=== PATIENT | female | born 1995 | race Caucasian/White ===

== ENCOUNTER → 2021-08-09 | Outpatient (CLI) | payer BC, OTHER, MEDICAID ==
[~2021-08-09] MED LIST: ACET-907 PO; IBUP80TA PO; PRENTAB9 PO; [UNRECOGNIZED DRUG - CODE] PO
--- NOTE | 2021-08-09 13:24 | REP ---
INDICATION: GROWTH GESTATIONAL DIABETES. COMPARISON: None. TECHNIQUE: Real-time sonographic evaluation of the gravid uterus performed. FINDINGS: Estimated gestational age is32 weeks 4 days, EDC 09/30/2021. Today's measurements indicate appropriate growth. Presentation: Cephalic Placenta anterior, grade 1, without evidence of placenta previa. heart rate is recorded at 152 beats per minute. Amniotic fluid is subjectively normal. RAY 16.9, normal 8.4-24.4 SD ratio umbilical artery 2.61, normal 1.81-3.81. RI 0.62, normal 0.49-0.74. Closed cervical length is measured at 3.8 cm. Biometry chart: BPD: 85 mm, 34 weeks 2 days, 74th percentile. HC: 303 mm, 33 weeks 5 days, 67th percentile AC: 309 mm, 34 weeks 6 days, 84th percentile Femur length: 63 mm, 32 weeks 4 days, 51st percentile HC to AC ratio: 0.98, normal range 0.95-1.14. Estimated weight: 2339g, 84th percentile. IMPRESSION: Viable single intrauterine gestation as above. <Electronically signed by Jesus Alberto Kendall > 08/09/21 0983
== END ==
LOC: M WHC 11:24
PROVIDERS: ATTEND Obstetrics & Gynecology
DX: O24.419 Gestational diabetes mellitus in pregnancy, unspecified control (principal)

== ENCOUNTER → 2021-08-09 | Outpatient (CLI) | payer BC | LOC: M PLALAB 09:16 | PROVIDERS: ATTEND Advanced Practice Midwife | DX: Z34.93 Encounter for supervision of normal pregnancy, unspecified, third trimester (principal); Z3A.32 32 weeks gestation of pregnancy ==

== ENCOUNTER 2021-08-24 19:13 | Inpatient (IN) | payer BC, OTHER, MEDICAID ==
[~2021-08-24] VITALS: Ht 160 cm; Wt 152.6 kg
[2021-08-24 19:33] VITALS: BP 112/49
[2021-08-24] MEDS ORDERED: OXYTOCIN INJ 10 UNITS/ML VIAL (J2590) IM PRN (19:55)
[2021-08-24] MEDS ORDERED: LIDOCAINE 1% MDV 20ML VIAL INFIL PRN (19:55)
[2021-08-24] MEDS ORDERED: diphenhydrAMINE 50MG CAP PO PRN (19:55)
[2021-08-24] MEDS ORDERED: OXYTOCIN DRIP 30 UNITS in IV 1 EA IV PRN (19:55)
[2021-08-24] MEDS ORDERED: PENICILLIN G POTASSIUM IV 5 MU in D5W MINI-BAG PLUS 100 ML IV STA (19:55)
[2021-08-24] MEDS ORDERED: LACTATED RINGER'S 1000 ML IV STA (19:55)
[2021-08-24] MEDS ORDERED: CARBOPROST TROMETHAMINE 250 MCG/ML AMP IM PRN (19:55)
[2021-08-24] MEDS ORDERED: ONDANSETRON 4MG/2ML VIAL IV PRN (19:55)
[2021-08-24] MEDS ORDERED: TRANEXAMIC ACID INJection 1,000 MG in NS 100 ML IV PRN (19:55)
[2021-08-24] MEDS ORDERED: METHYLERGONOVINE MALEATE 0.2 MG/ML VIAL (J2210) IM PRN (19:55)
--- OUTSIDE RECORDS SUMMARY | 2021-08-24 20:21 | CCD | Continuity of Care Document ---
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, [employer] Organization Unknown Address Unknown Phone Unavailable Care Team Providers Care Loader Demolder Name Role Phone Juan José Marquez MD Unavailable Problems No Problem Information Available Allergies and Adverse Reactions No Allergy Information Available Medications No Medication Information Available Social History No Social History Information Available Tobacco smoking consumption unknown Female Plan of Treatment Medical; ECHO - 26 wks Dx:obesity Start: 23-Aug-2021 Appointment Request Pediatric Cardiology [facility] 15:00 ECHO, Results No Known Results No Result Information Available Vital Signs No Vital Observation Information Available Payers [place] Group Number: NONE [address] [address] [place] [address] [place] tel: [place] Group [place]: N[place] [address] [address] [place] [address] [place] tel: Harleen Parker [phone] [facility] [id number] tel:
--- OUTSIDE RECORDS SUMMARY | 2021-08-24 20:21 | CCD ---
Author Author [facility] Organization [facility] Address Unknown Phone Unavailable Care Team Providers Care Help Desk Consultant Name Role Phone Kat Dasilva Unavailable PROBLEMS Type Condition ICD9-CM Code [id number] Code Onset Dates Condition S tatus W/U Status Risk SNOMED Code Notes Problem Obesity during third trimester, antepartum O99.213 Active confirmed 112719784 Problem Obesity complicating in third trimester O99.213 Active confirmed Problem Supervision of other normal Z34.80 Ac tive confirm [id number] ALLERGIES No Known Allergies ENCOUNTERS from 1995 to 2021-08-11 Encounter Location Date Provider Diagnosis [facility] [address] [place] [address] [place] [address] Jul, Katduyen Dasilva Obesity complicat ing in third trimester O99.213 ; Gestational diabetes O24.419 and 32 weeks gestation of Z3A.32 IMMUNIZATIONS Vaccine Route Administration Date Status Influenza 6mo & up Fluzone IM Intramuscular Aug 02, 2021 Admi nistered SOCIAL HISTORY Tobacco Use: Social History Observation Description Date Details (start date - stop date) Never Smoker Sex Assigned At : Social History Observation Description Sex Assigned At Unknown Tobacco Use: Question Answer Notes Are you a: never smoker REASON FOR REFERRAL No Information VITAL SIGNS Weight 339 lbs Jul, Weight-kg 153.77 kg Jul, Height 63 in Jul, BMI 60.051 kg/m2 Jul, Blood pressure systolic 124 mm Hg Jul, Blood pressure diastolic 66 mm Hg 26 Oct, 2021 MEDICATIONS Medication SIG (Take, Route, Frequency, Duration) Notes Start Da te End Date Status Symbicort 80-4.5 MCG/ACT 2 puffs Inhalation Once a day Active Albuterol Sulfate 108 (90 Base) MCG/ACT 1 puff as needed Inh alation every 4 hrs Active Vitamin 27-0.8 MG 1 tablet Orally Once a day Active PROCEDURES No Information RESULTS Component Value Reference Range Type and Screen Prenatal1 Reviewed date:08/11/2021 12:59:45 Interpretation: Performing Lab:Counts Include [facility] At [facility], [facility] [address] [facility] [id number] , ,[place] [address] AB SCREEN PNP1 GEL (VIS) NEGATIVE REASON FOR VISIT 1 wk pn nst MEDICAL (GENERAL) HISTORY Type Description Date Medical History asthma Medical History Generalized Anxiety Disorder Medical History STEWART Medical History Obesity Medical History PCOS Medical History Social Anxiety Disorder Medical History Tachycardia Surgical History cholecystectomy Surgical History D&C Surgical History tonsillectomy Goals Section No Information Health Concerns No Information MEDICAL EQUIPMENT No Information MENTAL STATUS No Information FUNCTIONAL STATUS No Information ASSESSMENTS Encounter Date Diagnosis Assessment Notes Treatment Notes Treatm ent Clinical Notes Jul, Obesity complicating pregnan cy in third trimester (ICD-10 - O99.213) Jul, Gestational diabetes (ICD-10 - O24.419) Jul, 32 weeks gestation of (ICD-10 - Z3A.32 ) PLAN OF TREATMENT Treatment Notes Test Name Order Date non-stress test 2021-08-09 Next Appt Details 1 Week Reason:- COB appt with testing Provider Name:Kal Apodaca, 01:20:00 PM, [address] [place] [address] , [place], [address], Provider Name:Kal Apodaca, 11:20:00 AM, [address] [place] [address] , [place], [address], Provider Name:Kat Dasilva, 2021-08-30 09:00:00 AM, [address] [place] [address] , [place], [address], Provider Name:Kal Apodaca, 09:00:00 AM, [facility], , [place], [address], Provider Name:Kal Apodaca, 09:00:00 AM, [address] [place] [address], , [place], [address], [facility] 2021-09-20 10:00:00 AM, [address] [place] [address], , [place], [address], Provider Name:Kal Apodaca, 09:00:00 AM, [address] [place] [address], , [place], [address], Follow Up:1 Week- COB appt with testing Insurance Providers Payer Name Payer Address Payer Phone Insured Name Patient Relati onship to Insured Coverage Start Date Coverage End Date BCBS UTIMARY SANTOS PPO [phone] [facility] [place] [facility] [place] [address] KAYLEN GRAMAJO
--- OUTSIDE RECORDS SUMMARY | 2021-08-24 20:21 | CCD ---
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 Name Role Phone ApodacaKal yu Unavailable PROBLEMS Type Condition ICD9-CM Code [id number] Code Onset Dates Condition S tatus W/U Status Risk SNOMED Code Notes Problem Obesity during third trimester, antepartum O99.213 Active confirmed [id number] Problem Supervision of other normal Z34.80 Ac tive confirm [id number] ALLERGIES No Known Allergies ENCOUNTERS from 1995 to 2021-08-05 Encounter Location Date Provider Diagnosis [facility] [address] [place] [address] [place] [address] Jul, Kal Apodaca Gestational diabetes mellitus in third trimester O24.419 ; Obesity during third trimester, antepartum O99.213 ; 31 weeks gestation of Z3A.31 and Encounter for immunization Z23 IMMUNIZATIONS Vaccine Route Administration Date Status Influenza [...] FOR REFERRAL No Information VITAL SIGNS Weight 337 lbs Jul, Height 63 in Jul, BMI 59.697 kg/m2 Jul, Blood pressure systolic 142 mm Hg Jul, Blood pressure diastolic 72 mm Hg Jul, MEDICATIONS Medication SIG (Take, Route, Frequency, Duration) Notes Start Da te End Date Status Symbicort 80-4.5 MCG/ACT 2 puffs Inhalation Once a day Active Vitamin 27-0.8 MG 1 tablet Orally Once a day Active Albuterol Sulfate 108 (90 Base) MCG/ACT 1 puff as needed Inh alation every 4 hrs Active PROCEDURES from 1995 to 2021-08-05 Procedure Date Ordered Result Body Site non-stress test 2021-08-02 N/A Imm: Fluzone 6mo & older 0.5mL IM Influenza 2021-08-02 N/A RESULTS No Results REASON FOR VISIT 31 WK OB TRANSFER FROM [facility] RECORDS SCANNED IN CHART MEDICAL (GENERAL) HISTORY Type Description Date Medical [...] Notes Treatm ent Clinical Notes Jul, Obesity during third trimester, antepartum (ICD- 10 - O99.213) Jul, Gestational diabetes mellitu s in third trimester (ICD-10 - O24.419) Jul, 31 weeks gestation of (ICD-10 - Z3A.31 ) Jul, Encounter for immunization (ICD-10 - Z23) PLAN OF TREATMENT Treatment Notes Test Name Order Date [facility] OBS FOLLOW UP OR REPEAT 2021-08-02 Next Appt Details 1 Week Reason:- COB appt with testing Provider Name:Kat Dasilva, 2021-08-09 08:00:00 AM, [address] [place] [phone], [place], [address], Provider Name:Kal Apodaca, 01:20:00 PM, [address] [place] [phone], [place], [address], Provider Name:Kal Apodaca, 11:20:00 AM, [address] [place], [place] [id number], [place], [address], Provider Name:Kat Dasilva 2021-08-30 09:00:00 AM, [facility], , [place], [address], Provider Name:Kal Apodaca, 09:00:00 AM, [address] [place] [address], , [place], [address], Provider Name:Kal Apodaca, 09:00:00 AM, [address] [place] [address], , [place], [address], Provider Name:Kat Dasilva, 2021-09-20 10:00:00 AM, [address] [place] [address], , [place], [address], Provider Name:Kal Apodaca, 09:00:00 AM, [address] [place] [address], , [place], [address], Follow Up:1 Week- COB appt with testing Insurance Providers Payer Name Payer Address Payer Phone Insured Name Patient Relati onship to Insured Coverage Start Date Coverage End Date BCBS [place] DANIELLE PPO [phone] [facility] [place] [address] KAYLEN GRAMAJO self
--- OUTSIDE RECORDS SUMMARY | 2021-08-24 20:21 | CCD ---
Author Author [facility] Organization [facility] Address Unknown Phone Unavailable Care Team Providers Care Reconciler Name Role Phone Kal Apodaca Unavailable PROBLEMS Type Condition ICD9-CM Code [id number] Code Onset Dates Condition S tatus W/U Status Risk SNOMED Code Notes Problem Obesity complicating in third trimester O99.213 Active confirmed Problem Obesity, unspecified E66.9 Active confirmed [id number] Problem Supervision of other normal Z34.80 Ac tive confirm [id number] Problem Obesity during third trimester, antepartum O99.213 Active confirmed [id number] ALLERGIES No Known Allergies ENCOUNTERS from 1995 to 2021-08-20 Encounter Location Date Provider Diagnosis [facility] [address] [place] [address] [place] [address] Aug, Kal Apodaca Obesity complicating in third trimester O99.213 ; Obesity, unspecified E66.9 ; Diet controlled gestational diabetes mellitus (GDM) in third trimester O24.410 and 33 weeks gestation of Z3A.33 IMMUNIZATIONS Vaccine Route Administration Date Status Influenza [...] FOR REFERRAL No Information VITAL SIGNS Weight 343 lbs Aug, Height 63 in Aug, BMI 60.76 kg/m2 Aug, Blood pressure systolic 128 mm Hg Aug, Blood pressure diastolic 82 mm Hg Aug, MEDICATIONS Medication SIG (Take, Route, Frequency, Duration) Notes Start Da te End Date Status Symbicort 80-4.5 MCG/ACT 2 puffs Inhalation Once a day Active Albuterol Sulfate 108 (90 Base) MCG/ACT 1 puff as needed Inh alation every 4 hrs Active Vitamin 27-0.8 MG 1 tablet Orally Once a day Active PROCEDURES No Information RESULTS No Results REASON FOR VISIT 1 wk pn nst [...] Notes Treatment Notes Treatm ent Clinical Notes Aug, Obesity complicating pregnan cy in third trimester (ICD-10 - O99.213) Aug, Obesity, unspecified (ICD-10 - E66.9) Aug, Diet controlled gestational diabetes mellitus (GDM) in third trimester (ICD-10 - O24.410) Aug, 33 weeks gestation of (ICD-10 - Z3A.33 ) PLAN OF TREATMENT Pending Tests Test Name Order Date non-stress test 2021-08-16 Next Appt Details Provider Name:Kal Apodaca, 11:20:00 AM, [address] [place] [address], [place], [address], Provider Name:Kat Dasilva, 2021-08-30 09:00:00 AM, [address] [place] [address], [place], [address], Provider Name:Kal Apodaca, 09:00:00 AM, [address] [place] [address], [place], [address], Provider Name:Kal Apodaca, 09:00:00 AM, [address] [place] [address], [place], [address], Provider Name:Kat Dasilva, 2021-09-20 10:00:00 AM, [address] [facility], , [place], [address], Provider Name:Kal Apodaca, 09:00:00 AM, [address] [facility], , [place], [address], Insurance Providers Payer Name Payer Address Payer Phone Insured Name Patient Relati onship to Insured Coverage Start Date Coverage End Date BCBS MARSHA SANTOS PPO [phone] [facility] [id number] KAYLEN GRAAMJO self
--- OUTSIDE RECORDS SUMMARY | 2021-08-24 20:22 | CCD ---
Author Author [facility] Organization [facility] Address Unknown Phone Unavailable Care Team Providers Care Consultant Electronics Name Role Phone Armand HERNADEZPYusef Unavailable Unava ilable Armand HERNADEZOXYGEN PLANT OPERATOR-C Unavailable Unava ilable Armand HERNADEZOXYGEN PLANT OPERATORLisethC Unavailable Unava ilable Armand HERNADEZPYusef Unavailable Unava ilable KOPIDLANSKY, R MERY MECHANICAL DESIGN ENGINEER-OXYGEN PLANT OPERATOR-C Unavailable Unava ilable KOPIDLANSKY, Armand WAN MECHANICAL DESIGN ENGINEER-OXYGEN PLANT OPERATOR-C Unavailable Unava ilable KOPIDLANSKY, Armand WAN MECHANICAL DESIGN ENGINEER-OXYGEN PLANT OPERATOR-C Unavailable Unava ilable KOPIDLANSKY, Armand WAN APRN-OXYGEN PLANT OPERATOR-C Unavailable Unava ilable KOPIDLANSKY, Armand WAN APRN-OXYGEN PLANT OPERATOR-C Unavailable Unava ilable KOPIDLANSKY, Armand WAN APRN-OXYGEN PLANT OPERATOR-C Unavailable Unava ilable KOPIDLANSKY, Armand WAN APRN-OXYGEN PLANT OPERATOR-C Unavailable Unava ilable KOPIDLANSKY, Armand WAN APRN-OXYGEN PLANT OPERATOR-C Unavailable Unava ilable KOPIDLANSKY, Armand WAN APRN-OXYGEN PLANT OPERATOR-C Unavailable Unava ilable KOPIDLANSKY, Armand WAN APRN-OXYGEN PLANT OPERATOR-C Unavailable Unava ilable KOPIDLANSKY, Armand WAN APRN-OXYGEN PLANT OPERATOR-C Unavailable Unava ilable KOPIDLANSKY, Armand WAN APRN-OXYGEN PLANT OPERATOR-C Unavailable Unava ilable KOPIDLANSKY, Armand WAN APRN-OXYGEN PLANT OPERATOR-C Unavailable Unava ilable KOPIDLANSKY, Armand WAN APRN-OXYGEN PLANT OPERATOR-C Unavailable Unava ilable KOPIDLANSKY, Armand WAN APRN-OXYGEN PLANT OPERATOR-C Unavailable Unava ilable KOPIDLANSKY, Armand WAN APRN-OXYGEN PLANT OPERATOR-C Unavailable Unava ilable KOPIDLANSKY, Armand WAN APRN-OXYGEN PLANT OPERATOR-C Unavailable Unava ilable KOPIDLANSKY, Armand WAN APRN-OXYGEN PLANT OPERATOR-C Unavailable Unava ilable KOPIDLANSKY, Armand WAN MECHANICAL DESIGN ENGINEER-OXYGEN PLANT OPERATOR-C Unavailable Unava ilable KOPIDLANSKY, Armand WAN MECHANICAL DESIGN ENGINEER-OXYGEN PLANT OPERATOR-C Unavailable Unava ilable KOPIDLANSKY, Armand WAN MECHANICAL DESIGN ENGINEER-OXYGEN PLANT OPERATOR-C Unavailable Unava ilable KOPIDLANSKY, Armand WAN MECHANICAL DESIGN ENGINEER-OXYGEN PLANT OPERATOR-C Unavailable Unava ilable KOPIDLANSKY, Armand WAN APRN-OXYGEN PLANT OPERATOR-C Unavailable Unava ilable KOPIDLANSKY, Armand WAN APRN-OXYGEN PLANT OPERATOR-C Unavailable Unava ilable KOPIDLANSKY, R MERY MECHANICAL DESIGN ENGINEER-OXYGEN PLANT OPERATOR-C Unavailable Unava ilable KOPIDLANSKY, Armand WAN MECHANICAL DESIGN ENGINEER-OXYGEN PLANT OPERATOR-C Unavailable Unava ilable KOPIDLANSKY, Armand WAN MECHANICAL DESIGN ENGINEER-OXYGEN PLANT OPERATOR-C Unavailable Unava ilable KOPIDLANSKY, Armand WAN MECHANICAL DESIGN ENGINEER-OXYGEN PLANT OPERATOR-C Unavailable Unava ilable KOPIDLANSKY, Armand WAN MECHANICAL DESIGN ENGINEER-OXYGEN PLANT OPERATOR-C Unavailable Unava ilable KOPIDLANSKY, Armand WAN MECHANICAL DESIGN ENGINEER-OXYGEN PLANT OPERATOR-C Unavailable Unava ilable Arvin JOSE MD Unavailable Unavailable Arvin JOSE MD Unavailable Unavailable Arvin JOSE MD Unavailable Unavailable Arvin JOSE MD Unavailable Unavailable Arvin JOSE MD Unavailable Unavailable Arvin JOSE MD Unavailable Unavailable Arvin JOSE MD Unavailable Unavailable Arvin JOSE MD Unavailable Unavailable Arvin JOSE MD Unavailable Unavailable Arvin JOSE MD Unavailable Unavailable Arvin JOSE MD Unavailable Unavailable Arvin JOSE MD Unavailable Unavailable Arvin JOSE MD Unavailable Unavailable Arvin JOSE MD Unavailable Unavailable Arvin JOSE MD Unavailable Unavailable Arvin JOSE MD Unavailable Unavailable Arvin JOSE MD Unavailable Unavailable Arvin JOSE MD Unavailable Unavailable Arvin JOSE MD Unavailable Unavailable Arvin JOSE MD Unavailable Unavailable Arvin JOSE MD Unavailable Unavailable Arvin JOSE MD Unavailable Unavailable Arvin JOSE MD Unavailable Unavailable Arvin JOSE MD Unavailable Unavailable Arvin JOSE MD Unavailable Unavailable Arvin JOSE MD Unavailable Unavailable Arvin JOSE MD Unavailable Unavailable Arvin JOSE MD Unavailable Unavailable Arvin JOSE MD Unavailable Unavailable Arvin JOSE MD Unavailable Unavailable Arvin JOSE MD Unavailable Unavailable Arvin JOSE MD Unavailable Unavailable Arvin JOSE MD Unavailable Unavailable Arvin JOSE MD Unavailable Unavailable Arvin JOSE MD Unavailable Unavailable Arvin JOSE MD Unavailable Unavailable Arvin JOSE MD Unavailable Unavailable Arvin JOSE MD Unavailable Unavailable Arvin JOSE MD Unavailable Unavailable Arvin JOSE MD Unavailable Unavailable Arvin JOSE MD Unavailable Unavailable Arvin JOSE MD Unavailable Unavailable Arvin JOSE MD Unavailable Unavailable Arvin JOSE MD Unavailable Unavailable Arvin JOSE MD Unavailable Unavailable Arvin JOSE MD Unavailable Unavailable Arvin JOSE MD Unavailable Unavailable Arvin JOSE MD Unavailable Unavailable REBECA, Arvin MARTIN MD Unavailable Unavailable REBECA, Arvin MARTIN MD Unavailable Unavailable REBECA, Arvin MARTIN MD Unavailable Unavailable REBECA, Arvin MARTIN MD Unavailable Unavailable REBECA, Arvin MARTIN MD Unavailable Unavailable REBECA, Arvin MARTIN MD Unavailable Unavailable REBECA, Arvin MARTIN MD Unavailable Unavailable REBECA, Arvin MARTIN MD Unavailable Unavailable REBECA, Arvin MARTIN MD Unavailable Unavailable REBECA, Arvin MARTIN MD Unavailable Unavailable REBECA, Arvin MARTIN MD Unavailable Unavailable MALAVE, R KEZIA CHAPLAIN RESIDENT Unavailable Unavailable MALAVE, R KEZIA CHAPLAIN RESIDENT Unavailable Unavailable MALAVE, R KEZIA CHAPLAIN RESIDENT Unavailable Unavailable MALAVE, R KEZIA CHAPLAIN RESIDENT Unavailable Unavailable MALAVE, R KEZIA CHAPLAIN RESIDENT Unavailable Unavailable MALAVE, R KEZIA CHAPLAIN RESIDENT Unavailable Unavailable MALAVE, R KEZIA CHAPLAIN RESIDENT Unavailable Unavailable MALAVE, R KEZIA CHAPLAIN RESIDENT Unavailable Unavailable MALAVE, R KEZIA CHAPLAIN RESIDENT Unavailable Unavailable MALAVE, R KEZIA CHAPLAIN RESIDENT Unavailable Unavailable MALAVE, R KEZIA CHAPLAIN RESIDENT Unavailable Unavailable MALAVE, R KEZIA CHAPLAIN RESIDENT Unavailable Unavailable MALAVE, R KEZIA CHAPLAIN RESIDENT Unavailable Unavailable MALAVE, R KEZIA CHAPLAIN RESIDENT Unavailable Unavailable MALAVE, R KEZIA CHAPLAIN RESIDENT Unavailable Unavailable MALAVE, R KEZIA CHAPLAIN RESIDENT Unavailable Unavailable MALAVE, R KEZIA CHAPLAIN RESIDENT Unavailable Unavailable MALAVE, R KEZIA CHAPLAIN RESIDENT Unavailable Unavailable MALAVE, R KEZIA CHAPLAIN RESIDENT Unavailable Unavailable MALAVE, R KEZIA CHAPLAIN RESIDENT Unavailable Unavailable MALAVE, R KEZIA CHAPLAIN RESIDENT Unavailable Unavailable MALAVE, R KEZIA CHAPLAIN RESIDENT Unavailable Unavailable MALAVE, R KEZIA CHAPLAIN RESIDENT Unavailable Unavailable MALAVE, R KEZIA CHAPLAIN RESIDENT Unavailable Unavailable MALAVE, R KEZIA CHAPLAIN RESIDENT Unavailable Unavailable MALAVE, R KEZIA CHAPLAIN RESIDENT Unavailable Unavailable MALAVE, R KEZIA CHAPLAIN RESIDENT Unavailable Unavailable MALAVE, R KEZIA CHAPLAIN RESIDENT Unavailable Unavailable MALAVE, R KEZIA CHAPLAIN RESIDENT Unavailable Unavailable MALAVE, R KEZIA CHAPLAIN RESIDENT Unavailable Unavailable MALAVE, R KEZIA CHAPLAIN RESIDENT Unavailable Unavailable MALAVE, R KEZIA CHAPLAIN RESIDENT Unavailable Unavailable MALAVE, R KEZIA CHAPLAIN RESIDENT Unavailable Unavailable MALAVE, R KEZIA CHAPLAIN RESIDENT Unavailable Unavailable MALAVE, R KEZIA CHAPLAIN RESIDENT Unavailable Unavailable MALVAE, R KEZIA CHAPLAIN RESIDENT Unavailable Unavailable MALAEV, R KEZIA CHAPLAIN RESIDENT Unavailable Unavailable MALAVE, R KEZIA CHAPLAIN RESIDENT Unavailable Unavailable MALAVE, R KEZIA CHAPLAIN RESIDENT Unavailable Unavailable MALAVE, R KEZIA CHAPLAIN RESIDENT Unavailable Unavailable MALAVE, R KEZIA CHAPLAIN RESIDENT Unavailable Unavailable MALAVE, R KEZIA CHAPLAIN RESIDENT Unavailable Unavailable MALAVE, R KEZIA CHAPLAIN RESIDENT Unavailable Unavailable MALAVE, R KEZIA CHAPLAIN RESIDENT Unavailable Unavailable Kassie, Arvin Perez MD Unavailable Unavailable Kassie, K Chris MD Unavailable Unavailable Kassie, K Chris Unavailable Unavailable Kassie, K Chris MD Unavailable Unavailable Kassie, K Chris MD Unavailable Unavailable Kassie, K Chris MD Unavailable Unavailable Kassie, K Chris Unavailable Unavailable Kassie, K Chris Unavailable Unavailable Kassie, K Chris MD Unavailable Unavailable Kassie, K Chris MD Unavailable Unavailable Kassie, K Chris Unavailable Unavailable Jonah Valentino MD Unavailable Unavailable Marquez II, A Juan José RANDOLPH Unavailable Unavailable Marquez II, A Juan José RANDOLPH Unavailable Unavailable Marquez II, A Juan José RANDOLPH Unavailable Unavailable Marquez II, Guilherme Can MD Unavailable Unavailable Marquez II, Guilherme Can MD Unavailable Unavailable Marquez II, Guilherme Can MD Unavailable Unavailable Marquez II, A Juan José RANDOLPH Unavailable Unavailable Marquez II, Guilherme Can MD Unavailable Unavailable Marquez II, Guilherme Can MD Unavailable Unavailable Marquez II, Guilherme Can MD Unavailable Unavailable Marquez II, Guilherme Can MD Unavailable Unavailable Marquez II, Guilherme Can MD Unavailable Unavailable Marquez II, A Juan José RANDOLPH Unavailable Unavailable Marquez II, Guilherme Can MD Unavailable Unavailable Marquez II, Guilherme Can MD Unavailable Unavailable Marquez II, Guilherme Can MD Unavailable Unavailable Marquez II, Guilherme Can MD Unavailable Unavailable Marquez II, Guilherme Can MD Unavailable Unavailable Marquez II, Guilherme Can MD Unavailable Unavailable Marquez II, Guilherme Can MD Unavailable Unavailable Marquez II, Guilherme Can MD Unavailable Unavailable Marquez II, Guilherme Can MD Unavailable Unavailable Marquez II, Guilherme Can MD Unavailable Unavailable Marquez II, Guilherme Can MD Unavailable Unavailable Marquez II, Guilherme Can MD Unavailable Unavailable Marquez II, Guilherme Can MD Unavailable Unavailable Marquez II, Guilherme Can MD Unavailable Unavailable Marquez II, Guilherme Can MD Unavailable Unavailable Marquez II, Guilherme Can MD Unavailable Unavailable Marquez II, Guilherme Can MD Unavailable Unavailable Marquez II, Guilherme Can MD Unavailable Unavailable Marquez II, Guilherme Can MD Unavailable Unavailable Marquez II, A Juan José RANDOLPH Unavailable Unavailable Marquez II, Guilherme Can MD Unavailable Unavailable Marquez II, Guilherme Can MD Unavailable Unavailable Marquez II, A Juan José MD Unavailable Unavailable Marquez II, A Juan José MD Unavailable Unavailable Marquez II, A Juan José MD Unavailable Unavailable Marquez II, A Juan José MD Unavailable Unavailable Marquez II, A Juan José MD Unavailable Unavailable Marquez II, A Juan José MD Unavailable Unavailable Marquez II, A Juan José MD Unavailable Unavailable Marquez II, A Juan José MD Unavailable Unavailable Marquez II, A Juan José MD Unavailable Unavailable Marquez II, A Juan José MD Unavailable Unavailable Marquez II, A Juan José MD Unavailable Unavailable Marquez II, A Juan José MD Unavailable Unavailable Marquez II, A Juan José MD Unavailable Unavailable Marquez II, A Juan José MD Unavailable Unavailable Marquez II, A Juan José MD Unavailable Unavailable Marquez II, A Juan José MD Unavailable Unavailable Marquez II, A Juan José MD Unavailable Unavailable Marquez II, A Juan José MD Unavailable Unavailable Marquez II, A Juan José MD Unavailable Unavailable Marquez II, A Juan José MD Unavailable Unavailable Marquez II, A Juan José MD Unavailable Unavailable Shiner-Fish, Aby DO Unavailable Unavailable Juani-Fish, Aby DO Unavailable Unavailable Shiner-Fish, Aby DO Unavailable Unavailable Juani-Fish, Aby DO Unavailable Unavailable Shiner-Fish, Aby DO Unavailable Unavailable Shiner-Fish, Aby DO Unavailable Unavailable Juani-Fish, Aby DO Unavailable Unavailable Shiner-Fish, Aby DO Unavailable Unavailable Shiner-Fish, Aby DO Unavailable Unavailable Shiner-Fish, Aby DO Unavailable Unavailable Shiner-Fish, Aby DO Unavailable Unavailable Shiner-Fish, Aby DO Unavailable Unavailable Juani-Fish, Aby DO Unavailable Unavailable Shiner-Fish, Aby DO Unavailable Unavailable Shiner-Fish, Aby DO Unavailable Unavailable Shiner-Fish, Aby DO Unavailable Unavailable Shiner-Fish, Aby DO Unavailable Unavailable Shiner-Fish, Aby DO Unavailable Unavailable Juani-Fish, Aby DO Unavailable Unavailable Shiner-Fish, Aby DO Unavailable Unavailable Shiner-Fish, Aby DO Unavailable Unavailable Juani-Fish, Aby DO Unavailable Unavailable Shiner-Fish, Aby DO Unavailable Unavailable Juani-Fish, Aby DO Unavailable Unavailable Juani-Fish, Aby DO Unavailable Unavailable Juani-Fish, Aby DO Unavailable Unavailable Shiner-Fish, Aby DO Unavailable Unavailable Shiner-Fish, Aby DO Unavailable Unavailable Shiner-Fish, Aby DO Unavailable Unavailable Shiner-Fish, Aby DO Unavailable Unavailable Shiner-Fish, Aby DO Unavailable Unavailable Juani-Fish, Aby DO Unavailable Unavailable Juani-Fish, Aby DO Unavailable Unavailable Shiner-Fish, Aby DO Unavailable Unavailable Shiner-Fish, Aby DO Unavailable Unavailable Shiner-Fish, Aby DO Unavailable Unavailable Juani-Fish, Aby DO Unavailable Unavailable Shiner-Fish, Aby DO Unavailable Unavailable Shiner-Fish, Aby DO Unavailable Unavailable Juani-Fish, Aby DO Unavailable Unavailable Shiner-Fish, Aby DO Unavailable Unavailable Juani-Fish, Aby DO Unavailable Unavailable Shiner-Fish, Aby DO Unavailable Unavailable Juani-Fish, Aby DO Unavailable Unavailable Juani-Fish, Aby DO Unavailable Unavailable Juani-Fish, Aby DO Unavailable Unavailable Juani-Fish, Aby DO Unavailable Unavailable Juani-Fish, Aby DO Unavailable Unavailable Shiner-Fish, Aby DO Unavailable Unavailable Juani-Fish, Aby DO Unavailable Unavailable Juani-Fish, Aby DO Unavailable Unavailable Juani-Fish, Aby DO Unavailable Unavailable Shiner-Fish, Aby DO Unavailable Unavailable Shiner-Fish, Aby DO Unavailable Unavailable Juani-Fish, Aby DO Unavailable Unavailable Juani-Fish, Aby DO Unavailable Unavailable Juani-Fish, Aby DO Unavailable Unavailable Shiner-Fish, Aby DO Unavailable Unavailable Juani-Fish, Aby DO Unavailable Unavailable Juani-Fish, Aby DO Unavailable Unavailable Juani-Fish, Aby DO Unavailable Unavailable Juani-Fish, Aby DO Unavailable Unavailable Shiner-Fish, Aby DO Unavailable Unavailable Juani-Fish, Aby DO Unavailable Unavailable Shiner-Fish, Aby DO Unavailable Unavailable Shiner-Fish, Aby DO Unavailable Unavailable Shiner-Fish, Aby DO Unavailable Unavailable Shiner-Fish, Aby DO Unavailable Unavailable Armand Benoit DO Unavailable Unavailable Armand Benoit DO Unavailable Unavailable Birnarda, R Kaur DO Unavailable Unavailable Birchenough, R Kaur DO Unavailable Unavailable Birchenough, R Kaur DO Unavailable Unavailable Birchenough, R Kaur DO Unavailable Unavailable Birchenough, R Kaur DO Unavailable Unavailable Birchenough, R Kaur DO Unavailable Unavailable Birchenough, R Kaur DO Unavailable Unavailable Birchenough, R Kaur DO Unavailable Unavailable Birchenough, R Kaur DO Unavailable Unavailable Birchenough, R Kaur DO Unavailable Unavailable Birchenough, R Kaur DO Unavailable Unavailable Birchenough, R Kaur DO Unavailable Unavailable Birchenough, R Kaur DO Unavailable Unavailable Birchenough, R Kaur DO Unavailable Unavailable Birchenough, R Kaur DO Unavailable Unavailable Birchenough, R Kaur DO Unavailable Unavailable Birchenough, R Kaur DO Unavailable Unavailable Galo PaulC Unavailable Unavailable Galo Paul PA-C Unavailable Unavailable MISHEL OVIEDO Unavailable Unavailable Kristina Jc MD Unavailable Unavailable Kristina Jc MD Unavailable Unavailable Kristina Jc MD Unavailable Unavailable Kristina Jc MD Unavailable Unavailable Kristina Jc MD Unavailable Unavailable Kristina Jc MD Unavailable Unavailable Kristina Jc MD Unavailable Unavailable Kristina Jc MD Unavailable Unavailable Kristina Jc MD Unavailable Unavailable Kristina Jc MD Unavailable Unavailable Kristina Jc MD Unavailable Unavailable Kristina Jc MD Unavailable Unavailable Kristina Jc MD Unavailable Unavailable Kristina Jc MD Unavailable Unavailable Kristina Jc MD Unavailable Unavailable Kristina Jc MD Unavailable Unavailable Kristina Jc MD Unavailable Unavailable Kristina Jc MD Unavailable Unavailable Kristina Jc MD Unavailable Unavailable Kristina Jc MD Unavailable Unavailable Kristina Jc MD Unavailable Unavailable Kristina Jc MD Unavailable Unavailable Kristina Jc MD Unavailable Unavailable Kristina Jc MD Unavailable Unavailable Kristina Jc MD Unavailable Unavailable Kristina Jc MD Unavailable Unavailable Kristina Jc MD Unavailable Unavailable Kristina Jc MD Unavailable Unavailable Kristina Jc MD Unavailable Unavailable Kristina Jc MD Unavailable Unavailable Kristina Jc MD Unavailable Unavailable Kristina Jc MD Unavailable Unavailable Kristina Jc MD Unavailable Unavailable Kristina Jc MD Unavailable Unavailable Kristina Jc MD Unavailable Unavailable Kristina Jc MD Unavailable Unavailable Kristina Jc MD Unavailable Unavailable Kristina Jc MD Unavailable Unavailable Kristina Jc MD Unavailable Unavailable Kristina Jc MD Unavailable Unavailable Kristina Jc MD Unavailable Unavailable Kristina Jc MD Unavailable Unavailable Kristina Jc MD Unavailable Unavailable Kristina Jc MD Unavailable Unavailable Kristina cJ MD Unavailable Unavailable Pako Barber MD Unavailable Unavailable of L.C[facility] Medicine Occupation Unavailable Unavailable Marquez II, A Juan José RANDOLPH Unavailable Unavailable Marquez II, A Juan José RANDOLPH Unavailable Unavailable Marquez II, Guilherme Can MD Unavailable Unavailable Marquez II, Guilherme Can MD Unavailable Unavailable Marquez II, A Juan José RANDOLPH Unavailable Unavailable Marquez II, A Juan José RANDOLPH Unavailable Unavailable Marquez II, A Juan José RANDOLPH Unavailable Unavailable Marquez II, A Juan José RANDOLPH Unavailable Unavailable Marquez II, A Juan José RANDOLPH Unavailable Unavailable Marquez II, A Juan José RANDOLPH Unavailable Unavailable Marquez II, A Juan José RANDOLPH Unavailable Unavailable Marquez II, A Juan José RANDOLPH Unavailable Unavailable Marquez II, A Juan José RANDOLPH Unavailable Unavailable Marquez II, A Juan José RANDOLPH Unavailable Unavailable Marquez II, A Juan José RANDOLPH Unavailable Unavailable Marquez II, A Juan José RANDOLPH Unavailable Unavailable Marquez II, A Juan José RANDOLPH Unavailable Unavailable Marquez II, A Juan José RANDOLPH Unavailable Unavailable Marquez II, A Juan José RANDOLPH Unavailable Unavailable Marquez II, A Juan José RANDOLPH Unavailable Unavailable Marquez II, Guilherme Can MD Unavailable Unavailable Marquez II, Guilherme Can MD Unavailable Unavailable Marquez II, Guilherme Can MD Unavailable Unavailable Marquez II, Guilherme Can MD Unavailable Unavailable Marquez II, Guilherme Can MD Unavailable Unavailable Marquez II, Guilherme Can MD Unavailable Unavailable Marquez II, Guilherme Can MD Unavailable Unavailable Marquez II, Guilherme Can MD Unavailable Unavailable Marquez II, Guilherme Can MD Unavailable Unavailable Marquez II, Guilherme Can MD Unavailable Unavailable Marquez II, Guilherme Can MD Unavailable Unavailable Marquez II, A Juan José RANDOLPH Unavailable Unavailable Marquez II, A Juan José RANDOLPH Unavailable Unavailable Marquez II, Guilherme Can MD Unavailable Unavailable Marquez II, Guilherme Can MD Unavailable Unavailable Marquez II, Guilherme Can MD Unavailable Unavailable Marquez II, Guilherme Can MD Unavailable Unavailable Marquez II, Guilherme Can MD Unavailable Unavailable Marquez II, A Juan José RANDOLPH Unavailable Unavailable Marquez II, A Juan José RANDOLPH Unavailable Unavailable Marquez II, A Juan José RANDOLPH Unavailable Unavailable Marquez II, A Juan José RANDOLPH Unavailable Unavailable Marquez II, A Juan José MD Unavailable Unavailable Marquez II, A Juan José MD Unavailable Unavailable Marquez II, A Juan José MD Unavailable Unavailable Marquez II, A Juan José MD Unavailable Unavailable Marquez II, A Juan José MD Unavailable Unavailable Marquez II, A Juan José MD Unavailable Unavailable Marquez II, A Juan José MD Unavailable Unavailable Marquez II, A Juan José MD Unavailable Unavailable Marquez II, A Juan José MD Unavailable Unavailable Marquez II, A Juan José MD Unavailable Unavailable Marquez II, A Juan José MD Unavailable Unavailable Marquez II, A Juan José MD Unavailable Unavailable Marquez II, A Juan José MD Unavailable Unavailable Marquez II, A Juan José MD Unavailable Unavailable Re-disclosure Warning The records that you are about to access may contain information from federally-assisted alcohol or drug abuse programs. If such information is present, then the following federally mandated warning applies: This information has been disclosed to you from records protected by federal confidentiality rules (42 CFR part 2). The federal rules prohibit you from making any further disclosure of this information unless further disclosure is expressly permitted by the written consent of the person to whom it pertains or as otherwise permitted by 42 CFR part 2. A general authorization for the release of medical or other information is NOT sufficient for this purpose. The Federal rules restrict any use of the information to criminally investigate or prosecute any alcohol or drug abuse patient.The records that you are about to access may contain highly sensitive health information, the redisclosure of which is protected by Article 27-F of the [facility] Public Health law. If you continue you may have access to information: Regarding HIV / AIDS; Provided by facilities licensed or operated by the [facility] Office of Mental Health; or Provided by the [facility] Office for People With Developmental Disabilities. If such information is present, then the following [facility] mandated warning applies: This information has been disclosed to you from confidential records which are protected by state law. State law prohibits you from making any further disclosure of this information without the specific written consent of the person to whom it pertains, or as otherwise permitted by law. Any unauthorized further disclosure in violation of state law may result in a fine or group home sentence or both. A general authorization for the release of medical or other information is NOT sufficient authorization for further disc losure. Allergies and Adverse Reactions Type Description Substance Reaction Status Data Source(s ) Drug allergy No Known Drug Allergies No Known Drug Allergies [facility] Food allergy No Known Food Allergies No Known Food Allergies [facility] Environmental Allergy SEASONAL ALLERGIES SEASONAL ALLERGIES Rhinitis [place] [facility] Family History Family Member Name Family Member Gender Family Member Status Date o f Status Description Data Source(s) Unknown Condition [facility] [facility] Encounters Encounter Providers Location Date Indications Data Source(s ) ( COB) [facility] Complicated OB [address] [place] [address] 08/16/2021 12:00:00 AM EDT eCW1 ([facility]) ( COB) [facility] Complicated OB [address] [place] [address] 08/09/2021 12:00:00 AM EDT eCW1 ([facility]) ( NEWOB) [facility] New OB Visit [address] [place] [address] 08/02/2021 12:00:00 AM EDT eCW1 ([facility]) Outpatient Attender: Juan José Marquez II 11:20:00 AM EDT - 07/29/2021 12:22:00 [facility]. Outpatient Attender: Peter Andujarrer: MERY HERNADEZ MECHANICAL DESIGN ENGINEER-OXYGEN PLANT OPERATOR-C 07/26/2021 09:54:00 AM EDT - 07/26/2021 10:29:00 AM EDT [facility] Outpatient Attender: Peter Valentino MD 07/22/2021 03:26: 00 PM EDT [facility] Outpatient Attender: Juan José Marquez II 07/22/2021 01:00:0 0 PM EDT RAY, BPP [facility] RAY, BPP Outpatient Attender: Juan José Marquez II 05/2021 11:32:00 AM EDT - 07/22/2021 01:00:00 PM [facility] Outpatient Attender: Juan José Marquez II 07/22/2021 12:00:0 0 AM EDT [facility] Outpatient Attender: Peter Lawrenceferrer: MERY MARTINEZ 07/12/2021 08:24:00 AM EDT - 07/12/2021 09:17:00 AM EDT [facility] Outpatient Attender: Peter Valentino MD 07/07/2021 07:15: 00 PM EDT [facility] Admission cancelled. Disregard status an d admitted date. Outpatient Attender: Juan José Truongford 07/05/2021 0 9:31:00 AM EDT GROWTH O99.210 [facility] GROWTH O99.210 Outpatient Attender: Peter Andujarrer: MERY MARTINEZ 2021 08:34:00 AM EDT - 2021 09:19:00 AM EDT [facility] Outpatient Attender: VERONICA RILEYeferrer: [id number] 05/31/2021 12:00:00 AM EDT - 05/31/2021 02:36:34 PM ED T Obesity complicating , unspecified trimester [facility] Obesity complicating , unspecif ied trimester Outpatient Attender: MISHEL OVIEDOReferrer: Juan José valentine II 05/31/2021 12:00:00 AM EDT [facility] Outpatient Attender: Peter Andujarrer: MERY MARTINEZ 05/24/2021 10:28:00 AM EDT - 05/24/2021 11:13:00 AM EDT [facility] Outpatient Attender: Peter Valentino MD 05/03/2021 12:12:00 PM EDT ANATOMY 20 WEEK [facility] ANATOMY 20 WEEK Outpatient Attender: Peter Andujarrer: MERY MARTINEZ 05/03/2021 11:04:00 AM EDT - 05/03/2021 12:10:00 PM EDT [facility] Outpatient Attender: Kaur Farnsworther: MERY HERNADEZ MECHANICAL DESIGN ENGINEER-OXYGEN PLANT OPERATOR-C 04/06/2021 02:35:00 PM EDT - 04/06/2021 04:01:00 PM EDT [facility] Outpatient Attender: Juan José Marquez JAZMÍN 04/02/2021 10:03:0 0 AM EDT Z34.90 [facility] Z34.90 Outpatient Attender: Juan José Marquez 03/31/2021 0 8:23:00 AM EDT E66.01,J45.909,Z79.51,Z34.90,O99.210,Z68.43,Z34.90 [facility] E66.01,J45.909,Z79.51,Z34.90,O99.210,Z68 .43,Z34.90 Outpatient Attender: Juan José Marquez JAZMÍN 03/09/2021 10:43:0 0 AM EDT CHECK FHR [facility] CHECK FHR Outpatient Attender: Juan José Truongford Referrer: MERY HERNADEZ APRN-OXYGEN PLANT OPERATOR-Leticia 03/09/2021 09:34:00 AM EDT - 03/09/2021 10:47:00 AM EDT [facility] Outpatient Attender: Aby Heck DO 2020 06:10:00 AM EDT Z20.822 [facility] Z20.822 Outpatient Attender: Aby Heck DO 2020 09:20:00 PM EDT [facility] COVID TESTING Z20.822 [facility] COVID TESTING Z20.822 Outpatient Attender: Pako Barber MD 02/10/2021 1 1:49:00 AM EDT Z34.90,Z12.4,Z91.89 [facility] Z34.90,Z12.4,Z91.89 Outpatient Attender: Pako Barber MD Referrer: MERY HERNADEZ APRN-OXYGEN PLANT OPERATOR-C 02/10/2021 08:37:00 AM EDT - 02/10/2021 09:25:00 AM EDT [facility] Outpatient Attender: Pako Barber MD 02/07/2021 0 2:05:00 PM EDT DATING Z34.90 [facility] DATING Z34.90 Outpatient Attender: KEZIA MALAVE NP 02/01/2021 12:00:0 0 AM EDT [facility] Outpatient Attender: Kaur Harrisonefraínendy OSORIO 01/31/2021 11:33 :00 AM EDT N91.2 [facility] N91.2 Emergency Attender: Angel Paul PA-C 07:02:00 PM EDT - 01/28/2021 09:47:00 PM EDT CRAMPING/PASSING CLOTS [facility] l CRAMPING/PASSING CLOTS Patient discharged. Outpatient Attender: Pako Barber MD 01/27/2021 01:10:0 0 PM EDT N91.2 [facility] N91.2 Outpatient Attender: Jarrod 01/26/2021 1 2:00:00 AM EDT STEWART/PPD/RESP [facility] STEWART/PPD/RESP Outpatient Attender: Aby Heck DO 2020 09:30:[address] [facility] COVID TESTING [facility] COVID TESTING Outpatient Attender: Aby Heck DO 2020 09:40:00 PM EDT [facility] COVID TESTING Z20.822 [facility] COVID TESTING Z20.822 Outpatient Attender: Aby Heck DO 2020 05:50:00 PM EDT [facility] COVID TESTING [facility] COVID TESTING Outpatient Attender: MERY ENGLAND APRN-FNP-CReferrer: MERY MARTINEZ 01/18/2021 09:13:00 AM EDT - 01/18/2021 10:30:00 AM EDT [facility] l Outpatient Attender: MERY MARTINEZ 01/11/2021 01:02:00 PM EDT - 01/28/2021 11:25:00 AM EDT L SHOULDER PAIN [facility] L SHOULDER PAIN Patient discharged. Outpatient Attender: MERY ENGLAND [id number]: MERY HERNADEZ APRN-OXYGEN PLANT OPERATOR-C 01/04/2021 07:15:00 AM EDT - 01/04/2021 07:51:00 AM EDT [facility] Outpatient Attender: MERY ENGLAND [id number]: MERY HERNADEZ APRN-OXYGEN PLANT OPERATOR-C 12/28/2020 08:47:00 AM EDT - 12/28/2020 09:22:00 AM EDT [facility] Emergency Attender: Chris Fernando MD 12/27/19 11:13:00 AM EDT - 12/26/2020 03:29:00 PM EDT SHOULDER PAIN [facility] SHOULDER PAIN Patient discharged. Outpatient Attender: Aby Heck DO 2020 09:25:00 AM EST [facility] COVID TESTING [facility] COVID TESTING Outpatient Attender: Aby Heck DO 2020 10:00:[address] [facility] COVID TESTING [facility] COVID TESTING Outpatient Attender: Aby Heck DO 2020 12:40:00 AM EST [facility] COVID TESTING [facility] COVID TESTING Outpatient Attender: Aby Heck DO 2020 05:30:00 AM EST [place] [place] Z20.822 [facility] COVID TESTING Z20.822 Outpatient Attender: Aby Heck DO 2020 10:36:00 AM EST [facility] COVID TESTING Z20.828 [facility] COVID TESTING Z20.828 Outpatient Attender: Aby Heck DO 2020 01:15:00 AM EST [facility] COVID TESTING [facility] COVID TESTING Outpatient Attender: Aby Heck DO 2020 05:30:00 AM EST [place] [facility] COVID TESTING Outpatient Attender: Aby Cifuentesone DO 2020 06:10:00 AM EST [place] [facility] COVID TESTING Outpatient Attender: Aby Cifuentesone DO 2020 06:10:00 AM EST Z20.828 [facility] Z20.828 Outpatient Attender: Aby Cifuentesone DO 2020 09:45:00 AM EST [place] [facility] COVID TESTING Outpatient Attender: Aby Cifuentesone DO 2020 05:45:00 PM EST [facility] COVID TESTING [facility] COVID TESTING Outpatient Attender: Aby Cifuentesone DO 2020 09:30:00 PM EST [place] [facility] COVID TESTING Outpatient Attender: Aby Heck DO 2020 02:00:00 AM EST Z20.828 [facility] Z20.828 Outpatient Attender: Aby Heck DO 2020 06:10:00 AM EST [facility] COVID TESTING [facility] COVID TESTING Outpatient Attender: Aby Heck DO 2020 06:30:00 PM EST [place] [facility] COVID TESTING Outpatient Attender: Aby Heck DO 10/25/2020 0 6:00:00 AM EST [facility] Outpatient Attender: Aby Cifuentesone DO 2020 06:15:00 AM EST [facility] COVID TESTING [facility] COVID TESTING Outpatient Attender: Aby Cifuentesone DO 2020 06:10:00 AM EST [place] [address] [facility] COVID19 TESTING Outpatient Attender: Aby Cifuentesone DO 10/19/2020 0 6:00:00 AM EST [facility] Outpatient Attender: Aby Cifuentesone DO 2019 01:45:00 PM EST [facility] COVID TESTING [facility] COVID TESTING Outpatient Attender: Aby OrellanaFish DO 2019 05:40:00 AM EST [facility] COVID [facility] COVID TESTING Outpatient Attender: Aby Cifuentesone DO 2019 06:10:00 AM EST [place] [facility] COVID19 TESTING Outpatient Attender: Aby Cifuentesone DO 2019 11:30:00 PM EST [facility] COVID[address] [facility] COVID19 TESTING Outpatient Attender: Aby Cifuentesone DO 2019 11:50:00 PM EST [facility] COVID TESTING [facility] COVID TESTING Outpatient Attender: Aby Heck DO 08/29/2020 0 9:45:00 AM EST [facility] Outpatient Attender: Aby Heck DO 2019 10:10:00 PM EST [facility] COVID SCREEN [facility] COVID SCREEN Outpatient Attender: MERY ENGLAND [id number]: MERY HERNADEZ MECHANICAL DESIGN ENGINEER-OXYGEN PLANT OPERATOR-C 08/27/2020 07:44:00 AM EST - 08/27/2020 08:20:00 AM EST [facility] Outpatient Attender: Sury Jc MD 08/23/2020 12:47:00 PM EST [facility] Outpatient Attender: Aby Heck DO 2019 07:48:00 AM EST [facility] COVID [facility] COVID TESTING Outpatient Attender: Aby Cifuentesone DO 2019 05:50:00 AM EDT [facility] COVID TESTING [facility] COVID TESTING Outpatient Attender: Aby Cifuentesone DO 2019 09:45:00 PM EDT [facility] COVID TESTING [facility] COVID TESTING Outpatient Attender: Aby Cifuentesone DO 2019 05:45:[address] [facility] COVID TESTING [facility] COVID TESTING Outpatient Attender: Aby Heck DO 2019 05:30:00 PM EDT [facility] COVID TESTING [facility] COVID TESTING Outpatient Attender: Aby Heck DO 2019 08:20:[address] [facility] COVID TESTING [facility] COVID TESTING Outpatient Attender: Aby Heck DO 2019 10:00:00 PM EDT [facility] COVID TESTING [facility] COVID TESTING Outpatient Attender: Aby Heck DO 06/18/2020 0 1:30:00 PM EDT [facility] Immunizations Vaccine Date Status Description Data Source(s) New in 2011. IIV4 08/02/2021 02:31:00 PM EDT completed eCW1 ([facility]) New in 2011. IIV4 08/02/2021 02:31:00 PM EDT completed eCW1 ([facility]) New in 2011. IIV4 08/02/2021 02:31:00 PM EDT completed eCW1 ([facility]) Medications Medication Brand Name Start Date Product Form Dose Route Admi nistrative Instructions Pharmacy Instructions Status Indications Reaction Description Data Source(s) BLOOD SUGAR DIAGNOSTIC 07/12/2021 12:00:00 AM EDT strip 50 USE DIRECTED TO TEST BLOOD SUGAR FASTING IN THE MORNING AND 2 HOURS AFTER MEALS USE DIRECTED TO TEST BLOOD SUGAR FASTING IN THE MORNING AND 2 HOURS AFTER MEALS SOLD: 07/12/2021 [facility] BLOOD-GLUCOSE METER 07/12/2021 12:00:00 AM EDT misc 1 USE DIRECTED TO TEST BLOOD SUGAR FASTING IN THE MORNING AND 2 HOURS AFTER A MEAL USE DIRECTED TO TEST BLOOD SUGAR FASTING IN THE MORNING AND 2 HOURS AFTER A MEAL SOLD: 07/12/2021 [facility] 30 gauge 07/12/2021 12:00:00 AM EDT misc 100 USE TO TEST BLOOD SUGAR FASTING IN THE MORNING AND 2 HOURS AFTER MEALS USE TO TEST BLOOD SUGAR FASTING IN THE MORNING AND 2 HOURS AFTER MEALS SOLD: 07/12/2021 [facility] montelukast 10 MG Oral Tablet MONTELUKAST SODIUM 06/05/2021 12:0 0:00 AM EDT tablet 90 TAKE ONE TABLET BY MOUTH EVERY D AY TAKE ONE TABLET BY MOUTH EVERY DAY SOLD: 06/13/2021 [facility] 90 mcg/actuation 06/05/2021 12:00:00 AM EDT HFA aerosol inha ler 8 INHALE 2 PUFFS BY MOUTH EVERY 6 HOURS NEEDED FOR SHORTNESS OF BREATH OR WHEEZING INHALE 2 PUFFS BY MOUTH EVERY 6 HOURS NEEDED FOR SHORTNESS OF BREATH OR WHEEZING SOLD: 06/13/2021 [facility] 160-4.5 mcg/actuation 06/05/2021 12:00:00 AM EDT HFA aerosol inhaler 10 INHALE 2 PUFFS BY MOUTH TWO TIMES A DAY FOR ASTHMA , RINSE MOUTH AFTER EACH USE INHALE 2 PUFFS BY MOUTH TWO TIMES A DAY FOR ASTHMA , RINSE MOUTH AFTER EACH USE SOLD: 06/13/2021 [facility] Permethrin 50 MG/ML Topical Cream Permethrin (Elimite) 5 % cream Permethrin (Elimite) 5 % cream 02/21/2021 01:20:46 PM EDT 1 APPLIC completed [facility] Metronidazole 0.0075 MG/MG Vaginal Gel M etronidazole (Metrogel Vaginal) 0.75 % gel Metronidazole (Metrogel Vaginal) 0.75 % gel 02/16/2021 04:20:34 PM EDT 1 APPFUL completed [facility] 0.75 % 02/16/2021 12:00:00 AM EDT gel 70 INSERT 1 APPLICATORFUL VAGINALLY AT BEDTIME FOR 5 NIGHTS INSERT 1 APPLICATORFUL VAGINALLY AT BEDTIME FOR 5 NIGH TS SOLD: 02/16/2021 [facility] Prenat.Vits,Tucker,Hgf-Dirn-Sawia 02/10/2021 08:52:19 AM EDT 1 TAB active [facility] tramadol hydrochloride 50 MG Oral Tablet Tramadol Tramadol 01/04/2021 04:38:30 PM EDT 50 MG active [facility] tramadol hydrochloride 50 MG Oral Tablet Tramadol Tramadol 01/04/2021 04:38:30 PM EDT [address] [facility] tramadol hydrochloride 50 MG Oral Tablet Tramadol Tramadol 01/04/2021 04:38:30 PM EDT 50 MG active [facility] tramadol hydrochloride 50 MG Oral Tablet Tramadol Tramadol 01/04/2021 04:38:30 PM EDT 50 MG active [facility] 50 mg 01/04/2021 12:00:00 AM EDT tablet 14 TAKE ONE TABLET BY MOUTH EVERY 8 HOURS NEEDED FOR PAIN MAXIMUM DAILY DOSE = 3 TABLETS TAKE ONE TABLET BY MOUTH EVERY 8 HOURS NEEDED FOR PAIN MAXIMUM DAILY DOSE = 3 TABLETS SOLD: 01/11/2021 [facility] tramadol hydrochloride 50 MG Oral Tablet Tramadol Tramadol 12/28/2020 09:34:39 AM EDT [address] [facility] tramadol hydrochloride 50 MG Oral Tablet Tramadol Tramadol 12/28/2020 09:34:39 AM EDT [address] [facility] tramadol hydrochloride 50 MG Oral Tablet Tramadol Tramadol 12/28/2020 09:34:39 AM EDT 50 MG active [facility] tramadol hydrochloride 50 MG Oral Tablet Tramadol Tramadol 12/28/2020 09:34:39 AM EDT [address] [facility] tramadol hydrochloride 50 MG Oral Tablet Tramadol Tramadol 12/28/2020 09:34:39 AM EDT [address] [facility] Prednisone 20 MG Oral Tablet Prednisone 12/28/2020 09:32:26 AM EDT 40 MG completed [facility] Prednisone 20 MG Oral Tablet Prednisone 12/28/2020 09:32:26 AM EDT 40 MG completed [facility] Prednisone 20 MG Oral Tablet Prednisone 12/28/2020 09:32:26 AM EDT 40 MG completed [facility] Prednisone 20 MG Oral Tablet Prednisone 12/28/2020 09:32:26 AM EDT 40 MG completed [facility] Prednisone 20 MG Oral Tablet Prednisone 12/28/2020 09:32:26 AM EDT 40 MG completed [facility] Albuterol Sulfate (Ventolin Hfa) 90 mcg/actuation HFA aeroso l inhaler 12/28/2020 09:14:40 AM EDT 2 PUFFS active [facility] Albuterol Sulfate (Ventolin Hfa) 90 mcg/actuation HFA aeroso l inhaler 12/28/2020 09:14:40 AM EDT 2 PUFFS active [facility] Albuterol Sulfate (Ventolin Hfa) 90 mcg/actuation HFA aeroso l inhaler 12/28/2020 09:14:40 AM EDT 2 PUFFS [facility] Albuterol Sulfate (Ventolin Hfa) 90 mcg/actuation HFA aeroso l inhaler 12/28/2020 09:14:40 AM EDT 2 PUFFS active [facility] Albuterol Sulfate (Ventolin Hfa) 90 mcg/actuation HFA aeroso l inhaler 12/28/2020 09:14:40 AM EDT 2 PUFFS [facility] Acetaminophen 325 MG Oral Tablet Acetaminophen (Tyleno l) 325 mg tablet Acetaminophen (Tylenol) 325 mg tablet 12/28/2020 09:02:27 AM EDT 325 M [facility] Acetaminophen 325 MG Oral Tablet Acetaminophen (Tyleno l) 325 mg tablet Acetaminophen (Tylenol) 325 mg tablet 12/28/2020 09:02:27 AM EDT 325 M [facility] Acetaminophen 325 MG Oral Tablet Acetaminophen (Tyleno l) 325 mg tablet Acetaminophen (Tylenol) 325 mg tablet 12/28/2020 09:02:27 AM EDT 325 M G [facility] Acetaminophen 325 MG Oral Tablet Acetaminophen (Tyleno l) 325 mg tablet Acetaminophen (Tylenol) 325 mg tablet 12/28/2020 09:02:27 AM EDT 325 M G [facility] Acetaminophen 325 MG Oral Tablet Acetaminophen (Tyleno l) 325 mg tablet Acetaminophen (Tylenol) 325 mg tablet 12/28/2020 09:02:27 AM EDT 325 M G [facility] Acetaminophen 325 MG Oral Tablet Acetaminophen (Tyleno l) 325 mg tablet Acetaminophen (Tylenol) 325 mg tablet 12/28/2020 09:02:27 AM EDT 325 M [facility] 50 mg 12/28/2020 12:00:00 AM EDT tablet 14 TAKE 1 TABLET BY MOUTH EVERY 8 HOURS NEEDED FOR PAIN MAXIMUM DAILY DOSE = 3 TAKE 1 TABLET BY MOUTH EVERY 8 HOURS NEEDED FOR PAIN MAXIMUM DAILY DOSE = 3 SOLD: 12/28/2020 [facility] 20 mg 12/28/2020 12:00:00 AM EDT tablet 10 TAKE 2 TABLETS BY MOUTH EVERY MORNING WITH FOOD TAKE 2 TABLETS BY MOUTH EVERY MORNING WITH FOOD SOLD: 12/28/2020 [facility] 90 mcg/actuation 12/28/2020 12:00:00 AM EDT HFA aerosol inha ler 8 INHALE 2 PUFFS EVERY 6 HOURS NEEDED FOR SHORTNESS OF BREATH OR WHEEZING INHALE 2 PUFFS EVERY 6 HOURS NEEDED FOR SHORTNESS OF BREATH OR WHEEZING SOLD: 12/28/2020 [facility] Naproxen 500 MG Oral Tablet Naproxen 12/26/2020 02:38:42 PM EDT 500 MG active [facility] Naproxen 500 MG Oral Tablet Naproxen 12/26/2020 02:38:42 PM EDT 500 MG active [facility] Naproxen 500 MG Oral Tablet Naproxen 12/26/2020 02:38:42 PM EDT 500 MG completed [facility] Naproxen 500 MG Oral Tablet Naproxen 12/26/2020 02:38:42 PM EDT 500 MG active [facility] Naproxen 500 MG Oral Tablet Naproxen 12/26/2020 02:38:42 PM EDT 500 MG completed [facility] Naproxen 500 MG Oral Tablet Naproxen 12/26/2020 02:38:42 PM EDT 500 MG completed [facility] Naproxen 500 MG Oral Tablet Naproxen 12/26/2020 02:38:42 PM EDT 500 MG completed [facility] 500 mg 12/26/2020 12:00:00 AM EST tablet 20 TAKE ONE TABLET BY MOUTH EVERY 12 HOURS FOR PAIN TAKE ONE TABLET BY MOUTH EVERY 12 HOURS FOR PAIN SOLD: 12/28/2020 [facility] Fluticasone Propionate 10/14/2020 03:00:18 PM EST 1 SPRAY active [facility] Fluticasone Propionate 10/14/2020 03:00:18 PM EST 1 SPRAY active [facility] Fluticasone Propionate 10/14/2020 03:00:18 PM EST 1 SPRAY active [facility] Fluticasone Propionate 10/14/2020 03:00:18 PM EST 1 SPRAY active [facility] Fluticasone Propionate 10/14/2020 03:00:18 PM EST 1 SPRAY active [facility] Fluticasone Propionate 10/14/2020 03:00:18 PM EST 1 SPRAY completed [facility] Fluticasone Propionate 10/14/2020 03:00:18 PM EST 1 SPRAY active [facility] 90 mcg/actuation 09/24/2020 12:00:00 AM EST aerosol powdr breath activated 1 USE 2 INHALATIONS BY MOUTH EVERY 4 HOURS NEEDED USE 2 INHALATIONS BY MOUTH EVERY 4 HOURS NEEDED SOLD: 09/24/2020 [facility] 160-4.5 mcg/actuation 09/24/2020 12:00:00 AM EST HFA aerosol inhaler 30 INHALE 2 PUFFS BY MOUTH TWO TIMES A DAY FOR ASTHMA - RINSE MOUTH AFTER EACH USE INHALE 2 PUFFS BY MOUTH TWO TIMES A DAY FOR ASTHMA - RINSE MOUTH AFTER EACH USE SOLD: 09/24/2020 [facility] 160-4.5 mcg/actuation 09/24/2020 12:00:00 AM EST HFA aerosol inhaler 30 INHALE 2 PUFFS BY MOUTH TWO TIMES A DAY FOR ASTHMA - RINSE MOUTH AFTER EACH USE INHALE 2 PUFFS BY MOUTH TWO TIMES A DAY FOR ASTHMA - RINSE MOUTH AFTER EACH USE SOLD: 01/11/2021 [facility] 50 mcg/actuation 09/24/2020 12:00:00 AM EST spray,non-aeroso l 17 USE ONE SPRAY IN EACH NOSTRIL ONCE DAILY USE ONE SPRAY IN EACH NOSTRIL ONCE DAILY SOLD: 09/24/2020 [facility] 120 ACTUAT Budesonide 0.16 MG/ACTUAT / f ormoterol fumarate 0.0045 MG/ACTUAT Metered Dose Inhaler Budesonide-Formoterol (Symbicort) 160-4.5 mcg/actuation HFA aerosol inhaler Budesonide-Formoterol (Symbicort) 160-4. 5 mcg/actuation HFA aerosol inhaler 08/27/2020 08:22:02 AM EST 2 PUFFS activ e [facility] 120 ACTUAT Budesonide 0.16 MG/ACTUAT / f ormoterol fumarate 0.0045 MG/ACTUAT Metered Dose Inhaler Budesonide-Formoterol (Symbicort) 160-4.5 mcg/actuation HFA aerosol inhaler Budesonide-Formoterol (Symbicort) 160-4. 5 mcg/actuation HFA aerosol inhaler 08/27/2020 08:22:02 AM EST 2 PUFFS activ e [facility] 120 ACTUAT Budesonide 0.16 MG/ACTUAT / f ormoterol fumarate 0.0045 MG/ACTUAT Metered Dose Inhaler Budesonide-Formoterol (Symbicort) 160-4.5 mcg/actuation HFA aerosol inhaler Budesonide-Formoterol (Symbicort) 160-4. 5 mcg/actuation HFA aerosol inhaler 08/27/2020 08:22:02 AM EST 2 PUFFS activ e [facility] 120 ACTUAT Budesonide 0.16 MG/ACTUAT / f ormoterol fumarate 0.0045 MG/ACTUAT Metered Dose Inhaler Budesonide-Formoterol (Symbicort) 160-4.5 mcg/actuation HFA aerosol inhaler Budesonide-Formoterol (Symbicort) 160-4. 5 mcg/actuation HFA aerosol inhaler 08/27/2020 08:22:02 AM EST 2 PUFFS activ e [facility] 120 ACTUAT Budesonide 0.16 MG/ACTUAT / f ormoterol fumarate 0.0045 MG/ACTUAT Metered Dose Inhaler Budesonide-Formoterol (Symbicort) 160-4.5 mcg/actuation HFA aerosol inhaler Budesonide-Formoterol (Symbicort) 160-4. 5 mcg/actuation HFA aerosol inhaler 08/27/2020 08:22:02 AM EST 2 PUFFS activ e [facility] 120 ACTUAT Budesonide 0.16 MG/ACTUAT / f ormoterol fumarate 0.0045 MG/ACTUAT Metered Dose Inhaler Budesonide-Formoterol (Symbicort) 160-4.5 mcg/actuation HFA aerosol inhaler Budesonide-Formoterol (Symbicort) 160-4. 5 mcg/actuation HFA aerosol inhaler 08/27/2020 08:22:02 AM EST 2 PUFFS activ e [facility] 120 ACTUAT Budesonide 0.16 MG/ACTUAT / f ormoterol fumarate 0.0045 MG/ACTUAT Metered Dose Inhaler Budesonide-Formoterol (Symbicort) 160-4.5 mcg/actuation HFA aerosol inhaler Budesonide-Formoterol (Symbicort) 160-4. 5 mcg/actuation HFA aerosol inhaler 08/27/2020 08:22:02 AM EST 2 PUFFS activ e [facility] 200 ACTUAT Albuterol 0.09 MG/ACTUAT Dry Powder Inhaler Albuterol Sulfate (Proair Respiclick) 90 mcg/actuation aerosol powdr breath activated Albuterol Sulfate (Proair Respiclick) 90 mcg/actuation aerosol powdr breath activated 08/27/2020 08:21:49 AM EST 2 INH active [facility] 200 ACTUAT Albuterol 0.09 MG/ACTUAT Dry Powder Inhaler Albuterol Sulfate (Proair Respiclick) 90 mcg/actuation aerosol powdr breath activated Albuterol Sulfate (Proair Respiclick) 90 mcg/actuation aerosol powdr breath activated 08/27/2020 08:21:49 AM EST 2 INH active [facility] 200 ACTUAT Albuterol 0.09 MG/ACTUAT Dry Powder Inhaler Albuterol Sulfate (Proair Respiclick) 90 mcg/actuation aerosol powdr breath activated Albuterol Sulfate (Proair Respiclick) 90 mcg/actuation aerosol powdr breath activated 08/27/2020 08:21:49 AM EST 2 INH active [facility] 200 ACTUAT Albuterol 0.09 MG/ACTUAT Dry Powder Inhaler Albuterol Sulfate (Proair Respiclick) 90 mcg/actuation aerosol powdr breath activated Albuterol Sulfate (Proair Respiclick) 90 mcg/actuation aerosol powdr breath activated 08/27/2020 08:21:49 AM EST 2 INH active [facility] 200 ACTUAT Albuterol 0.09 MG/ACTUAT Dry Powder Inhaler Albuterol Sulfate (Proair Respiclick) 90 mcg/actuation aerosol powdr breath activated Albuterol Sulfate (Proair Respiclick) 90 mcg/actuation aerosol powdr breath activated 08/27/2020 08:21:49 AM EST 2 INH active [facility] 200 ACTUAT Albuterol 0.09 MG/ACTUAT Dry Powder Inhaler Albuterol Sulfate (Proair Respiclick) 90 mcg/actuation aerosol powdr breath activated Albuterol Sulfate (Proair Respiclick) 90 mcg/actuation aerosol powdr breath activated 08/27/2020 08:21:49 AM EST 2 INH active [facility] 200 ACTUAT Albuterol 0.09 MG/ACTUAT Dry Powder Inhaler Albuterol Sulfate (Proair Respiclick) 90 mcg/actuation aerosol powdr breath activated Albuterol Sulfate (Proair Respiclick) 90 mcg/actuation aerosol powdr breath activated 08/27/2020 08:21:49 AM EST 2 [facility] 08[facility]14[facility]07 AM EST 1 [facility] 08/27/2020 08:14:07 AM EST 1 SPRAY completed [facility] 08/27/2020 08:14:07 AM EST 1 SPRAY completed [facility] 08/27/2020 08:14:07 AM EST 1 SPRAY completed [facility] 08/27/2020 08:14:07 AM EST 1 SPRAY completed [facility] 08/27/2020 08:14:07 AM EST 1 [facility] 08:14:07 AM EST 1 SPRAY completed [facility] Drospirenone-Ethinyl Estradiol 05/21/2020 01:33:58 PM EDT 1 TAB completed [facility] 120 ACTUAT Budesonide 0.16 MG/ACTUAT / f ormoterol fumarate 0.0045 MG/ACTUAT Metered Dose Inhaler Budesonide-Formoterol (Symbicort) 160-4.5 mcg/actuation HFA aerosol inhaler Budesonide-Formoterol (Symbicort) 160-4. 5 mcg/actuation HFA aerosol inhaler 04/15/2020 09:50:38 AM EDT 2 PUFFS compl eted [facility] 120 ACTUAT Budesonide 0.16 MG/ACTUAT / f ormoterol fumarate 0.0045 MG/ACTUAT Metered Dose Inhaler Budesonide-Formoterol (Symbicort) 160-4.5 mcg/actuation HFA aerosol inhaler Budesonide-Formoterol (Symbicort) 160-4. 5 mcg/actuation HFA aerosol inhaler 04/15/2020 09:50:38 AM EDT [facility] B[facility] 0.16 MG/ACTUAT / f ormoterol fumarate 0.0045 MG/ACTUAT Metered Dose Inhaler Budesonide-Formoterol (Symbicort) 160-4.5 mcg/actuation HFA aerosol inhaler Budesonide-Formoterol (Symbicort) 160-4. 5 mcg/actuation HFA aerosol inhaler 04/15/2020 09:50:38 AM EDT 2 PUFFS compl eted [facility] 120 ACTUAT Budesonide 0.16 MG/ACTUAT / f ormoterol fumarate 0.0045 MG/ACTUAT Metered Dose Inhaler Budesonide-Formoterol (Symbicort) 160-4.5 mcg/actuation HFA aerosol inhaler Budesonide-Formoterol (Symbicort) 160-4. 5 mcg/actuation HFA aerosol inhaler 04/15/2020 09:50:38 AM EDT 2 PUFFS compl eted [facility] 120 ACTUAT Budesonide 0.16 MG/ACTUAT / f ormoterol fumarate 0.0045 MG/ACTUAT Metered Dose Inhaler Budesonide-Formoterol (Symbicort) 160-4.5 mcg/actuation HFA aerosol inhaler Budesonide-Formoterol (Symbicort) 160-4. 5 mcg/actuation HFA aerosol inhaler 04/15/2020 09:50:38 AM EDT [facility] Budesonide 0.16 MG/ACTUAT / f ormoterol fumarate 0.0045 MG/ACTUAT Metered Dose Inhaler Budesonide-Formoterol (Symbicort) 160-4.5 mcg/actuation HFA aerosol inhaler Budesonide-Formoterol (Symbicort) 160-4. 5 mcg/actuation HFA aerosol inhaler 04/15/2020 09:50:38 AM EDT [facility] Budesonide 0.16 MG/ACTUAT / f ormoterol fumarate 0.0045 MG/ACTUAT Metered Dose Inhaler Budesonide-Formoterol (Symbicort) 160-4.5 mcg/actuation HFA aerosol inhaler Budesonide-Formoterol (Symbicort) 160-4. 5 mcg/actuation HFA aerosol inhaler 04/15/2020 09:50:38 AM EDT 2 PUFFS compl eted [facility] 200 ACTUAT Albuterol 0.09 MG/ACTUAT Dry Powder Inhaler Albuterol Sulfate (Proair Respiclick) 90 mcg/actuation aerosol powdr breath activated Albuterol Sulfate (Proair Respiclick) 90 mcg/actuation aerosol powdr breath activated 04/15/2020 09:50:11 AM EDT 2 INH completed [facility] 200 ACTUAT Albuterol 0.09 MG/ACTUAT Dry Powder Inhaler Albuterol Sulfate (Proair Respiclick) 90 mcg/actuation aerosol powdr breath activated Albuterol Sulfate (Proair Respiclick) 90 mcg/actuation aerosol powdr breath activated 04/15/2020 09:50:11 AM EDT 2 INH completed [facility] 200 ACTUAT Albuterol 0.09 MG/ACTUAT Dry Powder Inhaler Albuterol Sulfate (Proair Respiclick) 90 mcg/actuation aerosol powdr breath activated Albuterol Sulfate (Proair Respiclick) 90 mcg/actuation aerosol powdr breath activated 04/15/2020 09:50:11 AM EDT 2 INH completed [facility] 200 ACTUAT Albuterol 0.09 MG/ACTUAT Dry Powder Inhaler Albuterol Sulfate (Proair Respiclick) 90 mcg/actuation aerosol powdr breath activated Albuterol Sulfate (Proair Respiclick) 90 mcg/actuation aerosol powdr breath activated 04/15/2020 09:50:11 AM EDT 2 INH completed [facility] 200 ACTUAT Albuterol 0.09 MG/ACTUAT Dry Powder Inhaler Albuterol Sulfate (Proair Respiclick) 90 mcg/actuation aerosol powdr breath activated Albuterol Sulfate (Proair Respiclick) 90 mcg/actuation aerosol powdr breath activated 04/15/2020 09:50:11 AM EDT 2 INH completed [facility] 200 ACTUAT Albuterol 0.09 MG/ACTUAT Dry Powder Inhaler Albuterol Sulfate (Proair Respiclick) 90 mcg/actuation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 Code Description Data Janina rce(s) Supporting Document(s) Urea nitrogen [Mass/volume] in Serum or Plasma 14 mg/dL 9-23 [facility] Sodium [Moles/volume] in Serum or Plasma 139 mmol/L 132-146 [facility] Potassium [Moles/volume] in Serum or Plasma 4.4 mmol/L 3.5-5.5 [facility] Chloride [Moles/volume] in Serum or Plasma 107 mmol/L 99-109 [facility] Carbon dioxide, total [Moles/volume] in Serum or Plasma 29 mmol/L 20 -31 [facility] Anion gap in Serum or Plasma 7 mmol/L 8-16 Below low normal [facility] Glucose [Mass/volume] in Serum or Plasma 98 mg/dL 74-106 [facility] Creatinine 0.7 mg/dL 0.5-1.1 [facility] Glomerular filtration rate/1.73 sq M.pre dicted [Volume Rate/Area] in Serum or Plasma Greater Than 60 ABOVE 60 [facility] Alanine aminotransferase [Enzymatic acti vity/volume] in Serum or Plasma by With P-5'-P 34 U/L 10-49 [facility] Aspartate aminotransferase [Enzymatic ac tivity/volume] in Serum or Plasma by With P-5'-P 12 U/L 0-33 N [facility] pital Alkaline phosphatase [Enzymatic activity/volume] in Serum or Plasma 101 U/L 45-129 N [facility] Calcium [Mass/volume] in Serum or Plasma 9.0 mg/dL 8.5-10.1 N [facility] Bilirubin.total [Mass/volume] in Serum or Plasma 0.3 mg/dL 0.3-1.2 N [facility] Albumin [Mass/volume] in Serum or Plasma by Bromocresol purple (BCP) dye binding method 3.7 g/dL 3.2-4.8 [facility] Protein [Mass/volume] in Serum or Plasma 7.8 g/dL 5.7-8.2 N [facility] ID Date Data Source [id number] 12/22/2020 05:07:00 PM EST [facility] Name Value Range Interpretation Code Description Data Janina rce(s) Supporting Document(s) COVID-19 SEA (SARS-CoV-2) NOT DETECTED NOT DETECTED [facility] A Not Detected (negative) test result fo r this testmeans that SARS- CoV-2 RNA was not present in the specimenabove the limit of detection. A negative result does notrule out the possibility of COVID-19 and should not beused as the sole basis for treatment or patient managementdecisions. If COVID-19 is still suspected, based onexposure history together with other clinical findings,re- testing [place] [facility] health authorities. Laboratory test results shouldalways be considered in the context of clinicalobservations and epidemiological data in making a finaldiagnosis and patient management decisions.Please review the "Fact Sheets" and FDA authorizedlabeling available for health care providers andpatients using the following websites:https://www.[employer].com/home/Covid-19/HCP/NAAT/fact-uiphs2wypkl://www.[employer]/home /Covid-19/Patients/NAAT/fact-jlkvt4Bjqb test has been authorized by the FDA under anEmergency Use Authorization (EUA) for use by authorizedlaboratories.Due to the current public health emergency, [facility] is receiving a high volume of samples froma wide variety of swabs and media for COVID-19 testing.In order to serve patients during this public healthcrisis, samples from appropriate clinical sources arebeing tested. Negative test results derived fromspecimens received in non-commercially manufacturedviral collection and transport media, or in media andsample collection kits not yet authorized by FDA forCOVID-19 testing should be cautiously evaluated and thepatient potentially subjected to extra precautions suchas additional clinical monitoring, including collectionof an additional specimen.Methodology: Nucleic Acid Amplification Test (NAAT)includes RT-PCR or TMAAdditional information about COVID-19 can be f oundat the [employer] website:www.[facility].[employer]/Covid19.THIS TEST WAS PERFORMED AT:[address] [id number] MERATI,MD ID Date Data Source [id number] 12/22/2020 04:57:00 PM EST [facility] Name Value Range Interpretation Code Description Data Janina rce(s) Supporting Document(s) 50800-3 NOT DETECTED [facility] A Not Detected (negative) test result fo r this testmeans that SARS- CoV-2 RNA was not present in the specimenabove the limit of detection. A negative result does notrule out the possibility of COVID-19 and should not beused as the sole basis for treatment or patient managementdecisions. If COVID-19 is still suspected, based onexposure history together with other clinical findings,re- testing should be [facility]. Laboratory test results shouldalways be considered in the context of clinicalobservations and epidemiological data in making a finaldiagnosis and patient management decisions.Please review the "Fact Sheets" and FDA authorizedlabeling available for health care providers andpatients using the following websites:https://www.[employer].com/home/Covid-19/HCP/NAAT/fact-slvoy7rttie://www.[employer]/home/ Covid-19/Patients/NAAT/fact-zzmsh9Ygun test has been authorized by the FDA under anEmergency Use Authorization (EUA) for use by authorizedlaboratories.Due to the current public health emergency, [facility] is receiving a high volume of samples froma wide variety of swabs and media for COVID-19 testing.In order to serve patients during this public healthcrisis, samples from appropriate clinical sources arebeing tested. Negative test results derived fromspecimens received in non-commercially manufacturedviral collection and transport media, or in media andsample collection kits not yet authorized by FDA forCOVID-19 testing should be cautiously evaluated and thepatient potentially subjected to extra precautions suchas additional clinical monitoring, including collectionof an additional specimen.Methodology: Nucleic Acid Amplification Test (NAAT)includes RT-PCR or TMAAdditional information about COVID-19 can be foundat the [employer] website:www.[facility].[employer]/Covid19. ID Date Data Source [id number] 12/21/2020 09:25:00 AM EST [facility] Name Value Range Interpretation Code Description Data Janina rce(s) Supporting Document(s) SARS-COV-2 RNA RESP QL SEA+PROBE Not detected [facility] This lab was ordered by [facility] and reported by [facility]. ID Date Data Source [id number] 12/19/2020 11:17:00 AM EST [facility] Name Value Range Interpretation Code Description Data Janina rce(s) Supporting Document(s) COVID-19 SEA (SARS-CoV-2) NOT DETECTED NOT DETECTED [facility] A Not Detected (negative) test result fo r this testmeans that SARS- CoV-2 RNA was not present in the specimenabove the limit of detection. A negative result does notrule out the possibility of COVID-19 and should not beused as the sole basis for treatment or patient managementdecisions. If COVID-19 is still suspected, based onexposure history together with other clinical findings,re- testing should be considered [facility]. Laboratory test results shouldalways be considered in the context of clinicalobservations and epidemiological data in making a finaldiagnosis and patient management decisions.Please review the "Fact Sheets" and FDA authorizedlabeling available for health care providers andpatients using the following websites:https://www.[employer].com/home/Covid-19/HCP/QuestIVD/fact-sheet.htmlhttps://www.[employer]. [employer]/home/Covid-19/Patients/QuestIVD/fact-sheet.htmlThis test has been authorized by the FDA under anEmergency Use Authorization (EUA) for use by authorizedlaboratories.Due to the current public health emergency, [facility] is receiving a high volume of samples froma wide variety of swabs and media for COVID-19 testing.In order to serve patients during this public healthcrisis, samples from appropriate clinical sources arebeing tested. Negative test results derived fromspecimens received in non-commercially manufa cturedviral collection and transport media, or in media andsample collection kits not yet authorized by FDA forCOVID-19 testing should be cautiously evaluated and thepatient potentially subjected to extra precautions suchas additional clinical monitoring, including collectionof an additional specimen.Methodology: Nucleic Acid Amplification Test (NAAT)includes RT-PCR or TMAAdditional information about COVID-19 can be foundat the [employer] website:www.[facility].[employer]/Covid19.THIS TEST WAS PERFORMED AT:[address] [id number] MERATI,MD ID Date Data Source [id number] 12/19/2020 11:06:00 AM EST [facility] Name Value Range Interpretation Code Description Data Janina rce(s) Supporting Document(s) [id number] NOT DETECTED [facility] A Not Detected (negative) test result fo r this testmeans that SARS- CoV-2 RNA was not present in the specimenabove the limit of detection. A negative result does notrule out the possibility of COVID-19 and should not beused as the sole basis for treatment or patient managementdecisions. If COVID-19 is still suspected, based onexposure history together with other clinical findings,re- testing should be considered [facility]. Laboratory test results shouldalways be considered in the context of clinicalobservations and epidemiological data in making a finaldiagnosis and patient management decisions.Please review the "Fact Sheets" and FDA authorizedlabeling available for health care providers andpatients using the following websites:https://www.[employer].com/home/Covid-19/HCP/QuestIVD/fact-sheet.htmlhttps://www.[employer].[facility]/home/Covid-19/Patients/QuestIVD/fact-sheet.htmlThis test has been authorized by the FDA under anEmergency Use Authorization (EUA) for use by authorizedlaboratories.Due to the current public health emergency, [facility] is receiving a high volume of samples froma wide variety of swabs and media for COVID-19 testing.In order to serve patients during this public healthcrisis, samples from appropriate clinical sources arebeing tested. Negative test results derived fromspecimens received in non-commercially [employer] turedviral collection and transport media, or in media andsample collection kits not yet authorized by FDA forCOVID-19 testing should be cautiously evaluated and thepatient potentially subjected to extra precautions suchas additional clinical monitoring, including collectionof an additional specimen.Methodology: Nucleic Acid Amplification Test (NAAT)includes RT-PCR or TMAAdditional information about COVID-19 can be foundat the [employer] website:www.[facility].[employer]/Covid19. ID Date Data Source [id number] 12/17/2020 10:00:00 PM EST [facility] Name Value Range Interpretation Code Description Data Janina rce(s) Supporting Document(s) SARS-COV-2 RNA RESP QL SEA+PROBE Not detected [facility] This lab was ordered by [facility] and reported by [facility] [place]. ID Date Data Source [id number] 12/11/2020 02:12:00 AM EST [facility] Name Value Range Interpretation Code Description Data Janina rce(s) Supporting Document(s) COVID-19 SEA (SARS-CoV-2) NOT DETECTED NOT DETECTED [facility] A Not Detected (negative) test result fo r thistest means that SARS-CoV-2 RNA was not presentin the specimen above the limit of detection. Anegative result does not rule out the possibilityof COVID-19 and should not be used as the solebasis for treatment or patient managementdecisions. If COVID-19 is still suspected, basedon exposure history together with other clinicalfindings, re-testing should be considered inconsultation with public health authorities.Laboratory test results should always be consideredin the context of clinical observations andepidemiological data in making a final diagnosisand patient management decisions.This patient specimen was tested using an FDA EUA poolingmethod.Negative results from pooled testing should not betreated as definitive. If the patient's clinicalsigns and symptoms are inconsistent with a negativeresult or results are necessary for patient management,then the patient should be considered for individualtesting. In very rare cases, estimated at about 8in 1,000 (0.8%) or less patient specimens with lowviral loads may not be detected in sample pools dueto the decreased sensitivity of pooled testing.Please review the "Fact Sheets" and FDA authorizedlabeling available for health care providers andpatients using the following websites:https://www.[employer]/home/Covid-19/HCP/qk-pnxj-znr9-fact-sh eet.htmlhttps://www.[employer]/home/ Covid-19/Patients/qb-iizg-zrc6-fact-sheet.htmlThis test has been authorized by the FDA under anEmergency Use Authorization (EUA) for use by authorizedlaboratories.Due to the current public health emergency, [facility] is receiving a high volume of samples froma wide variety of swabs and media for COVID-19 testing.In order to serve patients during this public healthcrisis, samples from appropriate clinical sources arebeing tested. Negative test results derived fromspecimens received in non-commercially manufacturedviral collection and transport media, or in media andsample collection kits not yet authorized by FDA forCOVID-19 testing should be cautiously evaluated and thepatient potentially subjected to extra precautions suchas additional clinical monitoring, including collectionof an additional specimen.Methodology: Nucleic Acid Amplification Test (NAAT)includes RT-PCR or TMAAdditional information about COVID-19 can be foundat the [employer] website:www.[facility].[employer]/Covid19.THIS TEST WAS PERFORMED AT:[address] [address]BERT WEBB MD ID Date Data Source [id number] 12/11/2020 01:59:00 AM EST [facility] Name Value Range Interpretation Code Description Data Janina rce(s) Supporting Document(s) [id number] NOT DETECTED [facility] A Not Detected (negative) test result fo r thistest means that SARS-CoV-2 RNA was not presentin the specimen above the limit of detection. Anegative result does not rule out the possibilityof COVID-19 and should not be used as the solebasis for treatment or patient managementdecisions. If COVID-19 is still suspected, basedon exposure history together with other clinicalfindings, re-testing should be considered inconsultation with public health authorities.Laboratory test results should always be consideredin the context of clinical observations andepidemiological data in making a final diagnosisand patient management decisions.This patient specimen was tested using an FDA EUA poolingmethod.Negative results from pooled testing should not betreated as definitive. If the patient's clinicalsigns and symptoms are inconsistent with a negativeresult or results are necessary for patient management,then the patient should be considered for individualtesting. In very rare cases, estimated at about 8in 1,000 (0.8%) or less patient specimens with lowviral loads may not be detected in sample pools dueto the decreased sensitivity of pooled testing.Please review the "Fact Sheets" and FDA authorizedlabeling available for health care providers andpatients using the following websites:https://www.[employer].com/home/Covid-19/HCP/uo-efxl-swd9-fact-sh eet.htmlhttps://www.[employer]/home/ Covid-19/Patients/ok-ivbl-knm0-fact-sheet.htmlThis test has been authorized by the FDA under anEmergency Use Authorization (EUA) for use by authorizedlaboratories.Due to the current public health emergency, [facility] is receiving a high volume of samples froma wide variety of swabs and media for COVID-19 testing.In order to serve patients during this public healthcrisis, samples from appropriate clinical sources arebeing tested. Negative test results derived fromspecimens received in non-commercially manufacturedviral collection and transport media, or in media andsample collection kits not yet authorized by FDA forCOVID-19 testing should be cautiously evaluated and thepatient potentially subjected to extra precautions suchas additional clinical monitoring, including collectionof an additional specimen.Methodology: Nucleic Acid Amplification Test (NAAT)includes RT-PCR or TMAAdditional information about COVID-19 can be foundat the [employer] website:www.[facility].com/Covid19. ID Date Data Source [id number] 12/09/2020 12:40:00 AM EST [facility] Name Value Range Interpretation Code Description Data Janina rce(s) Supporting Document(s) SARS-COV-2 RNA RESP QL SEA+PROBE Not detected [facility] This lab was ordered by [facility] and reported by [facility]. ID Date Data Source [id number] 12/07/2020 12:12:00 PM EST [facility] Name Value Range Interpretation Code Description Data Janina rce(s) Supporting Document(s) COVID-19 SEA (SARS-CoV-2) NOT DETECTED NOT DETECTED [facility] A Not Detected (negative) test result fo r this testmeans that SARS- CoV-2 RNA was not present in the specimenabove the limit of detection. A negative result does notrule out the possibility of COVID-19 and should not beused as the sole basis for treatment or patient managementdecisions. If COVID-19 is still suspected, based onexposure history together with other clinical findings,re- testing should be considered [facility]. Laboratory test results shouldalways be considered in the context of clinicalobservations and epidemiological data in making a finaldiagnosis and patient management decisions.Please review the "Fact Sheets" and FDA authorizedlabeling available for health care providers andpatients using the following websites:https://www.[employer].com/home/Covid-19/HCP/QuestIVD/fact-sheet.htmlhttps://www.[employer]. [employer]/home/Covid-19/Patients/QuestIVD/fact-sheet.htmlThis test has been authorized by the FDA under anEmergency Use Authorization (EUA) for use by authorizedlaboratories.Due to the current public health emergency, [facility] is receiving a high volume of samples froma wide variety of swabs and media for COVID-19 testing.In order to serve patients during this public healthcrisis, samples from appropriate clinical sources arebeing tested. Negative test results derived fromspecimens received in non-commercially manufa cturedviral collection and transport media, or in media andsample collection kits not yet authorized by FDA forCOVID-19 testing should be cautiously evaluated and thepatient potentially subjected to extra precautions suchas additional clinical monitoring, including collectionof an additional specimen.Methodology: Nucleic Acid Amplification Test (NAAT)includes RT-PCR or TMAAdditional information about COVID-19 can be foundat the [employer] website:www.[facility].[employer]/Covid19.THIS TEST WAS PERFORMED AT:[address] [address]AKQUGK MERATI,MD ID Date Data Source [id number] 12/07/2020 12:02:00 PM EST [facility] Name Value Range Interpretation Code Description Data Janina rce(s) Supporting Document(s) [id number] NOT DETECTED [facility] A Not Detected (negative) test result fo r this testmeans that SARS- CoV-2 RNA was not present in the specimenabove the limit of detection. A negative result does notrule out the possibility of COVID-19 and should not beused as the sole basis for treatment or patient managementdecisions. If COVID-19 is still suspected, based onexposure history together with other clinical findings,re- testing should be considered in consultation [facility]. Laboratory test results shouldalways be considered in the context of clinicalobservations and epidemiological data in making a finaldiagnosis and patient management decisions.Please review the "Fact Sheets" and FDA authorizedlabeling available for health care providers andpatients using the following websites:https://www.[employer].com/home/Covid-19/HCP/QuestIVD/fact-sheet.htmlhttps://www.[employer].c /home/Covid-19/Patients/QuestIVD/fact-sheet.htmlThis test has been authorized by the FDA under anEmergency Use Authorization (EUA) for use by authorizedlaboratories.Due to the current public health emergency, [facility] is receiving a high volume of samples froma wide variety of swabs and media for COVID-19 testing.In order to serve patients during this public healthcrisis, samples from appropriate clinical sources arebeing tested. Negative test results derived fromspecimens received in non-commercially [facility] turedviral collection and transport media, or in media andsample collection kits not yet authorized by FDA forCOVID-19 testing should be cautiously evaluated and thepatient potentially subjected to extra precautions suchas additional clinical monitoring, including collectionof an additional specimen.Methodology: Nucleic Acid Amplification Test (NAAT)includes RT-PCR or TMAAdditional information about COVID-19 can be foundat the [employer] website:www.[facility].[employer]/Covid19. ID Date Data Source [id number] 12/06/2020 05:30:00 AM EST [facility] Name Value Range Interpretation Code Description Data Janina rce(s) Supporting Document(s) SARS-COV-2 RNA RESP QL SEA+PROBE Not detected [facility] This lab was ordered by [facility] and reported by [facility] [place]. ID Date Data Source [id number] 12/05/2020 03:26:00 PM EST [facility] Name Value Range Interpretation Code Description Data Janina rce(s) Supporting Document(s) COVID-19 SEA (SARS-CoV-2) NOT DETECTED NOT DETECTED [facility] A Not Detected (negative) test result fo r this testmeans that SARS- CoV-2 RNA was not present in the specimenabove the limit of detection. A negative result does notrule out the possibility of COVID-19 and should not beused as the sole basis for treatment or patient managementdecisions. If COVID-19 is still suspected, based onexposure history together with other clinical findings,re- testing should be considered in [facility]. Laboratory test results shouldalways be considered in the context of clinicalobservations and epidemiological data in making a finaldiagnosis and patient management decisions.Please review the "Fact Sheets" and FDA authorizedlabeling available for health care providers andpatients using the following websites:https://www.[employer].com/home/Covid-19/HCP/NAAT/fact-gizqf3svhff://www.[employer]/home /Covid-19/Patients/NAAT/fact-onyok3Dqob test has been authorized by the FDA under anEmergency Use Authorization (EUA) for use by authorizedlaboratories.Due to the current public health emergency, [facility] is receiving a high volume of samples froma wide variety of swabs and media for COVID-19 testing.In order to serve patients during this public healthcrisis, samples from appropriate clinical sources arebeing tested. Negative test results derived fromspecimens received in non-commercially manufacturedviral collection and transport media, or in media andsample collection kits not yet authorized by FDA forCOVID-19 testing should be cautiously evaluated and thepatient potentially subjected to extra precautions suchas additional clinical monitoring, including collectionof an additional specimen.Methodology: Nucleic Acid Amplification Test (NAAT)includes RT-PCR or TMAAdditional information about COVID-19 can be f oundat the [employer] website:www.[employer]/Covid19.THIS TEST WAS PERFORMED AT:[address] [address]TNTQBA MERATI,MD ID Date Data Source [id number] 12/05/2020 03:18:00 PM EST [facility] Name Value Range Interpretation Code Description Data Janina rce(s) Supporting Document(s) [id number] NOT DETECTED [facility] A Not Detected (negative) test result fo r this testmeans that SARS- CoV-2 RNA was not present in the specimenabove the limit of detection. A negative result does notrule out the possibility of COVID-19 and should not beused as the sole basis for treatment or patient managementdecisions. If COVID-19 is still suspected, based onexposure history together with other clinical findings,re- testing should be considered in [facility]. Laboratory test results shouldalways be considered in the context of clinicalobservations and epidemiological data in making a finaldiagnosis and patient management decisions.Please review the "Fact Sheets" and FDA authorizedlabeling available for health care providers andpatients using the following websites:https://www.[employer].com/home/Covid-19/HCP/NAAT/fact-jcjit5yetck://www.[employer]/home/ Covid-19/Patients/NAAT/fact-xyzkp2Ddar test has been authorized by the FDA under anEmergency Use Authorization (EUA) for use by authorizedlaboratories.Due to the current public health emergency, [facility] is receiving a high volume of samples froma wide variety of swabs and media for COVID-19 testing.In order to serve patients during this public healthcrisis, samples from appropriate clinical sources arebeing tested. Negative test results derived fromspecimens received in non-commercially manufacturedviral collection and transport media, or in media andsample collection kits not yet authorized by FDA forCOVID-19 testing should be cautiously evaluated and thepatient potentially subjected to extra precautions suchas additional clinical monitoring, including collectionof an additional specimen.Methodology: Nucleic Acid Amplification Test (NAAT)includes RT-PCR or TMAAdditional information about COVID-19 can be foundat the [employer] website:www.[facility].[employer]/Covid19. ID Date Data Source [id number] 12/03/2020 10:36:00 AM EST [facility] Name Value Range Interpretation Code Description Data Janina rce(s) Supporting Document(s) SARS-COV-2 RNA RESP QL SEA+PROBE Not detected [facility] This lab was ordered by [facility] and reported by [facility] [place]. ID Date Data Source [id number] 12/01/2020 10:06:00 AM EST [facility] Name Value Range Interpretation Code Description Data Janina rce(s) Supporting Document(s) COVID-19 SEA (SARS-CoV-2) NOT DETECTED NOT DETECTED [facility] A Not Detected (negative) test result fo r thistest means that SARS-CoV-2 RNA was not presentin the specimen above the limit of detection. Anegative result does not rule out the possibilityof COVID-19 and should not be used as the solebasis for treatment or patient managementdecisions. If COVID-19 is still suspected, basedon exposure history together with other clinicalfindings, re-testing should be considered inconsultation with public health authorities.Laboratory test results should always be consideredin the context of clinical observations andepidemiological data in making a final diagnosisand patient management decisions.This patient specimen was tested using an FDA EUA poolingmethod.Negative results from pooled testing should not betreated as definitive. If the patient's clinicalsigns and symptoms are inconsistent with a negativeresult or results are necessary for patient management,then the patient should be considered for individualtesting. In very rare cases, estimated at about 8in 1,000 (0.8%) or less patient specimens with lowviral loads may not be detected in sample pools dueto the decreased sensitivity of pooled testing.Please review the "Fact Sheets" and FDA authorizedlabeling available for health care providers andpatients using the following websites:https://www.[employer]/home/Covid-19/HCP/qi-jccg-wgi9-fact-sh eet.htmlhttps://www.[employer]/home/ Covid-19/Patients/qc-hutn-zvo3-fact-sheet.htmlThis test has been authorized by the FDA under anEmergency Use Authorization (EUA) for use by authorizedlaboratories.Due to the current public health emergency, [facility] is receiving a high volume of samples froma wide variety of swabs and media for COVID-19 testing.In order to serve patients during this public healthcrisis, samples from appropriate clinical sources arebeing tested. Negative test results derived fromspecimens received in non-commercially manufacturedviral collection and transport media, or in media andsample collection kits not yet authorized by FDA forCOVID-19 testing should be cautiously evaluated and thepatient potentially subjected to extra precautions suchas additional clinical monitoring, including collectionof an additional specimen.Methodology: Nucleic Acid Amplification Test (NAAT)includes RT-PCR or TMAAdditional information about COVID-19 can be foundat the [employer] website:www.[facility]/Covid19.THIS TEST WAS PERFORMED AT:[facility] [address]BERT WEBB MD ID Date Data Source [id number] 12/01/2020 09:53:00 AM EST [facility] Name Value Range Interpretation Code Description Data Janina rce(s) Supporting Document(s) 36687-2 NOT DETECTED [facility] A Not Detected (negative) test result fo r thistest means that SARS-CoV-2 RNA was not presentin the specimen above the limit of detection. Anegative result does not rule out the possibilityof COVID-19 and should not be used as the solebasis for treatment or patient managementdecisions. If COVID-19 is still suspected, basedon exposure history together with other clinicalfindings, re-testing should be considered inconsultation with public health authorities.Laboratory test results should always be consideredin the context of clinical observations andepidemiological data in making a final diagnosisand patient management decisions.This patient specimen was tested using an FDA EUA poolingmethod.Negative results from pooled testing should not betreated as definitive. If the patient's clinicalsigns and symptoms are inconsistent with a negativeresult or results are necessary for patient management,then the patient should be considered for individualtesting. In very rare cases, estimated at about 8in 1,000 (0.8%) or less patient specimens with lowviral loads may not be detected in sample pools dueto the decreased sensitivity of pooled testing.Please review the "Fact Sheets" and FDA authorizedlabeling available for health care providers andpatients using the following websites:https://www.[employer]/home/Covid-19/HCP/uy-oqql-kix9-fact-sh eet.htmlhttps://www.[employer]/home/ Covid-19/Patients/qw-lidl-ryi0-fact-sheet.htmlThis test has been authorized by the FDA under anEmergency Use Authorization (EUA) for use by authorizedlaboratories.Due to the current public health emergency, [facility] is receiving a high volume of samples froma wide variety of swabs and media for COVID-19 testing.In order to serve patients during this public healthcrisis, samples from appropriate clinical sources arebeing tested. Negative test results derived fromspecimens received in non-commercially manufacturedviral collection and transport media, or in media andsample collection kits not yet authorized by FDA forCOVID-19 testing should be cautiously evaluated and thepatient potentially subjected to extra precautions suchas additional clinical monitoring, including collectionof an additional specimen.Methodology: Nucleic Acid Amplification Test (NAAT)includes RT-PCR or TMAAdditional information about COVID-19 can be foundat the [employer] website:www.[facility]/Covid19. ID Date Data Source [id number] 11/29/2020 01:15:00 AM EST [facility] Name Value Range Interpretation Code Description Data Janina rce(s) Supporting Document(s) SARS-COV-2 RNA RESP QL SEA+PROBE Not detected [facility] This lab was ordered by [facility] and reported by [employer]. ID Date Data Source [id number] 11/27/2020 12:03:00 PM EST [facility] Name Value Range Interpretation Code Description Data Janina rce(s) Supporting Document(s) COVID-19 SEA (SARS-CoV-2) NOT DETECTED NOT DETECTED [facility] A Not Detected (negative) test result fo r thistest means that SARS-CoV-2 RNA was not presentin the specimen above the limit of detection. Anegative result does not rule out the possibilityof COVID-19 and should not be used as the solebasis for treatment or patient managementdecisions. If COVID-19 is still suspected, basedon exposure history together with other clinicalfindings, re-testing should be considered inconsultation with public health authorities.Laboratory test results should always be consideredin the context of clinical observations andepidemiological data in making a final diagnosisand patient management decisions.REFERENCE RANGE: NOT DETECTEDThis patient specimen was tested using an FDA EUA poolingmethod.Negative results from pooled testing should not betreated as definitive. If the patient's clinicalsigns and symptoms are inconsistent with a negativeresult or results are necessary for patient management,then the patient should be considered for individualtesting. In very rare cases, estimated at about 8in 1,000 (0.8%) or less patient specimens with lowviral loads may not be detected in sample pools dueto the decreased sensitivity of pooled testing.Please review the "Fact Sheets" and FDA authorizedlabeling available for health care providers andpatients using the following websites:https://www.[employer]/home/Covid-19/HCP/ia-vykf-khp6-fact-sh eet.htmlhttps:// www.[employer]/home/Covid-19/Patients/gy-qevh-pic7-fact-sheet.htmlThis test has been authorized by the FDA under anEmergency Use Authorization (EUA) for use by authorizedlaboratories.Due to the current public health emergency, [facility] is receiving a high volume of samples froma wide variety of swabs and media for COVID-19 testing.In order to serve patients during this public healthcrisis, samples from appropriate clinical sources arebeing tested. Negative test results derived fromspecimens received in non-commercially manufacturedviral collection and transport media, or in media andsample collection kits not yet authorized by FDA forCOVID-19 testing should be cautiously evaluated and thepatient potentially subjected to extra precautions suchas additional clinical monitoring, including collectionof an additional specimen.Methodology: Nucleic Acid Amplification Test (NAAT)includes RT-PCR or TMAAdditional information about COVID-19 can be foundat the [employer] website:www.[facility].com/Covid19.THIS TEST WAS PERFORMED AT:[facility] [address]BERT WEBB MD ID Date Data Source [id number] 11/27/2020 11:53:00 AM EST [facility] Name Value Range Interpretation Code Description Data Janina rce(s) Supporting Document(s) [id number] NOT DETECTED [facility] A Not Detected (negative) test result fo r thistest means that SARS-CoV-2 RNA was not presentin the specimen above the limit of detection. Anegative result does not rule out the possibilityof COVID-19 and should not be used as the solebasis for treatment or patient managementdecisions. If COVID-19 is still suspected, basedon exposure history together with other clinicalfindings, re-testing should be considered inconsultation with public health authorities.Laboratory test results should always be consideredin the context of clinical observations andepidemiological data in making a final diagnosisand patient management decisions.REFERENCE RANGE: NOT DETECTEDThis patient specimen was tested using an FDA EUA poolingmethod.Negative results from pooled testing should not betreated as definitive. If the patient's clinicalsigns and symptoms are inconsistent with a negativeresult or results are necessary for patient management,then the patient should be considered for individualtesting. In very rare cases, estimated at about 8in 1,000 (0.8%) or less patient specimens with lowviral loads may not be detected in sample pools dueto the decreased sensitivity of pooled testing.Please review the "Fact Sheets" and FDA authorizedlabeling available for health care providers andpatients using the following websites:https://www.[employer]/home/Covid-19/HCP/kq-xdxz-jvs8-fact-sh eet.htmlhttps://sandy .[employer]/home/Covid-19/Patients/kq-xvzp-uhg8-fact-sheet.htmlThis test has been authorized by the FDA under anEmergency Use Authorization (EUA) for use by authorizedlaboratories.Due to the current public health emergency, [facility] is receiving a high volume of samples froma wide variety of swabs and media for COVID-19 testing.In order to serve patients during this public healthcrisis, samples from appropriate clinical sources arebeing tested. Negative test results derived fromspecimens received in non-commercially manufacturedviral collection and transport media, or in media andsample collection kits not yet authorized by FDA forCOVID-19 testing should be cautiously evaluated and thepatient potentially subjected to extra precautions suchas additional clinical monitoring, including collectionof an additional specimen.Methodology: Nucleic Acid Amplification Test (NAAT)includes RT-PCR or TMAAdditional information about COVID-19 can be foundat the [employer] website:www.[employer]/Covid19. ID Date Data Source [id number] 11/25/2020 05:30:00 AM EST [facility] Name Value Range Interpretation Code Description Data Janina rce(s) Supporting Document(s) SARS-COV-2 RNA RESP QL SEA+PROBE Not detected [facility] This lab was ordered by [facility] and reported by [facility] [place]. ID Date Data Source [id number] 11/23/2020 03:26:00 AM EST [facility] Name Value Range Interpretation Code Description Data Janina rce(s) Supporting Document(s) COVID-19 SEA (SARS-CoV-2) NOT DETECTED NOT DETECTED [facility] A Not Detected (negative) test result fo r this testmeans that SARS- CoV-2 RNA was not present in the specimenabove the limit of detection. A negative result does notrule out the possibility of COVID-19 and should not beused as the sole basis for treatment or patient managementdecisions. If COVID-19 is still suspected, based onexposure history together with other clinical findings,re- testing should be considered [facility]. Laboratory test results shouldalways be considered in the context of clinicalobservations and epidemiological data in making a finaldiagnosis and patient management decisions.Please review the "Fact Sheets" and FDA authorizedlabeling available for health care providers andpatients using the following websites:https://www.[employer]/home/Covid-19/HCP/NAAT/fact-lnrlo1sfoud://www.[employer]/home /Covid-19/Patients/NAAT/fact-pbtpt9Wsro test has been authorized by the FDA under anEmergency Use Authorization (EUA) for use by authorizedlaboratories.Due to the current public health emergency, [facility] is receiving a high volume of samples froma wide variety of swabs and media for COVID-19 testing.In order to serve patients during this public healthcrisis, samples from appropriate clinical sources arebeing tested. Negative test results derived fromspecimens received in non-commercially manufacturedviral collection and transport media, or in media andsample collection kits not yet authorized by FDA forCOVID-19 testing should be cautiously evaluated and thepatient potentially subjected to extra precautions suchas additional clinical monitoring, including collectionof an additional specimen.Methodology: Nucleic Acid Amplification Test (NAAT)includes RT-PCR or TMAAdditional information about COVID-19 can be f oundat the [employer] website:www.[facility]/Covid19.THIS TEST WAS PERFORMED AT:[facility] [id number] MERATI,MD ID Date Data Source [id number] 11/21/2020 06:10:00 AM EST [facility] Name Value Range Interpretation Code Description Data Janina rce(s) Supporting Document(s) SARS-COV-2 RNA RESP QL SEA+PROBE Not detected [facility] This lab was ordered by [facility] and reported by [facility]. ID Date Data Source [id number] 11/20/2020 12:32:00 PM EST [facility] Name Value Range Interpretation Code Description Data Janina rce(s) Supporting Document(s) COVID-19 SEA (SARS-CoV-2) NOT DETECTED NOT DETECTED [facility] A Not Detected (negative) test result fo r this testmeans that SARS- CoV-2 RNA was not present in the specimenabove the limit of detection. A negative result does notrule out the possibility of COVID-19 and should not beused as the sole basis for treatment or patient managementdecisions. If COVID-19 is still suspected, based onexposure history together with other clinical findings,re- testing should be considered [facility]. Laboratory test results shouldalways be considered in the context of clinicalobservations and epidemiological data in making a finaldiagnosis and patient management decisions.Please review the "Fact Sheets" and FDA authorizedlabeling available for health care providers andpatients using the following websites:https://www.[employer]/home/Covid-19/HCP/NAAT/fact-clfpz4seoum://www.[employer]/home /Covid-19/Patients/NAAT/fact-xtgux0Xgbk test has been authorized by the FDA under anEmergency Use Authorization (EUA) for use by authorizedlaboratories.Due to the current public health emergency, [facility] is receiving a high volume of samples froma wide variety of swabs and media for COVID-19 testing.In order to serve patients during this public healthcrisis, samples from appropriate clinical sources arebeing tested. Negative test results derived fromspecimens received in non-commercially manufacturedviral collection and transport media, or in media andsample collection kits not yet authorized by FDA forCOVID-19 testing should be cautiously evaluated and thepatient potentially subjected to extra precautions suchas additional clinical monitoring, including collectionof an additional specimen.Methodology: Nucleic Acid Amplification Test (NAAT)includes RT-PCR or TMAAdditional information about COVID-19 can be f oundat the [employer] website:www.[facility]/Covid19.THIS TEST WAS PERFORMED AT:[facility] [address]LHUKWF MERATI,MD ID Date Data Source [id number] 11/18/2020 06:10:00 AM EST [facility] Name Value Range Interpretation Code Description Data Janina rce(s) Supporting Document(s) SARS-COV-2 RNA RESP QL SEA+PROBE Not detected [facility] This lab was ordered by [facility] and reported by [employer]. ID Date Data Source [id number] 11/18/2020 08:47:00 AM EST [facility] Name Value Range Interpretation Code Description Data Janina rce(s) Supporting Document(s) COVID-19 SEA (SARS-CoV-2) NOT DETECTED NOT DETECTED [facility] A Not Detected (negative) test result fo r thistest means that SARS-CoV-2 RNA was not presentin the specimen above the limit of detection. Anegative result does not rule out the possibilityof COVID-19 and should not be used as the solebasis for treatment or patient managementdecisions. If COVID-19 is still suspected, basedon exposure history together with other clinicalfindings, re-testing should be considered inconsultation with public health authorities.Laboratory test results should always be consideredin the context of clinical observations andepidemiological data in making a final diagnosisand patient management decisions.REFERENCE RANGE: NOT DETECTEDThis patient specimen was tested using an FDA EUA poolingmethod.Negative results from pooled testing should not betreated as definitive. If the patient's clinicalsigns and symptoms are inconsistent with a negativeresult or results are necessary for patient management,then the patient should be considered for individualtesting. In very rare cases, estimated at about 8in 1,000 (0.8%) or less patient specimens with lowviral loads may not be detected in sample pools dueto the decreased sensitivity of pooled testing.Please review the "Fact Sheets" and FDA authorizedlabeling available for health care providers andpatients using the following websites:https://www.[employer]/home/Covid-19/HCP/hg-yoll-rdo1-fact-sh eet.htmlhttps:// www.[employer]/home/Covid-19/Patients/ls-eeza-ryw0-fact-sheet.htmlThis test has been authorized by the FDA under anEmergency Use Authorization (EUA) for use by authorizedlaboratories.Due to the current public health emergency, [facility] is receiving a high volume of samples froma wide variety of swabs and media for COVID-19 testing.In order to serve patients during this public healthcrisis, samples from appropriate clinical sources arebeing tested. Negative test results derived fromspecimens received in non-commercially manufacturedviral collection and transport media, or in media andsample collection kits not yet authorized by FDA forCOVID-19 testing should be cautiously evaluated and thepatient potentially subjected to extra precautions suchas additional clinical monitoring, including collectionof an additional specimen.Methodology: Nucleic Acid Amplification Test (NAAT)includes RT-PCR or TMAAdditional information about COVID-19 can be foundat the [employer] website:www.[facility].com/Covid19.THIS TEST WAS PERFORMED AT:[facility] [address]BERT WEBB MD ID Date Data Source [id number] 11/15/2020 09:45:00 PM EST [facility] Name Value Range Interpretation Code Description Data Janina rce(s) Supporting Document(s) SARS-COV-2 RNA RESP QL SEA+PROBE Not detected [facility] This lab was ordered by [facility] and reported by [facility]. ID Date Data Source [id number] 11/14/2020 03:38:00 AM EST [facility] Name Value Range Interpretation Code Description Data Janina rce(s) Supporting Document(s) COVID-19 SEA (SARS-CoV-2) NOT DETECTED NOT DETECTED [facility] A Not Detected (negative) test result fo r thistest means that SARS-CoV-2 RNA was not presentin the specimen above the limit of detection. Anegative result does not rule out the possibilityof COVID-19 and should not be used as the solebasis for treatment or patient managementdecisions. If COVID-19 is still suspected, basedon exposure history together with other clinicalfindings, re-testing should be considered inconsultation with public health authorities.Laboratory test results should always be consideredin the context of clinical observations andepidemiological data in making a final diagnosisand patient management decisions.REFERENCE RANGE: NOT DETECTEDThis patient specimen was tested using an FDA EUA poolingmethod.Negative results from pooled testing should not betreated as definitive. If the patient's clinicalsigns and symptoms are inconsistent with a negativeresult or results are necessary for patient management,then the patient should be considered for individualtesting. In very rare cases, estimated at about 8in 1,000 (0.8%) or less patient specimens with lowviral loads may not be detected in sample pools dueto the decreased sensitivity of pooled testing.Please review the "Fact Sheets" and FDA authorizedlabeling available for health care providers andpatients using the following websites:https://www.[employer]/home/Covid-19/HCP/is-dkyi-gif7-fact-sh eet.htmlhttps:// www.[employer]/home/Covid-19/Patients/sy-toml-atr9-fact-sheet.htmlThis test has been authorized by the FDA under anEmergency Use Authorization (EUA) for use by authorizedlaboratories.Due to the current public health emergency, [facility] is receiving a high volume of samples froma wide variety of swabs and media for COVID-19 testing.In order to serve patients during this public healthcrisis, samples from appropriate clinical sources arebeing tested. Negative test results derived fromspecimens received in non-commercially manufacturedviral collection and transport media, or in media andsample collection kits not yet authorized by FDA forCOVID-19 testing should be cautiously evaluated and thepatient potentially subjected to extra precautions suchas additional clinical monitoring, including collectionof an additional specimen.Methodology: Nucleic Acid Amplification Test (NAAT)includes RT-PCR or TMAAdditional information about COVID-19 can be foundat the [employer] website:www.[facility]/Covid19.THIS TEST WAS PERFORMED AT:[facility] [address]BERT WEBB MD ID Date Data Source [id number] 11/11/2020 05:45:00 PM EST [facility] Name Value Range Interpretation Code Description Data Janina rce(s) Supporting Document(s) SARS-COV-2 RNA RESP QL SEA+PROBE Not detected [facility] This lab was ordered by [facility] and reported by [facility] [place]. ID Date Data Source [id number] 11/12/2020 09:47:00 PM EST [facility] Name Value Range Interpretation Code Description Data Janina rce(s) Supporting Document(s) COVID-19 SEA (SARS-CoV-2) NOT DETECTED NOT DETECTED [facility] A Not Detected (negative) test result fo r thistest means that SARS-CoV-2 RNA was not presentin the specimen above the limit of detection. Anegative result does not rule out the possibilityof COVID-19 and should not be used as the solebasis for treatment or patient managementdecisions. If COVID-19 is still suspected, basedon exposure history together with other clinicalfindings, re-testing should be considered inconsultation with public health authorities.Laboratory test results should always be consideredin the context of clinical observations andepidemiological data in making a final diagnosisand patient management decisions.REFERENCE RANGE: NOT DETECTEDThis patient specimen was tested using an FDA EUA poolingmethod.Negative results from pooled testing should not betreated as definitive. If the patient's clinicalsigns and symptoms are inconsistent with a negativeresult or results are necessary for patient management,then the patient should be considered for individualtesting. In very rare cases, estimated at about 8in 1,000 (0.8%) or less patient specimens with lowviral loads may not be detected in sample pools dueto the decreased sensitivity of pooled testing.Please review the "Fact Sheets" and FDA authorizedlabeling available for health care providers andpatients using the following websites:https://www.[employer].com/home/Covid-19/HCP/hy-ekzf-vsk6-fact-sh eet.htmlhttps:// www.[employer]/home/Covid-19/Patients/lp-rnpi-aur1-fact-sheet.htmlThis test has been authorized by the FDA under anEmergency Use Authorization (EUA) for use by authorizedlaboratories.Due to the current public health emergency, [facility] is receiving a high volume of samples froma wide variety of swabs and media for COVID-19 testing.In order to serve patients during this public healthcrisis, samples from appropriate clinical sources arebeing tested. Negative test results derived fromspecimens received in non-commercially manufacturedviral collection and transport media, or in media andsample collection kits not yet authorized by FDA forCOVID-19 testing should be cautiously evaluated and thepatient potentially subjected to extra precautions suchas additional clinical monitoring, including collectionof an additional specimen.Methodology: Nucleic Acid Amplification Test (NAAT)includes RT-PCR or TMAAdditional information about COVID-19 can be foundat the [employer] website:www.[facility].[employer]/Covid19.THIS TEST WAS PERFORMED AT:[facility] [address]BERT WEBB MD ID Date Data Source [id number] 11/09/2020 09:30:00 PM EST [facility] Name Value Range Interpretation Code Description Data Janina rce(s) Supporting Document(s) SARS-COV-2 RNA RESP QL SEA+PROBE Not detected [facility] This lab was ordered by [facility] and reported by [facility]. ID Date Data Source [id number] 11/07/2020 05:12:00 PM EST [facility] Name Value Range Interpretation Code Description Data Janina rce(s) Supporting Document(s) COVID-19 SEA (SARS-CoV-2) NOT DETECTED NOT DETECTED [facility] A Not Detected (negative) test result fo r this testmeans that SARS- CoV-2 RNA was not present in the specimenabove the limit of detection. A negative result does notrule out the possibility of COVID-19 and should not beused as the sole basis for treatment or patient managementdecisions. If COVID-19 is still suspected, based onexposure history together with other clinical findings,re- testing should be considered [facility]. Laboratory test results shouldalways be considered in the context of clinicalobservations and epidemiological data in making a finaldiagnosis and patient management decisions.Please review the "Fact Sheets" and FDA authorizedlabeling available for health care providers andpatients using the following websites:https://www.[employer].com/home/Covid-19/HCP/Quest[employer]/fact-sheet.htmlhttps://www.[employer]. [employer]/home/Covid-19/Patients/QuestIVD/fact-sheet.htmlThis test has been authorized by the FDA under anEmergency Use Authorization (EUA) for use by authorizedlaboratories.Due to the current public health emergency, [facility] is receiving a high volume of samples froma wide variety of swabs and media for COVID-19 testing.In order to serve patients during this public healthcrisis, samples from appropriate clinical sources arebeing tested. Negative test results derived fromspecimens received in non-commercially manufa cturedviral collection and transport media, or in media andsample collection kits not yet authorized by FDA forCOVID-19 testing should be cautiously evaluated and thepatient potentially subjected to extra precautions suchas additional clinical monitoring, including collectionof an additional specimen.Methodology: Nucleic Acid Amplification Test (NAAT)includes RT-PCR or TMAAdditional information about COVID-19 can be foundat the [employer] website:www.[facility].[employer]/Covid19.THIS TEST WAS PERFORMED AT:[facility] [address] [address]GOSWDV MERATI,MD ID Date Data Source [id number] 11/06/2020 02:00:00 AM EST [facility] Name Value Range Interpretation Code Description Data Janina rce(s) Supporting Document(s) SARS-COV-2 RNA RESP QL SEA+PROBE Not detected [facility] This lab was ordered by [facility] and reported by [facility]. ID Date Data Source [id number] 11/03/2020 02:57:00 AM EST [facility] Name Value Range Interpretation Code Description Data Janina rce(s) Supporting Document(s) COVID-19 SEA (SARS-CoV-2) NOT DETECTED NOT DETECTED [facility] A Not Detected (negative) test result fo r this testmeans that SARS- CoV-2 RNA was not present in the specimenabove the limit of detection. A negative result does notrule out the possibility of COVID-19 and should not beused as the sole basis for treatment or patient managementdecisions. If COVID-19 is still suspected, based onexposure history together with other clinical findings,re- testing should be considered [facility]. Laboratory test results shouldalways be considered in the context of clinicalobservations and epidemiological data in making a finaldiagnosis and patient management decisions.Please review the "Fact Sheets" and FDA authorizedlabeling available for health care providers andpatients using the following websites:https://www.[employer].com/home/Covid-19/HCP/QuestIVD/fact-sheet.htmlhttps://www.[employer]. [employer]/home/Covid-19/Patients/QuestIVD/fact-sheet.htmlThis test has been authorized by the FDA under anEmergency Use Authorization (EUA) for use by authorizedlaboratories.Due to the current public health emergency, [facility] is receiving a high volume of samples froma wide variety of swabs and media for COVID-19 testing.In order to serve patients during this public healthcrisis, samples from appropriate clinical sources arebeing tested. Negative test results derived fromspecimens received in non-commercially manufa cturedviral collection and transport media, or in media andsample collection kits not yet authorized by FDA forCOVID-19 testing should be cautiously evaluated and thepatient potentially subjected to extra precautions suchas additional clinical monitoring, including collectionof an additional specimen.Methodology: Nucleic Acid Amplification Test (NAAT)includes RT-PCR or TMAAdditional information about COVID-19 can be foundat the [employer] website:www.[facility].[employer]/Covid19.THIS TEST WAS PERFORMED AT:[facility] [address]DUWSNJ MERATI,MD ID Date Data Source [id number] 11/01/2020 06:10:00 AM EST [facility] Name Value Range Interpretation Code Description Data Janina rce(s) Supporting Document(s) SARS-COV-2 RNA RESP QL SEA+PROBE Not detected [facility] This lab was ordered by [facility] and reported by [facility]. ID Date Data Source [id number] 10/30/2020 08:08:00 AM EST [facility] Name Value Range Interpretation Code Description Data Janina rce(s) Supporting Document(s) COVID-19 SEA (SARS-CoV-2) NOT DETECTED NOT DETECTED [facility] A Not Detected (negative) test result fo r this testmeans that SARS- CoV-2 RNA was not present in the specimenabove the limit of detection. A negative result does notrule out the possibility of COVID-19 and should not beused as the sole basis for treatment or patient managementdecisions. If COVID-19 is still suspected, based onexposure history together with other clinical findings,re- testing should be considered in consultation [facility]. Laboratory test results shouldalways be considered in the context of clinicalobservations and epidemiological data in making a finaldiagnosis and patient management decisions.Please review the "Fact Sheets" and FDA authorizedlabeling available for health care providers andpatients using the following websites:https://www.[employer].com/home/Covid-19/HCP/NAAT/fact-coehr4mekbp://www.[employer]/home /Covid-19/Patients/NAAT/fact-gdglv6Pszj test has been authorized by the FDA under anEmergency Use Authorization (EUA) for use by authorizedlaboratories.Due to the current public health emergency, [facility] is receiving a high volume of samples froma wide variety of swabs and media for COVID-19 testing.In order to serve patients during this public healthcrisis, samples from appropriate clinical sources arebeing tested. Negative test results derived fromspecimens received in non-commercially manufacturedviral collection and transport media, or in media andsample collection kits not yet authorized by FDA forCOVID-19 testing should be cautiously evaluated and thepatient potentially subjected to extra precautions suchas additional clinical monitoring, including collectionof an additional specimen.Methodology: Nucleic Acid Amplification Test (NAAT)includes RT-PCR or TMAAdditional information about COVID-19 can be f oundat the [employer] website:www.[facility].[employer]/Covid19.THIS TEST WAS PERFORMED AT:[facility] [id number] MERATI,MD ID Date Data Source [id number] 10/27/2020 06:30:00 PM EST [facility] Name Value Range Interpretation Code Description Data Janina rce(s) Supporting Document(s) SARS-COV-2 RNA RESP QL SEA+PROBE Not detected [facility] This lab was ordered by [facility] and reported by [facility] [place]. ID Date Data Source [id number] 10/25/2020 01:27:00 PM EST [facility] Does the specimen need to be recollected ?: NREASON REJECTED:: TESTED 2 X THIS WEEKTEST(S) ORDERED:: COVID [facility] Name Value Range Interpretation Code Description Data Janina rce(s) Supporting Document(s) Laboratory COVID [place] STAFF [facility] Laboratory studies (set) TESTED 2 X THIS WEEK [facility] One or more of the tests that youordered cannot be performed.Please recollect, reorder and resubmit. ID Date Data Source [id number] 10/27/2020 04:42:00 AM EST [facility] Name Value Range Interpretation Code Description Data Janina rce(s) Supporting Document(s) COVID-19 SEA (SARS-CoV-2) NOT DETECTED NOT DETECTED [facility] A Not Detected (negative) test result fo r this testmeans that SARS- CoV-2 RNA was not present in the specimenabove the limit of detection. A negative result does notrule out the possibility of COVID-19 and should not beused as the sole basis for treatment or patient managementdecisions. If COVID-19 is still suspected, based onexposure history together with other clinical findings,re- testing should be considered in [facility]. Laboratory test results shouldalways be considered in the context of clinicalobservations and epidemiological data in making a finaldiagnosis and patient management decisions.Please review the "Fact Sheets" and FDA authorizedlabeling available for health care providers andpatients using the following websites:https://www.[employer].com/home/Covid-19/HCP/NAAT/fact-jjlem2duyxa://www.[employer]/home /Covid-19/Patients/NAAT/fact-dcqsn1Cykl test has been authorized by the FDA under anEmergency Use Authorization (EUA) for use by authorizedlaboratories.Due to the current public health emergency, [facility] is receiving a high volume of samples froma wide variety of swabs and media for COVID-19 testing.In order to serve patients during this public healthcrisis, samples from appropriate clinical sources arebeing tested. Negative test results derived fromspecimens received in non-commercially manufacturedviral collection and transport media, or in media andsample collection kits not yet authorized by FDA forCOVID-19 testing should be cautiously evaluated and thepatient potentially subjected to extra precautions suchas additional clinical monitoring, including collectionof an additional specimen.Methodology: Nucleic Acid Amplification Test (NAAT)includes RT-PCR or TMAAdditional information about COVID-19 can be f oundat the [employer] website:www.[facility].[employer]/Covid19.THIS TEST WAS PERFORMED AT:[facility] [address]TMNCBX MERATI,MD ID Date Data Source [id number] 10/23/2020 06:15:00 AM EST [facility] Name Value Range Interpretation Code Description Data Janina rce(s) Supporting Document(s) SARS-COV-2 RNA RESP QL SEA+PROBE Not detected [facility] This lab was ordered by [facility] and reported by [facility]. ID Date Data Source [id number] 10/24/2020 05:18:00 AM EST [facility] Name Value Range Interpretation Code Description Data Janina rce(s) Supporting Document(s) COVID-19 SEA (SARS-CoV-2) NOT DETECTED NOT DETECTED [facility] A Not Detected (negative) test result fo r this testmeans that SARS- CoV-2 RNA was not present in the specimenabove the limit of detection. A negative result does notrule out the possibility of COVID-19 and should not beused as the sole basis for treatment or patient managementdecisions. If COVID-19 is still suspected, based onexposure history together with other clinical findings,re- testing should be considered in [facility]. Laboratory test results shouldalways be considered in the context of clinicalobservations and epidemiological data in making a finaldiagnosis and patient management decisions.Please review the "Fact Sheets" and FDA authorizedlabeling available for health care providers andpatients using the following websites:https://www.[employer].com/home/Covid-19/HCP/NAAT/fact-mkkao7uazwd://www.[employer]/home /Covid-19/Patients/NAAT/fact-kylbw2Ollw test has been authorized by the FDA under anEmergency Use Authorization (EUA) for use by authorizedlaboratories.Due to the current public health emergency, [facility] is receiving a high volume of samples froma wide variety of swabs and media for COVID-19 testing.In order to serve patients during this public healthcrisis, samples from appropriate clinical sources arebeing tested. Negative test results derived fromspecimens received in non-commercially manufacturedviral collection and transport media, or in media andsample collection kits not yet authorized by FDA forCOVID-19 testing should be cautiously evaluated and thepatient potentially subjected to extra precautions suchas additional clinical monitoring, including collectionof an additional specimen.Methodology: Nucleic Acid Amplification Test (NAAT)includes RT-PCR or TMAAdditional information about COVID-19 can be f oundat the [employer] website:www.[facility].com/Covid19.THIS TEST WAS PERFORMED AT:[facility] [address] [id number] MERATI,MD ID Date Data Source [id number] 10/21/2020 06:10:00 AM EST [facility] Name Value Range Interpretation Code Description Data Janina rce(s) Supporting Document(s) SARS-COV-2 RNA RESP QL SEA+PROBE Not detected [facility] This lab was ordered by [facility] and reported by [facility]. ID Date Data Source [id number] 10/19/2020 12:36:00 PM [facility] Does the specimen need to be recollected ?: NREASON REJECTED:: SECOND SWAB DONE IN A WEEKS TIMETEST(S) ORDERED:: COVID [facility] Name Value Range Interpretation Code Description Data Janina rce(s) Supporting Document(s) Laboratory COVID [place] ST[facility] Laboratory studies (set) SECOND SWAB DONE IN A WEEKS TIME [facility] One or more of the tests that youordered cannot be performed.Please recollect, reorder and resubmit. ID Date Data Source [id number] 10/16/2020 07:31:00 PM [facility] Name Value Range Interpretation Code Description Data Janina rce(s) Supporting Document(s) COVID-19 SEA (SARS-CoV-2) NOT DETECTED NOT DETECTED [facility] A Not Detected (negative) test result fo r this testmeans that SARS- CoV-2 RNA was not present in the specimenabove the limit of detection. A negative result does notrule out the possibility of COVID-19 and should not beused as the sole basis for treatment or patient managementdecisions. If COVID-19 is still suspected, based onexposure history together with other clinical findings,re- testing should be considered in [facility]. Laboratory test results shouldalways be considered in the context of clinicalobservations and epidemiological data in making a finaldiagnosis and patient management decisions.Please review the "Fact Sheets" and FDA authorizedlabeling available for health care providers andpatients using the following websites:https://www.[employer]/home/Covid-19/HCP/QuestIVD/fact-sheet.htmlhttps://www.[employer]. [employer]/home/Covid-19/Patients/Quest[employer]D/fact-sheet.htmlThis test has been authorized by the FDA under anEmergency Use Authorization (EUA) for use by authorizedlaboratories.Due to the current public health emergency, [facility] is receiving a high volume of samples froma wide variety of swabs and media for COVID-19 testing.In order to serve patients during this public healthcrisis, samples from appropriate clinical sources arebeing tested. Negative test results derived fromspecimens received in non-commercially manufa cturedviral collection and transport media, or in media andsample collection kits not yet authorized by FDA forCOVID-19 testing should be cautiously evaluated and thepatient potentially subjected to extra precautions suchas additional clinical monitoring, including collectionof an additional specimen.Methodology: Nucleic Acid Amplification Test (NAAT)includes RT-PCR or TMAAdditional information about COVID-19 can be foundat the [employer] website:www.[facility].[employer]/Covid19.THIS TEST WAS PERFORMED AT:[facility] [address]GMPNRD MERATI,MD ID Date Data Source [id number] 10/13/2020 01:45:00 PM EST [facility] Name Value Range Interpretation Code Description Data Janina rce(s) Supporting Document(s) SARS-COV-2 RNA RESP QL SEA+PROBE [facility] This lab was ordered by [facility] and reported by [facility] [place]. ID Date Data Source [id number] 10/02/2020 06:22:00 PM EST [facility] Name Value Range Interpretation Code Description Data Janina rce(s) Supporting Document(s) COVID-19 SEA (SARS-CoV-2) NOT DETECTED NOT DETECTED [facility] A Not Detected (negative) test result fo r this testmeans that SARS- CoV-2 RNA was not present in the specimenabove the limit of detection. A negative result does notrule out the possibility of COVID-19 and should not beused as the sole basis for treatment or patient managementdecisions. If COVID-19 is still suspected, based onexposure history together with other clinical findings,re- testing should be considered in consultation [facility]. Laboratory test results shouldalways be considered in the context of clinicalobservations and epidemiological data in making a finaldiagnosis and patient management decisions.Please review the "Fact Sheets" and FDA authorizedlabeling available for health care providers andpatients using the following websites:https://www.[employer]/home/Covid-19/HCP/NAAT/fact-xhukl6wpfyr://www.[employer]/home /Covid-19/Patients/NAAT/fact-zymwk9Zlft test has been authorized by the FDA under anEmergency Use Authorization (EUA) for use by authorizedlaboratories.Due to the current public health emergency, [facility] is receiving a high volume of samples froma wide variety of swabs and media for COVID-19 testing.In order to serve patients during this public healthcrisis, samples from appropriate clinical sources arebeing tested. Negative test results derived fromspecimens received in non-commercially manufacturedviral collection and transport media, or in media andsample collection kits not yet authorized by FDA forCOVID-19 testing should be cautiously evaluated and thepatient potentially subjected to extra precautions suchas additional clinical monitoring, including collectionof an additional specimen.Methodology: Nucleic Acid Amplification Test (NAAT)includes RT-PCR or TMAAdditional information about COVID-19 can be f oundat the [employer] website:www.[employer]/Covid19.THIS TEST WAS PERFORMED AT:[address] [id number] MERATI,MD ID Date Data Source [id number] 09/30/2020 05:40:00 AM EST [facility] Name Value Range Interpretation Code Description Data Janina rce(s) Supporting Document(s) SARS-COV-2 RNA RESP QL SEA+PROBE [facility] This lab was ordered by [facility] and reported by [facility]. ID Date Data Source [id number] 09/25/2020 10:28:00 PM EST [facility] Name Value Range Interpretation Code Description Data Janina rce(s) Supporting Document(s) COVID-19 SEA (SARS-CoV-2) NOT DETECTED NOT DETECTED [facility] A Not Detected (negative) test result fo r this testmeans that SARS- CoV-2 RNA was not present in the specimenabove the limit of detection. A negative result does notrule out the possibility of COVID-19 and should not beused as the sole basis for treatment or patient managementdecisions. If COVID-19 is still suspected, based onexposure history together with other clinical findings,re- testing should be considered in [facility]. Laboratory test results shouldalways be considered in the context of clinicalobservations and epidemiological data in making a finaldiagnosis and patient management decisions.Please review the "Fact Sheets" and FDA authorizedlabeling available for health care providers andpatients using the following websites:https://www.[employer]/home/Covid-19/HCP/NAAT/fact-goatb2fdasa://www.[employer]/home /Covid-19/Patients/NAAT/fact-ivsym8Ejjx test has been authorized by the FDA under anEmergency Use Authorization (EUA) for use by authorizedlaboratories.Due to the current public health emergency, [facility] is receiving a high volume of samples froma wide variety of swabs and media for COVID-19 testing.In order to serve patients during this public healthcrisis, samples from appropriate clinical sources arebeing tested. Negative test results derived fromspecimens received in non-commercially manufacturedviral collection and transport media, or in media andsample collection kits not yet authorized by FDA forCOVID-19 testing should be cautiously evaluated and thepatient potentially subjected to extra precautions suchas additional clinical monitoring, including collectionof an additional specimen.Methodology: Nucleic Acid Amplification Test (NAAT)includes RT-PCR or TMAAdditional information about COVID-19 can be f oundat the [employer] website:www.[employer]/Covid19.THIS TEST WAS PERFORMED AT:[address] [address]YPVATF MERATI,MD ID Date Data Source [id number] 09/21/2020 06:10:00 AM EST [facility] Name Value Range Interpretation Code Description Data Janina rce(s) Supporting Document(s) SARS-COV-2 RNA RESP QL SEA+PROBE [facility] This lab was ordered by [facility] and reported by [facility]. ID Date Data Source [id number] 09/17/2020 02:22:00 PM [facility] Name Value Range Interpretation Code Description Data Janina rce(s) Supporting Document(s) COVID-19 SEA (SARS-CoV-2) NOT DETECTED NOT DETECTED [facility] A Not Detected (negative) test result fo r thistest means that SARS-CoV-2 RNA was not presentin the specimen above the limit of detection. Anegative result does not rule out the possibilityof COVID-19 and should not be used as the solebasis for treatment or patient managementdecisions. If COVID-19 is still suspected, basedon exposure history together with other clinicalfindings, re-testing should be considered inconsultation with public health authorities.Laboratory test results should always be consideredin the context of clinical observations andepidemiological data in making a final diagnosisand patient management decisions.REFERENCE RANGE: NOT DETECTEDThis patient specimen was tested using an FDA EUA poolingmethod.Negative results from pooled testing should not betreated as definitive. If the patient's clinicalsigns and symptoms are inconsistent with a negativeresult or results are necessary for patient management,then the patient should be considered for individualtesting. Specimens with low viral loads may not bedetected in sample pools due to the decreased sensitivityof pooled testing.Please review the "Fact Sheets" and FDA authorizedlabeling available for health care providers andpatients using the following websites:https://www.[employer]/home/Covid-19/HCP/QuestIVD/fact-sheet. htmlhttps://www.[employer]/home/Covid-19/Patients/QuestIVD/fact-sheet. htmlThis test has been authorized by the FDA under anEmergency Use Authorization (EUA) for use by authorizedlaboratories.Due to the current public health emergency, [facility] is receiving a high volume of samples froma wide variety of swabs and media for COVID-19 testing.In order to serve patients during this public healthcrisis, samples from appropriate clinical sources arebeing tested. Negative test results derived fromspecimens received in non- commercially manufacturedviral collection and transport media, or in media andsample collection kits not yet authorized by FDA forCOVID-19 testing should be cautiously evaluated and thepatient potentially subjected to extra precautions suchas additional clinical monitoring, including collectionof an additional specimen.Methodology: Nucleic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 does notrule out the possibility of COVID-19 and should not beused as the sole basis for treatment or patient managementdecisions. If COVID-19 is still suspected, based onexposure history together with other clinical findings,re- testing should be considered [facility]. Laboratory test results shouldalways be considered in the context of clinicalobservations and epidemiological data in making a finaldiagnosis and patient management decisions.Please review the "Fact Sheets" and FDA authorizedlabeling available for health care providers andpatients using the following websites:https://www.[employer].com/home/Covid-19/HCP/NAAT/fact-wzboo4lyfxd://www.[employer]/home /Covid-19/Patients/NAAT/fact-ezygm8Yldy test has been authorized by the FDA under anEmergency Use Authorization (EUA) for use by authorizedlaboratories.Due to the current public health emergency, [facility] is receiving a high volume of samples froma wide variety of swabs and media for COVID-19 testing.In order to serve patients during this public healthcrisis, samples from appropriate clinical sources arebeing tested. Negative test results derived fromspecimens received in non-commercially manufacturedviral collection and transport media, or in media andsample collection kits not yet authorized by FDA forCOVID-19 testing should be cautiously evaluated and thepatient potentially subjected to extra precautions suchas additional clinical monitoring, including collectionof an additional specimen.Methodology: Nucleic Acid Amplification Test (NAAT)includes RT-PCR or TMAAdditional information about COVID-19 can be f oundat the [employer] website:www.[facility].[employer]/Covid19.THIS TEST WAS PERFORMED AT:[facility] [id number] MERATI,MD ID Date Data Source [id number] 08/03/2020 09:45:00 PM EDT [facility] Name Value Range Interpretation Code Description Data Janina rce(s) Supporting Document(s) SARS-COV-2 RNA RESP QL SEA+PROBE [facility] This lab was ordered by [facility] and reported by [employer]. ID Date Data Source [id number] 08/03/2020 09:46:00 AM EDT [facility] Name Value Range Interpretation Code Description Data Janina rce(s) Supporting Document(s) COVID-19 SEA (SARS-CoV-2) NOT DETECTED NOT DETECTED [facility] A Not Detected (negative) test result fo r this testmeans that SARS- CoV-2 RNA was not present in the specimenabove the limit of detection. A negative result does notrule out the possibility of COVID-19 and should not beused as the sole basis for treatment or patient managementdecisions. If COVID-19 is still suspected, based onexposure history together with other clinical findings,re- testing should be considered in [facility]. Laboratory test results shouldalways be considered in the context of clinicalobservations and epidemiological data in making a finaldiagnosis and patient management decisions.Please review the "Fact Sheets" and FDA authorizedlabeling available for health care providers andpatients using the following websites:https://www.[employer].com/home/Covid-19/HCP/Quest[facility]/fact-sheet.htmlhttps://www.[employer]. [employer]/home/Covid-19/Patients/Quest[employer]D/fact-sheet.htmlThis test has been authorized by the FDA under anEmergency Use Authorization (EUA) for use by authorizedlaboratories.Due to the current public health emergency, [facility] is receiving a high volume of samples froma wide variety of swabs and media for COVID-19 testing.In order to serve patients during this public healthcrisis, samples from appropriate clinical sources arebeing tested. Negative test results derived fromspecimens received in non-commercially manufa cturedviral collection and transport media, or in media andsample collection kits not yet authorized by FDA forCOVID-19 testing should be cautiously evaluated and thepatient potentially subjected to extra precautions suchas additional clinical monitoring, including collectionof an additional specimen.Methodology: Nucleic Acid Amplification Test (NAAT)includes RT-PCR or TMAAdditional information about COVID-19 can be foundat the [employer] website:www.[facility].[employer]/Covid19.THIS TEST WAS PERFORMED AT:[facility] [id number] MERATI,MD ID Date Data Source [id number] 07/31/2020 05:45:00 PM EDT [facility] Name Value Range Interpretation Code Description Data Janina rce(s) Supporting Document(s) SARS-COV-2 RNA RESP QL SEA+PROBE [facility] This lab was ordered by [facility] and reported by [facility]. ID Date Data Source [id number] 07/21/2020 12:31:00 PM EDT [facility] Name Value Range Interpretation Code Description Data Janina rce(s) Supporting Document(s) COVID-19 SEA (SARS-CoV-2) NOT DETECTED NOT DETECTED [facility] A Not Detected (negative) test result fo r thistest means that SARS-CoV-2 RNA was not presentin the specimen above the limit of detection. Anegative result does not rule out the possibilityof COVID-19 and should not be used as the solebasis for treatment or patient managementdecisions. If COVID-19 is still suspected, basedon exposure history together with other clinicalfindings, re-testing should be considered inconsultation with public health authorities.Laboratory test results should always be consideredin the context of clinical observations andepidemiological data in making a final diagnosisand patient management decisions.REFERENCE RANGE: NOT DETECTEDThis patient specimen was tested using an FDA EUA poolingmethod.Negative results from pooled testing should not betreated as definitive. If the patient's clinicalsigns and symptoms are inconsistent with a negativeresult or results are necessary for patient management,then the patient should be considered for individualtesting. Specimens with low viral loads may not bedetected in sample pools due to the decreased sensitivityof pooled testing.Please review the "Fact Sheets" and FDA authorizedlabeling available for health care providers andpatients using the following websites:https://www.[employer].com/home/Covid-19/HCP/QuestLDTP/fact-sheet https://www.[employer].com/home/Covid-19/Patients/QuestLDTP/fact-sheet.htm lThis test has been authorized by the FDA under anEmergency Use Authorization (EUA) for use by authorizedlaboratories.Due to the current public health emergency, [facility] is receiving a high volume of samples froma wide variety of swabs and media for COVID-19 testing.In order to serve patients during this public healthcrisis, samples from appropriate clinical sources arebeing tested. Negative test results derived fromspecimens received in non- commercially manufacturedviral collection and transport media, or in media andsample collection kits not yet authorized by FDA forCOVID-19 testing should be cautiously evaluated and thepatient potentially subjected to extra precautions suchas additional clinical monitoring, including collectionof an additional specimen.Methodology: Nucleic Acid Amplification Test (NAAT)includes RT-PCR or TMAAdditional information about COVID-19 can be foundat the [employer] website:www.[facility].[employer]/Covid19.THIS TEST WAS PERFORMED AT:[facility] [address] [facility],[place] [address]CYMDMSANTOSH ROSE MD ID Date Data Source [id number] 07/18/2020 05:30:00 PM EDT [facility] Name Value Range Interpretation Code Description Data Janina rce(s) Supporting Document(s) SARS-COV-2 RNA RESP QL SEA+PROBE [facility] This lab was ordered by [facility] and reported by [facility] [place]. ID Date Data Source [id number] 07/11/2020 03:48:00 AM EDT [facility] Name Value Range Interpretation Code Description Data Janina rce(s) Supporting Document(s) COVID-19 SEA (SARS-CoV-2) NOT DETECTED NOT DETECTED [facility] A Not Detected (negative) test result fo r this testmeans that SARS- CoV-2 RNA was not present in the specimenabove the limit of detection. A negative result does notrule out the possibility of COVID-19 and should not beused as the sole basis for treatment or patient managementdecisions. If COVID-19 is still suspected, based onexposure history together with other clinical findings,re- testing should be considered in [facility]. Laboratory test results shouldalways be considered in the context of clinicalobservations and epidemiological data in making a finaldiagnosis and patient management decisions.Please review the "Fact Sheets" and FDA authorizedlabeling available for health care providers andpatients using the following websites:https://www.[employer].com/home/Covid-19/HCP/NAAT/fact-yaoxd3oggss://www.[employer]/home /Covid-19/Patients/NAAT/fact-bnmpp6Xnnl test has been authorized by the FDA under anEmergency Use Authorization (EUA) for use by authorizedlaboratories.Due to the current public health emergency, [facility] is receiving a high volume of samples froma wide variety of swabs and media for COVID-19 testing.In order to serve patients during this public healthcrisis, samples from appropriate clinical sources arebeing tested. Negative test results derived fromspecimens received in non-commercially manufacturedviral collection and transport media, or in media andsample collection kits not yet authorized by FDA forCOVID-19 testing should be cautiously evaluated and thepatient potentially subjected to extra precautions suchas additional clinical monitoring, including collectionof an additional specimen.Methodology: Nucleic Acid Amplification Test (NAAT)includes PCR or TMAAdditional information about COVID-19 can be foun odalis the [employer] website:www.[facility].[employer]/Covid19.THIS TEST WAS PERFORMED AT:[facility] [address]DAYUYP MERATI,MD ID Date Data Source [id number] 07/07/2020 08:20:00 PM EDT [facility] Name Value Range Interpretation Code Description Data Janina rce(s) Supporting Document(s) SARS-COV-2 RNA RESP QL SEA+PROBE [facility] This lab was ordered by [facility] and reported by [facility]. ID Date Data Source [id number] 07/03/2020 07:32:00 PM EDT [facility] Name Value Range Interpretation Code Description Data Janina rce(s) Supporting Document(s) COVID-19 SEA (SARS-CoV-2) NOT DETECTED NOT DETECTED [facility] A Not Detected (negative) test result fo r this testmeans that SARS- CoV-2 RNA was not present in the specimenabove the limit of detection. A negative result does notrule out the possibility of COVID-19 and should not beused as the sole basis for treatment or patient managementdecisions. If COVID-19 is still suspected, based onexposure history together with other clinical findings,re- testing should be considered in [facility]. Laboratory test results shouldalways be considered in the context of clinicalobservations and epidemiological data in making a finaldiagnosis and patient management decisions.Please review the "Fact Sheets" and FDA authorizedlabeling available for health care providers andpatients using the following websites:https://www.[employer].com/home/Covid-19/HCP/Quest[facility]D/fact-sheet.htmlhttps://www.[employer]. [employer]/home/Covid-19/Patients/Quest[facility]/fact-sheet.htmlThis test has been authorized by the FDA under anEmergency Use Authorization (EUA) for use by authorizedlaboratories.Due to the current public health emergency, [facility] is receiving a high volume of samples froma wide variety of swabs and media for COVID-19 testing.In order to serve patients during this public healthcrisis, samples from appropriate clinical sources arebeing tested. Negative test results derived fromspecimens received in non-commercially manufa cturedviral collection and transport media, or in media andsample collection kits not yet authorized by FDA forCOVID-19 testing should be cautiously evaluated and thepatient potentially subjected to extra precautions suchas additional clinical monitoring, including collectionof an additional specimen.Methodology: Nucleic Acid Amplification Test (NAAT)includes PCR or TMAAdditional information about COVID-19 can be foundat the [employer] website:www.[facility].com/Covid19.THIS TEST WAS PERFORMED AT:[address] [id number] MERATI,MD ID Date Data Source [id number] 06/30/2020 10:00:00 PM EDT [facility] Name Value Range Interpretation Code Description Data Janina rce(s) Supporting Document(s) SARS-COV-2 RNA RESP QL SEA+PROBE [facility] This lab was ordered by [facility] and reported by [employer] [facility]. Procedure Social History Code Duration Value Status Description Data Source(s ) Smoking 08/09/2021 12:00:00 AM EDT Never Smoker completed Never S moker eCW1 ([facility]) Smoking 08/09/2021 12:00:00 AM EDT Never Smoker completed Never S moker eCW1 ([facility]) Smoking 08/02/2021 12:00:00 AM EDT Never Smoker completed Never S moker eCW1 ([facility]) 01/28/2021 09:22:07 PM EDT No completed No [facility] 01/28/2021 09:22:07 PM EDT No completed No [facility] 01/28/2021 09:22:07 PM EDT Never smoker completed Never s [facility] 01/28/2021 09:22:07 PM EDT No completed No [facility] 01/28/2021 09:22:07 PM EDT No completed [facility] 01/28/2021 09:22:07 PM EDT Never smoker completed Never s [facility] 01/28/2021 09:22:07 PM EDT No completed [facility] 01/28/2021 09:22:07 PM EDT No completed [facility] 01/28/2021 09:22:07 PM EDT Never smoker completed Never s [facility] 01/28/2021 09:22:07 PM EDT No completed No [facility] 01/28/2021 09:22:07 PM EDT No completed [facility] 01/28/2021 09:22:07 PM EDT Never smoker completed Never s [facility] 01/28/2021 09:22:07 PM EDT No completed [facility] 01/28/2021 09:22:07 PM EDT No completed [facility] 01/28/2021 09:22:07 PM EDT Never smoker completed Never s [facility] 01/28/2021 09:22:07 PM EDT No completed [facility] 01/28/2021 09:22:07 PM EDT No completed No [facility] 01/28/2021 09:22:07 PM EDT Never smoker completed Never s [facility] Smoking 01/28/2021 09:22:00 PM EDT Never smoker completed Never s [facility] Smoking 01/28/2021 09:22:00 PM EDT Never smoker completed Never s [facility] 12/27/2020 09:36:00 AM EDT No completed No [facility] 12/27/2020 09:36:00 AM EDT No completed No [facility] 12/27/2020 09:36:00 AM EDT Never smoker completed Never s [facility] Smoking 12/27/2020 09:36:00 AM EDT Never smoker completed Never s [facility] 12/27/2020 09:36:00 AM EDT No completed [facility] 12/27/2020 09:36:00 AM EDT No completed No [facility] 12/27/2020 09:36:00 AM EDT Never smoker completed Never s [facility] Smoking 12/27/2020 09:36:00 AM EDT Never smoker completed Never s [facility] 12/27/2020 09:36:00 AM EDT No completed No [facility] 12/27/2020 09:36:00 AM EDT No completed [facility] 12/27/2020 09:36:00 AM EDT Never smoker completed Never s [facility] Smoking 12/27/2020 09:36:00 AM EDT Never smoker completed Never s [facility] 12/27/2020 09:36:00 AM EDT No completed No [facility] 12/27/2020 09:36:00 AM EDT No completed No [facility] 12/27/2020 09:36:00 AM EDT Never smoker completed Never s [facility] Smoking 12/27/2020 09:36:00 AM EDT Never smoker completed Never s [facility] 12/26/2020 12:20:00 PM EDT Never smoker completed Never s [facility] Smoking 12/26/2020 12:20:00 PM EDT Never smoker completed Never s [facility] Vital Signs ID Date Data Source UNK Name Value Range Interpretation Code Description Data Source(s) Body weight 343 [lb_av] 343 [lb_av] eCW1 ([facility]) Body height 63 [in_i] 63 [in_i] eCW1 (Formerly [facility]) Body mass index (BMI) [Ratio] 60.76 kg/m2 60.76 kg/m2 eCW1 ([facility]) Systolic blood pressure 128 mm[Hg] 128 mm[Hg] e CW1 ([facility]) Diastolic blood pressure 82 mm[Hg] 82 mm[Hg] eCW1 ([facility]) Body weight 339 [lb_av] 339 [lb_av] eCW1 ([facility]ly [facility], [facility]) Body weight 153.77 kg 153.77 kg W1 ([facility]) Body height 63 [in_i] 63 [in_i] eCW1 ([facility]) Body mass index (BMI) [Ratio] 60.051 kg/m2 60.0 51 kg/m2 W1 ([facility]) Systolic blood pressure 124 mm[Hg] 124 mm[Hg] e CW1 ([facility]) Diastolic blood pressure 66 mm[Hg] 66 mm[Hg] eCW1 ([facility]) Body weight 337 [lb_av] 337 [lb_av] eCW1 ([facility]) Body height 63 [in_i] 63 [in_i] eCW1 ([facility]ly [facility]) Body mass index (BMI) [Ratio] 59.697 kg/m2 59.6 97 kg/m2 eCW1 ([facility]) Systolic blood pressure 142 mm[Hg] 142 mm[Hg] e CW1 ([facility]) Diastolic blood pressure 72 mm[Hg] 72 mm[Hg] eCW1 ([facility])
[2021-08-24] MEDS ORDERED: [UNRECOGNIZED DRUG - CODE] PO (20:48)
[2021-08-24] MEDS ORDERED: PRENTAB9 PO (20:48)
[2021-08-24] MEDS ORDERED: HOME MED LIST COMPLETE! XX SCH (20:50)
[2021-08-24] MEDS: BETAMETHASONE SOLUSPAN 6MG/ML 5ML VIAL (J0702 PER 3MG) IM SCH (20:51)
[2021-08-24] MEDS ORDERED: NIFEdipine 10 MG CAP PO ONE ×2 (21:00→22:30)
[2021-08-24 21:02] VITALS: BP 138/72
[2021-08-24 21:18] LABS: HEMATOCRIT 34.2 % (36.0-47.0); HEMOGLOBIN 11.3 g/dl (12.0-15.5); MEAN CORPUSCULAR HEMOGLOBIN 27.6 pg (27.0-33.0); MEAN CORPUSCULAR VOLUME 83.6 fl (80.0-96.0); PLATELET COUNT, AUTOMATED 222 10^3/uL (150-450); RED BLOOD COUNT 4.09 10^6/uL (4.00-5.40); WHITE BLOOD COUNT 11.3 10^3/uL (4.0-10.0)
--- NOTE | 2021-08-24 21:47 | HPE ---
HISTORY AND PHYSICAL DATE OF ADMISSION: 08/24/2021 SUBJECTIVE: Harleen is a 26-year-old, 2, Para 0-0-1-0, at 34 and 5/7 weeks gestation with an EDC of 09/30/2021 based on last menstrual period and confirmed by first trimester ultrasound. She presents to Labor and Delivery today with report of a backache that was on throughout the entire day and the onset of contractions at approximately 1500. She denies vaginal bleeding and leakage of fluid. The fetus has been active. She reports that her contractions are approximately every five minutes and progressively became more uncomfortable. Her care was initiated at [facility] in the first trimester with a transfer of care to [facility] in the third trimester. Her course complicated by gestational diabetes, diet controlled, morbid obesity and intermittent asthma. OBSTETRIC HISTORY: In April,, spontaneous loss with a D&C. OBSTETRIC LABS: O positive, antibody screen negative, HIV negative. T. palladium nonreactive. Hepatitis B surface antigen negative. Rubella immune. Urine toxicology negative. Gestational diabetic screening 188. GBS is unknown at this time. Most recent ultrasound on 08/09 showed a fetus in cephalic presentation with an RAY of 16.9 cm with an estimated weight of 2339 gm, 84th percentile. She was seen at the center for consultation with the recommendation of being seen weekly at 32 weeks., echocardiogram which she had done in May, serial growth ultrasounds. She has undergone antepartum testing since 32 weeks that has been reassuring. PAST MEDICAL HISTORY: 1. Obesity. 2. Generalized anxiety. 3. Asthma. 4. Headaches. 5. Polycystic ovarian cyst syndrome. 6. Tachycardia. PAST SURGICAL HISTORY: 1. Cholecystectomy. 2. D&C. 3. Tonsillectomy. FAMILY HISTORY: Asthma, cancer, dementia and diabetes. SOCIAL HISTORY: The patient is . Her is at bedside and supportive. She is a nonsmoker, denies alcohol and drug use. No history of sexually transmitted infections and denies history of abuse, physical, sexual and emotional. ALLERGIES: No known drug allergies. CURRENT MEDICATIONS: 1. vitamin. 2. Aspirin 81 mg daily. 3. Albuterol inhaler p.r.n. 4. Singulair. 5. Symbicort. OBJECTIVE: Temperature 97.2, pulse 131, blood pressure 112/49. She is alert and oriented x3. She does not appear uncomfortable with her contractions. She does appear uncomfortable with movement. heart rate is 160 with moderate variability. No decelerations are observed. Contractions are very difficult to trace due to body habitus. Sterile speculum exam noted significant cervical mucus. fibronectin was obtained. Sterile vaginal exam 2 cm dilated, 90% effaced, -3 station. Membranes are intact. fibronectin did return positive. ASSESSMENT: Intrauterine at 34 and 5/7 weeks. heart rate is category 1 labor. PLAN: Per consult with Dr. Laura Hu. Admit the patient to labor and delivery, IV fluid bolus, start antibiotics for unknown GBS, nifedipine for tocolysis, betamethasone for lung maturity, routine laboratories, bathroom privileges, regular diet at this time. I did review risks, benefits and alternatives with the patient and her . I reviewed the plan of care to try to use tocolysis to prevent labor until beta complete, reviewed the likelihood if the fetus is born at this gestational age, it will have a stay in the intensive care unit. The patient and her partner have had all of their questions answered at this time.
[2021-08-24] MEDS: LR 1,000 ML IV SCH (22:22)
[2021-08-24 22:30] VITALS: BP 113/54
[2021-08-24] MEDS ORDERED: AMOXICILLIN 875 MG TAB PO SCH (23:00)
[2021-08-25] VITALS (12 sets, daily range): BP systolic 110–147; BP diastolic 49–60
[2021-08-25] MEDS: PENICILLIN G POTASSIUM IV 2.5 MU in IV 1 EA IV SCH ×6 (00:56→21:09)
[2021-08-25] MEDS: LR 1,000 ML IV SCH ×3 (03:55→21:09)
[2021-08-25] MEDS: ACETAMINOPHEN TAB 650MG DOSE (2X325MG) PO PRN ×2 (04:18→18:47)
[2021-08-25] MEDS ORDERED: NIFEdipine 10 MG CAP PO ONE (14:00)
[2021-08-25] MEDS ORDERED: NIFEdipine 10 MG CAP As Ordered ONE (14:02)
[2021-08-25] MEDS: BETAMETHASONE SOLUSPAN 6MG/ML 5ML VIAL (J0702 PER 3MG) IM SCH (21:08)
[2021-08-26 01:37] VITALS: BP 104/53
[2021-08-26] MEDS: PENICILLIN G POTASSIUM IV 2.5 MU in IV 1 EA IV SCH ×2 (01:37→05:04)
[2021-08-26 05:05] VITALS: BP 121/63
[2021-08-26 07:12] VITALS: BP 116/65
[2021-08-26 09:14] VITALS: BP 118/56
--- NOTE | 2021-08-26 09:31 | DS.PDOC ---
Discharge Summary General Date of Admission Aug 24, 2021 at 20:15 Date of Discharge 08/26/2021 Discharge Summary PROCEDURES PERFORMED DURING STAY: None. ADMITTING DIAGNOSES: 1. contractions @ 34w5d 2. A1GDM 3. Morbid obesity DISCHARGE DIAGNOSES: 1. contractions, not laboring 2.COVID + COMPLICATIONS/CHIEF COMPLAINT: Labor Check. HISTORY OF PRESENT ILLNESS: 26yo admitted with complaints of backache at 34w5d. She was found to be manda with dilation HOSPITAL COURSE: Ms Parker denies contractions at this time. She is now betamethasone complete. No further cervical change. Diagnosed with COVID upon admit. DISCHARGE MEDICATIONS: Please see below. ALLERGIES: Please see below. PHYSICAL EXAMINATION ON DISCHARGE: VITAL SIGNS: Please see below. GENERAL: No distress. Afebrile CARDIOVASCULAR EXAMINATION: HRR, normotensive RESPIRATORY EXAMINATION: Clear, unlabored ABDOMINAL EXAMINATION: Gravid, obese EXTREMITIES: Equal strength and motion SKIN: Intact NEUROLOGICAL EXAMINATION: Grossly intact PSYCHIATRIC EXAMINATION: Appropriate LABORATORY DATA: Please see below. PROGNOSIS: Good ACTIVITY: As tolerated. Maintain quarantine for 14 days DIET: As tolerated DISCHARGE PLAN: Maintain quarantine. Call with fever nonresponsive to tylenol, severe shortness of breath, onset regular, rhythmic contractions, bleeding, LOF or decreased movement. Reschedule office visit and growth scan to post quarantine. DISPOSITION: Home DISCHARGE INSTRUCTIONS: 1. Maintain quarantine. Call with increased COVID symptoms. labor s/s reviewed. Daily FKC stressed. DISCHARGE CONDITION: Stable TIME SPENT ON DISCHARGE: 10 minutes. Vital Signs/I&Os Vital Signs Date Time Temp Pulse Resp B/P (MAP) Pulse Ox O2 Delivery O2 Flow Rate FiO2 08/26/21 07:12 98.9 104 16 116/65 (82) 97 Room Air I&O- Last 24 Hours up to 6 AM 08/26/21 05:59 Intake Total 3695 ml Output Total 1975 ml Balance 1720 ml Laboratory Data Labs 24H Laboratory Tests 2 08/25/21 10:59: Coronavirus (COVID-19)(PCR) POSITIVEA Discharge Medications Scheduled Olanzapine/Fluoxetine HCl (Symbyax 12-50 mg Capsule) 1 Each Capsule, 1 CAP PO QPM, (Reported) No.137/Iron/Folic Acd ( Vitamin Tablet) 1 Each Tablet, 1 TAB PO DAILY, (Reported) Allergies Coded Allergies: No Known Allergies (Unverified , 08/24/21) Kat Dasilva CNM Aug 26, 2021 09:30
== END 2021-08-26 10:00 | disposition home or self-care (01) | DRG 563 ==
LOC: M LDO 19:13 → M LDI 20:15
PROVIDERS: ADMIT Advanced Practice Midwife; ATTEND Advanced Practice Midwife
DX: O60.03 Preterm labor without delivery, third trimester (principal); U07.1 COVID-19; O24.419 Gestational diabetes mellitus in pregnancy, unspecified control; E66.01 Morbid (severe) obesity due to excess calories; O98.513 Other viral diseases complicating pregnancy, third trimester; Z3A.34 34 weeks gestation of pregnancy; O99.213 Obesity complicating pregnancy, third trimester; E28.2 Polycystic ovarian syndrome; O99.283 Endocrine, nutritional and metabolic diseases complicating pregnancy, third trimester

== ENCOUNTER 2021-09-01 03:31 | Outpatient (CLI) | payer BC, OTHER, MEDICAID ==
[~2021-09-01] VITALS: Ht 160 cm; Wt 152.2 kg
[~2021-09-01 03:31] MED LIST changes: -ACET-907 PO; -IBUP80TA PO
[2021-09-01 03:49] VITALS: BP 132/66
[2021-09-01 04:22] VITALS: BP 124/69
--- NOTE | 2021-09-01 05:59 | REPVR ---
PROCEDURE INFORMATION: Exam: US , Limited Exam date and time: 09/01/2021 5:33 AM Age: 26 years old Clinical indication: Screening exam; Routine US screening of fetus; Third trimester (=28 weeks 0 days); ; Additional info: Difficulty monitoring due to bmi and maternal habitus TECHNIQUE: Imaging protocol: Real-time ultrasound of the maternal uterus with image documentation. Exam focused on the clinical indication. COMPARISON: US OBS FOLLOW UP OR REPEAT 08/09/2021 11:44 AM FINDINGS: Gestation: Single live intrauterine is seen. presentation: Cephalic presentation is noted. heart rate: cardiac activity is seen with heart rate of 143 beats per minutes. Placenta: Left lateral grade 3 placenta is noted. No placenta previa is seen. Amniotic fluid index: The amniotic fluid index is within normal range measuring 10.9 centimetres. ANATOMY: Umbilical cord: Three-vessel umbilical cord is noted with peak systolic velocity of 49.2 cm/s and end-diastolic volume of 24.8 cm/s. Systolic to diastolic ratio is within normal range at 1.98 and the resistive index of normal range at 0.5. MATERNAL: Cervix: The cervix is normal length measuring 3 cm. The endocervical canal is closed. IMPRESSION: Limited ultrasound as described above with no gross abnormality. PROCEDURE INFORMATION: Exam: US Biophysical Profile Without Non-Stress Test Exam date and time: 09/01/2021 5:33 AM Age: 26 years old Clinical indication: Screening exam; Routine US screening of fetus; Third trimester (=28 weeks 0 days); ; Additional info: Difficulty monitoring due to bmi and maternal habitus TECHNIQUE: Imaging protocol: US biophysical profile without non-stress testing. COMPARISON: US OBS FOLLOW UP OR REPEAT 08/09/2021 11:44 AM FINDINGS: BIOPHYSICAL PROFILE: Breathin/2 Gross body movements: 2/2 tone: 2/2 Qualitative amniotic fluid: 2/2 Biophysical Profile Score: 8/8 IMPRESSION: Biophysical profile score is 8 out of 8. Electronically signed by: Dash Winter On 09/01/2021 05:58:51 AM
[2021-09-01 07:39] VITALS: BP 142/69
--- NOTE | 2021-09-01 07:51 | IPNPDOC ---
Text Note Date of Service The patient was seen on 09/01/21. NOTE S: c/o pressure in pelvis, contractions. Pt is COVID +; She was diagnosed on 08/25/2021. She has a mild cough with congestion. She denies shortness of breath. Pt transferred care from [place] on 08/01/2021. O: AVSS NAD Abd: NT, gravid FHT: Category one toco: irregular, mild ext: NT SVE: 2 cm/100%/-2 vtx A/P 26 yo female at 35 6/7 weeks with contractions, not in labor. COVID+ Pt has been observed for an extended period of time Discharge home Labor precautions. fu office 09/06/2021 as scheduled VS,Fishbone, I+O VS, Fishbone, I+O Vital Signs Date Time Temp Pulse Resp B/P (MAP) Pulse Ox O2 Delivery O2 Flow Rate FiO2 09/01/21 05:15 109 18 95 09/01/21 04:22 124/69 (87) 09/01/21 03:49 97.4 Room Air MICHAEL QUEVEDO MD Sep 01, 2021 07:51
== END 2021-09-01 07:57 | disposition home or self-care (01) ==
LOC: M LDO 03:31
PROVIDERS: ATTEND Advanced Practice Midwife
DX: O60.03 Preterm labor without delivery, third trimester (principal); O26.893 Other specified pregnancy related conditions, third trimester; O98.52 Other viral diseases complicating childbirth; R10.2 Pelvic and perineal pain; U07.1 COVID-19; Z3A.35 35 weeks gestation of pregnancy
CPT/HCPCS: 59025; 76815; 76819; 76820; G0378; G0463

== ENCOUNTER → 2021-09-06 | Outpatient (CLI) | payer BC ==
--- NOTE | 2021-09-06 09:42 | REP ---
INDICATION: GDM COMPARISON: 09/01/2021 TECHNIQUE: Transabdominal obstetrical ultrasound with color Doppler evaluation. FINDINGS: Examination demonstrates a single live intrauterine in cephalic presentation. motion is identified by technologist. Placenta is noted anterior and grade 2 without evidence for placenta previa or abruption. Amniotic fluid volume is normal. Cervix appears closed.. Selected gestational age: 36 weeks 4 days with CATHY 09/30/2021. Gestational age by current measurements 37 weeks 0 days with CATHY 09/27/2021. FHR equals 142 beats per minute. BPD: 9.2 cm at 37 weeks 1 day HC: 32.8 cm at 37 weeks 2 days AC: 33.8 cm at 37 weeks 5 days FL: 7.0 cm at 36 weeks 0 days HL: 6.4 cm at 37 weeks 0 days HC/AC: 0.97 Estimated weight 3147 grams (71stpercentile). RAY: 18.3 cm Biophysical profile score: 8/8 Umbilical artery SD ratio: 2.50 IMPRESSION: Single live advanced gestation in cephalic presentation demonstrating appropriate estimated weight/growth. Normal biophysical profile score and amniotic fluid volume. <Electronically signed by Sukhdev Langston > 09/06/21 0918
== END ==
LOC: M WHC 08:04
PROVIDERS: ATTEND Obstetrics & Gynecology
DX: O24.419 Gestational diabetes mellitus in pregnancy, unspecified control (principal); Z3A.27 27 weeks gestation of pregnancy

== ENCOUNTER → 2021-09-06 | Outpatient (REF) | payer BC, OTHER, MEDICAID | LOC: M SFHCWAGY 17:00 | PROVIDERS: ATTEND Obstetrics & Gynecology | DX: Z36.85 Encounter for antenatal screening for Streptococcus B (principal); O24.419 Gestational diabetes mellitus in pregnancy, unspecified control ==

== ENCOUNTER 2021-09-11 07:14 | Inpatient (IN) | payer MEDICAID, OTHER ==
[~2021-09-11] VITALS: Ht 160 cm; Wt 151.3 kg
[2021-09-11] VITALS (13 sets, daily range): BP systolic 70–134; BP diastolic 34–75
--- OUTSIDE RECORDS SUMMARY | 2021-09-11 07:46 | CCD ---
Author Author [facility] Organization [facility] Address Unknown Phone Unavailable Care Team Providers Care Mushroom Spawn Maker Name Role Phone Kal Apodaca Unavailable PROBLEMS Type Condition ICD9-CM Code [id number] Code Onset Dates Condition S tatus W/U Status Risk SNOMED Code Notes Problem Obesity complicating in third trimester O99.213 Active confirmed Problem Obesity, unspecified E66.9 Active confirmed 668035519 Problem Supervision of other normal Z34.80 Ac tive confirm 568400216 Problem Obesity during third trimester, antepartum O99.213 Active confirmed [id number] ALLERGIES No Known Allergies ENCOUNTERS from 1995 to 2021-08-26 Encounter Location Date Provider Diagnosis [facility] [address] [place] [address] [place] [address] Aug, Kal Apodaca Obesity complicating in third trimester O99.213 ; Gestational diabetes, diet controlled O24.410 and 34 weeks gestation of Z3A.34 IMMUNIZATIONS Vaccine Route Administration Date Status Influenza [...] FOR REFERRAL No Information VITAL SIGNS Weight 335 lbs Aug, Weight-kg 151.95 kg Aug, Height 63 in Aug, BMI 59.343 kg/m2 Aug, Blood pressure systolic 135 mm Hg Aug, Blood pressure diastolic 86 mm Hg Aug, MEDICATIONS Medication SIG (Take, Route, Frequency, Duration) Notes Start Da te End Date Status Vitamin 27-0.8 MG 1 tablet Orally Once a day Active Symbicort 80-4.5 MCG/ACT 2 puffs Inhalation Once a day Active Albuterol Sulfate 108 (90 Base) MCG/ACT 1 puff as needed Inh alation every 4 hrs Active PROCEDURES No Information RESULTS No Results [...] in third trimester (ICD-10 - O99.213) Aug, Gestational diabetes, diet controlled (ICD-10 - O24.410) Aug, 34 weeks gestation of (ICD-10 - Z3A.34 ) PLAN OF TREATMENT Next Appt Details 1 Week Reason:- COB appt with testing Provider Name:Kat Dasilva, 2021-08-30 09:00:00 AM, [address] [place] [address], [place], [address], Provider Name:Kal Apodaca, 09:00:00 AM, [address] [place] [address], [place], [address], Provider Name:Kal Apodaca, 09:00:00 AM, [address] [place] [address], [place], [address], Provider Name:Kat Dasilva, 2021-09-20 10:00:00 AM, [address] [place] [address], [place], [address], Provider Name:Kal Apodaca, 09:00:00 AM, [address] [facility], , [place], [address], Follow Up:1 Week- COB appt with testing Insurance Providers Payer Name Payer Address Payer Phone Insured Name Patient Relati onship to Insured Coverage Start Date Coverage End Date [facility] COMM[facility]AN [facility] [address] [facility] [address] KAYLEN GRAMAJO MEDICAID [employer] [address] [facility] [address] KAYLEN GRAMAJO self
--- OUTSIDE RECORDS SUMMARY | 2021-09-11 07:46 | CCD ---
Author Author [facility] Organization [facility] Address Unknown Phone Unavailable Care Team Providers Care Package Line Relief Operator Name Role Phone Kal Apodaca Unavailable PROBLEMS Type Condition ICD9-CM Code [id number] Code Onset Dates Condition S tatus W/U Status Risk SNOMED Code Notes Problem Obesity complicating in third trimester O99.213 Active confirmed Problem Obesity, unspecified E66.9 Active confirmed 146720658 Problem Supervision of other normal Z34.80 Ac tive confirm 888142749 Problem Obesity during third trimester, antepartum O99.213 Active confirmed 254640144 ALLERGIES No Known Allergies ENCOUNTERS from 1995 to 2021-09-06 Encounter Location Date Provider Diagnosis [facility] [address] [place] [address] [place] [address] Aug, Kal Apodaca Gestational diabetes mellitus in third trimester O24.419 IMMUNIZATIONS Vaccine Route Administration Date Status Influenza [...] REASON FOR REFERRAL No Information VITAL SIGNS No information MEDICATIONS Medication SIG (Take, Route, Frequency, Duration) Notes Start Da te End Date Status Vitamin 27-0.8 MG 1 tablet Orally Once a day Active Symbicort 80-4.5 MCG/ACT 2 puffs Inhalation Once a day Active Albuterol Sulfate 108 (90 Base) MCG/ACT 1 puff as needed Inh alation every 4 hrs Active PROCEDURES No Information RESULTS Component Value Reference Range WWBC OBS FOLLOW UP OR REPEAT Reviewed date:09/06/2021 09:54:35 Interpretation: Performing Lab:[facility],[address]], ,[place] [id number] REASON FOR VISIT No Information MEDICAL (GENERAL) HISTORY Type Description Date Medical [...] Treatment Notes Treatm ent Clinical Notes Aug, Gestational diabetes mellitu s in third trimester (ICD-10 - O24.419) PLAN OF TREATMENT Next Appt Details Provider Name:Kal Apodaca, 09:00:00 AM, [address] [place] [address], , [place], [address], Provider Name:Laura Hu, 2021-09-20 1 0:20:00 AM, [address] [place] [address], , [place], [address], Provider Name:Kal Apodaca, 09:00:00 AM, [address] [place] [address], , [place], [address], Insurance Providers Payer Name Payer Address Payer Phone Insured Name Patient Relati onship to Insured Coverage Start Date Coverage End Date MEDICAID [employer] [address] [facility] [address] KAYLEN GRAMAJO [facility] COMM[facility] [address] [facility] [address] KAYLEN GRAMAJO
--- OUTSIDE RECORDS SUMMARY | 2021-09-11 07:46 | CCD ---
Author Author [facility] Organization [facility]st [facility] Address Unknown Phone Unavailable Care Team Providers Care Prototype Deicer Assembler Name Role Phone Kal Apodaca Unavailable PROBLEMS Type Condition ICD9-CM Code [id number] Code Onset Dates Condition S tatus W/U Status Risk SNOMED Code Notes Problem Obesity complicating in third trimester O99.213 Active confirmed Problem Obesity, unspecified E66.9 Active confirmed 375092719 Problem Supervision of other normal Z34.80 Ac tive confirm 131225393 Problem Obesity during third trimester, antepartum O99.213 Active confirmed 563510139 ALLERGIES No Known Allergies ENCOUNTERS from 1995 to 2021-09-07 Encounter Location Date Provider Diagnosis [facility] [address] [place] [address] [place] [address] Aug, Kal Apodaca Obesity complicating in third trimester O99.213 ; Gestational diabetes mellitus in third trimester O24.419 and 36 weeks gestation of Z3A.36 IMMUNIZATIONS Vaccine Route Administration Date Status Influenza [...] FOR REFERRAL No Information VITAL SIGNS Weight 315 lbs Aug, Height 63 in Aug, BMI 55.8 kg/m2 Aug, Blood pressure systolic 118 mm Hg Aug, Blood pressure diastolic 72 mm Hg Aug, MEDICATIONS Medication SIG (Take, [...] third trimester (ICD-10 - O99.213) Aug, Gestational diabetes mellitu s in third trimester (ICD-10 - O24.419) Aug, 36 weeks gestation of (ICD-10 - Z3A.36 ) PLAN OF TREATMENT Pending Tests Test Name Order Date GROUP B STREP CULTURE 2021-09-06 Next Appt Details 1 Week Reason:PN Provider Name:Kal Apodaca, 09:00:00 AM, [address] [place], [place] [address], [place], [address], Provider Name:Laura Hu, 2021-09-20 1 0:20:00 AM, [address] [place] [address], [place], [address], Provider Name:Kal Apodaca, 09:00:00 AM, [address] [place], [place] [address], [place], [address], Follow Up:1 WeekPN Insurance Providers Payer Name Payer Address Payer Phone Insured Name Patient Relati onship to Insured Coverage Start Date Coverage End Date MEDICAID [employer] [address] [facility] [id number] KAYLEN GRAMAJO [facility] [address] [facility] [address] KAYLEN GRAMAJO self
--- OUTSIDE RECORDS SUMMARY | 2021-09-11 07:46 | CCD ---
Author Author [facility] Organization [facility] Address Unknown Phone Unavailable Care Team Providers Care Hiv Counselor Name Role Phone Nunu Worrell PROBLEMS Type Condition ICD9-CM Code [id number] Code Onset Dates Condition S tatus W/U Status Risk SNOMED Code Notes Problem Obesity complicating in third trimester O99.213 Active confirmed Problem Obesity, unspecified E66.9 Active confirmed 425448990 Problem Supervision of other normal Z34.80 Ac tive confirm 635492195 Problem Obesity during third trimester, antepartum O99.213 Active confirmed [id number] ALLERGIES No Known Allergies ENCOUNTERS from 1995 to 2021-08-26 Encounter Location Date Provider Diagnosis [facility] [address] [place] [address] [place] [address] Aug, Nunu Worrell IMMUNIZATIONS Vaccine Route Administration Date Status Influenza [...] Information RESULTS No Results REASON FOR VISIT No Information MEDICAL (GENERAL) [...] No Information FUNCTIONAL STATUS No Information ASSESSMENTS No Information PLAN OF TREATMENT Next Appt Details Provider Name:Kat Dasilva, 2021-08-30 09:00:00 AM, [address] [place] [address], [address] [place] [address], [place], [place], [address] [place] [address], Provider Name:Kal Apodaca, 09:00:00 AM, [address] [place] [address], [address] [place] [address], [place], [address] [place] [address], Provider Name:Kal Apodaca, 09:00:00 AM, [address] [place] [address], [address] [place] [address], [place], [address] [place] [address], Provider Name:Kat Dasilva, 2021-09-20 10:00:00 AM, [address] [place] [address], [address] [place] [address], [place], [address] [place] [address], Provider Name:Kal Apodaca, 09:00:00 AM, [address] [place] [address], [address] [place] [address], [place], [address] [place] [address], Insurance Providers Payer Name Payer Address Payer Phone Insured Name Patient Relati onship to Insured Coverage Start Date Coverage End Date [employer] COMMUNITY PLAN [employer] [address] [facility] [phone] KAYLEN GRAMAJO MEDICAID [employer] [address] [facility] [address] KAYLEN GRAMAJO
--- OUTSIDE RECORDS SUMMARY | 2021-09-11 07:48 | CCD ---
Author Author [facility] Organization [facility] Address Unknown Phone Unavailable Care Team Providers Care Chips Screen Tender Name Role Phone Armand HERNADEZC Unavailable Unava ilable Armand HERNADEZWARNING ANALYST-C Unavailable Unava ilable Armand HERNADEZWARNING ANALYSTLisethC Unavailable Unava ilable Armand HERNADEZWARNING ANALYSTLisethC Unavailable Unava ilable KOPIDLANSKY, R MERY CERTIFIED MEDICATION AIDE-WARNING ANALYST-C Unavailable Unava ilable KOPIDLANSKY, Armand WAN APRN-WARNING ANALYST-C Unavailable Unava ilable KOPIDLANSKY, Armand WAN CERTIFIED MEDICATION AIDE-WARNING ANALYST-C Unavailable Unava ilable KOPIDLANSKY, Armand WAN APRN-WARNING ANALYST-C Unavailable Unava ilable KOPIDLANSKY, Armand WAN APRN-WARNING ANALYST-C Unavailable Unava ilable KOPIDLANSKY, Armand WAN APRN-WARNING ANALYST-C Unavailable Unava ilable KOPIDLANSKY, Armand WAN APRN-WARNING ANALYST-C Unavailable Unava ilable KOPIDLANSKY, Armand WAN APRN-WARNING ANALYST-C Unavailable Unava ilable KOPIDLANSKY, Armand WAN APRN-WARNING ANALYST-C Unavailable Unava ilable KOPIDLANSKY, Armand WAN APRN-WARNING ANALYST-C Unavailable Unava ilable KOPIDLANSKY, Armand WAN APRN-WARNING ANALYST-C Unavailable Unava ilable KOPIDLANSKY, Armand WAN APRN-WARNING ANALYST-C Unavailable Unava ilable KOPIDLANSKY, Armand WAN APRN-WARNING ANALYST-C Unavailable Unava ilable KOPIDLANSKY, Armand WAN APRN-WARNING ANALYST-C Unavailable Unava ilable KOPIDLANSKY, Armand WAN APRN-WARNING ANALYST-C Unavailable Unava ilable KOPIDLANSKY, Armand WAN APRN-WARNING ANALYST-C Unavailable Unava ilable KOPIDLANSKY, Armand WAN APRN-WARNING ANALYST-C Unavailable Unava ilable KOPIDLANSKY, Armand WAN APRN-WARNING ANALYST-C Unavailable Unava ilable KOPIDLANSKY, Armand WAN CERTIFIED MEDICATION AIDE-WARNING ANALYST-C Unavailable Unava ilable KOPIDLANSKY, Armand WAN CERTIFIED MEDICATION AIDE-WARNING ANALYST-C Unavailable Unava ilable KOPIDLANSKY, Armand WAN CERTIFIED MEDICATION AIDE-WARNING ANALYST-C Unavailable Unava ilable KOPIDLANSKY, Armand WAN CERTIFIED MEDICATION AIDE-WARNING ANALYST-C Unavailable Unava ilable KOPIDLANSKY, Armand WAN APRN-WARNING ANALYST-C Unavailable Unava ilable KOPIDLANSKY, Armand WAN APRN-WARNING ANALYST-C Unavailable Unava ilable KOPIDLANSKY, Armand WAN CERTIFIED MEDICATION AIDE-WARNING ANALYST-C Unavailable Unava ilable KOPIDLANSKY, Armand WAN CERTIFIED MEDICATION AIDE-WARNING ANALYST-C Unavailable Unava ilable KOPIDLANSKY, Armand WAN CERTIFIED MEDICATION AIDE-WARNING ANALYST-C Unavailable Unava ilable KOPIDLANSKY, Armand WAN CERTIFIED MEDICATION AIDE-WARNING ANALYST-C Unavailable Unava ilable KOPIDLANSKY, Armand WAN CERTIFIED MEDICATION AIDE-WARNING ANALYST-C Unavailable Unava ilable KOPIDLANSKY, Armand WAN CERTIFIED MEDICATION AIDE-WARNING ANALYST-C Unavailable Unava ilable KOPIDLANSKY, R MERY CERTIFIED MEDICATION AIDE-WARNING ANALYST-C Unavailable Unava ilable Arvin JSOE MD Unavailable Unavailable Arvin JOSE MD Unavailable Unavailable Arvin JOSE MD Unavailable Unavailable Arvin JOSE MD Unavailable Unavailable Arvin JOSE MD Unavailable Unavailable Arvin JOSE MD Unavailable Unavailable Arvin JOSE MD Unavailable Unavailable Arvin JOSE MD Unavailable Unavailable Arvin JOSE MD Unavailable Unavailable Arvin JOSE MD Unavailable Unavailable Arivn JOSE MD Unavailable Unavailable Arvin JOSE MD [...] Unavailable REBECA, Arvin MARTIN MD Unavailable Unavailable ERBECA, Arvin MARTIN MD Unavailable Unavailable REBECA, Arvin [...] MARTIN MD Unavailable Unavailable MALAVE, R KEZIA INSPECTOR MATERIALS AND PROCESSES Unavailable Unavailable MALAVE, R KEZIA INSPECTOR MATERIALS AND PROCESSES Unavailable Unavailable MALAVE, R KEZIA INSPECTOR MATERIALS AND PROCESSES Unavailable Unavailable MALAVE, R KEZIA INSPECTOR MATERIALS AND PROCESSES Unavailable Unavailable MALAVE, R KEZIA INSPECTOR MATERIALS AND PROCESSES Unavailable Unavailable MALAVE, R KEZIA INSPECTOR MATERIALS AND PROCESSES Unavailable Unavailable MALAVE, R KEZIA INSPECTOR MATERIALS AND PROCESSES Unavailable Unavailable MALAVE, R KEZIA INSPECTOR MATERIALS AND PROCESSES Unavailable Unavailable MALAVE, R KEZIA INSPECTOR MATERIALS AND PROCESSES Unavailable Unavailable MALAVE, R KEZIA INSPECTOR MATERIALS AND PROCESSES Unavailable Unavailable MALAVE, R KEZIA INSPECTOR MATERIALS AND PROCESSES Unavailable Unavailable MALAVE, R KEZIA INSPECTOR MATERIALS AND PROCESSES Unavailable Unavailable MALAVE, R KEZIA INSPECTOR MATERIALS AND PROCESSES Unavailable Unavailable MALAVE, R KEZIA INSPECTOR MATERIALS AND PROCESSES Unavailable Unavailable MALAVE, R KEZIA INSPECTOR MATERIALS AND PROCESSES Unavailable Unavailable MALAVE, R KEZIA INSPECTOR MATERIALS AND PROCESSES Unavailable Unavailable MALAVE, R KEZIA INSPECTOR MATERIALS AND PROCESSES Unavailable Unavailable MALAVE, R KEZIA INSPECTOR MATERIALS AND PROCESSES Unavailable Unavailable MALAVE, R KEZIA INSPECTOR MATERIALS AND PROCESSES Unavailable Unavailable MALAVE, R KEZIA INSPECTOR MATERIALS AND PROCESSES Unavailable Unavailable MALAVE, R KEZIA INSPECTOR MATERIALS AND PROCESSES Unavailable Unavailable MALAVE, R KEZIA INSPECTOR MATERIALS AND PROCESSES Unavailable Unavailable MALAVE, R KEZIA INSPECTOR MATERIALS AND PROCESSES Unavailable Unavailable MALAVE, R KEZIA INSPECTOR MATERIALS AND PROCESSES Unavailable Unavailable MALAVE, R KEZIA INSPECTOR MATERIALS AND PROCESSES Unavailable Unavailable MALAVE, R KEZIA INSPECTOR MATERIALS AND PROCESSES Unavailable Unavailable MALAVE, R KEZIA INSPECTOR MATERIALS AND PROCESSES Unavailable Unavailable MALAVE, R KEZIA INSPECTOR MATERIALS AND PROCESSES Unavailable Unavailable MALAVE, R KEZIA INSPECTOR MATERIALS AND PROCESSES Unavailable Unavailable MALAVE, R KEZIA INSPECTOR MATERIALS AND PROCESSES Unavailable Unavailable MALAVE, R KEZIA INSPECTOR MATERIALS AND PROCESSES Unavailable Unavailable MALAVE, R KEZIA INSPECTOR MATERIALS AND PROCESSES Unavailable Unavailable MALAVE, R KEZIA INSPECTOR MATERIALS AND PROCESSES Unavailable Unavailable MALAVE, R KEZIA INSPECTOR MATERIALS AND PROCESSES Unavailable Unavailable MALAVE, R KEZIA INSPECTOR MATERIALS AND PROCESSES Unavailable Unavailable MALAVE, R KEZIA INSPECTOR MATERIALS AND PROCESSES Unavailable Unavailable MALAVE, R KEZIA INSPECTOR MATERIALS AND PROCESSES Unavailable Unavailable MALAVE, R KEZIA INSPECTOR MATERIALS AND PROCESSES Unavailable Unavailable MALAVE, R KEZIA INSPECTOR MATERIALS AND PROCESSES Unavailable Unavailable MALAVE, R KEZIA INSPECTOR MATERIALS AND PROCESSES Unavailable Unavailable MALAVE, R KEZIA INSPECTOR MATERIALS AND PROCESSES Unavailable Unavailable MALAVE, R KEZIA INSPECTOR MATERIALS AND PROCESSES Unavailable Unavailable MALAVE, R KEZIA INSPECTOR MATERIALS AND PROCESSES Unavailable Unavailable MALAVE, R KEZIA INSPECTOR MATERIALS AND PROCESSES Unavailable Unavailable Kassie, K Chris MD Unavailable [...] Unavailable Kassie, K Chris MD Unavailable Unavailable Jonah Valentino MD Unavailable Unavailable Marquez II, Guilherme Can [...] Guilherme Can MD Unavailable Unavailable Marquez II, Guilehrme Can MD Unavailable Unavailable Marquez II, Guilherme [...] II, A Juan José MD Unavailable Unavailable [place]-Fish, Aby DO Unavailable Unavailable [place], Aby DO Unavailable Unavailable Juani-Fish, Aby DO Unavailable Unavailable [place], Aby DO Unavailable Unavailable [place], Aby DO Unavailable Unavailable Juani-Fish, Aby DO Unavailable Unavailable [place], Aby DO Unavailable Unavailable Juani-Fish, Aby DO Unavailable Unavailable [place], Aby DO Unavailable Unavailable [place], Aby DO Unavailable Unavailable Juani-Fish, Aby DO Unavailable Unavailable Juani-Fish, Aby DO Unavailable Unavailable Juani-Fish, Aby DO Unavailable Unavailable [place], Aby DO Unavailable Unavailable [place], Aby DO Unavailable Unavailable [place], Aby DO Unavailable Unavailable [place], Aby DO Unavailable Unavailable Juani-Fish, Aby DO Unavailable Unavailable [place], Aby DO Unavailable Unavailable Juani-Fish, Aby DO Unavailable Unavailable [place], Aby DO Unavailable Unavailable [place], Aby DO Unavailable Unavailable [place], Aby DO Unavailable Unavailable [place], Aby DO Unavailable Unavailable Juani-Fish, Aby DO Unavailable Unavailable Juani-Fish, Aby DO Unavailable Unavailable [place], Aby DO Unavailable Unavailable Juani-Fish, Aby DO Unavailable Unavailable Juani-Fish, Aby DO Unavailable Unavailable Juani-Fish, Aby DO Unavailable Unavailable Juani-Fish, Aby DO Unavailable Unavailable [place]Fish, Aby DO Unavailable Unavailable Juani-Fish, Aby DO Unavailable Unavailable Juani-Fish, Aby DO Unavailable Unavailable [place], Aby DO Unavailable Unavailable [place], Aby DO Unavailable Unavailable Juani-Fish, Aby DO Unavailable Unavailable Juani-Fish, Aby DO Unavailable Unavailable [place], Aby DO Unavailable Unavailable [place], Aby DO Unavailable Unavailable Juani-Fish, Aby DO Unavailable Unavailable Juani-Fish, Aby DO Unavailable Unavailable Juani-Fish, Aby DO Unavailable Unavailable [place], Aby DO Unavailable Unavailable [place], Aby DO Unavailable Unavailable Juani-Fish, Aby DO Unavailable Unavailable [place], Aby DO Unavailable Unavailable Juani-Fish, Aby DO Unavailable Unavailable Juani-Fish, Aby DO Unavailable Unavailable Juani-Fish, Aby DO Unavailable Unavailable Juani-Fish, Aby DO Unavailable Unavailable [place], Aby DO Unavailable Unavailable [place], Aby DO Unavailable Unavailable Juani-Fish, Aby DO Unavailable Unavailable Juani-Fish, Aby DO Unavailable Unavailable [place], Aby DO Unavailable Unavailable [place], Aby DO Unavailable Unavailable Juani-Fish, Aby DO Unavailable Unavailable Juani-Fish, Aby DO Unavailable Unavailable [place], Aby DO Unavailable Unavailable [place], Aby DO Unavailable Unavailable [place], Aby DO Unavailable Unavailable [place], Aby DO Unavailable Unavailable [place], Aby DO Unavailable Unavailable Juani-Fish, Aby DO Unavailable Unavailable [place], Aby DO Unavailable Unavailable Juani-Fish, Aby DO Unavailable Unavailable Juani-Fish, Aby DO Unavailable Unavailable Armand Benoit DO Unavailable Unavailable Armand Benoit DO Unavailable Unavailable Armand Benoit DO Unavailable Unavailable Birchenough, R Kaur DO [...] Birchenough, R Kaur DO Unavailable Unavailable Galo Paul PA-C Unavailable Unavailable Galo Paul PA-C Unavailable Unavailable [...] Unavailable Unavailable Kristina Jc MD Unavailable Unavailable Pako Barber MD Unavailable [...] is protected by Article 27-F of the [facility] Public Health law. If you continue you may have access to information: Regarding HIV / AIDS; Provided by facilities licensed or operated by the [facility] Office of Mental Health; or Provided by the [facility] Office for People With Developmental Disabilities. If such information is present, then the following [facility] mandated warning applies: This information has been [...] law may result in a fine or fpc sentence or both. A general authorization for the release of medical or other information is NOT sufficient authorization for further disc losure. Allergies and Adverse Reactions Type Description Substance Reaction Status Data Source(s ) Drug allergy No Known Drug Allergies No Known Drug Allergies [facility] Food allergy No Known Food Allergies No Known Food Allergies [facility] Environmental Allergy SEASONAL ALLERGIES SEASONAL ALLERGIES Rhinitis W[place] [facility] Family History Family Member Name Family Member Gender Family Member Status Date o f Status Description Data Source(s) Unknown Condition [facility] Unknown [facility] Unknown [facility] Unknown [facility] Unknown [facility] Unknown [facility] Unknown [facility] Unknown [facility] Unknown [facility] Unknown [facility] Unknown [facility] Unknown [facility] Unknown [facility] Unknown [facility] Encounters Encounter Providers Location Date Indications Data Source(s ) ( COB) [facility] [address] [place] [address] 09/06/2021 12:00:00 AM EST eCW1 ([facility]) Unknown [address] [facility] [id number] 09/06/2021 12:00:00 AM EST eCW1 ([facility]) Unknown [address] [facility] [address] 08/24/2021 12:00:00 AM EST eCW1 ([facility]) ( COB) [facility] [address] [place] [address] 08/23/2021 12:00:00 AM EST eCW1 ([facility]) ( COB) [facility] [address] [place] [address] 08/16/2021 12:00:00 AM EDT eCW1 ([facility]) ( COB) [facility] [address] [place] [address] 08/09/2021 12:00:00 AM EDT eCW1 ([facility]) ( NEWOB) [facility] New OB Visit [address] [place] [address] 08/02/2021 12:00:00 AM EDT eCW1 ([facility]) Outpatient Attender: Juan José Marquez II 11:20:00 AM EDT - 07/29/2021 12:22:00 PM [facility]. Outpatient Attender: Peter Lawrenceferrer: MERY GRIMALDOWARNING ANALYST-C 07/26/2021 09:54:00 AM EDT - 07/26/2021 10:29:00 AM EDT [facility] Outpatient Attender: Peter Valentino MD 07/22/2021 03:26: 00 PM EDT [facility] Outpatient Attender: Juan José Marquez II 07/22/2021 01:00:0 0 PM EDT RAY, BPP [facility] RAY, BPP Outpatient Attender: Juan José Marquez II 05/2021 11:32:00 AM EDT - 07/22/2021 01:00:00 PM EDT [facility] Outpatient Attender: Juan José Marquez II 07/22/2021 12:00:0 0 AM EDT [facility] Outpatient Attender: Peter Lawrenceferrer: MERY HERNADEZ APRN-WARNING ANALYST-Leticia 07/12/2021 08:24:00 AM EDT - 07/12/2021 09:17:00 AM EDT [facility] Outpatient Attender: Peter Valentino MD 07/07/2021 07:15: 00 PM EDT [facility] Admission cancelled. Disregard status an d admitted date. Outpatient Attender: Juan José Marquez II 07/05/2021 0 9:31:00 AM EDT GROWTH O99.210 [facility] GROWTH O99.210 Outpatient Attender: Peter Lawrenceferrer: MERY HERNADEZ APRN-WARNING ANALYST-Leticia 2021 08:34:00 AM EDT - 2021 09:19:00 AM EDT [facility] Outpatient Attender: VERONICA JOSE MDReferrer: Hao Marquez II [id number] 05/31/2021 12:00:00 AM EDT - 05/31/2021 02:36:34 PM ED T Obesity complicating , unspecified trimester [facility] Obesity complicating , unspecif ied trimester Outpatient Attender: MISHEL OVIEDOReferrer: Juan José valentine II 05/31/2021 12:00:00 AM EDT [facility] Outpatient Attender: Peter Lawrenceferrer: MERY HERNADEZ APRN-WARNING ANALYST-C 05/24/2021 10:28:00 AM EDT - 05/24/2021 11:13:00 AM EDT [facility] Outpatient Attender: Peter Valentino MD 05/03/2021 12:12:00 PM EDT ANATOMY 20 WEEK [facility] ANATOMY 20 WEEK Outpatient Attender: Peter Lawrenceferrer: MERY MARTINEZ 05/03/2021 11:04:00 AM EDT - 05/03/2021 12:10:00 PM EDT [facility] Outpatient Attender: Kaur Royalerrer: MERY MARTINEZ 04/06/2021 02:35:00 PM EDT - 04/06/2021 04:01:00 PM EDT [facility] Outpatient Attender: Juan José Marquez II 04/02/2021 10:03:0 0 AM EDT Z34.90 [facility] Z34.90 Outpatient Attender: Juan José Jimmy NOYOLA 03/31/2021 0 8:23:00 AM EDT E66.01,J45.909,Z79.51,Z34.90,O99.210,Z68.43,Z34.90 [facility] E66.01,J45.909,Z79.51,Z34.90,O99.210,Z68 .43,Z34.90 Outpatient Attender: Juan Josémarty Marquez II 03/09/2021 10:43:0 0 AM EDT CHECK FHR [facility] CHECK FHR Outpatient Attender: Juan José Marquez II Referrer: MERY HERNADEZ APRN-WARNING ANALYST-C 03/09/2021 09:34:00 AM EDT - 03/09/2021 10:47:00 AM EDT [facility] Outpatient Attender: Aby Heck DO 2020 06:10:00 AM EDT Z20.822 [facility] Z20.822 Outpatient Attender: Aby Heck DO 2020 09:20:00 PM EDT [facility] COVID TESTING Z20.822 [facility] COVID TESTING Z20.822 Outpatient Attender: Pako Barber MD 02/10/2021 1 1:49:00 AM EDT Z34.90,Z12.4,Z91.89 [facility] Z34.90,Z12.4,Z91.89 Outpatient Attender: Pako Barber MD Referrer: MERY MARTINEZ 02/10/2021 08:37:00 AM EDT - 02/10/2021 09:25:00 AM EDT [facility] Outpatient Attender: Pako Barber MD 02/07/2021 0 2:05:00 PM EDT DATING Z34.90 [facility] DATING Z34.90 Outpatient Attender: KEZIA MALAVE NP 02/01/2021 12:00:0 0 AM EDT [facility] Outpatient Attender: Kaur Benoit DO 01/31/2021 11:33 :00 AM EDT N91.2 [facility] N91.2 Emergency Attender: Angel Paul PA-C 07:02:00 PM EDT - 01/28/2021 09:47:00 PM EDT CRAMPING/PASSING CLOTS [facility] l CRAMPING/PASSING CLOTS Patient discharged. Outpatient Attender: Pako Barber MD 01/27/2021 01:10:0 0 PM EDT N91.2 [facility] N91.2 Outpatient Attender: Jarrod 01/26/2021 1 2:00:00 AM EDT STEWART/PPD/RESP [facility] STEWART/PPD/RESP Outpatient Attender: Aby Heck DO 2020 09:30:00 PM EDT [facility] COVID TESTING [facility] COVID TESTING Outpatient Attender: Aby Heck DO 2020 09:40:00 PM EDT [facility] COVID TESTING Z20.822 [facility] COVID TESTING Z20.822 Outpatient Attender: Aby Heck DO 2020 05:50:00 PM EDT [facility] COVID TESTING [facility] COVID TESTING Outpatient Attender: MERY ENGLAND APRN-FNP-CReferrer: MERY GRIMALDOWARNING ANALYST-C 01/18/2021 09:13:00 AM EDT - 01/18/2021 10:30:00 AM EDT [facility] Outpatient Attender: MERY FAYE-Leticia 01/11/2021 01:02:00 PM EDT - 01/28/2021 11:25:00 AM EDT L SHOULDER PAIN [facility] L SHOULDER PAIN Patient discharged. Outpatient Attender: MERY ENGLAND APRN-FNP-CReferrer: MERY GRIMALDOWARNING ANALYST-C 01/04/2021 07:15:00 AM EDT - 01/04/2021 07:51:00 AM EDT [facility] Outpatient Attender: MERY GRIMALDOFNP-CReferrer: MERY GRIMLADOWARNING ANALYST-C 12/28/2020 08:47:00 AM EDT - 12/28/2020 09:22:00 AM EDT [facility] Emergency Attender: Chris Fernando MD 12/27/19 11:13:00 AM EDT - 12/26/2020 03:29:00 PM EDT SHOULDER PAIN [facility] l SHOULDER PAIN Patient discharged. Outpatient Attender: Aby Heck DO 2020 09:25:00 AM EST [facility] COVID TESTING [facility] COVID TESTING Outpatient Attender: Aby Heck DO 2020 10:00:00 PM EST [facility] COVID TESTING [facility] COVID TESTING Outpatient Attender: Aby Heck DO 2020 12:40:00 AM EST [place] [facility] COVID TESTING [facility] COVID TESTING Outpatient Attender: Aby Gloria-Fish DO 2020 05:30:00 AM EST [facility] COVID TEST[facility] Z20.822 [facility] COVID TESTING Z20.822 Outpatient Attender: Aby Gloria-Fish DO 2020 10:36:00 AM EST [facility] COVID TESTING Z20.828 [facility] COVID TESTING Z20.828 Outpatient Attender: Aby Gloria-Fish DO 2020 01:15:00 AM EST [facility] COVID TESTING [facility] COVID TESTING Outpatient Attender: Aby Gloria-Fish DO 2020 05:30:00 AM EST [place] COVID TEST[place] [facility] COVID TESTING Outpatient Attender: Aby Gloria-Fish DO 2020 06:10:00 AM EST [place] [facility] COVID TESTING Outpatient Attender: Aby Gloria-Fish DO 2020 06:10:00 AM EST Z20.828 [facility] Z20.828 Outpatient Attender: Aby Cifuentesone DO 2020 09:45:00 AM EST [place] TEST[place] [facility] COVID TESTING Outpatient Attender: Aby Gloria-Fish DO 2020 05:45:00 PM EST [place] [facility] COVID TESTING [facility] COVID TESTING Outpatient Attender: Aby Gloria-Fish DO 2020 09:30:00 PM EST [place] TEST[place] [facility] COVID TESTING Outpatient Attender: Aby Gloria-Fish DO 2020 02:00:00 AM EST Z20.828 [facility] Z20.828 Outpatient Attender: Aby OrellanaFish DO 2020 06:10:00 AM EST [facility] COVID TESTING [facility] COVID TESTING Outpatient Attender: Aby Cifuentesone DO 2020 06:30:00 PM EST [place] COVID TEST[place] [facility] COVID TESTING Outpatient Attender: Aby Vaneone DO 10/25/2020 0 6:00:00 AM EST [facility] Outpatient Attender: Aby Vaneone DO 2020 06:15:00 AM EST [facility] COVID TESTING [facility] COVID TESTING Outpatient Attender: Aby Vaneone DO 2020 06:10:00 AM EST [place] COVID19 TESTING [facility] COVID19 TESTING Outpatient Attender: Aby Cifuentesone DO 10/19/2020 0 6:00:00 AM EST [facility] Outpatient Attender: Aby Cifuentesone DO 2019 01:45:00 PM EST [facility] COVID TESTING [facility] COVID TESTING Outpatient Attender: Aby Cifuentesone DO 2019 05:40:00 AM EST [facility] COVID TESTING [facility] COVID TESTING Outpatient Attender: Aby EstebanFish DO 2019 06:10:00 AM EST [place] COVID19 [place] [facility] COVID19 TESTING Outpatient Attender: Aby Cifuentesone DO 2019 11:30:00 PM EST [place] COVID19 [place] [facility] COVID19 TESTING Outpatient Attender: Aby Cifuentesone DO 2019 11:50:00 PM EST [facility] COVID TESTING [facility] COVID TESTING Outpatient Attender: Aby EstebanFish DO 08/29/2020 0 9:45:00 AM EST [facility] Outpatient Attender: Aby Cifuentesone DO 2019 10:10:00 PM EST [facility] COVID SCREEN [facility] COVID SCREEN Outpatient Attender: MERY ENGLAND OVTR-XZA-ATwsnfawt: MERY HERNADEZ APRN-WARNING ANALYST-C 08/27/2020 07:44:00 AM EST - 08/27/2020 08:20:00 AM EST [facility] Outpatient Attender: Sury Jc MD 08/23/2020 12:47:00 PM EST [facility] Outpatient Attender: Aby Heck DO 2019 07:48:00 AM EST [facility] COVID TESTING [facility] COVID TESTING Outpatient Attender: Aby Cifuentesone DO 2019 05:50:00 AM EDT [facility] COVID TESTING [facility] COVID TESTING Outpatient Attender: Aby Cifuentesone DO 2019 09:45:00 PM EDT [facility] COVID TESTING [facility] COVID TESTING Outpatient Attender: Aby Cifuentesone DO 2019 05:45:00 PM EDT [facility] COVID TESTING [facility] COVID TESTING Outpatient Attender: Aby Cifuentesone DO 2019 05:30:00 PM EDT [facility] COVID TESTING [facility] COVID TESTING Outpatient Attender: Aby Cifuentesone DO 2019 08:20:00 PM EDT [facility] COVID TESTING [facility] COVID TESTING Immunizations Vaccine Date Status Description Data Source(s) New in 2011. IIV4 08/02/2021 02:31:00 PM EDT completed eCW1 ([facility]) New in 2011. IIV4 08/02/2021 02:31:00 PM EDT completed eCW1 ([facility]) New in 2011. IIV4 08/02/2021 02:31:00 PM EDT completed eCW1 ([facility]) New in 2011. IIV4 08/02/2021 02:31:00 PM EDT completed eCW1 ([facility]) New in 2011. IIV4 08/02/2021 02:31:00 PM EDT completed eCW1 ([facility]) New in 2011. IIV4 08/02/2021 02:31:00 PM EDT completed eCW1 ([facility]) New in 2011. IIV4 08/02/2021 02:31:00 PM EDT completed eCW1 ([facility]) Medications Medication Brand Name Start Date Product Form Dose Route Admi nistrative Instructions Pharmacy Instructions Status Indications Reaction Description Data Source(s) BLOOD SUGAR DIAGNOSTIC 07/12/2021 12:00:00 AM EDT strip 50 USE DIRECTED TO TEST BLOOD SUGAR FASTING IN THE MORNING AND 2 HOURS AFTER MEALS USE DIRECTED TO TEST BLOOD SUGAR FASTING IN THE MORNING AND 2 HOURS AFTER MEALS SOLD: 07/12/2021 [facility] BLOOD-GLUCOSE METER 07/12/2021 12:00:00 AM EDT misc 1 USE DIRECTED TO TEST BLOOD SUGAR FASTING IN THE MORNING AND 2 HOURS AFTER A MEAL USE DIRECTED TO TEST BLOOD SUGAR FASTING IN THE MORNING AND 2 HOURS AFTER A MEAL SOLD: 07/12/2021 [facility] 30 gauge 07/12/2021 12:00:00 AM EDT misc 100 USE TO TEST BLOOD SUGAR FASTING IN THE MORNING AND 2 HOURS AFTER MEALS USE TO TEST BLOOD SUGAR FASTING IN THE MORNING AND 2 HOURS AFTER MEALS SOLD: 07/12/2021 [facility] montelukast 10 MG Oral Tablet MONTELUKAST SODIUM [...] RINSE MOUTH AFTER EACH USE SOLD: 06/13/2021 [facility] Permethrin 50 MG/ML Topical Cream Permethrin (Elimite) 5 % cream Permethrin (Elimite) 5 % cream 02/21/2021 01:20:46 PM EDT 1 APPLIC completed [facility] Metronidazole 0.0075 MG/MG Vaginal Gel M etronidazole (Metrogel Vaginal) 0.75 % gel Metronidazole (Metrogel Vaginal) 0.75 % gel 02/16/2021 04:20:34 PM EDT 1 APPFUL completed [facility] 0.75 % 02/16/2021 12:00:00 AM EDT gel 70 INSERT 1 APPLICATORFUL VAGINALLY AT BEDTIME FOR 5 NIGHTS INSERT 1 APPLICATORFUL VAGINALLY AT BEDTIME FOR 5 NIGH TS SOLD: 02/16/2021 [facility] Prenat.Vits,Tucker,Lvn-Hasd-Pdzby 02/10/2021 08:52:19 AM EDT 1 TAB active [facility] tramadol hydrochloride 50 MG Oral Tablet Tramadol Tramadol 01/04/2021 04:38:30 PM EDT 50 MG active [facility] tramadol hydrochloride 50 MG Oral Tablet Tramadol Tramadol 01/04/2021 04:38:30 PM EDT 50 MG completed [facility] tramadol hydrochloride 50 MG Oral Tablet Tramadol Tramadol 01/04/2021 04:38:30 PM EDT 50 MG active [facility] tramadol hydrochloride 50 MG Oral Tablet Tramadol Tramadol 01/04/2021 04:38:30 PM EDT 50 MG active [facility] 50 mg 01/04/2021 12:00:00 AM EDT tablet 14 TAKE ONE TABLET BY MOUTH EVERY 8 HOURS NEEDED FOR PAIN MAXIMUM DAILY DOSE = 3 TABLETS TAKE ONE TABLET BY MOUTH EVERY 8 HOURS NEEDED FOR PAIN MAXIMUM DAILY DOSE = 3 TABLETS SOLD: 01/11/2021 [facility] tramadol hydrochloride 50 MG Oral Tablet Tramadol Tramadol 12/28/2020 09:34:39 AM EDT 50 MG completed [facility] tramadol hydrochloride 50 MG Oral Tablet Tramadol Tramadol 12/28/2020 09:34:39 AM EDT 50 MG completed [facility] tramadol hydrochloride 50 MG Oral Tablet Tramadol Tramadol 12/28/2020 09:34:39 AM EDT 50 MG active [facility] tramadol hydrochloride 50 MG Oral Tablet Tramadol Tramadol 12/28/2020 09:34:39 AM EDT 50 MG completed [facility] tramadol hydrochloride 50 MG Oral Tablet Tramadol Tramadol 12/28/2020 09:34:39 AM EDT 50 MG completed [facility] Prednisone 20 MG Oral Tablet Prednisone 12/28/2020 09:32:26 AM EDT 40 MG completed [facility] Prednisone 20 MG Oral Tablet Prednisone 12/28/2020 09:32:26 AM EDT 40 MG completed [facility] Prednisone 20 MG Oral Tablet Prednisone 12/28/2020 09:32:26 AM EDT 40 MG completed [facility] Prednisone 20 MG Oral Tablet Prednisone 12/28/2020 09:32:26 AM EDT 40 MG completed [facility] Prednisone 20 MG Oral Tablet Prednisone 12/28/2020 09:32:26 AM EDT 40 MG completed [facility] Albuterol Sulfate (Ventolin Hfa) 90 mcg/actuation HFA aeroso l inhaler 12/28/2020 09:14:40 AM EDT 2 PUFFS active [facility] Albuterol Sulfate (Ventolin Hfa) 90 mcg/actuation HFA aeroso l inhaler 12/28/2020 09:14:40 AM EDT 2 PUFFS active [facility] Albuterol Sulfate (Ventolin Hfa) 90 mcg/actuation HFA aeroso l inhaler 12/28/2020 09:14:40 AM EDT 2 PUFFS active [facility] Albuterol Sulfate (Ventolin Hfa) 90 mcg/actuation HFA aeroso l inhaler 12/28/2020 09:14:40 AM EDT 2 PUFFS active [facility] Albuterol Sulfate (Ventolin Hfa) 90 mcg/actuation HFA aeroso l inhaler 12/28/2020 09:14:40 AM EDT 2 PUFFS active [facility] Acetaminophen 325 MG Oral Tablet Acetaminophen (Tyleno l) 325 mg tablet Acetaminophen (Tylenol) 325 mg tablet 12/28/2020 09:02:27 AM EDT 325 M G active [facility] Acetaminophen 325 MG Oral Tablet Acetaminophen (Tyleno l) 325 mg tablet Acetaminophen (Tylenol) 325 mg tablet 12/28/2020 09:02:27 AM EDT 325 M G active [facility] Acetaminophen 325 MG Oral Tablet Acetaminophen (Tyleno l) 325 mg tablet Acetaminophen (Tylenol) 325 mg tablet 12/28/2020 09:02:27 AM EDT 325 M G [facility] Acetaminophen 325 MG Oral Tablet Acetaminophen (Tyleno l) 325 mg tablet Acetaminophen (Tylenol) 325 mg tablet 12/28/2020 09:02:27 AM EDT 325 M G [facility] Acetaminophen 325 MG Oral Tablet Acetaminophen (Tyleno l) 325 mg tablet Acetaminophen (Tylenol) 325 mg tablet 12/28/2020 09:02:27 AM EDT 325 M G [facility] Acetaminophen 325 MG Oral Tablet Acetaminophen (Tyleno l) 325 mg tablet Acetaminophen (Tylenol) 325 mg tablet 12/28/2020 09:02:27 AM EDT 325 M G [facility] 50 mg 12/28/2020 12:00:00 AM EDT tablet [...] 12/26/2020 02:38:42 PM EDT 500 MG active [facility] Naproxen 500 MG Oral Tablet Naproxen 12/26/2020 02:38:42 PM EDT 500 MG active [facility] Naproxen 500 MG Oral Tablet Naproxen 12/26/2020 02:38:42 PM EDT 500 MG completed [facility] Naproxen 500 MG Oral Tablet Naproxen 12/26/2020 02:38:42 PM EDT 500 MG active [facility] Naproxen 500 MG Oral Tablet Naproxen 12/26/2020 02:38:42 PM EDT 500 MG completed [facility] Naproxen 500 MG Oral Tablet Naproxen 12/26/2020 02:38:42 PM EDT 500 MG completed [facility] Naproxen 500 MG Oral Tablet Naproxen 12/26/2020 02:38:42 PM EDT 500 MG completed [facility] 500 mg 12/26/2020 12:00:00 AM EST tablet 20 TAKE ONE TABLET BY MOUTH EVERY 12 HOURS FOR PAIN TAKE ONE TABLET BY MOUTH EVERY 12 HOURS FOR PAIN SOLD: 12/28/2020 [facility] Fluticasone Propionate 10/14/2020 03:00:18 PM EST 1 SPRAY active [facility] Fluticasone Propionate 10/14/2020 03:00:18 PM EST 1 SPRAY active [facility] Fluticasone Propionate 10/14/2020 03:00:18 PM EST 1 SPRAY active [facility] Fluticasone Propionate 10/14/2020 03:00:18 PM EST 1 SPRAY active [facility] Fluticasone Propionate 10/14/2020 03:00:18 PM EST 1 SPRAY active [facility] Fluticasone Propionate 10/14/2020 03:00:18 PM EST 1 SPRAY completed [facility] Fluticasone Propionate 10/14/2020 03:00:18 PM EST 1 SPRAY active [facility] 90 mcg/actuation 09/24/2020 12:00:00 AM EST aerosol [...] 08:22:02 AM EST 2 PUFFS activ e [facility] 120 ACTUAT Budesonide 0.16 MG/ACTUAT / f ormoterol fumarate 0.0045 MG/ACTUAT Metered Dose Inhaler Budesonide-Formoterol (Symbicort) 160-4.5 mcg/actuation HFA aerosol inhaler Budesonide-Formoterol (Symbicort) 160-4. 5 mcg/actuation HFA aerosol inhaler 08/27/2020 08:22:02 AM EST 2 PUFFS activ e [facility] 120 ACTUAT Budesonide 0.16 MG/ACTUAT / f ormoterol fumarate 0.0045 MG/ACTUAT Metered Dose Inhaler Budesonide-Formoterol (Symbicort) 160-4.5 mcg/actuation HFA aerosol inhaler Budesonide-Formoterol (Symbicort) 160-4. 5 mcg/actuation HFA aerosol inhaler 08/27/2020 08:22:02 AM EST 2 PUFFS activ e [facility] 120 ACTUAT Budesonide 0.16 MG/ACTUAT / f ormoterol fumarate 0.0045 MG/ACTUAT Metered Dose Inhaler Budesonide-Formoterol (Symbicort) 160-4.5 mcg/actuation HFA aerosol inhaler Budesonide-Formoterol (Symbicort) 160-4. 5 mcg/actuation HFA aerosol inhaler 08/27/2020 08:22:02 AM EST 2 PUFFS activ e [facility] 120 ACTUAT Budesonide 0.16 MG/ACTUAT / f ormoterol fumarate 0.0045 MG/ACTUAT Metered Dose Inhaler Budesonide-Formoterol (Symbicort) 160-4.5 mcg/actuation HFA aerosol inhaler Budesonide-Formoterol (Symbicort) 160-4. 5 mcg/actuation HFA aerosol inhaler 08/27/2020 08:22:02 AM EST 2 PUFFS activ e [facility] 120 ACTUAT Budesonide 0.16 MG/ACTUAT / f ormoterol fumarate 0.0045 MG/ACTUAT Metered Dose Inhaler Budesonide-Formoterol (Symbicort) 160-4.5 mcg/actuation HFA aerosol inhaler Budesonide-Formoterol (Symbicort) 160-4. 5 mcg/actuation HFA aerosol inhaler 08/27/2020 08:22:02 AM EST 2 PUFFS activ e [facility] 120 ACTUAT Budesonide 0.16 MG/ACTUAT / f ormoterol fumarate 0.0045 MG/ACTUAT Metered Dose Inhaler Budesonide-Formoterol (Symbicort) 160-4.5 mcg/actuation HFA aerosol inhaler Budesonide-Formoterol (Symbicort) 160-4. 5 mcg/actuation HFA aerosol inhaler 08/27/2020 08:22:02 AM EST 2 PUFFS activ e [facility] 200 ACTUAT Albuterol 0.09 MG/ACTUAT Dry Powder Inhaler Albuterol Sulfate (Proair Respiclick) 90 mcg/actuation aerosol powdr breath activated Albuterol Sulfate (Proair Respiclick) 90 mcg/actuation aerosol powdr breath activated 08/27/2020 08:21:49 AM EST 2 INH active [facility] 200 ACTUAT Albuterol 0.09 MG/ACTUAT Dry Powder Inhaler Albuterol Sulfate (Proair Respiclick) 90 mcg/actuation aerosol powdr breath activated Albuterol Sulfate (Proair Respiclick) 90 mcg/actuation aerosol powdr breath activated 08/27/2020 08:21:49 AM EST 2 INH active [facility] 200 ACTUAT Albuterol 0.09 MG/ACTUAT Dry Powder Inhaler Albuterol Sulfate (Proair Respiclick) 90 mcg/actuation aerosol powdr breath activated Albuterol Sulfate (Proair Respiclick) 90 mcg/actuation aerosol powdr breath activated 08/27/2020 08:21:49 AM EST 2 INH active [facility] 200 ACTUAT Albuterol 0.09 MG/ACTUAT Dry Powder Inhaler Albuterol Sulfate (Proair Respiclick) 90 mcg/actuation aerosol powdr breath activated Albuterol Sulfate (Proair Respiclick) 90 mcg/actuation aerosol powdr breath activated 08/27/2020 08:21:49 AM EST 2 INH active [facility] 200 ACTUAT Albuterol 0.09 MG/ACTUAT Dry Powder Inhaler Albuterol Sulfate (Proair Respiclick) 90 mcg/actuation aerosol powdr breath activated Albuterol Sulfate (Proair Respiclick) 90 mcg/actuation aerosol powdr breath activated 08/27/2020 08:21:49 AM EST 2 INH active [facility] 200 ACTUAT Albuterol 0.09 MG/ACTUAT Dry Powder Inhaler Albuterol Sulfate (Proair Respiclick) 90 mcg/actuation aerosol powdr breath activated Albuterol Sulfate (Proair Respiclick) 90 mcg/actuation aerosol powdr breath activated 08/27/2020 08:21:49 AM EST 2 INH active [facility] 200 ACTUAT Albuterol 0.09 MG/ACTUAT Dry Powder Inhaler Albuterol Sulfate (Proair Respiclick) 90 mcg/actuation aerosol powdr breath activated Albuterol Sulfate (Proair Respiclick) 90 mcg/actuation aerosol powdr breath activated 08/27/2020 08:21:49 AM EST 2 INH active [facility] Mometasone Mometasone 08/27/2020 08:14:07 AM EST 1 SPRAY completed [facility] Mometasone Mometasone 08/27/2020 08:14:07 AM EST 1 SPRAY completed [facility] Mometasone Mometasone 08/27/2020 08:14:07 AM EST 1 SPRAY completed [facility] Mometasone Mometasone 08/27/2020 08:14:07 AM EST 1 SPRAY completed [facility] Mometasone Mometasone 08/27/2020 08:14:07 AM EST 1 SPRAY completed [facility] Mometasone Mometasone 08/27/2020 08:14:07 AM EST 1 SPRAY completed [facility] Mometasone Mometasone 08/27/2020 08:14:07 AM EST 1 SPRAY completed [facility] Drospirenone-Ethinyl Estradiol 05/21/2020 01:33:58 PM EDT 1 TAB completed [facility] 120 ACTUAT Budesonide 0.16 MG/ACTUAT / f ormoterol fumarate 0.0045 MG/ACTUAT Metered Dose Inhaler Budesonide-Formoterol (Symbicort) 160-4.5 mcg/actuation HFA aerosol inhaler Budesonide-Formoterol (Symbicort) 160-4. 5 mcg/actuation HFA aerosol inhaler 04/15/2020 09:50:38 AM EDT 2 PUFFS compl eted [facility] 120 ACTUAT Budesonide 0.16 MG/ACTUAT / f ormoterol fumarate 0.0045 MG/ACTUAT Metered Dose Inhaler Budesonide-Formoterol (Symbicort) 160-4.5 mcg/actuation HFA aerosol inhaler Budesonide-Formoterol (Symbicort) 160-4. 5 mcg/actuation HFA aerosol inhaler 04/15/2020 09:50:38 AM EDT 2 PUFFS compl eted [facility] 120 ACTUAT Budesonide 0.16 MG/ACTUAT / f ormoterol fumarate 0.0045 MG/ACTUAT Metered Dose Inhaler Budesonide-Formoterol (Symbicort) 160-4.5 mcg/actuation HFA aerosol inhaler Budesonide-Formoterol (Symbicort) 160-4. 5 mcg/actuation HFA aerosol inhaler 04/15/2020 09:50:38 AM EDT 2 PUFFS compl eted [facility] 120 ACTUAT Budesonide 0.16 MG/ACTUAT / f ormoterol fumarate 0.0045 MG/ACTUAT Metered Dose Inhaler Budesonide-Formoterol (Symbicort) 160-4.5 mcg/actuation HFA aerosol inhaler Budesonide-Formoterol (Symbicort) 160-4. 5 mcg/actuation HFA aerosol inhaler 04/15/2020 09:50:38 AM EDT 2 PUFFS compl eted [facility] 120 ACTUAT Budesonide 0.16 MG/ACTUAT / f ormoterol fumarate 0.0045 MG/ACTUAT Metered Dose Inhaler Budesonide-Formoterol (Symbicort) 160-4.5 mcg/actuation HFA aerosol inhaler Budesonide-Formoterol (Symbicort) 160-4. 5 mcg/actuation HFA aerosol inhaler 04/15/2020 09:50:38 AM EDT 2 PUFFS compl eted [facility] 120 ACTUAT Budesonide 0.16 MG/ACTUAT / f ormoterol fumarate 0.0045 MG/ACTUAT Metered Dose Inhaler Budesonide-Formoterol (Symbicort) 160-4.5 mcg/actuation HFA aerosol inhaler Budesonide-Formoterol (Symbicort) 160-4. 5 mcg/actuation HFA aerosol inhaler 04/15/2020 09:50:38 AM EDT 2 PUFFS compl eted [facility] 120 ACTUAT Budesonide 0.16 MG/ACTUAT / f ormoterol fumarate 0.0045 MG/ACTUAT Metered Dose Inhaler Budesonide-Formoterol (Symbicort) 160-4.5 mcg/actuation HFA aerosol inhaler Budesonide-Formoterol (Symbicort) 160-4. 5 mcg/actuation HFA aerosol inhaler 04/15/2020 09:50:38 AM EDT 2 PUFFS compl eted [facility] 200 ACTUAT Albuterol 0.09 MG/ACTUAT Dry Powder Inhaler Albuterol Sulfate (Proair Respiclick) 90 mcg/actuation aerosol powdr breath activated Albuterol Sulfate (Proair Respiclick) 90 mcg/actuation aerosol powdr breath activated 04/15/2020 09:50:11 AM EDT 2 INH completed [facility] 200 ACTUAT Albuterol 0.09 MG/ACTUAT Dry Powder Inhaler Albuterol Sulfate (Proair Respiclick) 90 mcg/actuation aerosol powdr breath activated Albuterol Sulfate (Proair Respiclick) 90 mcg/actuation aerosol powdr breath activated 04/15/2020 09:50:11 AM EDT 2 INH completed [facility] 200 ACTUAT Albuterol 0.09 MG/ACTUAT Dry Powder Inhaler Albuterol Sulfate (Proair Respiclick) 90 mcg/actuation aerosol powdr breath activated Albuterol Sulfate (Proair Respiclick) 90 mcg/actuation aerosol powdr breath activated 04/15/2020 09:50:11 AM EDT 2 INH completed [facility] 200 ACTUAT Albuterol 0.09 MG/ACTUAT Dry Powder Inhaler Albuterol Sulfate (Proair Respiclick) 90 mcg/actuation aerosol powdr breath activated Albuterol Sulfate (Proair Respiclick) 90 mcg/actuation aerosol powdr breath activated 04/15/2020 09:50:11 AM EDT 2 INH completed [facility] 200 ACTUAT Albuterol 0.09 MG/ACTUAT Dry Powder Inhaler Albuterol Sulfate (Proair Respiclick) 90 mcg/actuation aerosol powdr breath activated Albuterol Sulfate (Proair Respiclick) 90 mcg/actuation aerosol powdr breath activated 04/15/2020 09:50:11 AM EDT 2 INH completed [facility] 200 ACTUAT Albuterol 0.09 MG/ACTUAT Dry Powder Inhaler Albuterol Sulfate (Proair Respiclick) 90 mcg/actuation aerosol powdr breath activated Albuterol Sulfate (Proair Respiclick) 90 mcg/actuation aerosol powdr breath activated 04/15/2020 09:50:11 AM EDT 2 INH completed [facility] 200 ACTUAT Albuterol 0.09 MG/ACTUAT Dry Powder Inhaler Albuterol Sulfate (Proair Respiclick) 90 mcg/actuation aerosol powdr breath activated Albuterol Sulfate (Proair Respiclick) 90 mcg/actuation aerosol powdr breath activated 04/15/2020 09:50:11 AM EDT 2 INH completed [facility] montelukast 10 MG Oral Tablet MONTELUKAST SODIUM 04/15/2020 12:0 0:00 AM EDT tablet 90 TAKE ONE TABLET BY MOUTH EVERY D AY TAKE ONE TABLET BY MOUTH EVERY DAY SOLD: 09/24/2020 [facility] montelukast 10 MG Oral Tablet MONTELUKAST SODIUM 04/15/2020 12:0 0:00 AM EDT tablet 90 TAKE ONE TABLET BY MOUTH EVERY D AY TAKE ONE TABLET BY MOUTH EVERY DAY SOLD: 01/11/2021 [facility] Insurance Providers Payer name Policy type / Coverage type Policy ID Covered republican ID Covered republican's relationship to [place] Policy [place] Plan Information [place] [employer] [id number] Self V [id number] [employer] [place] [employer] [id number] Self V [id number] EXCELLUS H [id number] Self [id number] EXCELLUS H [id number] Self [id number] [place] P[place]/307 [id number] SP [id number] [place] P[place] 302/307 [id number] SP [id number] BLUE CROSS BLUE SHIELD -O/P CO [id number] 18 [id number] BL[employer] [place] [id number] 18 [id number] BL[employer]UE [employer] CO [id number] 18 [id number] D Guardian P UNAVAILABLE S UNAVAIL ABLE BLUE CROSS BLUE SHIELD -O/P [id number] BLUE CROSS BLUE SHIELD-CLINIC [id number] [facility] [id number] SP [id number] [facility] MEDICAID [id number] SP [id number] B REPLACED BY [facility] [id number] SP [id number] [place] PPO 302/307 [id number] SP [id number] Problems, Conditions, and Diagnoses Code Display Name Description Problem Type Effective Dates Data Source(s) O99.210 Obesity complicating , unspecif ied trimester Obesity complicating , unspecified trimester Diagnosis 05/31/20 12:41:45 PM EDT [facility] E66.9 Obesity Obesity, unspecified Problem 08/19/2021 12:0 0:00 AM EDT eCW1 ([facility]) O99.213 Obesity complicating , third tr imester Obesity complicating in third trimester Problem 08/09/2021 12:00:00 AM EDT eCW1 ([facility]) O99.213 [id number] Obesity during third trimester, antepartu m Problem 08/02/2021 12:00:00 AM EDT eCW1 ([facility]) Z34.80 care Supervision of other normal [place] 08/01/2021 12:00:00 AM EDT eCW1 ([facility]) Surgeries/Procedures Procedure Description Date Indications Data Source(s) INFLUENZA VIRUS VACC SPLIT PRSRV FREE 3 YRS/> IM 08/02 12:00:00 AM EDT eCW1 ([facility]) NONSTRESS TEST 08/02/2021 12:00:00 AM EDT eCW1 ([facility]) Ultrasound scan - obstetric (procedure) 05/03/2021 01: 10:00 PM [facility] Ultrasound scan - obstetric (procedure) 03/09/2021 11: 48:00 AM [facility] Chlamydia/Neisseria (PCR) 02/10/2021 12:00:00 AM [facility] Ultrasonography in first trimester (procedure) 021 02:47:00 PM [facility] Urine culture (procedure) 02/07/2021 12:00:00 AM [facility] Transvaginal obstetric ultrasonography (procedure) 01/28/2021 08:38:00 PM [facility] Ultrasonography in first trimester (procedure) 021 08:38:00 PM [facility] Transvaginal obstetric ultrasonography (procedure) 01/28/2021 08:38:00 PM [facility] Ultrasonography in first trimester (procedure) 021 08:38:00 PM [facility] Computerized axial tomography of upper extremity with contra st (procedure) 12/26/2020 01:39:00 PM [facility] Computerized axial tomography of upper extremity with contra st (procedure) 12/26/2020 01:39:00 PM [facility] Computerized axial tomography of upper extremity with contra st (procedure) 12/26/2020 01:39:00 PM [facility] Computerized axial tomography of upper extremity with contra st (procedure) 12/26/2020 01:39:00 PM EDT [facility] Computerized axial tomography of upper extremity with contra st (procedure) 12/26/2020 01:39:00 PM EDT [facility] Computerized axial tomography of upper extremity with contra st (procedure) 12/26/2020 01:39:00 PM EDT [facility] Computerized axial tomography of upper extremity with contra st (procedure) 12/26/2020 01:39:00 PM EDT [facility] Viral antigen assay (procedure) 08/23/2020 12:00:00 AM [facility] Viral antigen assay (procedure) 08/23/2020 12:00:00 AM [facility] Viral antigen assay (procedure) 08/23/2020 12:00:00 AM [facility] Viral antigen assay (procedure) 08/23/2020 12:00:00 AM [facility] Viral antigen assay (procedure) 08/23/2020 12:00:00 AM [facility] Viral antigen assay (procedure) 08/23/2020 12:00:00 AM [facility] Viral antigen assay (procedure) 08/23/2020 12:00:00 AM [facility] Results ID Date Data Source [facility] OBS FOLLOW UP OR REPEAT 09/06/2021 12:00:00 AM EST eCW1 ([facility]) Name Value Range Interpretation Code Description Data Janina rce(s) Supporting Document(s) [facility] OBS FOLLOW UP OR REPEAT e CW1 ([facility]) ID Date Data Source [id number] 08/25/2021 10:59:00 AM EST [facility] Name Value Range Interpretation Code Description Data Janina rce(s) Supporting Document(s) SARS coronavirus 2 RNA [Presence] in Res piratory specimen by SEA with probe detection POSITIVE [facility] This lab was ordered by [facility] a nd reported by [facility]. ID Date Data Source Type and Screen Prenatal1 08/09/2021 12:00:00 AM EDT eCW1 ([facility]) Name Value Range Interpretation Code Description Data Janina rce(s) Supporting Document(s) NEGATIVE AB SCREEN PNP1 GEL (VIS) eCW1 ([facility]) ID Date Data Source [id number] 07/29/2021 01:01:00 PM EDT [facility] [address] [place] [address] [phone] NAME SEX PT STATUS ACCOUNT NUMBER KAYLEN PARKER [facility] CL [id number] ORDERING PHYSICIAN LOCATION MEDICAL RECORD NO. Juan José Marquez II, MD OB-OUT [id number] ATTENDING PHYSICIAN DATE OF DATE OF EXAM/TIME [...] Trans Dt/Tm: Trans by: DT Prt Dt/Tm: [id number]: Total DLP = 0.00 mGy-cm 6743-2862: Total Radiation Dose = 0.0000 mSv Lifetime Dose: 2.7776 mSv Name Value Range Interpretation Code Description Data Janina rce(s) Supporting Document(s) ID Date Data Source [id number] 07/26/2021 10:04:00 AM EDT [facility] Patient Name: KAYLEN PARKER : 1995 Sex: F Pt Unit #: [id number] Location: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 No contractions. no discharge or bleeding. her Fasting blood sugar ranges [id number], After meals are 78-125. She is trying to eat better. She is feeling uncomfortable. She is doing weekly NST and ultrasound weekly. no other questions or concerns. 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 We discussed the monitoring recommended by [facility]. Right now she is scheduled for [...] whether she needs to be started on med ications. We did discuss an indication for delivery [...] review consult note with the patient. The identity management consultant noted is increased concern for thromboembolism, [...] limited there as result of which the identity management consultant suggested a echo might be helpful. [...] the risks to her patients in the long term more than justify excepting this vaccination which has been given about 5 billion people so far. That said it remains her decision, I simply wanted to add my confidence in the vaccine to her decision process. The patient now notes that she has pretty severe flare of sciatica on the left which is making it difficult for her left and bend at the long term and I did agree to give her [...] Visit Date: 04/06/21 Last Updated by: Kaur Canseco presents for ob check at 14.5 wga. [...] normal , unspecified, unspecified trimester SNOMED Code(s): 68182789 Category: Medical Qualifiers: Weeks of gestation: 14 weeks Qualified Code(s): Z3A.14 - 14 weeks gestation of <Electronically signed by Peter Valentino MD> 07/26/21 1033 Name Value Range Interpretation Code Description Data Janina rce(s) Supporting Document(s) ID Date Data Source [id number] 07/22/2021 03:26:00 PM EDT [facility] Patient Name: KAYLEN PARKER : 1995 Sex: F Pt Unit #: [id number] Location:[facility] Provider: Visit Date/Time: 07/22/21 Primary Insurance: /[facility] Secondary Insurance: Self Pay Provider Note BPP reported 05/22 this date. <Electronically signed by Peter Valnetino MD> 07/22/21 1526 Name Value Range Interpretation Code Description Data Janina rce(s) Supporting Document(s) ID Date Data Source [id number] 07/22/2021 03:20:00 PM EDT [facility] [address] [place] [address] [phone] NAME SEX PT STATUS ACCOUNT NUMBER KAYLEN PARKER REG REF [id number] ORDERING PHYSICIAN LOCATION MEDICAL RECORD NO. Peter Valentino MD OB [id number] ATTENDING PHYSICIAN DATE OF DATE OF EXAM/TIME Mery Hernadez NP 1995 07/22/21 / 9 TYPE / EXAM US Biophysical profile w/o [...] Movement: 2 Tone: 2 AFV: 2 Total: 05/22 IMPRESSION: 1. Single live intrauterine with heart rate of 150bpm. 2. Biophysical profile score: 05/22 END IMPRESSION Reported By Hazel Thurston DO on 07/22/21 1520 Signed By Hazel Thurston DO on 07/22/21 1523 Date Time CC: Mery Hernadez; Hazel Thurston DO Techn: BUSMI Trans Dt/Tm: Trans by: DT Prt Dt/Tm: 8570-9989: Total DLP = 0.00 mGy-cm 6345-0997: Total Radiation Dose = 0.0000 mSv Lifetime Dose: 2.7776 mSv Name Value Range Interpretation Code Description Data Janina rce(s) Supporting Document(s) ID Date Data Source [id number] 07/12/2021 08:35:00 AM EDT [facility] Patient Name: KAYLEN PARKER : 1995 Sex: F Pt Unit #: [id number] Location: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 No contractions but some jennifer gómez. no bleeding or discharge. Baby is moving well. She will do a t-dap today. [facility]# [id number], Lot#[id number], exp- 07/14/22 given in her leftdeltoid. She is having weekly ultrasounds. no other questions or concerns. 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 The identity management consultant noted is increased concern for thromboembolism, [...] limited there as result of which the identity management consultant suggested a echo might be helpful. [...] the risks to her patients in the long term more than justify excepting this vaccination which has been given about 5 billion people so far. That said it remains her decision, I simply wanted to add my confidence in the vaccine to her decision process. The patient now notes that she has pretty severe flare of sciatica on the left which is making it difficult for her left and bend at the long term and I did agree to give her [...] 21.4 weeks. No contractions. no discharge or b leeding. She is starting to feel movement. She [...] Visit Date: 02/10/21 Last Updated by: Pako Barber [...] Route Admin Location Lot Number Expiration Date [facility] Manufactu rer 0.5 mL IM Left deltoid [id number] 07/14/22 [id number] [employer] VIS Given Date VIS Provided VIS Publication Date 07/12/21 Single Vaccine 21 Eligibility Eligibility Date Funding Source Not [facility] Eligible 07/12/21 Private Assessment Plan Assessment Plan (1) : Status: Acute Comment: Return to office in 4 weeks [facility] appt on 05/31 Discussed weight goals.. Discussed likely CHTN- will monitor closely. Code(s): Z34.90 - Encounter for supervision of normal , unspecified, unspecified trimester Category: Medical Q ualifiers: Weeks of gestation: 14 weeks Qualified Code(s): Z3A.14 - 14 weeks gestation of Orders: Orders INJ - Tdap (> age 7) Today Z23 - Encounter for immunization <Electronically signed by Peter Valentino MD> 07/12/21 0917 Name Value Range Interpretation Code Description Data Janina rce(s) Supporting Document(s) ID Date Data Source [id number] 07/11/2021 12:40:00 PM EDT [facility] @07/11/21 1155: MANUAL DIFF added. RFLXG = DIFF. LOAD?: 50 @07/11/21 1155: MANUAL DIFF added. RFLXG = DIFF. Name Value Range Interpretation Code Description Data Janina rce(s) Supporting Document(s) Leukocytes [#/volume] in Blood by Automated count 14.4 10*3/uL 4.45-10.71 Above high normal [facility] Erythrocytes [#/volume] in Blood by Automated count 4.06 10*6/uL 4.20-5.40 Below low normal [facility] Hemoglobin [Moles/volume] in Blood 11.3 g/dL 10.7-15.4 N [facility] Hematocrit [Volume Fraction] of Blood by Automated count 34.7 % 37-47 Below low normal [facility] Erythrocyte mean corpuscular volume [Ent itic volume] in Cord blood by Automated count 86 fL 80-96 N [facility] ital Erythrocyte mean corpuscular hemoglobin [Entitic mass] by Au tomated count 28 pg 27-31 N [facility] Erythrocyte mean corpuscular hemoglobin concentration [Mass/volume] in Cord blood 33 g/dL 33-37 N [facility] ital Erythrocyte distribution width [Entitic volume] by Automated count 14 % 11-15 N [facility] Platelets [#/volume] in Blood by Automated count 242 10*3/uL 130-472 N [facility] Platelet mean volume [Entitic volume] in Blood 10.8 fL 9.1-13.1 N [facility] Neutrophils/100 leukocytes in Blood by Automated count 81.5 % 41-77 Above high normal [facility] Neutrophils [#/volume] in Blood by Automated count 11.7 U 1.7-7.6 Above high normal [facility] Lymphocytes/100 leukocytes in Blood by Automated count 12.4 % 14-46 Below low normal [facility] Lymphocytes [#/volume] in Blood by Automated count 1.8 U 0.6-4.6 N [facility] Monocytes/100 leukocytes in Blood by Automated count 4.8 % 4-12 N [facility] Monocytes [#/volume] in Blood by Automated count 0.7 U 0.2-1.2 N [facility] Eosinophils/100 leukocytes in Blood by Automated count 0.6 % 0-7 N [facility] Eosinophils [#/volume] in Blood by Automated count 0.1 U 0.0-0.5 N [facility] Basophils/100 leukocytes in Blood by Automated count 0.1 % 0.4-1.3 Below low normal [facility] Basophils [#/volume] in Blood by Automated count 0.0 U 0.0-0.2 N [facility] NUCLEATED RED BLOOD CELL 0 % [facility] NUCLEATED RED BLOOD CELL# 0 U [facility] Immature granulocytes [Presence] in Blood by Automated count 0-2 N [facility] Immature granulocytes [#/volume] in Blood by Automated count 0.1 U 0-0.1 N [facility] Manual Differential panel - Blood Manual Diff Added [facility] ID Date Data Source [id number] 07/11/2021 12:45:00 PM EDT [facility] @07/11/21 1155: MANUAL DIFF added. RFLXG = DIFF. LOAD?: 50 @07/11/21 1155: MANUAL DIFF added. RFLXG = DIFF. Name Value Range Interpretation Code Description Data Janina rce(s) Supporting Document(s) Glucose [Mass/volume] in Serum or Plasma --1 hour post 50 g glucose PO 188 mg/dL N [facility] l A 1 hour Glucose Tolerance Test f or Gestational Diabetes based on a 50 gm load:The 1-hour glucose level should be less than 140 mg/dl ID Date Data Source [id number] 07/11/2021 12:40:00 PM EDT [facility] @07/11/21 1155: MANUAL DIFF added. RFLXG = DIFF. LOAD?: 50 @07/11/21 1155: MANUAL DIFF added. RFLXG = DIFF. Name Value Range Interpretation Code Description Data Janina rce(s) Supporting Document(s) Cells counted [#] 100 [facility] Neutrophils [#/volume] in Blood by Manual count 85 % 41-77 Above high normal [facility] Lymphocytes [#/volume] in Blood by Manual count 10 % 14-46 Below low normal [facility] Monocytes [#/volume] in Blood by Manual count 5 % 4-12 N [facility] Platelets [#/volume] in Blood by Estimate APPEARS NORMAL NORMAL [facility] Morphology [Interpretation] in Blood Narrative APPEARS NORMAL NORMAL [facility] ID Date Data Source [id number] 07/05/2021 06:01:00 PM EDT [facility] [address] [place] [address] [phone] NAME SEX PT STATUS ACCOUNT NUMBER KAYLEN PARKER REG REF [id number] ORDERING PHYSICIAN LOCATION MEDICAL RECORD NO. Juan José Marquez II, MD [id number] ATTENDING PHYSICIAN DATE OF DATE OF EXAM/TIME [...] CC: Mery Hernadez; Hazel Thurston DO Techn: FREST Trans Dt/Tm: Trans by: DT Prt Dt/Tm: : Total DLP = 0.00 mGy-cm : Total Radiation Dose = 0.0000 mSv Lifetime Dose: 2.7776 mSv Name Value Range Interpretation Code Description Data Janina rce(s) Supporting Document(s) ID Date Data Source [id number] 2021 08:50:00 AM EDT [facility] Patient Name: KAYLEN PARKER : 1995 Sex: F Pt Unit #: [id number] Location: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 No contractions. No discharge or bleeding. Baby is moving well. Will do 28 weeklabs in 3 weeks. no other questions or concerns. 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 [facility] appt - 05/31/21 OB Visit Log [...] review consult note with the patient. The identity management consultant noted is increased concern for thromboembolism, [...] limited there as result of which the identity management consultant suggested a echo might be helpful. [...] the risks to her patients in the long term more thanjustify excepting this vaccination which has been given about 5 billion people so far. That said itremains her decision, I simply wanted to add my confidence in the vaccine to her decision process. The patient now notes that she has pretty severe flare of sciatica on the left which is making it difficult for her left and bend at the long term and I did agree to give her [...] Visit Date: 02/10/21 Last Updated by: Pako Barber [...] normal , unspecified, unspecified trimester SNOMED Code(s): 10708578 Category: Medical Qual ifiers: Weeks of gestation: [...] Data Source [id number] 2021 12:00:00 AM EDT [facility] Name Value Range Interpretation Code Description Data Janina rce(s) Supporting Document(s) SARS-CoV2 Rapid Antigen Not Detected [facility] This lab was ordered by [facility] and reported by [facility]. ID Date Data Source [id number] 06/12/2021 12:00:00 AM EDT [facility] Name Value Range Interpretation Code Description Data Janina rce(s) Supporting Document(s) SARS-CoV2 Rapid Antigen Not Detected [facility] This lab was ordered by [facility] and reported by [facility]. ID Date Data Source [id number] 06/01/2021 12:00:00 AM EDT [facility] Name Value Range Interpretation Code Description Data Janina rce(s) Supporting Document(s) SARS-CoV2 Rapid Antigen Not Detected [facility] This lab was ordered by [facility] and reported by [facility]. ID Date Data Source [id number] 05/31/2021 02:46:[address] [facility] Name Value Range Interpretation Code Description Data Janina rce(s) Supporting Document(s) Progress Note [facility] [id number] m [file] [id number] [file] [id number]= ID Date Data Source [id number] 05/26/2021 12:00:00 AM EDT [facility] Name Value Range Interpretation Code Description Data Janina rce(s) Supporting Document(s) SARS-CoV2 Rapid Antigen Not Detected [facility] This lab was ordered by [facility] and reported by [facility]. ID Date Data Source [id number] 05/24/2021 10:46:00 AM EDT [facility] Patient Name: KAYLEN PARKER : 1995 Sex: F Pt Unit #: [id number] Location: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 No contractions. no discharge or bleeding. She is starting to feel movement. She goes to [facility] next w [place].. Patient is having a boy. no other questions or concerns. 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 [facility] appt - 05/31/21 OB Visit Log [...] due to her sizedepending on comorbidities. Kaur Seeendy Visit Date: 03/09/21 Ob Check 10.5 weeks. [...] normal , unspecified, unspecified trimester SNOMED Code(s): 49013067 Category: Medical Qualifiers: Weeks of gestation: 14 weeks Qualified Code(s): Z3A.14 - 14 weeks gestation of <Electronically signed by Peter Valentino MD> 05/24/21 1111 Name Value Range Interpretation Code Description Data Janina rce(s) Supporting Document(s) ID Date Data Source [id number] 05/20/2021 12:00:00 AM EDT [facility] Name Value Range Interpretation Code Description Data Janina rce(s) Supporting Document(s) SARS-CoV2 Rapid Antigen Not Detected [facility] This lab was ordered by [facility] and reported by [facility]. ID Date Data Source [id number] 05/12/2021 12:00:00 AM EDT [facility] Name Value Range Interpretation Code Description Data Janina rce(s) Supporting Document(s) SARS-CoV2 Rapid Antigen Not Detected [facility] This lab was ordered by [facility] and reported by [facility]. ID Date Data Source [id number] 05/04/2021 11:28:00 AM EDT [facility] [address] [place] [address] [phone] NAME SEX PT STATUS ACCOUNT NUMBER KAYLEN PARKER REG REF [id number] ORDERING PHYSICIAN LOCATION MEDICAL RECORD NO. Peter Phill Valentino MD [id number] ATTENDING PHYSICIAN DATE OF DATE OF EXAM/TIME Mery Hernadez NP 1995 05/03/211309 TYPE / EXAM US OB Ultrasound >14 wks REASON FOR EXAM 20 WK ANATOMY HISTORY: [facility] 20 WK ANATOMY COMPARISON: 25 [...] Name Value Range Interpretation Code Description Data Janian rce(s) Supporting Document(s) ID Date Data Source [id number] 05/03/2021 11:46:00 AM EDT [facility] Patient Name: KAYLEN PARKER : 1995 Sex: F Pt Unit #: [id number] Location: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 [facility] appt - 05/31/21 OB Visit Log [...] normal , unspecified, unspecified trimester SNOMED Code(s): 26854208 Category: Medical Qualifiers: Weeks of gestation: 14 weeks Qualified Code(s): Z3A.14 - 14 weeks gestation of <Electronically signed by Peter Valentino MD> 05/03/21 1211 Name Value Range Interpretation Code Description Data Janina rce(s) Supporting Document(s) ID Date Data Source [id number] 04/19/2021 12:00:00 AM EDT [facility] Name Value Range Interpretation Code Description Data [facility] rce(s) Supporting Document(s) SARS-CoV2 Rapid Antigen Not Detected [facility] This lab was ordered by [facility] and reported by [facility]. ID Date Data Source [id number] 04/14/2021 12:00:00 AM EDT [facility] Name Value Range Interpretation Code Description Data Janina rce(s) Supporting Document(s) SARS-CoV2 Rapid Antigen Not Detected [facility] This lab was ordered by [facility] and reported by [facility]. ID Date Data Source [id number] 04/10/2021 12:00:00 AM EDT [facility] Name Value Range Interpretation Code Description Data Janina rce(s) Supporting Document(s) SARS-CoV2 Rapid Antigen Not Detected [facility] This lab was ordered by [facility] and reported by [facility]. ID Date Data Source [id number] 04/07/2021 12:00:00 AM EDT [facility] Name Value Range Interpretation Code Description Data Janina rce(s) Supporting Document(s) SARS-CoV2 Rapid Antigen Not Detected [facility] This lab was ordered by [facility] and reported by [facility]. ID Date Data Source [id number] 04/05/2021 12:00:00 AM EDT [facility] Name Value Range Interpretation Code Description Data Janina rce(s) Supporting Document(s) SARS-CoV2 Rapid Antigen Not Detected [facility] This lab was ordered by [facility] and reported by [facility]. ID Date Data Source [id number] 04/03/2021 12:00:00 AM EDT [facility] Name Value Range Interpretation Code Description Data Janina rce(s) Supporting Document(s) SARS-CoV2 Rapid Antigen Not Detected [facility] This lab was ordered by [facility] and reported by [facility]. ID Date Data Source [id number] 04/02/2021 10:51:00 AM EDT [facility] 24 HOUR VOLUME MEASUREMENT?: 5100PATIENT 'S HEIGHT:: 63PATIENT'S WEIGHT:: 325 24 HOUR VOLUME MEASUREMENT?: 5100PATIENT 'S HEIGHT:: 63PATIENT'S WEIGHT:: 325 Name Value Range Interpretation Code Description Data Janina rce(s) Supporting Document(s) Creatinine 0.5 mg/dL 0.5-1.1 N [facility] Glomerular filtration rate/1.73 sq M.pre dicted [Volume Rate/Area] in Serum or Plasma Greater Than 60 ABOVE 60 [facility] ID Date Data Source [id number] 04/02/2021 10:50:00 AM EDT [facility] 24 HOUR VOLUME MEASUREMENT?: 5100PATIENT 'S HEIGHT:: 63PATIENT'S WEIGHT:: 325 24 HOUR VOLUME MEASUREMENT?: 5100PATIENT 'S HEIGHT:: 63PATIENT'S WEIGHT:: 325 Name Value Range Interpretation Code Description Data Janina rce(s) Supporting Document(s) Body height Measured 63 [facility] Body weight 325 [facility] Body surface area 2.38 [facility] Urine Random Creatinine 57.0 mg/dL [facility] Creatinine [Mass/volume] in 24 hour Urine 2.9 gm/24hrs 0.6-1. 8 Above high normal [facility] @Check calculation@24HR CRE = (VOL X Ur CRE) / 100,000@24HR PROT = (VOL X Ur PROT) / 100@24HR K = (VOL X Ur K) /1000@24HR NA = (VOL X Ur NA) / 1000@24HR CRE CL =SEE WALL POCKET FOR DETAILED CALCULATION SHEET@PROTEIN/CREAT RATIO = Ur PROT/Ur CREAT Creatinine [Moles/volume] in Urine 0.5 [facility] 5100 Creatinine renal clearance/1.73 sq M in 24 hour 292.94 ml/min [facility] ID Date Data Source [id number] 04/02/2021 10:50:00 AM EDT [facility] 24 HOUR VOLUME MEASUREMENT?: 5100PATIENT 'S HEIGHT:: 63PATIENT'S WEIGHT:: 325 24 HOUR VOLUME MEASUREMENT?: 5100PATIENT 'S HEIGHT:: 63PATIENT'S WEIGHT:: 325 Name Value Range Interpretation Code Description Data Janina rce(s) Supporting Document(s) Protein [Mass/volume] in Urine Less Than 5 1.0-14.0 N [facility] Protein [Mass/time] in 24 hour Urine 255 mg/24HR 0-150 Above hig h normal [facility] @Check calculation@24HR CRE = (VOL X Ur CRE) / 100,000@24HR PROT = (VOL X Ur PROT) / 100@24HR K = (VOL X Ur K) /1000@24HR NA = (VOL X Ur NA) / 1000@24HR CRE CL =SEE WALL POCKET FOR DETAILED CALCULATION SHEET@PROTEIN/CREAT RATIO = Ur PROT/Ur [id number] ID Date Data Source [id number] 03/31/2021 09:25:00 AM [facility] Name Value Range Interpretation Code Description Data Janina rce(s) Supporting Document(s) Protein [Mass/volume] in 24 hour Urine 8.1 mg/dL 0-11.8 [facility] Creatinine [Mass/volume] in Urine 121.0 mg/dL [facility] Protein/Creatinine [Mass Ratio] in Urine 0.07 UPCR [facility] ID Date Data Source [id number] 03/31/2021 09:16:00 AM [facility] Name Value Range Interpretation Code Description Data Janina rce(s) Supporting Document(s) Prothrombin Time (Patient) 9.8 s 9.6-12.3 N [facility] INR 0.9 0.9-1.1 [facility] THE INR IS OPERATIONALLY DEFINED FOR YUSEF SH PLASMA FROMPATIENTS STABILIZED ON ORAL ANTICOAGULANTS.ROUTINE ANTICOAGULANT THERAPY 2.0-3.0RECURRENT SYSTEMIC EMBOLISM/HEART VALVE REPLACEMENT 2.5-3.5 aPTT.lupus sensitive (LA screen) 22.8 s 22.7-31.6 N [facility] ID Date Data Source [id number] 03/31/2021 09:18:00 AM [facility] Name Value Range Interpretation Code Description Data Janina rce(s) Supporting Document(s) Hemoglobin A1c [Mass/volume] in Blood 5.1 % 3.8-5.6 [facility] The following ranges may be u sed for interpretation of results: HGBA1C degree of glucose control: Greater than 8%: Action Suggested * Less than 7%: Goal of Diabetic Therapy Less than 5.6%: NormalFactors such as duration of diabetes, adherence to therapyand the age of the patient should also be considered inassessing the degree of blood glucose control.* High risk of developing prison complications such asretinopathy, nephropathy, neuropathy, cardiopathy, etc. Some danger of hypoglycemic reaction in Type I diabetics.Some glucose intolerant individuals and "Sub Clinical"diabetics may demonstrate HGBA1C levels in this area. Glucose mean value [Moles/volume] in Blood Estimated f rom glycated hemoglobin 100 mg/dL [facility] An A1C of 7% - the goal of diabetic ther apy - is equivalentto an EAG of 154 mg/dl. ID Date Data Source [id number] 03/31/2021 09:25:00 AM EDT [facility] Name Value Range Interpretation Code Description Data Janina rce(s) Supporting Document(s) Urea nitrogen [Mass/volume] in Serum or Plasma 8 mg/dL 9-23 Below low normal [facility] Sodium [Moles/volume] in Serum or Plasma 139 mmol/L 132-146 N [facility] Potassium [Moles/volume] in Serum or Plasma 3.9 mmol/L 3.5-5.5 N [facility] Chloride [Moles/volume] in Serum or Plasma 108 mmol/L 99-109 [facility] Carbon dioxide, total [Moles/volume] in Serum or Plasma 23 mmol/L 20 -31 N [facility] Anion gap in Serum or Plasma 12 mmol/L 8-16 N [facility] Glucose [Mass/volume] in Serum or Plasma 103 mg/dL 74-106 N [facility] Creatinine 0.6 mg/dL 0.5-1.1 [facility] Glomerular filtration rate/1.73 sq M.pre dicted [Volume Rate/Area] in Serum or Plasma Greater Than 60 ABOVE 60 [facility] Alanine aminotransferase [Enzymatic acti vity/volume] in Serum or Plasma by With P-5'-P 23 U/L 10-49 N [facility] ital Aspartate aminotransferase [Enzymatic ac tivity/volume] in Serum or Plasma by With P-5'-P 13 U/L 0-[address] [facility] pital Alkaline phosphatase [Enzymatic activity/volume] in Serum or Plasma 89 U/L 45-129 N [facility] Calcium [Mass/volume] in Serum or Plasma 9.1 mg/dL 8.5-10.1 [facility] Bilirubin.total [Mass/volume] in Serum or Plasma 0.2 mg/dL 0.3-1.2 Below low normal [facility] Albumin [Mass/volume] in Serum or Plasma by Bromocresol purple (BCP) dye binding method 3.5 g/dL 3.2-4.8 N [facility] ital Protein [Mass/volume] in Serum or Plasma 6.8 g/dL 5.7-8.2 N [facility] ID Date Data Source [id number] 03[facility] Name Value Range Interpretation Code Description Data Janina rce(s) Supporting Document(s) Lactate dehydrogenase [Enzymatic activity/volume] in Serum o r Plasma 207 U/L 120-246 N [facility] ID Date Data Source [id number] 03/31/2021 09:25:00 AM EDT [facility] Name Value Range Interpretation Code Description Data Janina rce(s) Supporting Document(s) Urate [Mass/volume] in Serum or Plasma 4.9 mg/dL 3.3-8.8 N [facility] ID Date Data Source [id number] 03/25/2021 09:58:00 AM [facility] Patient Name: KAYLEN PARKER : 1995 Sex: F Pt Unit #: [id number] Location: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 [facility] appt - 05/31/21 OB Visit Log [...] due to her sizedepending on comorbidities. Kaur Cy Visit Date: 03/09/21 Ob Check 10.5 weeks. No contractions. no discharge or bleeding. Some nausea and mild cramps here and there. She had BV she had metrogel for treatment. Patient has a history of PCOS. She had apap on 02/10/21. She is going to think about genetic testing. She was given the health care pro xy paperwork. no other questions or concerns. [...] normal , unspecified, unspecified trimester SNOMED Code(s): 15066497 Category: Medical Qualifiers: Weeks of gestation: 14 weeks Qualified Code(s): Z3A.14 - 14 weeks gestation of (2) Morbid obesity with BMI of 50.0-59.9, adult: Status: Acute Code(s): E66.01 - Morbid (severe) obesity due to excess calories; Z68.43 - Body mass index [BMI] 50.0-59.9, adult SNOMED Code(s): 642602989 Category: Medical (3) Asthma complicating , antepartum: Status: Acute Code(s): O99.519 - Diseases of the respiratory system complicating , unspecified trimester; J45.909 - Unspecified asthma, uncomplicated SNOMED Code(s): 72327253287349 Category: Medical (4) Asthma dependent on inhaled steroids: Status: Acute Code(s): J45.909 - Unspecified asthma, uncomplicated; 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 SNOMED Code(s): 4047858023558922 Category: Medical (5) : Status: Acute Code(s): Z34.90 - Encounter for supervision of normal , unspecified, unspecified trimester SNOMED Code(s): 02133746 Category: Medical <Electr onically signed by Kaur Benoit DO> 04/10/212041 Name Value Range Interpretation Code Description Data Janina rce(s) Supporting Document(s) ID Date Data Source [id number] 03/23/2021 12:00:00 AM EDT [facility] Name Value Range Interpretation Code Description Data Janina rce(s) Supporting Document(s) SARS-CoV2 Rapid Antigen Not Detected [facility] This lab was ordered by [facility] and reported by [facility]. ID Date Data Source [id number] 03/21/2021 12:00:00 AM EDT [facility] Name Value Range Interpretation Code Description Data Janina rce(s) Supporting Document(s) SARS-CoV2 Rapid Antigen Not Detected [facility] This lab was ordered by [facility] and reported by [facility]. ID Date Data Source [id number] 03/17/2021 12:00:00 AM EDT [facility] Name Value Range Interpretation Code Description Data Janina rce(s) Supporting Document(s) SARS-CoV2 Rapid Antigen Not Detected [facility] This lab was ordered by [facility] and reported by [facility]. ID Date Data Source [id number]/15/2021 12:00:00 AM EDT [facility] Name Value Range Interpretation Code Description Data Janina rce(s) Supporting Document(s) SARS-CoV2 Rapid Antigen Not Detected [facility] This lab was ordered by [facility] and reported by [facility]. ID Date Data Source [id number]/11/2021 12:00:00 AM EDT [facility] Name Value Range Interpretation Code Description Data Janina rce(s) Supporting Document(s) SARS-CoV2 Rapid Antigen Not Detected [facility] This lab was ordered by [facility] and reported by [facility]. ID Date Data Source [id number] 03/09/2021 12:23:00 PM EDT [facility] [address] [place] [address] [phone] NAME SEX PT STATUS ACCOUNT NUMBER KAYLEN PARKER REG REF [id number] ORDERING PHYSICIAN LOCATION MEDICAL RECORD NO. Juan Jsoé Marquez II, MD [id number] ATTENDING PHYSICIAN DATE OF DATE OF EXAM/TIME Mery Hernadez NP 1995 03/09/21 / 1147 TYPE / EXAM US OB Limited (heartbeat, [...] 03/09/21 1224 Date Time CC: Mery Hernadez; Amy High MD Techn: BUSMI Trans Dt/Tm: Trans by: DT Prt Dt/Tm: : Total DLP = 0.00 mGy-cm : Total Radiation Dose = 0.0000 mSv Lifetime Dose: 2.7776 mSv Name Value Range Interpretation Code Description Data Janina rce(s) Supporting Document(s) ID Date Data Source [id number] 03/09/2021 10:02:00 AM EDT [facility] Patient Name: KAYLEN PARKER : 1995 Sex: F Pt Unit #: [id number] Location:[facility] Provider: Visit Date/Time: 03/09/21 Primary Insurance: /[facility] Secondary Insurance: Self Pay ADDENDUM 24 hour urine results 04/02/21 : 24 hr.Prot. 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 No contractions. no discharge or bleeding. Some nausea and mild cramps here and there. She had BV she had metrogel for treatment. Patient has a history of PCOS. She had a pap on 02/10/21. She is going to think about genetic testing. She was given the health careproxy paperwork. no other qu estions or concerns. 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 Thalassemia (Kazakh, Sammarinese, Mediterranean, or Background); MCV less than 80: No 3. Neural Tube Defect (Meningomyelocele, Spina Bifida, or Anencephaly): No 4. Congenital Heart Defect: No 5. Down Syndrome: No 6. Rashaad-Sachs (Ashkenazi Voodoo, Cajun, [place] Citizen Sevier): No 7. Yordan Disease (Ashkenazi Voodoo): No 9. Sickle Cell Disease or Trait (): No 10. Hemophilia or other blood disorders: No 11. Muscular Dystrophy: No 12. Cystic Fibrosis: No 13. Clearlake's Chorea: No 14. Mental Retardation/Autism: No 15. 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 Current occupational exposures/hazards: Yes Name of the Father: clem Father's age: 26 Father involved?: Yes Paternal Occupation: [employer] CATHY Calculator Estimated Delivery Date Method Current [...] normal , unspecified, unspecified trimester SNOMED Code(s): 76569105 Category: Medical Qualifiers: Weeks of gestation: less than 8 weeks Qualified Code(s): Z3A.01 - Less than 8 weeks gestation of (2) 10 weeks gestation of : Status: Acute Code(s): Z3A.10 - 10 weeks gestation of SNOMED Code(s): 26271386 Category: Medical (3) Morbid obesity with BMI of 50.0-59.9, adult: Status: Acute Code(s): E66.01 - Morbid (severe) obesity due to excess calories; Z68.43 - Body mass index [BMI] 50.0-59.9, adult SNOMED Code(s): 168000155 Category: Medical (4) Asthma complicating , antepartum: Status: Acute Code(s): O99.519 - Diseases of the respiratory system complicating , unspecified trimester; J45.909 - Unspecified asthma, uncomplicated SNOMED Code(s): 12768550779319 Category: Medical Orders: Orders PFT (Spirometry Outpatient) Today J45.909 - Unspecified asthma, uncomplicated, O99.210 - Obesity complicating , unspecified trimester, Z34.90 - Encounter for supervision of normal , unspecified, unspecified trimester, 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 ID Date Data Source [id number]/03/2021 12:00:00 AM EDT [facility] Name Value Range Interpretation Code Description Data Janina rce(s) Supporting Document(s) SARS-CoV2 Rapid Antigen Not Detected [facility] This lab was ordered by [facility] and reported by [facility]. ID Date Data Source [id number]/01/2021 12:00:00 AM EDT [facility] Name Value Range Interpretation Code Description Data Janina rce(s) Supporting Document(s) SARS-CoV2 Rapid Antigen Not Detected [facility] This lab was ordered by [facility] and reported by [facility]. ID Date Data Source [id number] 02/18/2021 02:26:00 PM EDT [facility] Name Value Range Interpretation Code Description Data Janina rce(s) Supporting Document(s) COVID-19 SEA (SARS-CoV-2) NOT DETECTED NOT DETECTED [facility] A Not Detected (negative) test result fo [...] findings,re- testing should be considered in [facility] authorities. Laboratory test results shouldalways be considered in the context of clinicalobservations and epidemiological data in making a finaldiagnosis and patient management decisions.Please review the "Fact Sheets" and FDA authorizedlabeling available for health care providers andpatients using the following websites:https://www.[employer].com.SleepOut/home/Covid-19/HCP/NAAT/fact-pnnrt3blhhz://www.[employer].SleepOut/home /Covid-19/Patients/NAAT/fact-awiit5Twqy test has been authorized by the FDA under anEmergency Use Authorization (EUA) for use by authorizedlaboratories.Due to the current public health emergency, [facility] is receiving a high volume of samples [...] about COVID-19 can be f oundat the [facility] website:www.[facility].SleepOut/Covid19.THIS TEST WAS PERFORMED AT:[employer] [id number] MERATI,MD ID Date Data Source [id number] 02/17/2021 06:10:00 AM EDT [facility] Name Value Range Interpretation Code Description Data Janina rce(s) Supporting Document(s) SARS-COV-2 RNA RESP QL SEA+PROBE Not detected [facility] This lab was ordered by [facility] and reported by [facility]. ID Date Data Source [id number] 02/18/2021 02:13:00 PM EDT [facility] Name Value Range Interpretation Code Description Data Janina rce(s) Supporting Document(s) [id number] NOT DETECTED [facility] A Not Detected [...] findings,re- testing should be considered in consultation [facility] authorities. Laboratory test results shouldalways be considered in the context of clinicalobservations and epidemiological data in making a finaldiagnosis and patient management decisions.Please review the "Fact Sheets" and FDA authorizedlabeling available for health care providers andpatients using the following websites:https://www.[employer].com/home/Covid-19/HCP/NAAT/fact-xhvzn2otyvu://www.[employer].SleepOut/home/ Covid-19/Patients/NAAT/fact-qxwtc9Kylk test has been authorized by the FDA under anEmergency Use Authorization (EUA) for use by authorizedlaboratories.Due to the current public health emergency, [facility] is receiving a high volume of samples [...] information about COVID-19 can be foundat the [facility] website:www.[facility].SleepOut/Covid19. ID Date Data Source [id number] 02/17/2021 01:52:00 PM EDT [facility] Name Value Range Interpretation Code Description Data Janina rce(s) Supporting Document(s) COVID-19 SEA (SARS-CoV-2) NOT DETECTED NOT DETECTED [facility] A Not Detected (negative) test result fo [...] clinical findings,re-testing should be considered in consultation [facility] authorities. Laboratory test results shouldalways [...] health care providers andpatients using the following websites:https://www.[employer].SleepOut/home/C ovid-19/HCP/NAAT/fact-ufitg6axtur://www.[employer].SleepOut/home/Covid-19/Patie nts/NAAT/fact-tgrfp6Slrs test has been authorized by the FDA under anEmergency Use Authorization (EUA) for use by authorizedlaboratories.Due to the current public health emergency, [facility] is receiving a high volume of samples [...] information about COVID-19 can be foundat the [facility] website:www.[facility].SleepOut/Covid19.THIS TEST WAS PERFORMED AT:[employer] [id number] MERATI,MD ID Date Data Source [id number] 02/15/2021 09:20:00 PM EDT [facility] Name Value Range Interpretation Code Description Data Janina rce(s) Supporting Document(s) SARS-COV-2 RNA RESP QL SEA+PROBE Not detected [facility] This lab was ordered by [facility] and reported by [facility]. ID Date Data Source [id number] 02/17/2021 01:36:00 PM EDT [facility] Name Value Range Interpretation Code Description Data Janina rce(s) Supporting Document(s) [id number] NOT DETECTED [facility] A Not Detected (negative) test result [...] clinical findings,re-testing should be considered in consultation [facility] authorities. Laboratory test results shouldalways [...] health care providers andpatients using the following websites:https://www.[employer].com/home/Co vid-19/HCP/NAAT/fact-fylih2bwjho://www.[employer].SleepOut/home/Covid-19/Kassien ts/NAAT/fact-hhoyj0Dvfz test has been authorized by the FDA under anEmergency Use Authorization (EUA) for use by authorizedlaboratories.Due to the current public health emergency, [facility] is receiving a high volume of samples [...] information about COVID-19 can be foundat the [facility] website:www.[employer]/Covid19. ID Date Data Source [id number] 02/18/2021 06:29:00 AM [facility] LAST MENSTRUAL PERIOD 12/24/2039TOI95-420Nd llection Technique: BRUSH-SPATULAPATIENT INFORMATION: PREVIOUS CYTOLOGY: NEGATIVEPREVIOUS TREATMENT: NONEBody Site: [facility] Name Value Range Interpretation Code Description Data Janina rce(s) Supporting Document(s) Microscopic observation [Identifier] in Vaginal fluid by Cyt o stain.thin prep [facility] ID Date Data Source [id number] 02/10/2021 01:33:[address] [facility] CT/NG IS A QUALITATIVE IN VITRO REAL-IZZY E PCR TEST FORDETECTION OF CHLAMYDIA TRACHOMATIS (CT) AND NEISSERIAGONORRHOEAE (NG)NORMAL VALUE FOR CT/NG IS " NO ORGANISMS DETECTED "C trach DNA Vag Ql SEA+probeN gonorrhoea rRNA Vag Ql SEA+probe Name Value Range Interpretation Code Description Data Janina rce(s) Supporting Document(s) ID Date Data Source [id number] 02/11/2021 01:27:00 PM [facility] CT/NG IS A QUALITATIVE IN VITRO REAL-IZZY E PCR TEST FORDETECTION OF CHLAMYDIA TRACHOMATIS (CT) AND NEISSERIAGONORRHOEAE (NG)NORMAL VALUE FOR CT/NG IS " NO ORGANISMS DETECTED "C trach DNA Vag Ql SEA+probeN gonorrhoea rRNA Vag Ql SEA+probe Name Value Range Interpretation Code Description Data Janina rce(s) Supporting Document(s) Trichomonas DNA Probe NOT DETECTED NOT DETECTED [facility] Gardnerella DNA Probe DETECTED NOT DETECTED Above high normal [facility] Increased levels of G. vaginalis may not be significantin the absence of signs and symptoms of bacterialvaginosis. Norma species DNA Probe NOT DETECTED NOT DETECTED [facility] THIS TEST WAS PERFORMED AT:[employer] [address] [id number] MERATI,MD ID Date Data Source [id number] 02/10/2021 08:44:00 AM EDT [facility] Patient Name: KAYLEN PARKER : 1995 Sex: F Pt Unit #: [id number] Location: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 no other questions or concerns Nursing Education Specialist Required: No Accompanied by: Self / Same as Patient Is patient in pain?: No Allergies SEASONAL ALLERGIES Allergy (Mild, Verified 02/10/21 09:43) Rhinitis No Known Drug Allergies Allergy (Verified 02/10/21 09:43) No Known Food Allergies Allergy (Verified 02/10/21 09:43) Medications - Last Reconciled 02/10/21 by Pako Braber MD acetaminophen (Tylenol) 325 mg PO QID PRN albuterol sulfate 90 mcg/actuation (ProAir RespiClick) 2 inhalations inhalation Q4H PRN albuterol sulfate 90 mcg/actuation (Ventolin HFA) 2 puffs inhalation Q6H PRN budesonide-formoterol 160-4.5 mcg/actuation (Symbicort) 2 puffs INH BID montelukast 10 mg PO QDAY p renat.vits,tucker,bzu-ohcq-onrjh 1 tab PO QDAY Is last menstrual [...] level completed: high school graduate service: No long term: Yes 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 Patient's age 35 years or older as of estimated date of delivery: No 2. Thalassemia (Kazakh, Sammarinese, Mediterranean, or Background); MCV less than 80: No 3. Neural Tube Defect (Meningomyelocele, Spina Bifida, or Anencephaly): No 4. Congenital Heart Defect: No 5. Down Syndrome: No 6. Rashaad-Sachs (Ashkenazi Voodoo, Cajun, [place] Citizen Sevier): No 7. Yordan Disease (Ashkenazi Voodoo): No 9. Sickle Cell Disease or Trait [...] (see comments) Initial Physical Examination Source: [employer] History History [...] estimated date of delivery: No 2. Thalassemia (Kazakh, Sammarinese, Mediterranean, or Background); MCV less than 80: No 3. Neural Tube Defect (Meningomyelocele, Spina Bifida, or Anencephaly): No 4. Congenital Heart Defect: No 5. Down Syndrome: No 6. Rashaad-Sachs (Ashkenazi Voodoo, Cajun, [place] Citizen Sevier): No 7. Yordan Disease (Ashkenazi Voodoo): No 9. Sickle Cell Disease or Trait (Afr ican): No 10. Hemophilia or other blood disorders: No 11. Muscular Dystrophy: No 12. Cystic Fibrosis: No 13. Clearlake's Chorea: No 14. Mental Retardation/Autism: No 15. 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 Current occupational exposures/hazards: Yes Name of the Father: Clem Father's age: 26 Father involved?: Yes Paternal Occupation: [employer] CATHY Calculator Estimated Delivery Date Method Current [...] normal , unspecified, unspecified trimester SNOMED Code(s): 46307686 Category: Medical Qualifiers: Weeks of gestation: less [...] Today Z12.4, Z91.[address]/NG RT-PCR Today Z34 Vaginitis DNA Probe - Affirm Today Z34 Follow Up: 4 Weeks <Electronically signed by Pako Barber MD> 02/10/21 1120 Name Value Range Interpretation Code Description Data Janina rce(s) Supporting Document(s) ID Date Data Source [id number] 02/09/2021 11:34:00 AM EDT [facility] [address] [place] [address] [phone] NAME SEX PT STATUS ACCOUNT NUMBER KAYLEN PARKER REG REF [id number] ORDERING PHYSICIAN LOCATION MEDICAL RECORD NO. Pako Barber MD [id number] ATTENDING PHYSICIAN DATE OF DATE OF EXAM/TIME Mery Hernadez NP 1995 02[birth year]/211446 TYPE / EXAM US OB Ultrasound <14 [...] rce(s) Supporting Document(s) ID Date Data Source [id number] 02/07/2021 03:40:00 PM EDT [facility] @02/07/21 1507: UA W/ MICRO added. RFLXG = UMIC.Method of Collection:: Clean Catch Less than 10,000 CFU/MLStaph spp, Strep spp, Corynebacterium sppNormal Commensal FloraProbable contaminants no senst done FAXED TO [facility] @ 0800 BY [facility] 02/09/21 @02/07/21 1507: UA W/ MICRO added. RFLXG = UMIC.Method of Collection:: Clean Catch Name Value Range Interpretation Code Description Data Janina rce(s) Supporting Document(s) Color of Urine [facility] Appearance of Urine CLEAR [facility] pH of Urine by Test strip 5.5 5-8 [facility] Specific gravity of Urine by Refractometry 1.018 1.005-1.030 [facility] Leukocyte esterase [Presence] in Urine by Test strip NEGATIVE Above high normal [facility] @DO MICRO!!!! Nitrite [Presence] in Urine by Test strip NEGATIVE [facility] Protein [Presence] in Urine by Test strip NEGATIVE [facility] Glucose [Mass/volume] in Urine by Automated test strip NEGATIVE NEG ATIVE [facility] Ketones [Presence] in Urine by Test strip NEGATI VE Abnormal (applies to non- numeric results) [facility] Urobilinogen [Presence] in Urine 0.2-1 EU/dl [facility] Bilirubin.total [Presence] in Urine by Automated test strip NEGATIVE [facility] Erythrocytes [#/volume] in Urine by Test strip NEGATIVE NEGATIVE [facility] URINE MICROSCOPIC ADDED Microscopic Added [facility] ID Date Data Source [id number] 02/08/2021 01:14:00 PM EDT [facility] @02/07/21 1507: UA W/ MICRO added. RFLXG = UMIC.Method of Collection:: Clean Catch Less than 10,000 CFU/MLStaph spp, Strep spp, Corynebacterium sppNormal Commensal FloraProbable contaminants no senst done FAXED TO S @ 0800 BY [facility] 02/09/21 @02/07/21 1507: UA W/ MICRO added. RFLXG = UMIC.Method of Collection:: Clean Catch Name Value Range Interpretation Code Description Data Janina rce(s) Supporting Document(s) ID Date Data Source [id number] 02/11/2021 06:57:00 PM EDT [facility] @02/07/21 1507: UA W/ MICRO added. RFLXG = UMIC.Method of Collection:: Clean Catch Less than 10,000 CFU/MLStaph spp, Strep spp, Corynebacterium sppNormal Commensal FloraProbable contaminants no senst done FAXED TO S @ 0800 BY [facility] 02/09/21 @02/07/21 1507: UA W/ MICRO added. RFLXG = UMIC.Method of Collection:: Clean Catch Name Value Range Interpretation Code Description Data [facility] rce(s) Supporting Document(s) MEDMATCH See scanned report [facility] ID Date Data Source [id number] 02/07/2021 03:40:00 PM EDT [facility] @02/07/21 1507: UA W/ MICRO added. RFLXG = UMIC.Method of Collection:: Clean Catch Less than 10,000 CFU/MLStaph spp, Strep spp, Corynebacterium sppNormal Commensal FloraProbable contaminants no senst done FAXED TO S @ 0800 BY [facility] 02/09/21 @02/07/21 1507: UA W/ MICRO added. RFLXG = UMIC.Method of Collection:: Clean Catch Name Value Range Interpretation Code Description Data Janina rce(s) Supporting Document(s) Erythrocytes [#/volume] in Urine by Manual count OCCASIONAL 0-5 [facility] Leukocytes [#/volume] in Urine by Manual count 3-5 /hpf 0-5 [facility] Cells [Type] in Urine sediment by Light microscopy [facility] Bacteria [Presence] in Urine sediment by Light microscopy NEGATIVE Above high normal [facility] ID Date Data Source [id number] 02/07/2021 02:44:00 PM EDT [facility] @02/07/21 1429: CBC-MAN DIFF,PN added. R FLXG = DIFFPNP. Patient Street Address: [address] [place] [address] [facility] City: [place] State: [place]Patient Zip Code: [id number] @02/07/21 1429: CBC-MAN DIFF,PN added. R FLXG = DIFFPNP. Patient Street Address: [address] [place] [address] [facility] City: [place]Patient State: [place]Patient Zip Code: [id number] Name Value Range Interpretation Code Description Data Janina rce(s) Supporting Document(s) Leukocytes [#/volume] in Blood by Automated count 15.3 10*3/uL 4.45-10.71 Above high normal [facility] Erythrocytes [#/volume] in Blood by Automated count 4.91 10*6/uL 4.20 -5.40 N [facility] Hemoglobin [Moles/volume] in Blood 13.2 g/dL 10.7-15.4 N [facility] Hematocrit [Volume Fraction] of Blood by Automated count 41.4 % 3 7-47 N [facility] Erythrocyte mean corpuscular volume [Ent itic volume] in Cord blood by Automated count 84 fL 80-96 N [facility] ital Erythrocyte mean corpuscular hemoglobin [Entitic mass] by Au tomated count 27 pg 27-31 N [facility] Erythrocyte mean corpuscular hemoglobin concentration [Mass/volume] in Cord blood 32 g/dL 33-37 Below low normal [facility] Erythrocyte distribution width [Entitic volume] by Automated count 13 % 11-15 N [facility] Platelets [#/volume] in Blood by Automated count 244 10*3/uL 130-472 N [facility] Platelet mean volume [Entitic volume] in Blood 11.3 fL 9.1-13.1 N [facility] Neutrophils/100 leukocytes in Blood by Automated count 69.6 % 41- 77 N [facility] Neutrophils [#/volume] in Blood by Automated count 10.7 U 1.7-7.6 Above high normal [facility] Lymphocytes/100 leukocytes in Blood by Automated count 22.4 % 14- 46 N [facility] Lymphocytes [#/volume] in Blood by Automated count 3.4 U 0.6-4.6 N [facility] Monocytes/100 leukocytes in Blood by Automated count 6.0 % 4-12 N [facility] Monocytes [#/volume] in Blood by Automated count 0.9 U 0.2-1.2 N [facility] Eosinophils/100 leukocytes in Blood by Automated count 1.2 % 0-7 N [facility] Eosinophils [#/volume] in Blood by Automated count 0.2 U 0.0-0.5 N [facility] Basophils/100 leukocytes in Blood by Automated count 0.3 % 0.4-1.3 Below low normal [facility] Basophils [#/volume] in Blood by Automated count 0.1 U 0.0-0.2 N [facility] NUCLEATED RED BLOOD CELL 0 % [facility] NUCLEATED RED BLOOD CELL# 0 U [facility] Immature granulocytes [Presence] in Blood by Automated count 0-2 N [facility] Immature granulocytes [#/volume] in Blood by Automated count 0.1 U 0-0.1 N [facility] Manual Differential panel - Blood Manual Diff Added [facility] ID Date Data Source [id number] 02/07/2021 02:56:00 PM EDT [facility] @02/07/21 1429: CBC-MAN DIFF,PN added. R FLXG = DIFFPNP. Patient Street Address: [address] [place] [address] City: [place] State: [place]Patient Zip Code: [id number] @02/07/21 1429: CBC-MAN DIFF,PN added. R FLXG = DIFFPNP. Patient Street Address: [address] [place] [address]: [place]Patient State: [place]Patient Zip Code: [address]Hpqpbok Name Value Range Interpretation Code Description Data Janina rce(s) Supporting Document(s) Thyrotropin [Units/volume] in Serum or Plasma by Detec tion limit <= 0.005 mIU/L 1.09 u[iU]/mL 0.35-5.50 [facility] ID Date Data Source [id number] 02/08/2021 02:12:00 PM EDT [facility] @02/07/21 1429: CBC-MAN DIFF,PN added. R FLXG = DIFFPNP. Patient Street Address: [address] [place] [address] City: [place] State: [place] Zip Code: [id number] @02/07/21 1429: CBC-MAN DIFF,PN added. R FLXG = DIFFPNP. Patient Street Address: [address] [place] [address] City: [place]Patient State: [place]Patient Zip Code: [address]Kvwoqer Name Value Range Interpretation Code Description Data Janina rce(s) Supporting Document(s) Lead [Moles/volume] in Blood <1 mcg/dL <5 L [facility] See Note 1Note 1This test was developed and its analytical performancecharacteristics have been determined by [employer]. It has not been cleared or approved by theA. This assay has been validated pursuant to the CLIAregulations and is used for clinical purposes.THIS TEST WAS PERFORMED AT:[employer] [id number] MERATI,MD ID Date Data Source [id number] 02/12/2021 02:16:00 PM EDT [facility] @02/07/21 1429: CBC-MAN DIFF,PN added. R FLXG = DIFFPNP. Patient Street Address: [address] [place] [address] City: [place] State: [place]Patient Zip Code: [id number] @02/07/21 1429: CBC-MAN DIFF,PN added. R FLXG = DIFFPNP. Patient Street Address: [address] [place] [address] City: [place] State: [place]Patient Zip Code: [address]Ldyiwzl Name Value Range Interpretation Code Description Data Janina rce(s) Supporting Document(s) HIV (1&2) Screen, 4th Gen NON-REACTIVE NON-REACTIVE [facility] HIV-1 antigen and HIV-1/HIV-2 antibodies were notdetected. [...] this purpose.For additional information please refer toht [email or web address](This link is being provided for informational/educational purposes only.)The performance of this assay has not been clinicallyvalidated in patients less than 2 years old.THIS TEST WAS PERFORMED AT:[employer] [id number] MERATI,MD HIV 1 Ab [Presence] in Serum, Plasma or Blood by Rapid immunoassay [facility] HIV 1 RNA [Presence] in Serum or Plasma by Probe and target amplification method [facility] Treponema pallidum Ab [Presence] in Serum by Agglutination Nonreactive [facility] THIS TEST WAS PERFORMED AT:[employer]/[facility] [place] [address]MOVVJCIFORREST CHEN MD,PHD Rapid Plasma Reagin (RPR) [facility] Reagin Ab [Titer] in Serum by RPR [facility] Hepatitis B virus surface Ag [Presence] in Serum or Plasma b y Immunoassay NON-REACTIVE [facility] THIS TEST WAS PERFORMED AT:[employer] [address]VIPIYV MERATI,MD HBsAg Confirmation [facility] Rubella virus IgG Ab [Units/volume] in Serum or Plasma by Immunoassay 2.11 Index [facility] l Index Interpretation - ---- <0.90 Not consistent with immunity 0.90-0.99 Equivocal > or = 1.00 Consistent with immunityThe presence of rubella IgG antibody suggestsimmunization or past or current infection withrubella virus.THIS TEST WAS PERFORMED AT:[employer] [address]PZHRRC MERATI,MD ID Date Data Source [id number] 02/07/2021 02:44:00 PM EDT [facility] @02/07/21 1429: CBC-MAN DIFF,PN added. R FLXG = DIFFPNP. Patient Street Address: [address] [place] [address] City: [place] State: [place]Patient Zip Code: [id number] @02/07/21 1429: CBC-MAN DIFF,PN added. R FLXG = DIFFPNP. Patient Street Address: [address] [place] [address] City: [place] State: [place]Patient Zip Code: [address]Fdffmyk Name Value Range Interpretation Code Description Data Janina rce(s) Supporting Document(s) Cells counted [#] 100 [facility] Neutrophils [#/volume] in Blood by Manual count 71 % 41-77 N [facility] Lymphocytes [#/volume] in Blood by Manual count 24 % 14-46 N [facility] Monocytes [#/volume] in Blood by Manual count 5 % 4-12 N [facility] Platelets [#/volume] in Blood by Estimate APPEARS NORMAL NORMAL [facility] Morphology [Interpretation] in Blood Narrative APPEARS NORMAL NORMAL [facility] ID Date Data Source [id number] 02/08/2021 02:12:00 PM EDT [facility] @02/07/21 1429: CBC-MAN DIFF,PN added. R FLXG = DIFFPNP. Patient Street Address: [address] [place] [address] City: [place] State: [place]Patient Zip Code: [address]Vtzdcod @02/07/21 1429: CBC-MAN DIFF,PN added. R FLXG = DIFFPNP. Patient Street Address: [address] [place] [address]: [place] State: [place]Patient Zip Code: [address]Vfjyggq Name Value Range Interpretation Code Description Data Janina rce(s) Supporting Document(s) Varicella zoster virus IgG Ab [Units/volume] in Serum by Immunoassay <135.00 index [facility] Index Interpretatio n --------- <135.00 Negative - [...] Antibody Immunity Screen, ACIF.THIS TEST WAS PERFORMED AT:[employer] [address]UPIPIK MERATI,MD ID Date Data Source [id number] 02/07/2021 03:31:00 PM EDT [facility] Name Value Range Interpretation Code Description Data Janina rce(s) Supporting Document(s) Blood bank studies (set) Yes [facility] Blood Type [facility] Antibody Screen (PN) NEGATIVE [facility] ID Date Data Source [id number] [facility]/31[facility] Name Value Range Interpretation Code Description Data Janina rce(s) Supporting Document(s) Choriogonadotropin.beta subunit [Units/volume] in Serum or P lasma 7512 m[iU]/mL 0-10 Above high normal [facility] @Instrument will autodiluteAPPROXIMATE G ESTATION AGE APRROXIMATE HCG RANGE 0-1 WEEK 0 - 50 1-2 WEEKS 40 - 300 2-3 WEEKS 100 - 1,000 3-4 WEEKS 500 - 6,000 1-2 MONTHS 5,000 - 200,000 2- 3 MONTHS 10,000 - 100,000 2ND TRIMESTER 3,000 - 50,000 3RD TRIMESTER 1,000 - 50,000 ID Date Data Source [id number] 01/28/2021 09:00:00 PM EDT [facility] [address] [place] [address] [phone] NAME SEX PT STATUS ACCOUNT NUMBER KAYLEN PARKER [facility] ER [id number] ORDERING PHYSICIAN LOCATION MEDICAL RECORD NO. Angel Paul MD ER [id number] ATTENDING PHYSICIAN DATE OF DATE OF EXAM/TIME [...] rce(s) Supporting Document(s) ID Date Data Source [id number] 01/28/2021 08:23:00 PM EDT [facility] @01/28/212021: MANUAL DIFF added. RFLXG = DIFF. @01/28/212021: MANUAL DIFF added. RFLXG = DIFF. Name Value Range Interpretation Code Description Data Janina rce(s) Supporting Document(s) Leukocytes [#/volume] in Blood by Automated count 13.4 10*3/uL 4.45-10.71 Above high normal [facility] Erythrocytes [#/volume] in Blood by Automated count 4.66 10*6/uL 4.20 -5.40 N [facility] Hemoglobin [Moles/volume] in Blood 12.7 g/dL 10.7-15.4 N [facility] Hematocrit [Volume Fraction] of Blood by Automated count 39.0 % 3 7-47 N [facility] Erythrocyte mean corpuscular volume [Ent itic volume] in Cord blood by Automated count 84 fL 80-96 N [facility] ital Erythrocyte mean corpuscular hemoglobin [Entitic mass] by Au tomated count 27 pg 27-31 N [facility] Erythrocyte mean corpuscular hemoglobin concentration [Mass/volume] in Cord blood 33 g/dL 33-37 N [facility] ital Erythrocyte distribution width [Entitic volume] by Automated count 14 % 11-15 N [facility] Platelets [#/volume] in Blood by Automated count 277 10*3/uL 130-472 N [facility] Platelet mean volume [Entitic volume] in Blood 11.1 fL 9.1-13.1 N [facility] Neutrophils/100 leukocytes in Blood by Automated count 70.4 % 41- 77 N [facility] Neutrophils [#/volume] in Blood by Automated count 9.4 U 1.7-7.6 Above high normal [facility] Lymphocytes/100 leukocytes in Blood by Automated count 23.1 % 14- 46 N [facility] Lymphocytes [#/volume] in Blood by Automated count 3.1 U 0.6-4.6 N [facility] Monocytes/100 leukocytes in Blood by Automated count 4.6 % 4-12 N [facility] Monocytes [#/volume] in Blood by Automated count 0.6 U 0.2-1.2 N [facility] Eosinophils/100 leukocytes in Blood by Automated count 1.5 % 0-7 N [facility] Eosinophils [#/volume] in Blood by Automated count 0.2 U 0.0-0.5 N [facility] Basophils/100 leukocytes in Blood by Automated count 0.2 % 0.4-1.3 Below low normal [facility] Basophils [#/volume] in Blood by Automated count 0.0 U 0.0-0.2 N [facility] NUCLEATED RED BLOOD CELL 0 % [facility] NUCLEATED RED BLOOD CELL# 0 U [facility] Immature granulocytes [Presence] in Blood by Automated count 0-2 N [facility] Immature granulocytes [#/volume] in Blood by Automated count 0.0 U 0-0.1 N [facility] Manual Differential panel - Blood Manual Diff Added [facility] ID Date Data Source [id number] 01/28/2021 08:30:00 PM EDT [facility] @01/28/212021: MANUAL DIFF added. RFLXG = DIFF. @01/28/212021: MANUAL DIFF added. RFLXG = DIFF. Name Value Range Interpretation Code Description Data Janina rce(s) Supporting Document(s) Prothrombin Time (Patient) 10.5 s 9.6-12.3 N [facility] INR 1.0 0.9-1.1 [facility] THE INR IS OPERATIONALLY DEFINED FOR YUSEF SH PLASMA FROMPATIENTS STABILIZED ON ORAL ANTICOAGULANTS.ROUTINE ANTICOAGULANT THERAPY 2.0-3.0RECURRENT SYSTEMIC EMBOLISM/HEART VALVE REPLACEMENT 2.5-3.5 aPTT.lupus sensitive (LA screen) 24.0 s 22.7-31.6 [facility] ID Date Data Source [id number] 01/28/2021 08:47:00 PM EDT [facility] @01/28/212021: MANUAL DIFF added. RFLXG = DIFF. @01/28/212021: MANUAL DIFF added. RFLXG = DIFF. Name Value Range Interpretation Code Description Data Janina rce(s) Supporting Document(s) Urea nitrogen [Mass/volume] in Serum or Plasma 11 mg/dL 9-23 N [facility] Sodium [Moles/volume] in Serum or Plasma 139 mmol/L 132-146 N [facility] Potassium [Moles/volume] in Serum or Plasma 3.7 mmol/L 3.5-5.5 [facility] Chloride [Moles/volume] in Serum or Plasma 109 mmol/L 99-109 N [facility] Carbon dioxide, total [Moles/volume] in Serum or Plasma 25 mmol/L 20 -31 N [facility] Anion gap in Serum or Plasma 9 mmol/L 8-16 N [facility] Glucose [Mass/volume] in Serum or Plasma 104 mg/dL 74-106 N [facility] Creatinine 0.8 mg/dL 0.5-1.1 [facility] Glomerular filtration rate/1.73 sq M.pre dicted [Volume Rate/Area] in Serum or Plasma Greater Than 60 ABOVE 60 [facility] Alanine aminotransferase [Enzymatic acti vity/volume] in Serum or Plasma by With P-5'-P 30 U/L 10-49 [facility] ital Aspartate aminotransferase [Enzymatic ac tivity/volume] in Serum or Plasma by With P-5'-P 13 U/L 0-[address] [facility] pital Alkaline phosphatase [Enzymatic activity/volume] in Serum or Plasma 90 U/L 45-129 [facility] Calcium [Mass/volume] in Serum or Plasma 8.8 mg/dL 8.5-10.1 [facility] Bilirubin.total [Mass/volume] in Serum or Plasma 0.4 mg/dL 0.3-1.2 [facility] Albumin [Mass/volume] in Serum or Plasma by Bromocresol purple (BCP) dye binding method 3.9 g/dL 3.2-4.8 [facility] ital Protein [Mass/volume] in Serum or Plasma 7.9 g/dL 5.7-8.2 [facility] ID Date Data Source [id number] 01/28/2021 08:23:00 PM EDT [facility] @01/28/212021: MANUAL DIFF added. RFLXG = DIFF. @01/28/212021: MANUAL DIFF added. RFLXG = DIFF. Name Value Range Interpretation Code Description Data Janina rce(s) Supporting Document(s) Cells counted [#] 100 [facility] Neutrophils [#/volume] in Blood by Manual count 75 % 41-77 N [facility] Lymphocytes [#/volume] in Blood by Manual count 15 % 14-46 N [facility] Monocytes [#/volume] in Blood by Manual count 8 % 4-12 N [facility] Eosinophils [#/volume] in Blood by Manual count 2 % 0-7 N [facility] Platelets [#/volume] in Blood by Estimate APPEARS NORMAL NORMAL [facility] Morphology [Interpretation] in Blood Narrative APPEARS NORMAL NORMAL [facility] ID Date Data Source [id number] 01/28/2021 08:47:00 PM EDT [facility] @01/28/212021: MANUAL DIFF added. RFLXG = DIFF. @01/28/212021: MANUAL DIFF added. RFLXG = DIFF. Name Value Range Interpretation Code Description Data Janina rce(s) Supporting Document(s) Choriogonadotropin.beta subunit [Units/volume] in Serum or P lasma 3403 m[iU]/mL 0-10 Above high normal [facility] @Instrument will autodiluteAPPROXIMATE G ESTATION AGE APRROXIMATE HCG RANGE 0-1 WEEK 0 - 50 1-2 WEEKS 40 - 300 2-3 WEEKS 100 - 1,000 3-4 WEEKS 500 - 6,000 1-2 MONTHS 5,000 - 200,000 2- 3 MONTHS 10,000 - 100,000 2ND TRIMESTER 3,000 - 50,000 3RD TRIMESTER 1,000 - 50,000 ID Date Data Source [id number] 01/28/2021 08:46:00 PM EDT [facility] Name Value Range Interpretation Code Description Data Janina rce(s) Supporting Document(s) Blood bank studies (set) Yes [facility] Blood Type [facility] Antibody Screen NEGATIVE [facility] ID Date Data Source [id number] 01/28/2021 07:39:00 PM EDT [facility] ED Physician Documentation NAME: KAYLEN PARKER : 1995 AGE: 25 MR#: [id number] SERVICE DATE: 01/28/[address]: Angel Paul MD PRIMARY CARE DR: Mery Hernadez [employer] ROOM#: HPI (Adult, General) General Chief Complaint: [...] level completed: high school graduate service: No long term: Yes current occupational status: employed 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 pets and animals: [...] Yes 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 water heater temp set < 120 [...] MCH 27, MCHC 33, RDW 14, Plt Akqyl118, MPV 11.1, Immature Gran % (Auto) 0.2, Neut % (Auto) 70.4, Lymph % (Auto) 23.1, [place] % (Auto) 4.6, Eos % (Auto) 1.5, [...] 01/28/21 19:55: PT 10.5, INR 1.0, PTT (Nilam) 24.0 01/28/21 19:55: Sodium 139, Potassium 3.7, [...] 915 NO change vss [employer] 9[address] Dr Puneet Maya f/u Sunday office Pelvic rest etc Differential [...] rce(s) Supporting Document(s) ID Date Data Source [id number] 01/27/2021 02:58:00 PM EDT [facility] Name Value Range Interpretation Code Description Data Janina rce(s) Supporting Document(s) Choriogonadotropin.beta subunit [Units/volume] in Serum or P lasma 2367 m[iU]/mL 0-10 Above high normal [facility] @Instrument will autodiluteAPPROXIMATE G ESTATION AGE APRROXIMATE HCG RANGE 0-1 WEEK 0 - 50 1-2 WEEKS 40 - 300 2-3 WEEKS 100 - 1,000 3-4 WEEKS 500 - 6,000 1-2 MONTHS 5,000 - 200,000 2- 3 MONTHS 10,000 - 100,000 2ND TRIMESTER 3,000 - 50,000 3RD TRIMESTER 1,000 - 50,000 ID Date Data Source [id number] 01/27/2021 12:51:00 AM EDT [facility] Name Value Range Interpretation Code Description Data Janina rce(s) Supporting Document(s) COVID-19 SEA (SARS-CoV-2) NOT DETECTED NOT DETECTED [facility] A Not Detected (negative) test result fo [...] findings,re- testing should be considered [facility]. Laboratory test results shouldalways be considered in the context of clinicalobservations and epidemiological data in making a finaldiagnosis and patient management decisions.Please review the "Fact Sheets" and FDA authorizedlabeling available for health care providers andpatients using the following websites:https://www.[employer].com.com/home/Covid-19/HCP/[facility]/fact-sheet.htmlhttps://www.[employer]. SleepOut/home/Covid-19/Patients/QuestIVD/fact-sheet.htmlThis test has been authorized by the FDA under anEmergency Use Authorization (EUA) for use by authorizedlaboratories.Due to the current public health emergency, [facility] is receiving a high volume of samples [...] information about COVID-19 can be foundat the [facility] website:www.[facility].SleepOut/Covid19.THIS TEST WAS PERFORMED AT:[facility]-[address] [address]ESCSAM MERATI,MD ID Date Data Source [id number] 01/27/2021 12:49:00 AM EDT [facility] Name Value Range Interpretation Code Description Data Janina rce(s) Supporting Document(s) [id number] NOT DETECTED [facility] A Not Detected [...] findings,re- testing should be considered in [facility]. Laboratory test results shouldalways be considered in the context of clinicalobservations and epidemiological data in making a finaldiagnosis and patient management decisions.Please review the "Fact Sheets" and FDA authorizedlabeling available for health care providers andpatients using the following websites:https://www.[employer].com/home/Covid-19/HCP/QuestIVD/fact-sheet.htmlhttps://www.[employer].c /home/Covid-19/Patients/QuestIVD/fact-sheet.htmlThis test has been authorized by the FDA under anEmergency Use Authorization (EUA) for use by authorizedlaboratories.Due to the current public health emergency, [facility] is receiving a high volume of samples froma wide variety of swabs and media for COVID-19 testing.In order to serve patients during this public healthcrisis, samples from appropriate clinical sources arebeing tested. Negative test results derived fromspecimens received in non-commercially manufac turedviral collection and transport media, or in media andsample collection kits not yet authorized by FDA forCOVID-19 testing should be cautiously evaluated and thepatient potentially subjected to extra precautions suchas additional clinical monitoring, including collectionof an additional specimen.Methodology: Nucleic Acid Amplification Test (NAAT)includes RT-PCR or TMAAdditional information about COVID-19 can be foundat the [facility] website:www.[facility].com/Covid19. ID Date Data Source [id number] 01/24/2021 09:30:00 PM EDT [facility] Name Value Range Interpretation Code Description Data Janina rce(s) Supporting Document(s) SARS-COV-2 RNA RESP QL SEA+PROBE Not detected [facility] This lab was ordered by [facility] and reported by [facility]. ID Date Data Source [id number] 01/22/2021 08:36:00 PM EDT [facility] Name Value Range Interpretation Code Description Data Janina rce(s) Supporting Document(s) COVID-19 SEA (SARS-CoV-2) NOT DETECTED NOT DETECTED [facility] A Not Detected (negative) test result fo [...] findings,re- testing should be considered in [facility]. Laboratory test results shouldalways be considered in the context of clinicalobservations and epidemiological data in making a finaldiagnosis and patient management decisions.Please review the "Fact Sheets" and FDA authorizedlabeling available for health care providers andpatients using the following websites:https://www.[employer].com.com/home/Covid-19/HCP/NAAT/fact-lfxuc6rtiga://www.[employer].SleepOut/home /Covid-19/Patients/NAAT/fact-sjzlz7Rjhp test has been authorized by the FDA under anEmergency Use Authorization (EUA) for use by authorizedlaboratories.Due to the current public health emergency, [facility] is receiving a high volume of samples [...] about COVID-19 can be f oundat the [facility] website:www.[facility].SleepOut/Covid19.THIS TEST WAS PERFORMED AT:[facility] [address]LYOIVN MERATI,MD ID Date Data Source [id number] 01/22/2021 08:31:00 PM EDT [facility] Name Value Range Interpretation Code Description Data Janina rce(s) Supporting Document(s) [id number] NOT DETECTED [facility] A Not Detected (negative) test result [...] findings,re- testing should be considered in [facility]. Laboratory test results shouldalways be considered in the context of clinicalobservations and epidemiological data in making a finaldiagnosis and patient management decisions.Please review the "Fact Sheets" and FDA authorizedlabeling available for health care providers andpatients using the following websites:https://www.[employer].com/home/Covid-19/HCP/NAAT/fact-pjbhd8trspg://www.[employer].SleepOut/home/ Covid-19/Patients/NAAT/fact-hocuh9Qzkb test has been authorized by the FDA under anEmergency Use Authorization (EUA) for use by authorizedlaboratories.Due to the current public health emergency, [facility] is receiving a high volume of samples [...] information about COVID-19 can be foundat the [facility] website:www.[facility].SleepOut/Covid19. ID Date Data Source [id number] 01/20/2021 09:40:00 PM EDT [facility] Name Value Range Interpretation Code Description Data Janina rce(s) Supporting Document(s) SARS-COV-2 RNA RESP QL SEA+PROBE Not detected [facility] This lab was ordered by [facility] and reported by [facility]. ID Date Data Source [id number] 01/20/2021 01:26:00 PM EDT [facility] Name Value Range Interpretation Code Description Data Janina rce(s) Supporting Document(s) COVID-19 SEA (SARS-CoV-2) NOT DETECTED NOT DETECTED [facility] A Not Detected (negative) test result fo [...] clinical findings,re-testing should be considered in [facility]. Laboratory test results shouldalways [...] health care providers andpatients using the following websites:https://www.[employer].SleepOut/home/C ovid-19/HCP/NAAT/fact-jkgwh8juxeg://www.[employer].SleepOut/home/Covid-19/Patie nts/NAAT/fact-bpwzu1Agct test has been authorized by the FDA under anEmergency Use Authorization (EUA) for use by authorizedlaboratories.Due to the current public health emergency, [facility] is receiving a high volume of samples [...] information about COVID-19 can be foundat the [facility] website:www.Probity/Covid19.THIS TEST WAS PERFORMED AT:[facility] [address]CTEOYH MERATI,MD ID Date Data Source [id number] 01/20/2021 01:15:00 PM EDT [facility] Name Value Range Interpretation Code Description Data Janina rce(s) Supporting Document(s) [id number] NOT DETECTED [facility] A Not Detected (negative) test result fo [...] clinical findings,re-testing should be considered in [facility]. Laboratory test results shouldalways [...] health care providers andpatients using the following websites:https://www.[employer].SleepOut/home/Co vid-19/HCP/NAAT/fact-vwohb4nkxoy://www.[employer].SleepOut/home/Covid-19/Patijose l ts/NAAT/fact-tgkxj0Zvrh test has been authorized by the FDA under anEmergency Use Authorization (EUA) for use by authorizedlaboratories.Due to the current public health emergency, [facility] is receiving a high volume of samples [...] information about COVID-19 can be foundat the [facility] website:www.Probity/Covid19. ID Date Data Source [id number] 01/18/2021 05:50:00 PM EDT [facility] Name Value Range Interpretation Code Description Data Janina rce(s) Supporting Document(s) SARS-COV-2 RNA RESP QL SEA+PROBE Not detected [facility] This lab was ordered by [facility] and reported by [facility]. ID Date Data Source [id number] 01/18/2021 09:18:00 AM EDT [facility] Patient Name: KAYLEN PARKER : 1995 Sex: F Pt Unit #: [id number] Location:[facility] Provider: Visit Date/Time: 01/18/21 Primary Insurance: /BS [facility] Secondary Insurance: Self Pay Intake Vital [...] Patient notes Naproxen was of no help. Nursing Education Specialist Required: No Accompanied by: Self / Same [...] shoulder pain. 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 water heater temp set < 120 [...] obese Orientation: alert, awake and oriented x3 [facility] Head: normal to inspection, normocephalic and atraumatic [...] right acromioclavicular joint, initial encounter SNOMED Code(s): 98092334 Category: Medical Plan - Mery Hernadez NP: [...] C[place] [address] Est Pt Limited Comp Patient Type Established History Problem Focused Exam Problem Focused Medical Decision Making Straight Forward Diagnoses Sprain of right acromiocl avicular ligament S43.51XA <Electronically signed by Meyr Hernadez NP> 01/18/21 1444 Name Value Range Interpretation Code Description Data Janina rce(s) Supporting Document(s) ID Date Data Source [id number] 01/11/2021 01:40:00 PM EDT [facility] Therapy Department KAYLEN PARKER DO B: 1995 Date: 01/11/21 [id number] Attending: Mery Hernadez NP PT Outpatient Evaluation [...] as needed for pain. 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 - Objective [...] flexion to 150 degrees to reach overhead. 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 Pain 01/22. She has her initial PT appointment on 01/11. 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 water heater temp set < 120 [...] obese Orientation: alert, awake and oriented x3 [facility] Head: normal to inspection, normocephalic and atraumatic [...] and no joint enlargement Other: decreased hand vp revenue cycle and decreased ROM d/t pain to left shoulder Psych Appearance: grossly normal and well kempt Mental Status: mental status grossly normal Speech and Movement: speech and movement normal Mood: congruent mood Affect: normal affect Attitude: cooperative Assessment Plan Assessment Plan (1) Sprain of right acromioclavicular ligament: Status: Acute Code(s): S43.51XA - Sprain of right acromioclavicular joint, initial encounter SNOMED Code(s): 33419180 Category: Medical Plan - Louise Hernandez: Attend [...] practitioner. Orders Other Medications: Changed: From: tramadol head of store operations#[id number] 50 mg PO Q8H PRN 14 tabs 0RF pain MDD 3 tabs/day To: tramadol head of store operations#[id number] 50 mg PO Q8H PRN 14 tabs 0RF pain MDD 3 tabs/day [place] [address] Est Pt Limited Comp Patient Type Established History Problem Focused Exam Detailed Medical Decision Making Straight Forward Diagnoses Sprain of right acromioclavicular ligament S43.51XA <Electronically signed by Mery Hernadez INSPECTOR MATERIALS [employer] PROCESSES> 01/04/21 1642 <Electronically signed by Louise Hernandez > 01/04/21 0817 Name Value Range Interpretation Code Description Data Janina rce(s) Supporting Document(s) ID Date Data Source [id number] 12/28/2020 08:48:00 AM EDT [facility] Patient Name: KAYLEN PARKER : 1995 Sex: F Pt Unit #: [id number] Location:[facility] Provider: Visit Date/Time: 12/28/20 Primary Insurance: /[facility] Secondary Insurance: Self Pay Intake Vital [...] Patient has been having pain x1 week. 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 water heater temp set < 120 [...] obese Orientation: alert, awake and oriented x3 [facility] Head: normal to inspection, normocephalic and atraumatic [...] and no joint enlargement Other: decreased hand vp revenue cycle and decreased ROM d/t pain to left shoulder Psych Appearance: grossly normal and well kempt Mental Status: mental status grossly normal Speech and Movement: speech and movement normal Mood: congruent mood Affect: normal affect Attitude: cooperative Assessment Plan Assessment Plan (1) Left shoulder pain: Status: Acute Code(s): M25.512 - Pain in left shoulder SNOMED Code(s): 03659590 Category: Medical Plan - Mery Hernadez NP: [...] - Mild intermittent asthma, uncomplicated SNOMED Code(s): 072622652 Category: Medical Plan - Mery Hernadez NP: [...] mg) PO QDAY 10 tabs 0RF tramadol head of store operations#[id number] 50 mg PO Q8H PRN 14 tabs 0RF pain MDD 3 tabs/day [place]oding [place] [address] Est Pt Limited Comp Patient Type Established History Expanded Problem Focused Exam Expanded Problem Focused Medical Decision Making Low Complexity Diagnoses Left shoulder pain M25.512 Intermittent asthma without complication J45.20 <Electronically signed by Mery Hernadez INSPECTOR [employer]S [employer]ESSES> 12/28/20 1603 Name Value Range Interpretation Code Description Data Janina rce(s) Supporting Document(s) ID Date Data Source [id number] 12/26/2020 06:58:00 PM EDT [facility] ED Physician Documentation NAME: KAYLEN PARKER : 1995 AGE: 25 MR#: [id number] SERVICE DATE: 12/26/[address]: Chris Fernando [...] level completed: high school graduate service: No long term: Yes current occupational status: employed 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 pets and animals: [...] Yes 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 water heater temp set < 120 [...] 27, MCHC 32 L, RDW 13, Plt Bsjge584, MPV 11.1, Immature Gran % (Auto) 0.4, Neut % (Auto) 64.9, Lymph % (Auto) 26.8, [place] % (Auto) 5.5, Eos % (Auto) 2.1, [...] Chris Fernando MD> Chris Fernando MD 12/26/20 1903 Chris Fernando MD SIGNATURE DA Report Cosigners: D: GAURANG 12/26/201857 T: GAURANG 12/26/201857 CC: Mery Hernadez Name Value Range Interpretation Code Description Data Janina rce(s) Supporting Document(s) ID Date Data Source [id number] 12/26/2020 02:29:00 PM EDT [facility] [address] [place] [address] [phone] NAME SEX PT STATUS ACCOUNT NUMBER KAYLEN PARKER [facility] ER [id number] ORDERING PHYSICIAN LOCATION MEDICAL RECORD NO. Chris Fernando MD ER [id number] ATTENDING PHYSICIAN DATE OF DATE OF EXAM/TIME Mery Hernadez NP 1995 12/26/20 / 133 TYPE / EXAM CT Upper extremity w/ [...] 75cc REPORT SIGNATURE ON FILE 12/26/2020 (14:29 Eastern Time ) Signed by: Jas Mast M.D. Reported By Jas Mast MD on 12/26/201428 Signed By Jas Mast MD on 12/26/201428 Date Time CC: Jas Mast MD; Mery Hernadez Techn: CUMME Trans Dt/Tm: Trans by: ELODIA Prt Dt/Tm: : Total DLP = 896.00 mGy-cm : Total Radiation Dose = 2.7776 mSv Lifetime Dose: 2.7776 mSv Name Value Range Interpretation Code Description Data Janina rce(s) Supporting Document(s) ID Date Data Source [id number] 12/26/2020 12:40:00 PM EDT [facility] @ DID THE CONTROL BAND APPEAR? Y@ DID TH E BACKGROUND CLEAR? Y Name Value Range Interpretation Code Description Data Janina rce(s) Supporting Document(s) Leukocytes [#/volume] in Blood by Automated count 10.6 10*3/uL 4.45-1 0.71 [facility] Erythrocytes [#/volume] in Blood by Automated count 5.09 10*6/uL 4.20 -5.40 [facility] Hemoglobin [Moles/volume] in Blood 13.5 g/dL 10.7-15.4 [facility] Hematocrit [Volume Fraction] of Blood by Automated count 42.7 % 3 7-47 N [facility] Erythrocyte mean corpuscular volume [Ent itic volume] in Cord blood by Automated count 84 fL 80-96 N [facility] ital Erythrocyte mean corpuscular hemoglobin [Entitic mass] by Au tomated count 27 pg 27-31 N [facility] Erythrocyte mean corpuscular hemoglobin concentration [Mass/volume] in Cord blood 32 g/dL 33-37 Below low normal [facility] Erythrocyte distribution width [Entitic volume] by Automated count 13 % 11-15 N [facility] Platelets [#/volume] in Blood by Automated count 294 10*3/uL 130-472 N [facility] Platelet mean volume [Entitic volume] in Blood 11.1 fL 9.1-13.1 N [facility] Neutrophils/100 leukocytes in Blood by Automated count 64.9 % 41- 77 N [facility] Neutrophils [#/volume] in Blood by Automated count 6.9 U 1.7-7.6 N [facility] Lymphocytes/100 leukocytes in Blood by Automated count 26.8 % 14- 46 N [facility] Lymphocytes [#/volume] in Blood by Automated count 2.8 U 0.6-4.6 N [facility] Monocytes/100 leukocytes in Blood by Automated count 5.5 % 4-12 N [facility] Monocytes [#/volume] in Blood by Automated count 0.6 U 0.2-1.2 N [facility] Eosinophils/100 leukocytes in Blood by Automated count 2.1 % 0-7 N [facility] Eosinophils [#/volume] in Blood by Automated count 0.2 U 0.0-0.5 N [facility] Basophils/100 leukocytes in Blood by Automated count 0.3 % 0.4-1.3 Below low normal [facility] Basophils [#/volume] in Blood by Automated count 0.0 U 0.0-0.2 N [facility] NUCLEATED RED BLOOD CELL 0 % [facility] NUCLEATED RED BLOOD CELL# 0 U [facility] Immature granulocytes [Presence] in Blood by Automated count 0-2 N [facility] Immature granulocytes [#/volume] in Blood by Automated count 0.0 U 0-0.1 N [facility] Manual Differential panel - Blood NO [facility] ID Date Data Source [id number] 12/26/2020 12:59:00 PM EDT [facility] @ DID THE CONTROL BAND APPEAR? Y@ DID TH E BACKGROUND CLEAR? Y Name Value Range Interpretation Code Description Data Janina rce(s) Supporting Document(s) Choriogonadotropin [Moles/volume] in Serum or Plasma NEGATIVE NEGAT MAHOGANY [facility] @Reenter manual test result: NEG@by Margy Collins at 12/26/20 1259. ID Date Data Source [id number] 12/26/2020 01:07:00 PM EDT [facility] @ DID THE CONTROL BAND APPEAR? Y@ DID TH E BACKGROUND CLEAR? Y Name Value Range Interpretation Code Description Data Janina rce(s) Supporting Document(s) Urea nitrogen [Mass/volume] in Serum or Plasma 14 mg/dL 9-23 [facility] Sodium [Moles/volume] in Serum or Plasma 139 mmol/L 132-146 [facility] Potassium [Moles/volume] in Serum or Plasma 4.4 mmol/L 3.5-5.5 [facility] Chloride [Moles/volume] in Serum or Plasma 107 mmol/L 99-109 [facility] Carbon dioxide, total [Moles/volume] in Serum or Plasma 29 mmol/L 20 -31 [facility] Anion gap in Serum or Plasma 7 mmol/L 8-16 Below low normal [facility] Glucose [Mass/volume] in Serum or Plasma 98 mg/dL 74-106 [facility] Creatinine 0.7 mg/dL 0.5-1.1 [facility] Glomerular filtration rate/1.73 sq M.pre dicted [Volume Rate/Area] in Serum or Plasma Greater Than 60 ABOVE 60 [facility] Alanine aminotransferase [Enzymatic acti vity/volume] in Serum or Plasma by With P-5'-P 34 U/L 10-49 [facility] ital Aspartate aminotransferase [Enzymatic ac tivity/volume] in Serum or Plasma by With P-5'-P 12 U/L 0-33 [facility] pital Alkaline phosphatase [Enzymatic activity/volume] in Serum or Plasma 101 U/L 45-129 [facility] Calcium [Mass/volume] in Serum or Plasma 9.0 mg/dL 8.5-10.1 N [facility] Bilirubin.total [Mass/volume] in Serum or Plasma 0.3 mg/dL 0.3-1.2 N [facility] Albumin [Mass/volume] in Serum or Plasma by Bromocresol purple (BCP) dye binding method 3.7 g/dL 3.2-4.8 N [facility] ital Protein [Mass/volume] in Serum or Plasma 7.8 g/dL 5.7-8.2 N [facility] ID Date Data Source [id number] 12/22/2020 05:07:00 PM EST [facility] Name Value Range Interpretation Code Description Data Janina rce(s) Supporting Document(s) COVID-19 SEA (SARS-CoV-2) NOT DETECTED NOT DETECTED [facility] A Not Detected (negative) test result fo [...] findings,re- testing should be considered [facility]. Laboratory test results shouldalways be considered in the context of clinicalobservations and epidemiological data in making a finaldiagnosis and patient management decisions.Please review the "Fact Sheets" and FDA authorizedlabeling available for health care providers andpatients using the following websites:https://www.Manzuo.com.com/home/Covid-19/HCP/NAAT/fact-dxrlf8fdtkn://www.[employer].SleepOut/home /Covid-19/Patients/NAAT/fact-hzhxm9Idty test has been authorized by the FDA under anEmergency Use Authorization (EUA) for use by authorizedlaboratories.Due to the current public health emergency, [facility] is receiving a high volume of samples [...] about COVID-19 can be f oundat the [facility] website:www.[facility].SleepOut/Covid19.THIS TEST WAS PERFORMED AT:[facility] [address]BDYSDU MERATI,MD ID Date Data Source [id number] 12/22/2020 04:57:00 PM EST [facility] Name Value Range Interpretation Code Description Data Janina rce(s) Supporting Document(s) 43148-2 NOT DETECTED [facility] A Not Detected (negative) test result [...] findings,re- testing should be considered [facility]. Laboratory test results shouldalways be considered in the context of clinicalobservations and epidemiological data in making a finaldiagnosis and patient management decisions.Please review the "Fact Sheets" and FDA authorizedlabeling available for health care providers andpatients using the following websites:https://www.LibriLoop.com/home/Covid-19/HCP/NAAT/fact-krvrn0hdkzl://www.[employer].SleepOut/home/ Covid-19/Patients/NAAT/fact-remax0Gzbl test has been authorized by the FDA under anEmergency Use Authorization (EUA) for use by authorizedlaboratories.Due to the current public health emergency, [facility] is receiving a high volume of samples [...] information about COVID-19 can be foundat the [facility] website:www.[facility].com/Covid19. ID Date Data Source [id number] 12/21/2020 09:25:00 AM EST [facility] Name Value Range Interpretation Code Description Data Janina rce(s) Supporting Document(s) SARS-COV-2 RNA RESP QL SEA+PROBE Not detected [facility] This lab was ordered by [facility] and reported by [employer] [facility]. ID Date Data Source [id number] 12/19/2020 11:17:00 AM EST [facility] Name Value Range Interpretation Code Description Data Janina rce(s) Supporting Document(s) COVID-19 SEA (SARS-CoV-2) NOT DETECTED NOT DETECTED [facility] A Not Detected (negative) test result fo [...] findings,re- testing should be considered [facility]. Laboratory test results shouldalways be considered in the context of clinicalobservations and epidemiological data in making a finaldiagnosis and patient management decisions.Please review the "Fact Sheets" and FDA authorizedlabeling available for health care providers andpatients using the following websites:https://www.[employer].com/home/Covid-19/HCP/QuestIVD/fact-sheet.htmlhttps://www.[employer]. SleepOut/home/Covid-19/Patients/QuestIVD/fact-sheet.htmlThis test has been authorized by the FDA under anEmergency Use Authorization (EUA) for use by authorizedlaboratories.Due to the current public health emergency, [facility] is receiving a high volume of samples [...] information about COVID-19 can be foundat the [facility] website:www.Probity/Covid19.THIS TEST WAS PERFORMED AT:[facility] [address]OBIXJR MERATI,MD ID Date Data Source [id number] 12/19/2020 11:06:00 AM EST [facility] Name Value Range Interpretation Code Description Data Janina rce(s) Supporting Document(s) 65685-6 NOT DETECTED [facility] A Not Detected (negative) test result [...] findings,re- testing should be considered [facility]. Laboratory test results shouldalways be considered in the context of clinicalobservations and epidemiological data in making a finaldiagnosis and patient management decisions.Please review the "Fact Sheets" and FDA authorizedlabeling available for health care providers andpatients using the following websites:https://www.LibriLoop.com/home/Covid-19/HCP/QuestIVD/fact-sheet.htmlhttps://www.[employer] /home/Covid-19/Patients/QuestIVD/fact-sheet.htmlThis test has been authorized by the FDA under anEmergency Use Authorization (EUA) for use by authorizedlaboratories.Due to the current public health emergency, [facility] is receiving a high volume of samples froma wide variety of swabs and media for COVID-19 testing.In order to serve patients during this public healthcrisis, samples from appropriate clinical sources arebeing tested. Negative test results derived fromspecimens received in non-commercially [facility] turedviral collection and transport media, or in media andsample collection kits not yet authorized by FDA forCOVID-19 testing should be cautiously evaluated and thepatient potentially subjected to extra precautions suchas additional clinical monitoring, including collectionof an additional specimen.Methodology: Nucleic Acid Amplification Test (NAAT)includes RT-PCR or TMAAdditional information about COVID-19 can be foundat the [facility] website:www.[facility].com/Covid19. ID Date Data Source [id number] 12/17/2020 10:00:00 PM EST [facility] Name Value Range Interpretation Code Description Data Janina rce(s) Supporting Document(s) SARS-COV-2 RNA RESP QL SEA+PROBE Not detected [facility] This lab was ordered by [facility] and reported by [employer] [facility]. ID Date Data Source [id number] 12/11/2020 02:12:00 AM EST [facility] Name Value Range Interpretation Code Description Data Janina rce(s) Supporting Document(s) COVID-19 SEA (SARS-CoV-2) NOT DETECTED NOT DETECTED [facility] A Not Detected (negative) test result fo [...] health care providers andpatients using the following websites:https://www.[employer].SleepOut/home/Covid-19/HCP/ur-scna-pbj9-fact-sh eet.htmlhttps://www.[employer].SleepOut/home/ Covid-19/Patients/lj-pajm-ymt7-fact-sheet.htmlThis test has been authorized by the FDA under anEmergency Use Authorization (EUA) for use by authorizedlaboratories.Due to the current public health emergency, [facility] is receiving a high volume of samples [...] information about COVID-19 can be foundat the [facility] website:www.[facility].SleepOut/Covid19.THIS TEST WAS PERFORMED AT:[facility] [address]BERT WEBB MD ID Date Data Source [id number] 12/11/2020 01:59:00 AM EST [facility] Name Value Range Interpretation Code Description Data Janina rce(s) Supporting Document(s) [id number] NOT DETECTED [facility] A Not Detected (negative) test result [...] health care providers andpatients using the following websites:https://www.[employer].com/home/Covid-19/HCP/dx-jlmk-oev0-fact-sh eet.htmlhttps://www.[employer].SleepOut/home/ Covid-19/Patients/na-cnse-bjc4-fact-sheet.htmlThis test has been authorized by the FDA under anEmergency Use Authorization (EUA) for use by authorizedlaboratories.Due to the current public health emergency, [facility] is receiving a high volume of samples [...] information about COVID-19 can be foundat the [facility] website:www.[facility].SleepOut/Covid19. ID Date Data Source [id number] 12/09/2020 12:40:00 AM EST [facility] Name Value Range Interpretation Code Description Data Janina rce(s) Supporting Document(s) SARS-COV-2 RNA RESP QL SEA+PROBE Not detected [facility] This lab was ordered by [facility] and reported by [employer] [facility]. ID Date Data Source [id number] 12/07/2020 12:12:00 PM EST [facility] Name Value Range Interpretation Code Description Data Janina rce(s) Supporting Document(s) COVID-19 SEA (SARS-CoV-2) NOT DETECTED NOT DETECTED [facility] A Not Detected (negative) test result fo [...] findings,re- testing should be considered [facility]. Laboratory test results shouldalways be considered in the context of clinicalobservations and epidemiological data in making a finaldiagnosis and patient management decisions.Please review the "Fact Sheets" and FDA authorizedlabeling available for health care providers andpatients using the following websites:https://www.[employer].com/home/Covid-19/HCP/QuestIVD/fact-sheet.htmlhttps://www.[employer]. SleepOut/home/Covid-19/Patients/QuestIVD/fact-sheet.htmlThis test has been authorized by the FDA under anEmergency Use Authorization (EUA) for use by authorizedlaboratories.Due to the current public health emergency, [facility] is receiving a high volume of samples [...] information about COVID-19 can be foundat the [facility] website:www.[facility].SleepOut/Covid19.THIS TEST WAS PERFORMED AT:[facility] [address]TUSRTS MERATI,MD ID Date Data Source [id number] 12/07/2020 12:02:00 PM EST [facility] Name Value Range Interpretation Code Description Data Janina rce(s) Supporting Document(s) 15042-5 NOT DETECTED [facility] A Not Detected [...] findings,re- testing should be considered in [facility]. Laboratory test results shouldalways be considered in the context of clinicalobservations and epidemiological data in making a finaldiagnosis and patient management decisions.Please review the "Fact Sheets" and FDA authorizedlabeling available for health care providers andpatients using the following websites:https://www.Lib[employer]Loop.com/home/Covid-19/HCP/QuestIVD/fact-sheet.htmlhttps://www.[employer].c /home/Covid-19/Patients/QuestIVD/fact-sheet.htmlThis test has been authorized by the FDA under anEmergency Use Authorization (EUA) for use by authorizedlaboratories.Due to the current public health emergency, [facility] is receiving a high volume of samples froma wide variety of swabs and media for COVID-19 testing.In order to serve patients during this public healthcrisis, samples from appropriate clinical sources arebeing tested. Negative test results derived fromspecimens received in non-commercially [facility] turedviral collection and transport media, or in media andsample collection kits not yet authorized by FDA forCOVID-19 testing should be cautiously evaluated and thepatient potentially subjected to extra precautions suchas additional clinical monitoring, including collectionof an additional specimen.Methodology: Nucleic Acid Amplification Test (NAAT)includes RT-PCR or TMAAdditional information about COVID-19 can be foundat the [facility] website:www.[facility].com/Covid19. ID Date Data Source [id number] 12/06/2020 05:30:00 AM EST [facility] Name Value Range Interpretation Code Description Data Janina rce(s) Supporting Document(s) SARS-COV-2 RNA RESP QL SEA+PROBE Not detected [facility] This lab was ordered by [facility] and reported by [employer] [facility]. ID Date Data Source [id number] 12/05/2020 03:26:00 PM EST [facility] Name Value Range Interpretation Code Description Data Janina rce(s) Supporting Document(s) COVID-19 SEA (SARS-CoV-2) NOT DETECTED NOT DETECTED [facility] A Not Detected (negative) test result fo [...] findings,re- testing should be considered in [facility]. Laboratory test results shouldalways be considered in the context of clinicalobservations and epidemiological data in making a finaldiagnosis and patient management decisions.Please review the "Fact Sheets" and FDA authorizedlabeling available for health care providers andpatients using the following websites:https://www.Man[employer]o.com.com/home/Covid-19/HCP/NAAT/fact-ozibq2blmfv://www.[employer].SleepOut/home /Covid-19/Patients/NAAT/fact-jdaoi6Efde test has been authorized by the FDA under anEmergency Use Authorization (EUA) for use by authorizedlaboratories.Due to the current public health emergency, [facility] is receiving a high volume of samples [...] about COVID-19 can be f oundat the [facility] website:www.Probity/Covid19.THIS TEST WAS PERFORMED AT:[facility] [address]EUGYTB MERATI,MD ID Date Data Source [id number] 12/05/2020 03:18:00 PM EST [facility] Name Value Range Interpretation Code Description Data Janina rce(s) Supporting Document(s) 05216-4 NOT DETECTED [facility] A Not Detected (negative) test result [...] findings,re- testing should be considered in [facility]. Laboratory test results shouldalways be considered in the context of clinicalobservations and epidemiological data in making a finaldiagnosis and patient management decisions.Please review the "Fact Sheets" and FDA authorizedlabeling available for health care providers andpatients using the following websites:https://www.LibriLoop.com/home/Covid-19/HCP/NAAT/fact-eebqs1asxgj://www.[employer].SleepOut/home/ Covid-19/Patients/NAAT/fact-twslz0Atmt test has been authorized by the FDA under anEmergency Use Authorization (EUA) for use by authorizedlaboratories.Due to the current public health emergency, [facility] is receiving a high volume of samples [...] information about COVID-19 can be foundat the [facility] website:www.Probity/Covid19. ID Date Data Source [id number] 12/03/2020 10:36:00 AM EST [facility] Name Value Range Interpretation Code Description Data Janina rce(s) Supporting Document(s) SARS-COV-2 RNA RESP QL SEA+PROBE Not detected [facility] This lab was ordered by [facility] and reported by [employer]. ID Date Data Source [id number] 12/01/2020 10:06:00 AM EST [facility] Name Value Range Interpretation Code Description Data Janina rce(s) Supporting Document(s) COVID-19 SEA (SARS-CoV-2) NOT DETECTED NOT DETECTED [facility] A Not Detected (negative) test result fo [...] health care providers andpatients using the following websites:https://www.[employer].com/home/Covid-19/HCP/ow-rtoo-dbs6-fact-sh eet.htmlhttps://www.[employer].SleepOut/home/ Covid-19/Patients/co-gdgs-koj8-fact-sheet.htmlThis test has been authorized by the FDA under anEmergency Use Authorization (EUA) for use by authorizedlaboratories.Due to the current public health emergency, [facility] is receiving a high volume of samples [...] information about COVID-19 can be foundat the [facility] website:www.[facility].SleepOut/Covid19.THIS TEST WAS PERFORMED AT:[facility] [address]BERT WEBB MD ID Date Data Source [id number] 12/01/2020 09:53:00 AM EST [facility] Name Value Range Interpretation Code Description Data Janina rce(s) Supporting Document(s) [id number] NOT DETECTED [facility] A Not Detected (negative) test result [...] health care providers andpatients using the following websites:https://www.[employer].SleepOut/home/Covid-19/HCP/vl-tqmp-fnj9-fact-sh eet.htmlhttps://www.[employer].SleepOut/home/ Covid-19/Patients/ql-adnu-shk0-fact-sheet.htmlThis test has been authorized by the FDA under anEmergency Use Authorization (EUA) for use by authorizedlaboratories.Due to the current public health emergency, [facility] is receiving a high volume of samples [...] information about COVID-19 can be foundat the [facility] website:www.[facility].SleepOut/Covid19. ID Date Data Source [id number] 11/29/2020 01:15:00 AM EST [facility] Name Value Range Interpretation Code Description Data Janina rce(s) Supporting Document(s) SARS-COV-2 RNA RESP QL SEA+PROBE Not detected [facility] This lab was ordered by [facility] and reported by [employer] [facility]. ID Date Data Source [id number] 11/27/2020 12:03:00 PM EST [facility] Name Value Range Interpretation Code Description Data Janina rce(s) Supporting Document(s) COVID-19 SEA (SARS-CoV-2) NOT DETECTED NOT DETECTED [facility] A Not Detected (negative) test result fo [...] health care providers andpatients using the following websites:https://www.[employer].SleepOut/home/Covid-19/HCP/oj-yllc-nsw2-fact-sh eet.htmlhttps:// www.[employer].SleepOut/home/Covid-19/Patients/ni-dfrj-lsd5-fact-sheet.htmlThis test has been authorized by the FDA under anEmergency Use Authorization (EUA) for use by authorizedlaboratories.Due to the current public health emergency, [facility] is receiving a high volume of samples [...] information about COVID-19 can be foundat the [facility] website:www.[facility].SleepOut/Covid19.THIS TEST WAS PERFORMED AT:[facility] [address]BERT WEBB MD ID Date Data Source [id number] 11/27/2020 11:53:00 AM EST [facility] Name Value Range Interpretation Code Description Data Janina rce(s) Supporting Document(s) 52222-3 NOT DETECTED [facility] A Not Detected [...] health care providers andpatients using the following websites:https://www.[employer].SleepOut/home/Covid-19/HCP/mq-qsgs-vsr1-fact-sh eet.htmlhttps://w [place]anna.[employer].SleepOut/home/Covid-19/Patients/wt-zrwz-cgg9-fact-sheet.htmlThis test has been authorized by the FDA under anEmergency Use Authorization (EUA) for use by authorizedlaboratories.Due to the current public health emergency, [facility] is receiving a high volume of samples [...] information about COVID-19 can be foundat the [facility] website:www.Probity/Covid19. ID Date Data Source [id number] 11/25/2020 05:30:00 AM EST [facility] Name Value Range Interpretation Code Description Data Janina rce(s) Supporting Document(s) SARS-COV-2 RNA RESP QL SEA+PROBE Not detected [facility] This lab was ordered by [facility] and reported by [facility]. ID Date Data Source [id number] 11/23/2020 03:26:00 AM EST [facility] Name Value Range Interpretation Code Description Data Janina rce(s) Supporting Document(s) COVID-19 SEA (SARS-CoV-2) NOT DETECTED NOT DETECTED [facility] A Not Detected (negative) test result fo [...] findings,re- testing should be considered [facility]. Laboratory test results shouldalways be considered in the context of clinicalobservations and epidemiological data in making a finaldiagnosis and patient management decisions.Please review the "Fact Sheets" and FDA authorizedlabeling available for health care providers andpatients using the following websites:https://www.[employer].com/home/Covid-19/HCP/NAAT/fact-idztf6ujxip://www.[employer].SleepOut/home /Covid-19/Patients/NAAT/fact-uduqq1Yogf test has been authorized by the FDA under anEmergency Use Authorization (EUA) for use by authorizedlaboratories.Due to the current public health emergency, [facility] is receiving a high volume of samples [...] about COVID-19 can be f oundat the [facility] website:www.[facility].SleepOut/Covid19.THIS TEST WAS PERFORMED AT:[facility] [address]NIXFIM MERATI,MD ID Date Data Source [id number] 11/21/2020 06:10:00 AM EST [facility] Name Value Range Interpretation Code Description Data Janina rce(s) Supporting Document(s) SARS-COV-2 RNA RESP QL SEA+PROBE Not detected [facility] This lab was ordered by [facility] and reported by [employer] [facility]. ID Date Data Source [id number] 11/20/2020 12:32:00 PM EST [facility] Name Value Range Interpretation Code Description Data Janina rce(s) Supporting Document(s) COVID-19 SEA (SARS-CoV-2) NOT DETECTED NOT DETECTED [facility] A Not Detected (negative) test result fo [...] findings,re- testing should be considered [facility]. Laboratory test results shouldalways be considered in the context of clinicalobservations and epidemiological data in making a finaldiagnosis and patient management decisions.Please review the "Fact Sheets" and FDA authorizedlabeling available for health care providers andpatients using the following websites:https://www.[employer].com.com/home/Covid-19/HCP/NAAT/fact-dpdgz4eoddl://www.[employer].SleepOut/home /Covid-19/Patients/NAAT/fact-qljvj9Kvab test has been authorized by the FDA under anEmergency Use Authorization (EUA) for use by authorizedlaboratories.Due to the current public health emergency, [facility] is receiving a high volume of samples [...] about COVID-19 can be f oundat the [facility] website:www.[facility].SleepOut/Covid19.THIS TEST WAS PERFORMED AT:[facility] [address]BHEZEW MERATI,MD ID Date Data Source [id number] 11/18/2020 06:10:00 AM EST [facility] Name Value Range Interpretation Code Description Data Janina rce(s) Supporting Document(s) SARS-COV-2 RNA RESP QL SEA+PROBE Not detected [facility] This lab was ordered by [facility] and reported by [employer] [facility]. ID Date Data Source [id number] 11/18/2020 08:47:00 AM EST [facility] Name Value Range Interpretation Code Description Data Janina rce(s) Supporting Document(s) COVID-19 SEA (SARS-CoV-2) NOT DETECTED NOT DETECTED [facility] A Not Detected (negative) test result fo [...] health care providers andpatients using the following websites:https://www.[employer].SleepOut/home/Covid-19/HCP/rq-vhpr-yqk5-fact-sh eet.htmlhttps:// www.[employer].SleepOut/home/Covid-19/Patients/qf-luxf-mui4-fact-sheet.htmlThis test has been authorized by the FDA under anEmergency Use Authorization (EUA) for use by authorizedlaboratories.Due to the current public health emergency, [facility] is receiving a high volume of samples [...] information about COVID-19 can be foundat the [facility] website:www.[facility].SleepOut/Covid19.THIS TEST WAS PERFORMED AT:[facility] [address]BERT WEBB MD ID Date Data Source [id number] 11/15/2020 09:45:00 PM EST [facility] Name Value Range Interpretation Code Description Data Janina rce(s) Supporting Document(s) SARS-COV-2 RNA RESP QL SEA+PROBE Not detected [facility] This lab was ordered by [facility] and reported by [employer] [facility]. ID Date Data Source [id number] 11/14/2020 03:38:00 AM EST [facility] Name Value Range Interpretation Code Description Data Janina rce(s) Supporting Document(s) COVID-19 SEA (SARS-CoV-2) NOT DETECTED NOT DETECTED [facility] A Not Detected (negative) test result fo [...] health care providers andpatients using the following websites:https://www.[employer].SleepOut/home/Covid-19/HCP/so-mcmo-loi7-fact-sh eet.htmlhttps:// www.[employer].SleepOut/home/Covid-19/Patients/id-udle-sbq4-fact-sheet.htmlThis test has been authorized by the FDA under anEmergency Use Authorization (EUA) for use by authorizedlaboratories.Due to the current public health emergency, [facility] is receiving a high volume of samples [...] information about COVID-19 can be foundat the [facility] website:www.[facility].SleepOut/Covid19.THIS TEST WAS PERFORMED AT:[facility]-[address] [address]BERT WEBB MD ID Date Data Source [id number] 11/11/2020 05:45:00 PM EST [facility] Name Value Range Interpretation Code Description Data Janina rce(s) Supporting Document(s) SARS-COV-2 RNA RESP QL SEA+PROBE Not detected [facility] This lab was ordered by [facility] and reported by [facility]. ID Date Data Source [id number] 11/12/2020 09:47:00 PM EST [facility] Name Value Range Interpretation Code Description Data Janina rce(s) Supporting Document(s) COVID-19 SEA (SARS-CoV-2) NOT DETECTED NOT DETECTED [facility] A Not Detected (negative) test result fo [...] health care providers andpatients using the following websites:https://www.[employer].com/home/Covid-19/HCP/hy-gcjm-qdd2-fact-sh eet.htmlhttps:// www.[employer].SleepOut/home/Covid-19/Patients/dv-erae-ios1-fact-sheet.htmlThis test has been authorized by the FDA under anEmergency Use Authorization (EUA) for use by authorizedlaboratories.Due to the current public health emergency, [facility] is receiving a high volume of samples [...] information about COVID-19 can be foundat the [facility] website:www.[facility].SleepOut/Covid19.THIS TEST WAS PERFORMED AT:[facility]-[address] [address]BERT WEBB MD ID Date Data Source [id number] 11/09/2020 09:30:00 PM EST [facility] Name Value Range Interpretation Code Description Data Janina rce(s) Supporting Document(s) SARS-COV-2 RNA RESP QL SEA+PROBE Not detected [facility] This lab was ordered by [facility] and reported by [facility]. ID Date Data Source [id number] 11/07/2020 05:12:00 PM EST [facility] Name Value Range Interpretation Code Description Data Janina rce(s) Supporting Document(s) COVID-19 SEA (SARS-CoV-2) NOT DETECTED NOT DETECTED [facility] A Not Detected (negative) test result fo [...] findings,re- testing should be considered [facility]. Laboratory test results shouldalways be considered in the context of clinicalobservations and epidemiological data in making a finaldiagnosis and patient management decisions.Please review the "Fact Sheets" and FDA authorizedlabeling available for health care providers andpatients using the following websites:https://www.[employer].com.com/home/Covid-19/HCP/QuestIVD/fact-sheet.htmlhttps://www.[employer]. SleepOut/home/Covid-19/Patients/QuestIVD/fact-sheet.htmlThis test has been authorized by the FDA under anEmergency Use Authorization (EUA) for use by authorizedlaboratories.Due to the current public health emergency, [facility] is receiving a high volume of samples [...] information about COVID-19 can be foundat the [facility] website:www.[facility].SleepOut/Covid19.THIS TEST WAS PERFORMED AT:[facility] [address]DCESIG MERATI,MD ID Date Data Source [id number] 11/06/2020 02:00:00 AM EST [facility] Name Value Range Interpretation Code Description Data Janina rce(s) Supporting Document(s) SARS-COV-2 RNA RESP QL SEA+PROBE Not detected [facility] This lab was ordered by [facility] and reported by [facility]. ID Date Data Source [id number] 11/03/2020 02:57:00 AM EST [facility] Name Value Range Interpretation Code Description Data Janina rce(s) Supporting Document(s) COVID-19 SEA (SARS-CoV-2) NOT DETECTED NOT DETECTED [facility] A Not Detected (negative) test result fo [...] findings,re- testing should be considered [facility]. Laboratory test results shouldalways be considered in the context of clinicalobservations and epidemiological data in making a finaldiagnosis and patient management decisions.Please review the "Fact Sheets" and FDA authorizedlabeling available for health care providers andpatients using the following websites:https://www.[employer].com.com/home/Covid-19/HCP/QuestIVD/fact-sheet.htmlhttps://www.[employer]. com/home/Covid-19/Patients/QuestIVD/fact-sheet.htmlThis test has been authorized by the FDA under anEmergency Use Authorization (EUA) for use by authorizedlaboratories.Due to the current public health emergency, [facility] is receiving a high volume of samples [...] information about COVID-19 can be foundat the [facility] website:www.[facility].SleepOut/Covid19.THIS TEST WAS PERFORMED AT:[facility] [address]WVVOKD MERATI,MD ID Date Data Source [id number] 11/01/2020 06:10:00 AM EST [facility] Name Value Range Interpretation Code Description Data Janina rce(s) Supporting Document(s) SARS-COV-2 RNA RESP QL SEA+PROBE Not detected [facility] This lab was ordered by [facility] and reported by [facility]. ID Date Data Source [id number] 10/30/2020 08:08:00 AM EST [facility] Name Value Range Interpretation Code Description Data Janina rce(s) Supporting Document(s) COVID-19 SEA (SARS-CoV-2) NOT DETECTED NOT DETECTED [facility] A Not Detected (negative) test result fo [...] findings,re- testing should be considered [facility]. Laboratory test results shouldalways be considered in the context of clinicalobservations and epidemiological data in making a finaldiagnosis and patient management decisions.Please review the "Fact Sheets" and FDA authorizedlabeling available for health care providers andpatients using the following websites:https://www.[employer].com.com/home/Covid-19/HCP/NAAT/fact-zwwys9mskhx://www.[employer].SleepOut/home /Covid-19/Patients/NAAT/fact-bfxxs4Kkdn test has been authorized by the FDA under anEmergency Use Authorization (EUA) for use by authorizedlaboratories.Due to the current public health emergency, [facility] is receiving a high volume of samples [...] about COVID-19 can be f oundat the [facility] website:www.[facility].SleepOut/Covid19.THIS TEST WAS PERFORMED AT:[facility] [address]OLDKIT MERATI,MD ID Date Data Source [id number] 10/27/2020 06:30:00 PM EST [facility] Name Value Range Interpretation Code Description Data Janina rce(s) Supporting Document(s) SARS-COV-2 RNA RESP QL SEA+PROBE Not detected [facility] This lab was ordered by [facility] and reported by [facility]. ID Date Data Source [id number] 10/25/2020 01:27:00 PM EST [facility] Does the specimen need to be recollected ?: NREASON REJECTED:: TESTED 2 X THIS WEEKTEST(S) ORDERED:: COVID [place] STAFF Name Value Range Interpretation Code Description Data Janina rce(s) Supporting Document(s) Laboratory COVID [place] STAFF [facility] Laboratory studies (set) TESTED 2 X THIS WEEK [facility] One or more of the tests that youordered cannot be performed.Please recollect, reorder and resubmit. ID Date Data Source [id number] 10/27/2020 04:42:00 AM EST [facility] Name Value Range Interpretation Code Description Data Janina rce(s) Supporting Document(s) COVID-19 SEA (SARS-CoV-2) NOT DETECTED NOT DETECTED [facility] A Not Detected (negative) test result fo [...] findings,re- testing should be considered in [facility]. Laboratory test results shouldalways be considered in the context of clinicalobservations and epidemiological data in making a finaldiagnosis and patient management decisions.Please review the "Fact Sheets" and FDA authorizedlabeling available for health care providers andpatients using the following websites:https://www.[employer].com.com/home/Covid-19/HCP/NAAT/fact-vqedz8gpvkl://www.[employer].SleepOut/home /Covid-19/Patients/NAAT/fact-eypwv4Zaig test has been authorized by the FDA under anEmergency Use Authorization (EUA) for use by authorizedlaboratories.Due to the current public health emergency, [facility] is receiving a high volume of samples [...] about COVID-19 can be f oundat the [facility] website:www.[facility].SleepOut/Covid19.THIS TEST WAS PERFORMED AT:[facility] [address]RKGYZM MERATI,MD ID Date Data Source [id number] 10/23/2020 06:15:00 AM EST [facility] Name Value Range Interpretation Code Description Data Janina rce(s) Supporting Document(s) SARS-COV-2 RNA RESP QL SEA+PROBE Not detected [facility] This lab was ordered by [facility] and reported by [facility]. ID Date Data Source [id number] 10/24/2020 05:18:00 AM EST [facility] Name Value Range Interpretation Code Description Data Janina rce(s) Supporting Document(s) COVID-19 SEA (SARS-CoV-2) NOT DETECTED NOT DETECTED [facility] A Not Detected (negative) test result fo [...] findings,re- testing should be considered [facility]. Laboratory test results shouldalways be considered in the context of clinicalobservations and epidemiological data in making a finaldiagnosis and patient management decisions.Please review the "Fact Sheets" and FDA authorizedlabeling available for health care providers andpatients using the following websites:https://www.[employer].com.com/home/Covid-19/HCP/NAAT/fact-ntjbg6ruauk://www.[employer].SleepOut/home /Covid-19/Patients/NAAT/fact-tftjw8Jidm test has been authorized by the FDA under anEmergency Use Authorization (EUA) for use by authorizedlaboratories.Due to the current public health emergency, [facility] is receiving a high volume of samples [...] about COVID-19 can be f oundat the [facility] website:www.[facility].SleepOut/Covid19.THIS TEST WAS PERFORMED AT:[facility] [address]KCLJPD MERATI,MD ID Date Data Source [id number] 10/21/2020 06:10:00 AM EST [facility] Name Value Range Interpretation Code Description Data Janina rce(s) Supporting Document(s) SARS-COV-2 RNA RESP QL SEA+PROBE Not detected [facility] This lab was ordered by [facility] and reported by [facility]. ID Date Data Source [id number] 10/19/2020 12:36:00 PM [facility] Does the specimen need to be recollected ?: NREASON REJECTED:: SECOND SWAB DONE IN A WEEKS TIMETEST(S) [facility]:: [facility] Name Value Range Interpretation Code Description Data Janina rce(s) Supporting Document(s) Laboratory COVID [place] STAFF [facility] Laboratory studies (set) SECOND SWAB DONE IN A WEEKS TIME [facility] One or more of the tests that youordered cannot be performed.Please recollect, reorder and resubmit. ID Date Data Source [id number] 10/16/2020 07:31:00 PM [facility] Name Value Range Interpretation Code Description Data Janina rce(s) Supporting Document(s) COVID-19 SEA (SARS-CoV-2) NOT DETECTED NOT DETECTED [facility] A Not Detected (negative) test result fo [...] findings,re- testing should be considered in [facility]. Laboratory test results shouldalways be considered in the context of clinicalobservations and epidemiological data in making a finaldiagnosis and patient management decisions.Please review the "Fact Sheets" and FDA authorizedlabeling available for health care providers andpatients using the following websites:https://www.[employer].com.com/home/Covid-19/HCP/QuestIVD/fact-sheet.htmlhttps://www.[employer]. SleepOut/home/Covid-19/Patients/QuestIVD/fact-sheet.htmlThis test has been authorized by the FDA under anEmergency Use Authorization (EUA) for use by authorizedlaboratories.Due to the current public health emergency, [facility] is receiving a high volume of samples [...] information about COVID-19 can be foundat the [facility] website:www.[facility].SleepOut/Covid19.THIS TEST WAS PERFORMED AT:[facility]-[address] [address]XLFNKS MERATI,MD ID Date Data Source [id number] 10/13/2020 01:45:00 PM EST [facility] Name Value Range Interpretation Code Description Data Janina rce(s) Supporting Document(s) SARS-COV-2 RNA RESP QL SEA+PROBE [facility] This lab was ordered by [facility] and reported by [facility]. ID Date Data Source [id number] 10/02/2020 06:22:00 PM EST [facility] Name Value Range Interpretation Code Description Data Janina rce(s) Supporting Document(s) COVID-19 SEA (SARS-CoV-2) NOT DETECTED NOT DETECTED [facility] A Not Detected (negative) test result fo [...] findings,re- testing should be considered in [facility]. Laboratory test results shouldalways be considered in the context of clinicalobservations and epidemiological data in making a finaldiagnosis and patient management decisions.Please review the "Fact Sheets" and FDA authorizedlabeling available for health care providers andpatients using the following websites:https://www.[employer].com.com/home/Covid-19/HCP/NAAT/fact-xripn3prypr://www.[employer].SleepOut/home /Covid-19/Patients/NAAT/fact-ptogk3Nwmh test has been authorized by the FDA under anEmergency Use Authorization (EUA) for use by authorizedlaboratories.Due to the current public health emergency, [facility] is receiving a high volume of samples [...] about COVID-19 can be f oundat the [facility] website:www.[facility].SleepOut/Covid19.THIS TEST WAS PERFORMED AT:[facility]-[id number] [address]OZPZXG MERATI,MD ID Date Data Source [id number] 09/30/2020 05:40:00 AM EST [facility] Name Value Range Interpretation Code Description Data Janina rce(s) Supporting Document(s) SARS-COV-2 RNA RESP QL SEA+PROBE [facility] This lab was ordered by [facility] and reported by [facility]. ID Date Data Source [id number] 09/25/2020 10:28:00 PM EST [facility] Name Value Range Interpretation Code Description Data Janina rce(s) Supporting Document(s) COVID-19 SEA (SARS-CoV-2) NOT DETECTED NOT DETECTED [facility] A Not Detected (negative) test result fo [...] findings,re- testing should be considered in [facility]. Laboratory test results shouldalways be considered in the context of clinicalobservations and epidemiological data in making a finaldiagnosis and patient management decisions.Please review the "Fact Sheets" and FDA authorizedlabeling available for health care providers andpatients using the following websites:https://www.[employer].com.com/home/Covid-19/HCP/NAAT/fact-cfvhf6wknlc://www.[employer].SleepOut/home /Covid-19/Patients/NAAT/fact-upmkc9Avkb test has been authorized by the FDA under anEmergency Use Authorization (EUA) for use by authorizedlaboratories.Due to the current public health emergency, [facility] is receiving a high volume of samples [...] about COVID-19 can be f oundat the [facility] website:www.[facility].com/Covid19.THIS TEST WAS PERFORMED AT:[facility] [address]EBVODA MERATI,MD ID Date Data Source [id number] 09/21/2020 06:10:00 AM EST [facility] Name Value Range Interpretation Code Description Data Janina rce(s) Supporting Document(s) SARS-COV-2 RNA RESP QL SEA+PROBE [facility] This lab was ordered by [facility] and reported by [facility]. ID Date Data Source [id number] 09/17/2020 02:22:00 PM EST [facility] Name Value Range Interpretation Code Description Data Janina rce(s) Supporting Document(s) COVID-19 SEA (SARS-CoV-2) NOT DETECTED NOT DETECTED [facility] A Not Detected (negative) test result fo [...] health care providers andpatients using the following websites:https://www.[employer].SleepOut/home/Covid-19/HCP/QuestIVD/fact-sheet. htmlhttps://www.[employer].SleepOut/home/Covid-19/Patients/QuestIVD/fact-sheet. htmlThis test has been authorized by the FDA under anEmergency Use Authorization (EUA) for use by authorizedlaboratories.Due to the current public health emergency, [facility] is receiving a high volume of samples [...] information about COVID-19 can be foundat the [facility] website:www.[facility].SleepOut/Covid19.THIS TEST WAS PERFORMED AT:[facility]-[address] [address]TWKTNK MERATI,MD ID Date Data Source [id number] 09/12/2020 07:37:00 AM EST [facility] Name Value Range Interpretation Code Description Data Janina rce(s) Supporting Document(s) COVID-19 SEA (SARS-CoV-2) NOT DETECTED NOT DETECTED [facility] A Not Detected (negative) test result fo [...] findings,re- testing should be considered [facility]. Laboratory test results shouldalways be considered in the context of clinicalobservations and epidemiological data in making a finaldiagnosis and patient management decisions.Please review the "Fact Sheets" and FDA authorizedlabeling available for health care providers andpatients using the following websites:https://www.[employer].com/home/Covid-19/HCP/NAAT/fact-muamj4ofihw://www.[employer].SleepOut/home /Covid-19/Patients/NAAT/fact-yqofj0Igup test has been authorized by the FDA under anEmergency Use Authorization (EUA) for use by authorizedlaboratories.Due to the current public health emergency, [facility] is receiving a high volume of samples [...] about COVID-19 can be f oundat the [facility] website:www.[facility].SleepOut/Covid19.THIS TEST WAS PERFORMED AT:[facility] [address]IMTZKZ MERATI,MD ID Date Data Source [id number] 09/07/2020 11:50:00 PM EST [facility] Name Value Range Interpretation Code Description Data Janina rce(s) Supporting Document(s) SARS-COV-2 RNA RESP QL SEA+PROBE [facility] This lab was ordered by [facility] and reported by [facility]. ID Date Data Source [id number] 08/30/2020 03:21:00 PM [facility] Does the specimen need to be recollected ?: NREASON REJECTED:: SWABBED TWICE IN ONE WEEKTEST(S) ORDERED:: EMPLOYEE [employer] COVID Name Value Range Interpretation Code Description Data Janina rce(s) Supporting Document(s) Laboratory EMPLOYEE [employer] COVID L [facility] Laboratory studies (set) SWABBED TWICE IN ONE WEEK [facility] One or more of the tests that youordered cannot be performed.Please recollect, reorder and resubmit. ID Date Data Source [id number] 08/31/2020 03:31:00 AM EST [facility] Name Value Range Interpretation Code Description Data Janina rce(s) Supporting Document(s) COVID-19 SEA (SARS-CoV-2) NOT DETECTED NOT DETECTED [facility] A Not Detected (negative) test result fo [...] findings,re- testing should be considered [facility]. Laboratory test results shouldalways be considered in the context of clinicalobservations and epidemiological data in making a finaldiagnosis and patient management decisions.Please review the "Fact Sheets" and FDA authorizedlabeling available for health care providers andpatients using the following websites:https://www.[employer].com.com/home/Covid-19/HCP/QuestIVD/fact-sheet.htmlhttps://www.[employer]. SleepOut/home/Covid-19/Patients/QuestIVD/fact-sheet.htmlThis test has been authorized by the FDA under anEmergency Use Authorization (EUA) for use by authorizedlaboratories.Due to the current public health emergency, [facility] is receiving a high volume of samples [...] information about COVID-19 can be foundat the [facility] website:www.[facility].SleepOut/Covid19.THIS TEST WAS PERFORMED AT:[facility] [address]HPXSLM MERATI,MD ID Date Data Source [id number] 08/27/2020 10:10:00 PM EST [facility] Name Value Range Interpretation Code Description Data Janina rce(s) Supporting Document(s) SARS-COV-2 RNA RESP QL SEA+PROBE [facility] This lab was ordered by [facility] and reported by [facility]. ID Date Data Source [id number] 08/27/2020 07:46:00 AM [facility] Patient Name: Kaylen Parker : 1995 Sex: F Pt Unit #: [id number] Location:[facility] Provider: Visit Date/Time: 08/27/20 Primary Insurance: /[facility] Secondary Insurance: Self Pay Intake Vital Signs [...] working well and she has no concerns. 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 Pt reports that symptoms are improved with inhaler use. Searched for coupons,and none found in the office. (2) Allergic rhinitis: Status: Acute Code(s): J30.9 - Allergic rhinitis, unspecified SNOMED Code(s): 59114340 Category: Medical Plan - Mery Hernadez, INSPECTOR MATERIALS AND PROCESSES: Pt reports history of this. Will fill [...] 2RF Asthma <Electronically signed by Mery Hernadez INSPECTOR MATERIALS AND PROCESSES> 08/29/202037 Name Value Range Interpretation Code Description Data Janina rce(s) Supporting Document(s) ID Date Data Source [id number] 08/23/2020 01:24:00 PM [facility] Normal result is "[employer] Covid-19 Ag n egative"[employer] Covid-19 Ag is a rapid lateral flowimmunochromatographic immunoassayThis test detects both viable(live) and non-viable, SARS-COVand SARS-COV-2.Positive test results do not differentiate between SARS-COVand PQFU-XST-4Ewjrylxj results , from patients with symptom onset beyondseven days, should be treated as presumptive andconfirmation with a molecular assay, if necessary, forpatient managementIf the differentiation of specific SARS viruses and strainsis needed, additional testing, in consultation with stateand local public health departments, is required.[employer] Covid -19 Ag Negative Name Value Range Interpretation Code Description Data Janina rce(s) Supporting Document(s) ID Date Data Source [id number] 08/23/2020 12:00:00 AM EST [facility] Name Value Range Interpretation Code Description Data Janina rce(s) Supporting Document(s) 2019-nCoV RNA XXX SEA+probe-Imp [facility] This lab was ordered by [facility] and reported by [facility]. ID Date Data Source [id number] 08/23/2020 12:00:00 AM EST [facility] Name Value Range Interpretation Code Description Data Janina rce(s) Supporting Document(s) SARS-CoV2 Rapid Antigen [facility]. ID Date Data Source [id number] 08/18/2020 08:57:00 AM EST [facility] Name Value Range Interpretation Code Description Data Janina rce(s) Supporting Document(s) COVID-19 SEA (SARS-CoV-2) NOT DETECTED NOT DETECTED [facility] A Not Detected (negative) test result fo [...] findings,re- testing should be considered [facility]. Laboratory test results shouldalways be considered in the context of clinicalobservations and epidemiological data in making a finaldiagnosis and patient management decisions.Please review the "Fact Sheets" and FDA authorizedlabeling available for health care providers andpatients using the following websites:https://www.[employer].com.com/home/Covid-19/HCP/NAAT/fact-cbjxx4juxta://www.[employer].SleepOut/home /Covid-19/Patients/NAAT/fact-gfkad0Evfp test has been authorized by the FDA under anEmergency Use Authorization (EUA) for use by authorizedlaboratories.Due to the current public health emergency, [facility] is receiving a high volume of samples [...] about COVID-19 can be f oundat the [facility] website:www.[facility].SleepOut/Covid19.THIS TEST WAS PERFORMED AT:[facility] [address]RHLWAO MERATI,MD ID Date Data Source [id number] 08/16/2020 07:48:00 AM EST [facility] Name Value Range Interpretation Code Description Data Janina rce(s) Supporting Document(s) SARS-COV-2 RNA RESP QL SEA+PROBE [facility] This lab was ordered by [facility] and reported by [facility]. ID Date Data Source [id number] 08/13/2020 07:11:00 AM EDT [facility] Name Value Range Interpretation Code Description Data Janina rce(s) Supporting Document(s) COVID-19 SEA (SARS-CoV-2) NOT DETECTED NOT DETECTED [facility] A Not Detected (negative) test result fo [...] findings,re- testing should be [facility]. Laboratory test results shouldalways be considered in the context of clinicalobservations and epidemiological data in making a finaldiagnosis and patient management decisions.Please review the "Fact Sheets" and FDA authorizedlabeling available for health care providers andpatients using the following websites:https://www.[employer].com.com/home/Covid-19/HCP/NAAT/fact-xyjfd9tflkh://www.[employer].SleepOut/home /Covid-19/Patients/NAAT/fact-uyrqt5Whdf test has been authorized by the FDA under anEmergency Use Authorization (EUA) for use by authorizedlaboratories.Due to the current public health emergency, [facility] is receiving a high volume of samples [...] about COVID-19 can be f oundat the [facility] website:www.[facility].SleepOut/Covid19.THIS TEST WAS PERFORMED AT:[facility]-[address] [id number] MERATI,MD ID Date Data Source [id number] 08/09/2020 05:50:00 AM EDT [facility] Name Value Range Interpretation Code Description Data Janina rce(s) Supporting Document(s) SARS-COV-2 RNA RESP QL SEA+PROBE [facility] This lab was ordered by [facility] and reported by [facility]. ID Date Data Source [id number] 08/08/2020 04:52:00 AM EDT [facility] Name Value Range Interpretation Code Description Data Janina rce(s) Supporting Document(s) COVID-19 SEA (SARS-CoV-2) NOT DETECTED NOT DETECTED [facility] A Not Detected (negative) test result fo [...] findings,re- testing should be [facility]. Laboratory test results shouldalways be considered in the context of clinicalobservations and epidemiological data in making a finaldiagnosis and patient management decisions.Please review the "Fact Sheets" and FDA authorizedlabeling available for health care providers andpatients using the following websites:https://www.[employer].com.com/home/Covid-19/HCP/NAAT/fact-dahpo5ztirm://www.[employer].SleepOut/home /Covid-19/Patients/NAAT/fact-rehun2Vbim test has been authorized by the FDA under anEmergency Use Authorization (EUA) for use by authorizedlaboratories.Due to the current public health emergency, [facility] is receiving a high volume of samples [...] about COVID-19 can be f oundat the [facility] website:www.[facility].SleepOut/Covid19.THIS TEST WAS PERFORMED AT:[facility]-[address] [id number] MERATI,MD ID Date Data Source [id number] 08/03/2020 09:45:00 PM EDT [facility] Name Value Range Interpretation Code Description Data Janina rce(s) Supporting Document(s) SARS-COV-2 RNA RESP QL SEA+PROBE [facility] This lab was ordered by [facility] and reported by [facility]. ID Date Data Source [id number] 08/03/2020 09:46:00 AM EDT [facility] Name Value Range Interpretation Code Description Data Janina rce(s) Supporting Document(s) COVID-19 SEA (SARS-CoV-2) NOT DETECTED NOT DETECTED [facility] A Not Detected (negative) test result fo [...] findings,re- testing should be considered [facility]. Laboratory test results shouldalways be considered in the context of clinicalobservations and epidemiological data in making a finaldiagnosis and patient management decisions.Please review the "Fact Sheets" and FDA authorizedlabeling available for health care providers andpatients using the following websites:https://www.[employer].com.com/home/Covid-19/HCP/Quest[facility]/fact-sheet.htmlhttps://www.[employer]. SleepOut/home/Covid-19/Patients/QuestIVD/fact-sheet.htmlThis test has been authorized by the FDA under anEmergency Use Authorization (EUA) for use by authorizedlaboratories.Due to the current public health emergency, [facility] is receiving a high volume of samples [...] information about COVID-19 can be foundat the [facility] website:www.[facility].SleepOut/Covid19.THIS TEST WAS PERFORMED AT:[facility] [place] [address]JOKLZH MERATI,MD ID Date Data Source [id number] 07/31/2020 05:45:00 PM EDT [facility] Name Value Range Interpretation Code Description Data Janina rce(s) Supporting Document(s) SARS-COV-2 RNA RESP QL SEA+PROBE [facility] This lab was ordered by [facility] and reported by [facility]. ID Date Data Source [id number] 07/21/2020 12:31:00 PM EDT [facility] Name Value Range Interpretation Code Description Data Janina rce(s) Supporting Document(s) COVID-19 SEA (SARS-CoV-2) NOT DETECTED NOT DETECTED [facility] A Not Detected (negative) test result fo [...] health care providers andpatients using the following websites:https://www.[employer].com/home/Covid-19/HCP/QuestLDTP/fact-sheet https://www.[employer].com/home/Covid-19/Patients/QuestLDTP/fact-sheet.htm lThis test has been authorized by the FDA under anEmergency Use Authorization (EUA) for use by authorizedlaboratories.Due to the current public health emergency, [facility] is receiving a high volume of samples [...] information about COVID-19 can be foundat the [facility] website:www.[facility].com/Covid19.THIS TEST WAS PERFORMED AT:[facility] [address],[place] [address]OYFFQSANTOSH ROSE MD ID Date Data Source [id number] 07/18/2020 05:30:00 PM EDT [facility] Name Value Range Interpretation Code Description Data Janina rce(s) Supporting Document(s) SARS-COV-2 RNA RESP QL SEA+PROBE [facility] This lab was ordered by [facility] and reported by [facility]. Procedure Social History Code Duration Value Status Description Data Source(s ) Smoking 09/05/2021 12:00:00 AM EST Never Smoker completed Never S moker eCW1 ([facility]) Smoking 09/05/2021 12:00:00 AM EST Never Smoker completed Never S moker eCW1 ([facility]) Smoking 08/22/2021 12:00:00 AM EST Never Smoker completed Never S moker eCW1 ([facility]) Smoking 08/22/2021 12:00:00 AM EST Never Smoker completed Never S moker eCW1 ([facility]) Smoking 08/09/2021 12:00:00 AM EDT Never Smoker completed Never S moker eCW1 ([facility]) Smoking 08/09/2021 12:00:00 AM EDT Never Smoker completed Never S moker eCW1 ([facility]) Smoking 08/02/2021 12:00:00 AM EDT Never Smoker completed Never S moker eCW1 ([facility]) 01/28/2021 09:22:07 PM EDT No completed No [facility] 01/28/2021 09:22:07 PM EDT No completed No [facility] 01/28/2021 09:22:07 PM EDT Never smoker completed Never s [facility] 01/28/2021 09:22:07 PM EDT No completed No [facility] 01/28/2021 09:22:07 PM EDT No completed No [facility] 01/28/2021 09:22:07 PM EDT Never smoker completed Never s [facility] 01/28/2021 09:22:07 PM EDT No completed No [facility] 01/28/2021 09:22:07 PM EDT No completed No [facility] 01/28/2021 09:22:07 PM EDT Never smoker completed Never s [facility] 01/28/2021 09:22:07 PM EDT No completed No [facility] 01/28/2021 09:22:07 PM EDT No completed No [facility] 01/28/2021 09:22:07 PM EDT Never smoker completed Never s [facility] 01/28/2021 09:22:07 PM EDT No completed [facility] 01/28/2021 09:22:07 PM EDT No completed No [facility] 01/28/2021 09:22:07 PM EDT Never smoker completed Never s [facility] 01/28/2021 09:22:07 PM EDT No completed No [facility] 01/28/2021 09:22:07 PM EDT No completed No [facility] 01/28/2021 09:22:07 PM EDT Never smoker completed Never s [facility] Smoking 01/28/2021 09:22:00 PM EDT Never smoker completed Never s [facility] Smoking 01/28/2021 09:22:00 PM EDT Never smoker completed Never s [facility] 12/27/2020 09:36:00 AM EDT No completed No [facility] 12/27/2020 09:36:00 AM EDT No completed [facility] 12/27/2020 09:36:00 AM EDT Never smoker completed Never Health system Smoking 12/27/2020 09:36:00 AM EDT Never smoker completed Never Health system 12/27/2020 09:36:00 AM EDT No completed No [facility] 12/27/2020 09:36:00 AM EDT No completed No [facility] 12/27/2020 09:36:00 AM EDT Never smoker completed Never Health system Smoking 12/27/2020 09:36:00 AM EDT Never smoker completed Never Health system 12/27/2020 09:36:00 AM EDT No completed [facility] 12/27/2020 09:36:00 AM EDT No completed [facility] 12/27/2020 09:36:00 AM EDT Never smoker completed Never Health system Smoking 12/27/2020 09:36:00 AM EDT Never smoker completed Never Health system 12/27/2020 09:36:00 AM EDT No completed [facility] 12/27/2020 09:36:00 AM EDT No completed [facility] 12/27/2020 09:36:00 AM EDT Never smoker completed Never Health system Smoking 12/27/2020 09:36:00 AM EDT Never smoker completed Never Health system 12/26/2020 12:20:00 PM EDT Never smoker completed Never Health system Smoking 12/26/2020 12:20:00 PM EDT Never smoker completed Never Health system Vital Signs ID Date Data Source UNK Name Value Range Interpretation Code Description Data Source(s) Body weight 315 [lb_av] 315 [lb_av] eCW1 ([facility]) Body height 63 [in_i] 63 [in_i] eCW1 ([facility]) Body mass index (BMI) [Ratio] 55.8 kg/m2 55.8 k g/m2 W1 ([facility]) Systolic blood pressure 118 mm[Hg] 118 mm[Hg] e CW1 ([facility]) Diastolic blood pressure 72 mm[Hg] 72 mm[Hg] eCW1 ([facility]) Body weight 335 [lb_av] 335 [lb_av] eCW1 ([facility]) Body weight 151.95 kg 151.95 kg eCW1 ([facility]) Body height 63 [in_i] 63 [in_i] eCW1 ([facility]) Body mass index (BMI) [Ratio] 59.343 kg/m2 59.3 43 kg/m2 eCW1 ([facility]) Systolic blood pressure 135 mm[Hg] 135 mm[Hg] e CW1 ([facility]) Diastolic blood pressure 86 mm[Hg] 86 mm[Hg] eCW1 ([facility]) Body weight 343 [lb_av] 343 [lb_av] eCW1 ([facility]) Body height 63 [in_i] 63 [in_i] eCW1 ([facility]) Body mass index (BMI) [Ratio] 60.76 kg/m2 60.76 kg/m2 eCW1 ([facility]) Systolic blood pressure 128 mm[Hg] 128 mm[Hg] e CW1 ([facility]) Diastolic blood pressure 82 mm[Hg] 82 mm[Hg] eCW1 ([facility]) Body weight 339 [lb_av] 339 [lb_av] eCW1 ([facility]) Body weight 153.77 kg 153.77 kg eCW1 ([facility]) Body height 63 [in_i] 63 [in_i] eCW1 ([facility]) Body mass index (BMI) [Ratio] 60.051 kg/m2 60.0 51 kg/m2 eCW1 ([facility]) Systolic blood pressure 124 mm[Hg] 124 mm[Hg] e CW1 ([facility]) Diastolic blood pressure 66 mm[Hg] 66 mm[Hg] eCW1 ([facility]) Body weight 337 [lb_av] 337 [lb_av] eCW1 ([facility]) Body height 63 [in_i] 63 [in_i] eCW1 ([facility]) Body mass index (BMI) [Ratio] 59.697 kg/m2 59.6 97 kg/m2 [facility] ([facility]) Systolic blood pressure 142 mm[Hg] 142 mm[Hg] e CW1 ([facility]) Diastolic blood pressure 72 mm[Hg] 72 mm[Hg] eCW1 ([facility])
[2021-09-11] MEDS ORDERED: ACET-907 PO (08:26)
[2021-09-11] MEDS ORDERED: HOME MED LIST COMPLETE! XX SCH (08:30)
[2021-09-11 08:44] LABS: HEMATOCRIT 34.1 % (36.0-47.0); HEMOGLOBIN 10.9 g/dl (12.0-15.5); MEAN CORPUSCULAR HEMOGLOBIN 26.8 pg (27.0-33.0); MEAN CORPUSCULAR VOLUME 83.8 fl (80.0-96.0); PLATELET COUNT, AUTOMATED 268 10^3/uL (150-450); RED BLOOD COUNT 4.07 10^6/uL (4.00-5.40); WHITE BLOOD COUNT 10.3 10^3/uL (4.0-10.0)
[2021-09-11] MEDS ORDERED: OXYTOCIN DRIP 30 UNITS in IV 1 EA IV SCH (10:50)
[2021-09-11] MEDS ORDERED: LIDOCAINE 1% MDV 20ML VIAL INFIL PRN (10:50)
[2021-09-11] MEDS ORDERED: OXYTOCIN DRIP 30 UNITS in IV 1 EA IV PRN (10:50)
[2021-09-11] MEDS ORDERED: OXYTOCIN 30 UNITS IN 0.9% NaCl 500ML IV BAG (J2590) As Ordered ONE (11:04)
[2021-09-11] MEDS: LR 1,000 ML IV SCH ×2 (11:15→18:26)
--- NOTE | 2021-09-11 12:01 | HPEPDOC ---
Obstetrical History & Physical General Date of Admission Sep 11, 2021 at 07:43 History of Present Illness 26-year-old G2, P0 presents at 37 weeks 2 days with complaints of leakage of fluid that occurred approximately 0530 this morning. course has been complicated by A1 GDM. She is also transfer care from [place] in the third trimester. Obesity with a BMI of 60. She is also COVID-19 + 08/25/2021 Chief Complaint: Rupture of membranes Information Provided By: Patient Age: 26 : 2 Livin Dating Final EDC: Sep 30, 2021 Final EDC by: LMP Past Medical History Past Obstetrical History : Past Obstetrical History: [employer] History: No pertinent history Past Medical History Medical History Asthma and obesity Surgical History: Dilatation and Curettage, Gallbladder, Tonsilectomy Social History Marital Status: Psychosocial History: No pertinent psych hx * Smoker: non-smoker Alcohol: Denies Allergies Coded Allergies: ENVIRONMENTAL (Verified Allergy, Unknown, 09/11/21) Medications Scheduled Olanzapine/Fluoxetine HCl (Symbyax 12-50 mg Capsule) 1 Each Capsule, 1 CAP PO QPM No.137/Iron/Folic Acd ( Vitamin Tablet) 1 Each Tablet, 1 TAB PO DAILY Miscellaneous Medications Acetaminophen (Tylenol) 325 Mg Tablet, 325 MG PO Physical Examination Physical Examination GENERAL: Alert and oriented times three. BREAST: . ABDOMEN: Gravid and non-tender to touch. FETUS: Is vertex (VTX) by sterile vaginal examination (SVE), fetus is vertex (VTX) by Barry. HEART RATE: Regular rate and rhythm. LUNGS: Clear to auscultation (CTA). Laboratory Data 24H LABS Laboratory Tests 2 09/11/21 07:53: Serology Scanned Report Hepatitis B Testing 09/11/21 08:14: Nucleated Red Blood Cells % (auto) 0.0 CBC/BMP Laboratory Tests 09/11/21 08:14 Pertinent Laboratoy Data Blood Type: O+ RBC Antibody Screen: Negative HIV: Negative Hepatitis B: Negative Rubella: Immune Group B Streptococcus: Negative Vaginal Examination Dilation: 3 cm Effacement: 70% Station: -2 (Grossly ruptured) Presentation: Cephalic presentation Assessment Variability: Moderate Tocometer Contractions: Yes Frequency: irregular Assessment/Plan Assessment 26-year-old 2 para 0 at 37 weeks 2 days estimated gestational age with spontaneous rupture of membranes Reassuring status Plan Admit and orient. 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 Group B Streptococcus (GBS) negative. Labs and intravenous (IV) per unit protocol. Counseled on Pitocin and induction of labor (IOL). Anticipate normal spontaneous delivery (). C-S as appropriate. Labor and Delivery Counseling Patient has been thoroughly counseled in regards to labor admission. I discussed Pitocin augmentation. Also discussed procedures and is other medications used in labor and delivery. She is verbally consented for emergency surgery blood products anesthesia and desires to proceed with admission with augmentation of her labor. MOE CHRISTIANSON MD. Sep 11, 2021 12:01
[2021-09-11] MEDS ORDERED: PROMETHAZINE INJ 25 MG/ML VIAL (J2550) IV ONE (16:35)
[2021-09-11] MEDS ORDERED: BUTORPHANOL 2 MG/ML INJ (J0595) IV ONE (16:35)
--- NOTE | 2021-09-11 19:05 | IPNPDOC ---
Obstetrical Progress Note Date of Service Sep 11, 2021 Subjective Patient requests an epidural Objective Vital Signs Date Time Temp Pulse Resp B/P (MAP) Pulse Ox O2 Delivery O2 Flow Rate FiO2 09/11/21 17:02 20 Room Air 09/11/21 15:01 84 134/59 (84) Assessment Variability: Moderate Heart Rate Tracing: Category I Sterile Vaginal Examination Dilation: 6 cm Effacement (%): 90% Station: -2 (FSE placed) Postion/Presentation: Cephalic presentation Assessment and Plan Age: 26 : 2 Status: Reassuring Anticipate: Vaginal Delivery (EFW 3400 g) MOE CHRISTIANSON MD. Sep 11, 2021 19:05
[2021-09-11] MEDS ORDERED: FENTANYL 2MCG/ML ROPIVACAINE 0.2% IN 0.9% NACL 100ML IVBAG As Ordered ONE (19:06)
[2021-09-11] MEDS ORDERED: EPIDURAL/PCA KEYS XX PRN (19:55)
[2021-09-11] MEDS ORDERED: REFRIGERATOR IV KEYS XX PRN (19:55)
[2021-09-11] MEDS ORDERED: EPIDURAL COMMENT XX SCH (19:55)
[2021-09-11] MEDS ORDERED: diphenhydrAMINE 50MG/ML VIAL (J1200) IV PRN (19:55)
[2021-09-11] MEDS ORDERED: NALOXONE INJ 0.4MG/1ML VIAL (J2310 PER 1MG) IV PRN (19:55)
[2021-09-11] MEDS ORDERED: ONDANSETRON 4MG/2ML VIAL IV PRN (19:55)
[2021-09-11] MEDS ORDERED: ePHEDrine SULFATE 25 MG/5 ML(5MG/ML) SYRINGE IV PRN (19:55)
[2021-09-11] MEDS ORDERED: LACTATED RINGER'S 1000 ML IV PRN (19:55)
[2021-09-11] MEDS ORDERED: FENTANYL/ROPIVACAINE/NACL BAG 100 ML EPIDURAL SCH (19:55)
[2021-09-12 00:07] LABS: CORD GAS ABE A -10.5; CORD GAS ABE V -7.4; CORD GAS HCO3 A 15.5 MEQ/L; CORD GAS HCO3 V 18.1 MEQ/L; CORD GAS O2 SAT A 89.8 %; CORD GAS O2 SAT V 73.6 %; CORD GAS PCO2 A 34.5 mmHg; CORD GAS PCO2 V 36.6 mmHg; CORD GAS PH A 7.269 UNITS; CORD GAS PH V 7.312 UNITS; CORD GAS PO2 A 50.1 mmHg; CORD GAS PO2 V 31.6 mmHg; CORD GAS SBC A 16.1 MEQ/L; CORD GAS SBC V 18.1 MEQ/L; CORD GAS TCO2 A 16.5 MEQ/L; CORD GAS TCO2 V 19.2 MEQ/L
[2021-09-12] MEDS ORDERED: IBUPROFEN 600MG TAB PO PRN (00:35)
[2021-09-12] MEDS ORDERED: IBUPROFEN 800 MG TAB PO PRN (00:35)
[2021-09-12] MEDS ORDERED: DIBUCAINE 1% OINTMENT 30GM TOP PRN (00:35)
[2021-09-12] MEDS ORDERED: METHYLERGONOVINE MALEATE 0.2 MG TAB PO PRN (00:35)
[2021-09-12] MEDS ORDERED: MEASLES,MUMPS,RUBELLA VACCINE INJ (MMR-II) (90707) SC SCH (00:35)
[2021-09-12] MEDS ORDERED: DOCUSATE SODIUM 100MG CAPSULE PO PRN (00:35)
[2021-09-12] MEDS ORDERED: MOM 30ML SUSPENSION UDC PO PRN (00:35)
[2021-09-12] MEDS ORDERED: ACETAMINOPHEN TAB 650MG DOSE (2X325MG) PO PRN (00:35)
[2021-09-12] MEDS ORDERED: ACETAMINOPHEN 500 MG TAB PO PRN (00:35)
[2021-09-12] MEDS ORDERED: RHOGAM 300 MCG (1500 IU) INJ (J2790) IM SCH (00:35)
[2021-09-12] MEDS ORDERED: ANUSOL HC CREAM 30GM TOP PRN (00:35)
[2021-09-12] MEDS ORDERED: OXYTOCIN DRIP 30 UNITS in IV 1 EA IV SCH (00:35)
--- NOTE | 2021-09-12 00:38 | DNPDOC ---
[facility] Delivery Note Delivery Note DATE OF DELIVERY: 09/11/2021 TIME OF : 2348 GENDER: Male. APGARS: 8 and 9 WEIGHT: 4280 g or 9 pounds 7 ounces LACERATIONS: 1MLL ANESTHESIA: Epidural ESTIMATED BLOOD LOSS: 300 ml COUNTS: 5 laparotomy sponges accounted for prior to after delivery. 4 sharps removed from delivery field. DELIVERY NOTE: On September 11, 2021 at 2348 Mrs. Parker a 26-year-old 2 now para 1 had a spontaneous vaginal delivery of a liveborn male infant Apgars 8 and 9 weight was 4280 g or 9 pounds 7 ounces. Head was delivered occiput anterior (OA), followed by delivery of the shoulders and corpus. Infant was handed to mom with a good cry. Cord was clamped times two and was cut by support person under my direction. Placenta was then drained and delivered grossly intact. A premixed bag of 500 mL of normal saline with 30 units of Pitocin was then bolused along with uterine massage until the uterus was firm. On inspection there was a 1MLL that was repaired with 3-0 Vicryl after infusion with 1% lidocaine. On reinspection, cervix, vagina, perineum was grossly intact and hemostatic. Mom and baby in recovery on stable condition. The couple decided to name the son Jose Luis Funes. MOE CHRISTIANSON MD. Sep 12, 2021 00:38
[2021-09-12 03:07] VITALS: BP 112/52
[2021-09-12 06:00] VITALS: BP 110/53
[2021-09-12] MEDS: PRENATAL VITAMINS CHEWABLE TABLET PO SCH (08:49)
--- NOTE | 2021-09-12 12:01 | IPNPDOC ---
Progress Note Date of Service: Sep 12, 2021 Day#: 1 Progress Note SUBJECT: Harleen is a 26-year-old female who is now a who presented to L&D with spontaneous ruptured of membranes at 37.2 weeks gestation. Her was complicated by A1GDM, morbid obesity and Covid 19 positive on 08/25/21. She had a first degree perineal laceration. Harleen has switched to formula feeding and is no longer . Denies any pain. Reports she is ambulating without getting dizzy, voiding without any issues and eating a re gular diet. OBJECTIVE: VITAL SIGNS: see below. Alert and oriented times three. Sitting up in bed holding baby. Respiratory: regular rate. Comfortable on room air. Abdomen: Soft, NTTP. Minimal lochia. ASSESSMENT: Day 1 . PLAN: 1. Continue supportive nursing care. 2. Anticipate discharge to home tomorrow. VS, I&O, 24H, Fishbone Vital Signs/I&O Vital Signs Date Time Temp Pulse Resp B/P (MAP) Pulse Ox O2 Delivery O2 Flow Rate FiO2 09/12/21 06:00 98.0 100 16 110/53 (72) 98 Room Air I&O- Last 24 Hours up to 6 AM 09/12/21 05:59 Intake Total 1450 ml Output Total 900 ml Balance 550 ml Laboratory Data 24H LABS Laboratory Tests 2 09/11/21 23:59: Cord Arterial Blood pH 7.269, Cord Arterial Blood PCO2 34.5, Cord Arterial Blood PO2 50.1, Cord Arterial Blood HCO3 15.5, Cord Arterial Blood Total CO2 16.5, Cord Arterial Blood Base Excess -10.5, Cord Arterial Base Excess (Standard 16.1, Cord Arterial Bld Oxygen Saturation 89.8, Cord Venous Blood pH 7.312, Cord Venous Blood PCO2 36.6, Cord Venous Blood PO2 31.6, Cord Venous Blood HCO3 18.1, Cord Venous Blood Total CO2 19.2, Cord Venous Base Excess (Actual) -7.4, Cord Venous Base Excess (Standard) 18.1, Cord Venous Blood Oxygen Saturation 73.6 KAYCEE YE CNM Sep 12, 2021 12:01
[2021-09-12 18:22] VITALS: BP 120/55
[2021-09-13 06:00] VITALS: BP 132/79
[2021-09-13] MEDS ORDERED: IBUP80TA PO (08:15)
[2021-09-13] MEDS: PRENATAL VITAMINS CHEWABLE TABLET PO SCH (08:57)
== END 2021-09-13 11:12 | disposition home or self-care (01) | DRG 560 ==
LOC: M LDO 07:14 → M LDI 07:43 → M OBS 09-12 02:23
PROVIDERS: ADMIT Obstetrics & Gynecology; ATTEND Obstetrics & Gynecology
PROC: 10E0XZZ Delivery of Products of Conception, External Approach (ICD-10-PCS; principal; 2021-09-11)
PROC: 0HQ9XZZ Repair Perineum Skin, External Approach (ICD-10-PCS; 2021-09-11)
DX: O24.429 Gestational diabetes mellitus in childbirth, unspecified control (principal); Z68.44 Body mass index [BMI] 60.0-69.9, adult; E66.9 Obesity, unspecified; Z37.0 Single live birth; Z3A.37 37 weeks gestation of pregnancy; O99.214 Obesity complicating childbirth; O70.0 First degree perineal laceration during delivery

== ENCOUNTER → 2022-03-28 | Outpatient (CLI) | payer OTHER, MEDICAID ==
[~2022-03-28] MED LIST changes: +ACET-907 PO; +IBUP80TA PO
[2022-03-28 14:02] LABS: BASO % 0.1 % (0.0-1.0); EOS # 0.3 10^3/uL (0.0-0.5); EOS % 1.9 % (0.0-3.0); HEMATOCRIT 36.3 % (36.0-47.0); HEMOGLOBIN 11.8 g/dl (12.0-15.5); LYMPH # 2.4 10^3/uL (1.5-5.0); LYMPH % 17.5 % (24.0-44.0); MEAN CORPUSCULAR HEMOGLOBIN 27.1 pg (27.0-33.0); MEAN CORPUSCULAR HGB CONC 32.5 g/dl (32.0-36.5); MEAN CORPUSCULAR VOLUME 83.3 fl (80.0-96.0); MONO # 0.8 10^3/uL (0.0-0.8); MONO % 5.5 % (2.0-8.0); NEUTROPHILS # 10.4 10^3/uL (1.5-8.5); NEUTROPHILS % 74.6 % (36.0-66.0); PLATELET COUNT, AUTOMATED 255 10^3/uL (150-450); RED BLOOD COUNT 4.36 10^6/uL (4.00-5.40); WHITE BLOOD COUNT 13.9 10^3/uL (4.0-10.0)
[2022-03-28 15:16] LABS: HEPATITIS C VIRUS ABY INDEX 0.1 INDEX (<0.8); HIV 1&2 SCREEN CENTAUR NEGATIVE (NEGATIVE)
[2022-03-28 15:38] LABS: GC DNA AMPLIFICATION NEGATIVE (NEGATIVE)
== END ==
LOC: M PLALAB 11:14
PROVIDERS: ATTEND Specialist
DX: Z34.81 Encounter for supervision of other normal pregnancy, first trimester (principal)

== ENCOUNTER → 2022-04-25 | Outpatient (CLI) | payer OTHER | LOC: M WHC 09:00 | PROVIDERS: ATTEND Specialist | DX: Z34.82 Encounter for supervision of other normal pregnancy, second trimester (principal) ==

== ENCOUNTER → 2022-05-01 | Outpatient (REF) | payer OTHER | LOC: M PLALAB 08:54 | PROVIDERS: ATTEND Advanced Practice Midwife | DX: Z34.92 Encounter for supervision of normal pregnancy, unspecified, second trimester (principal); Z53.9 Procedure and treatment not carried out, unspecified reason ==

== ENCOUNTER → 2022-06-27 | Outpatient (CLI) | payer OTHER | LOC: M WHC 12:33 | PROVIDERS: ATTEND Advanced Practice Midwife | DX: Z36.2 Encounter for other antenatal screening follow-up (principal); Z3A.28 28 weeks gestation of pregnancy ==

== ENCOUNTER → 2022-06-27 | Outpatient (CLI) | payer OTHER ==
[2022-06-27 13:42] LABS: HEMATOCRIT 35.9 % (36.0-47.0); HEMOGLOBIN 11.5 g/dl (12.0-15.5); MEAN CORPUSCULAR HEMOGLOBIN 28.1 pg (27.0-33.0); MEAN CORPUSCULAR VOLUME 87.8 fl (80.0-96.0); PLATELET COUNT, AUTOMATED 236 10^3/uL (150-450); RED BLOOD COUNT 4.09 10^6/uL (4.00-5.40); WHITE BLOOD COUNT 13.9 10^3/uL (4.0-10.0)
[2022-06-27 15:59] LABS: GC DNA AMPLIFICATION NEGATIVE (NEGATIVE)
== END ==
LOC: M PLALAB 10:20
PROVIDERS: ATTEND Advanced Practice Midwife
DX: Z34.92 Encounter for supervision of normal pregnancy, unspecified, second trimester (principal); Z3A.00 Weeks of gestation of pregnancy not specified

== ENCOUNTER → 2022-07-18 | Outpatient (CLI) | payer OTHER | LOC: M WHC 08:45 | PROVIDERS: ATTEND Advanced Practice Midwife | DX: Z34.93 Encounter for supervision of normal pregnancy, unspecified, third trimester (principal); Z3A.31 31 weeks gestation of pregnancy ==

== ENCOUNTER 2022-08-11 19:10 | Outpatient (CLI) | payer OTHER ==
[~2022-08-11] VITALS: Ht 157.5 cm; Wt 154.7 kg
[2022-08-11] MEDS ORDERED: TUMS500C PO (19:29)
[2022-08-11] MEDS ORDERED: ALBU2.5V10 INH (19:29)
[2022-08-11] MEDS ORDERED: HOME MED LIST COMPLETE! XX SCH (19:30)
[2022-08-11 19:31] VITALS: BP 125/55
[2022-08-11 20:21] VITALS: BP 130/58
== END 2022-08-11 21:35 | disposition home or self-care (01) ==
LOC: M LDO 19:10
PROVIDERS: ATTEND Obstetrics & Gynecology
DX: O26.893 Other specified pregnancy related conditions, third trimester (principal); R10.2 Pelvic and perineal pain; N89.8 Other specified noninflammatory disorders of vagina; O60.03 Preterm labor without delivery, third trimester; Z3A.35 35 weeks gestation of pregnancy

== ENCOUNTER → 2022-08-15 | Outpatient (REF) | payer OTHER ==
[~2022-08-15] MED LIST changes: +ACET-897 PO; +ALBU2.5V10 INH; +TUMS500C PO
== END ==
LOC: M SFHCWAGY 13:01
PROVIDERS: ATTEND Obstetrics & Gynecology
DX: O99.213 Obesity complicating pregnancy, third trimester (principal)

== ENCOUNTER 2022-08-16 08:30 | Outpatient (CLI) | payer OTHER ==
[~2022-08-16] VITALS: Ht 157.5 cm; Wt 154.5 kg
[~2022-08-16 08:30] MED LIST changes: -ACET-897 PO
[2022-08-16 08:53] VITALS: BP 134/58
[2022-08-16] MEDS ORDERED: ACET-897 PO (09:02)
[2022-08-16] MEDS ORDERED: HOME MED LIST COMPLETE! XX SCH (09:05)
[2022-08-16 09:34] VITALS: BP 124/56
[2022-08-16 10:13] VITALS: BP 116/53
[2022-08-16 10:18] LABS: HEMATOCRIT 32.6 % (36.0-47.0); HEMOGLOBIN 10.3 g/dl (12.0-15.5); MEAN CORPUSCULAR HEMOGLOBIN 27.4 pg (27.0-33.0); MEAN CORPUSCULAR HGB CONC 31.6 g/dl (32.0-36.5); MEAN CORPUSCULAR VOLUME 86.7 fl (80.0-96.0); PLATELET COUNT, AUTOMATED 210 10^3/uL (150-450); RED BLOOD COUNT 3.76 10^6/uL (4.00-5.40); WHITE BLOOD COUNT 12.2 10^3/uL (4.0-10.0)
[2022-08-16 11:01] LABS: ALT/SGPT 15 U/L (12-78); BILIRUBIN,TOTAL 0.5 MG/DL (0.2-1.0); CREATININE FOR GFR 0.64 MG/DL (0.55-1.30); GLOMERULAR FILTRATION RATE > 60.0 (>60); LDH LACTATE DEHYDROGENASE 169 U/L (84-246); URIC ACID 4.8 MG/DL (2.6-6.0)
[2022-08-16 11:17] LABS: TOTAL PROTEIN,RANDOM URINE 15.3 MG/DL (0.0-12.0)
== END 2022-08-16 14:10 | disposition home or self-care (01) ==
LOC: M LDO 08:30
PROVIDERS: ATTEND Advanced Practice Midwife
DX: O60.03 Preterm labor without delivery, third trimester (principal); O13.3 Gestational [pregnancy-induced] hypertension without significant proteinuria, third trimester; O24.419 Gestational diabetes mellitus in pregnancy, unspecified control; Z3A.35 35 weeks gestation of pregnancy

== ENCOUNTER 2022-08-17 16:23 | Outpatient (CLI) | payer OTHER ==
[~2022-08-17] VITALS: Ht 160 cm; Wt 154.1 kg
[~2022-08-17 16:23] MED LIST changes: +ACET-897 PO
[2022-08-17 16:37] VITALS: BP 144/63
[2022-08-17 16:44] VITALS: BP 145/69
[2022-08-17] MEDS ORDERED: HOME MED LIST COMPLETE! XX SCH (16:50)
[2022-08-17 17:21] VITALS: BP 143/63
[2022-08-17] MEDS ORDERED: BETAMETHASONE SOLUSPAN 6MG/ML 5ML VIAL (J0702 PER 3MG) IM ONE (18:45)
[2022-08-17 19:09] VITALS: BP 112/79
[2022-08-17 19:46] LABS: CREATININE,RANDOM URINE 63.8 MG/DL; TOTAL PROTEIN,RANDOM URINE < 5.0 MG/DL (0.0-12.0)
[2022-08-17 20:04] LABS: HEMATOCRIT 33.4 % (36.0-47.0); HEMOGLOBIN 10.9 g/dl (12.0-15.5); MEAN CORPUSCULAR HEMOGLOBIN 27.6 pg (27.0-33.0); MEAN CORPUSCULAR HGB CONC 32.6 g/dl (32.0-36.5); MEAN CORPUSCULAR VOLUME 84.6 fl (80.0-96.0); PLATELET COUNT, AUTOMATED 239 10^3/uL (150-450); RED BLOOD COUNT 3.95 10^6/uL (4.00-5.40); WHITE BLOOD COUNT 12.6 10^3/uL (4.0-10.0)
[2022-08-17 20:44] VITALS: BP 137/62
[2022-08-17 20:49] LABS: ALBUMIN 2.8 GM/DL (3.2-5.2); ALT/SGPT 19 U/L (12-78); BILIRUBIN,TOTAL 0.4 MG/DL (0.2-1.0); BLOOD UREA NITROGEN 7 MG/DL (7-18); CALCIUM LEVEL 9.1 MG/DL (8.5-10.1); CARBON DIOXIDE LEVEL 22 MEQ/L (21-32); CHLORIDE LEVEL 107 MEQ/L (98-107); CREATININE FOR GFR 0.47 MG/DL (0.55-1.30); GLOMERULAR FILTRATION RATE > 60.0 (>60); GLUCOSE, FASTING 81 MG/DL (70-100); LDH LACTATE DEHYDROGENASE 225 U/L (84-246); SODIUM LEVEL 138 MEQ/L (136-145); TOTAL PROTEIN 6.4 GM/DL (6.4-8.2); URIC ACID 4.8 MG/DL (2.6-6.0)
== END 2022-08-17 21:40 | disposition home or self-care (01) ==
LOC: M LDO 16:23
PROVIDERS: ATTEND Obstetrics & Gynecology
DX: O60.03 Preterm labor without delivery, third trimester (principal); O13.3 Gestational [pregnancy-induced] hypertension without significant proteinuria, third trimester
CPT/HCPCS: 36415; 59025; 76816; 76819; 76820; 80053; 82570; 83615; 84156; 84550; 85027; 96372; J0702

== ENCOUNTER 2022-08-18 18:30 | Outpatient (CLI) | payer OTHER ==
[~2022-08-18] VITALS: Ht 160 cm; Wt 155.6 kg
[2022-08-18] MEDS ORDERED: HOME MED LIST COMPLETE! XX SCH (18:55)
[2022-08-18] MEDS ORDERED: BETAMETHASONE SOLUSPAN 6MG/ML 5ML VIAL (J0702 PER 3MG) IM ONE (19:05)
[2022-08-18 19:08] VITALS: BP 129/57
[2022-08-18 19:38] VITALS: BP 115/56
== END 2022-08-18 19:40 | disposition home or self-care (01) ==
LOC: M LDO 18:30
PROVIDERS: ATTEND Obstetrics & Gynecology
DX: O13.3 Gestational [pregnancy-induced] hypertension without significant proteinuria, third trimester (principal); Z3A.35 35 weeks gestation of pregnancy; O24.410 Gestational diabetes mellitus in pregnancy, diet controlled
CPT/HCPCS: 59025; 96372; J0702

== ENCOUNTER 2022-08-20 08:06 | Outpatient (CLI) | payer OTHER ==
[~2022-08-20] VITALS: Ht 160 cm; Wt 153.3 kg
[2022-08-20 08:33] VITALS: BP 115/53
[2022-08-20] MEDS ORDERED: ACET-907 PO (08:41)
== END 2022-08-20 09:26 | disposition home or self-care (01) ==
LOC: M LDO 08:06
PROVIDERS: ATTEND Obstetrics & Gynecology
DX: O26.893 Other specified pregnancy related conditions, third trimester (principal); N89.8 Other specified noninflammatory disorders of vagina; O13.3 Gestational [pregnancy-induced] hypertension without significant proteinuria, third trimester; O24.419 Gestational diabetes mellitus in pregnancy, unspecified control; Z3A.36 36 weeks gestation of pregnancy

== ENCOUNTER 2022-08-25 13:59 | Inpatient (IN) | payer OTHER ==
[~2022-08-25] VITALS: Ht 160 cm; Wt 155.0 kg
[2022-08-25] VITALS (27 sets, daily range): BP systolic 109–146; BP diastolic 50–75
[2022-08-25] MEDS ORDERED: HOME MED LIST COMPLETE! XX SCH (14:30)
[2022-08-25] MEDS ORDERED: TRANEXAMIC ACID INJection 1,000 MG in NS 100 ML IV PRN (15:00)
[2022-08-25] MEDS ORDERED: OXYTOCIN DRIP 30 UNITS in IV 1 EA IV SCH (15:00)
[2022-08-25] MEDS ORDERED: CARBOPROST TROMETHAMINE 250 MCG/ML AMP IM PRN (15:00)
[2022-08-25] MEDS ORDERED: OXYTOCIN DRIP 30 UNITS in IV 1 EA IV PRN (15:00)
[2022-08-25 15:41] LABS: HEMATOCRIT 34.2 % (36.0-47.0); HEMOGLOBIN 10.7 g/dl (12.0-15.5); MEAN CORPUSCULAR HEMOGLOBIN 26.6 pg (27.0-33.0); MEAN CORPUSCULAR HGB CONC 31.3 g/dl (32.0-36.5); MEAN CORPUSCULAR VOLUME 84.9 fl (80.0-96.0); PLATELET COUNT, AUTOMATED 271 10^3/uL (150-450); RED BLOOD COUNT 4.03 10^6/uL (4.00-5.40); WHITE BLOOD COUNT 11.2 10^3/uL (4.0-10.0)
[2022-08-25] MEDS: LR 1,000 ML IV SCH ×3 (15:43→23:15)
[2022-08-25 16:22] LABS: ALT/SGPT 19 U/L (12-78); BILIRUBIN,TOTAL 0.2 MG/DL (0.2-1.0); CREATININE FOR GFR 0.66 MG/DL (0.55-1.30); GLOMERULAR FILTRATION RATE > 60.0 (>60); LDH LACTATE DEHYDROGENASE 167 U/L (84-246); URIC ACID 5.5 MG/DL (2.6-6.0)
[2022-08-25 17:01] LABS: TOTAL PROTEIN,RANDOM URINE 21.5 MG/DL (0.0-12.0)
[2022-08-25] MEDS ORDERED: ONDANSETRON 4MG 2ML VIAL IV PRN (22:00)
[2022-08-25] MEDS ORDERED: NALOXONE INJ 0.4MG/1ML VIAL (J2310 PER 1MG) IV PRN (22:00)
[2022-08-25] MEDS ORDERED: FENTANYL/ROPIVACAINE/NACL BAG 100 ML EPIDURAL SCH (22:00)
[2022-08-25] MEDS ORDERED: ePHEDrine SULFATE 25 MG/5 ML(5MG/ML) SYRINGE IVP PRN (22:00)
[2022-08-25] MEDS ORDERED: diphenhydrAMINE 50MG/ML VIAL IV PRN (22:00)
[2022-08-25] MEDS ORDERED: EPIDURAL/PCA KEYS XX PRN (22:00)
[2022-08-25] MEDS ORDERED: LR 500 ML IV PRN (22:00)
[2022-08-26] VITALS (17 sets, daily range): BP systolic 94–150; BP diastolic 50–83
[2022-08-26] MEDS ORDERED: LIDOCAINE 1% MDV 20ML VIAL As Ordered ONE (03:21)
[2022-08-26] MEDS ORDERED: DIBUCAINE 1% OINTMENT 30GM TOP PRN (03:45)
[2022-08-26] MEDS ORDERED: DOCUSATE SODIUM 100MG CAPSULE PO PRN (03:45)
[2022-08-26] MEDS ORDERED: RHOGAM 300 MCG (1500 IU) INJ (J2790) IM SCH (03:45)
[2022-08-26] MEDS ORDERED: OXYTOCIN DRIP 30 UNITS in IV 1 EA IV SCH (03:45)
[2022-08-26] MEDS ORDERED: IBUPROFEN 600MG TAB PO PRN (03:45)
[2022-08-26] MEDS ORDERED: ACETAMINOPHEN 500 MG TAB PO PRN (03:45)
[2022-08-26] MEDS ORDERED: LIDOCAINE 1% MDV 20ML VIAL INFIL PRN (03:50)
[2022-08-26 07:47] LABS: HEMATOCRIT 30.9 % (36.0-47.0); HEMOGLOBIN 9.7 g/dl (12.0-15.5); MEAN CORPUSCULAR HEMOGLOBIN 26.8 pg (27.0-33.0); MEAN CORPUSCULAR HGB CONC 31.4 g/dl (32.0-36.5); MEAN CORPUSCULAR VOLUME 85.4 fl (80.0-96.0); PLATELET COUNT, AUTOMATED 280 10^3/uL (150-450); RED BLOOD COUNT 3.62 10^6/uL (4.00-5.40); WHITE BLOOD COUNT 19.5 10^3/uL (4.0-10.0)
[2022-08-26] MEDS: PRENATAL VITAMINS CHEWABLE TABLET PO SCH (07:51)
[2022-08-27 05:37] VITALS: BP 106/51
[2022-08-27] MEDS: PRENATAL VITAMINS CHEWABLE TABLET PO SCH (08:02)
[2022-08-28] MEDS ORDERED: MEASLES,MUMPS,RUBELLA VACCINE INJ (MMR-II) (90707) SC.IMMUN ONE (09:00)
== END 2022-08-27 17:59 | disposition home or self-care (01) | DRG 541 ==
LOC: M LDI 13:59 → M OBS 08-26 06:35
PROVIDERS: ADMIT Advanced Practice Midwife; ATTEND Advanced Practice Midwife
PROC: 3E033VJ Introduction of Other Hormone into Peripheral Vein, Percutaneous Approach (ICD-10-PCS; 2022-08-25)
PROC: 10E0XZZ Delivery of Products of Conception, External Approach (ICD-10-PCS; principal; 2022-08-26)
PROC: 10D17Z9 Manual Extraction of Products of Conception, Retained, Via Natural or Artificial Opening (ICD-10-PCS; 2022-08-26)
PROC: 0HQ9XZZ Repair Perineum Skin, External Approach (ICD-10-PCS; 2022-08-26)
DX: O13.4 Gestational [pregnancy-induced] hypertension without significant proteinuria, complicating childbirth (principal); O24.419 Gestational diabetes mellitus in pregnancy, unspecified control; Z37.0 Single live birth; Z3A.37 37 weeks gestation of pregnancy; O70.0 First degree perineal laceration during delivery; O73.0 Retained placenta without hemorrhage